=== PATIENT | female | born 1945 | race Caucasian/White ===

== ENCOUNTER → 2018-04-02 | Outpatient (CLI) | payer MEDICARE, OTHER ==
[~2018-04-02] MED LIST: ALAVERT; AVAPRO; CENTRUM; LORAZEPAM; PRILOSEC; SYNTHROID
--- NOTE | 2018-04-02 16:58 | Diagnostic Imaging Report ---
PROCEDURE: Frontal and lateral views of the chest. COMPARISON: Patients [facility], , CHEST 2 VIEWS, 06/13/2015, 11:46. INDICATIONS: COUGH FINDINGS: Lines/tubes: None. Lungs: The lungs are well inflated and grossly clear. There is no evidence of pneumonia or pulmonary edema. Pleura: There is no pleural effusion or pneumothorax. Heart and mediastinum: Cardiac silhouette is unremarkable. Pulmonary vasculature is normal. Mild tortuous aorta. Bones: No acute bony abnormality. IMPRESSION: 1. No acute cardiopulmonary abnormalities. Pepe Zheng M.D. Dictated by: Pepe Zheng M.D. on 04/02/2018 at 17:01 Electronically approved by: Pepe Zheng M.D. on 04/02/2018 at 17:01
== END ==
LOC: RAD 15:48
PROVIDERS: ATTEND Family Medicine
DX: R05 Cough (principal)
CPT/HCPCS: 71046

== ENCOUNTER 2018-05-23 04:22 | Emergency (ER) | payer MEDICARE, OTHER ==
[~2018-05-23] VITALS: Ht 162.6 cm; Wt 81.6 kg
[2018-05-23] MEDS ORDERED: METHYLPREDNISOLONE SOD SUCC 125 MG/2ML VIAL ONE (04:24)
[2018-05-23] MEDS ORDERED: DIPHENHYDRAMINE HCL INJ 50 MG/ML VIAL ONE (04:25)
[2018-05-23] MEDS ORDERED: FAMOTIDINE 20 MG/2 ML VIAL IV ONE (04:25)
[2018-05-23] MEDS ORDERED: DIPHENHYDRAMINE HCL INJ 50 MG/ML VIAL IV ONE ×2 (04:30→06:30)
[2018-05-23] MEDS ORDERED: METHYLPREDNISOLONE SOD SUCC 125 MG/2ML VIAL IV ONE (04:30)
[2018-05-23 04:34] LABS: BASOPHILS % 0.3 % (0.0-1.0); EOSINOPHILS # (AUTO) 0.6 (0.0-0.4); EOSINOPHILS % 5.5 % (0.0-6.0); HEMATOCRIT 37.9 % (34.2-44.1); HEMOGLOBIN 12.2 g/dL (12.0-16.0); LYMPHOCYTES % 25.6 % (18.0-39.1); MEAN CORPUSCULAR HEMOGLOBIN 27.5 pg (28-32); MEAN CORPUSCULAR HGB CONC 32.2 g/dL (31-35); MEAN CORPUSCULAR VOLUME 85.6 fL (81-99); MONOCYTES # (AUTO) 1.1 (0.2-0.8); MONOCYTES % 9.6 % (4.4-11.3); NEUTROPHILS # (AUTO) 6.7 (2.1-6.9); PLATELET COUNT 364 x10e3/uL (140-360); RED BLOOD COUNT 4.43 x10e6/uL (3.6-5.1); RED CELL DISTRIBUTION WIDTH 14.1 % (11.7-14.4)
[2018-05-23 04:42] LABS: INR 0.92; PROTHROMBIN TIME 11.6 seconds (11.9-14.5)
[2018-05-23 04:43] LABS: PARTIAL THROMBOPLASTIN TIME 25.7 seconds (23.8-35.5)
[2018-05-23 04:52] LABS: ALBUMIN 3.3 g/dL (3.5-5.0); ALBUMIN/GLOBULIN RATIO 1.1 (0.8-2.0); ANION GAP 14.1 mmol/L (8-16); CALCIUM 9.1 mg/dL (8.4-10.2); CREATININE, SERUM 0.93 mg/dL (0.57-1.11); POTASSIUM 4.1 mmol/L (3.5-5.1)
[2018-05-23] MEDS ORDERED: LORAZEPAM2 MG PO (05:10)
[2018-05-23] MEDS ORDERED: SYNTHROID125 MCG PO (05:10)
[2018-05-23] MEDS ORDERED: EXFORGE 10-3201 EACH PO (05:10)
[2018-05-23] MEDS ORDERED: SODIUM CHLORIDE 0.9% 250ML 250 ML ONE (05:56)
[2018-05-23] MEDS ORDERED: EPINEPHRINE 0.3 MG/0.3 ML PEN.INJCTR IM STA (07:38)
[2018-05-23] MEDS ORDERED: EPINEPHRINE HCL SYRINGE ONE (07:56)
[2018-05-23] MEDS ORDERED: FAMOTIDINE 20 MG/2 ML VIAL IV SCH (09:00)
== END 2018-05-23 11:46 | disposition home or self-care (01) ==
LOC: ER 04:22
DX: T78.3XXA Angioneurotic edema, initial encounter (principal); I10 Essential (primary) hypertension; E03.9 Hypothyroidism, unspecified; K21.9 Gastro-esophageal reflux disease without esophagitis; M79.7 Fibromyalgia
CPT/HCPCS: 36415; 80053; 85025; 85610; 85730; 86850; 86900; 96374; 96375; 99284; J0171; J1200; J2930; J7050; P9017; 36430

== ENCOUNTER 2018-06-26 10:42 | Emergency (ER) | payer MEDICARE, OTHER ==
[~2018-06-26] VITALS: Ht 162.6 cm; Wt 79.4 kg
[~2018-06-26 10:42] MED LIST changes: +EXFORGE 10-3201 EACH PO; +LORAZEPAM2 MG PO; +SYNTHROID125 MCG PO
[2018-06-26] MEDS ORDERED: SODIUM CHLORIDE 0.9% 1000ML 1,000 ML IV STA (11:13)
[2018-06-26 11:31] LABS: BASOPHILS # (AUTO) 0.1 (0.0-0.1); BASOPHILS % 1.3 % (0.0-1.0); EOSINOPHILS # (AUTO) 0.5 (0.0-0.4); HEMATOCRIT 41.2 % (34.2-44.1); HEMOGLOBIN 13.4 g/dL (12.0-16.0); LYMPHOCYTES # (AUTO) 1.6 (1.0-3.2); LYMPHOCYTES % 20.8 % (18.0-39.1); MEAN CORPUSCULAR HGB CONC 32.5 g/dL (31-35); MEAN CORPUSCULAR VOLUME 86.2 fL (81-99); MONOCYTES # (AUTO) 0.7 (0.2-0.8); MONOCYTES % 9.9 % (4.4-11.3); NEUTROPHILS # (AUTO) 4.6 (2.1-6.9); NEUTROPHILS % 61.6 % (38.7-80.0); PLATELET COUNT 366 x10e3/uL (140-360); RED BLOOD COUNT 4.78 x10e6/uL (3.6-5.1); RED CELL DISTRIBUTION WIDTH 13.4 % (11.7-14.4)
[2018-06-26 11:43] LABS: ALBUMIN/GLOBULIN RATIO 1.1 (0.8-2.0); ANION GAP 17.5 mmol/L (8-16); CALCIUM 10.3 mg/dL (8.4-10.2); CREATININE, SERUM 0.93 mg/dL (0.57-1.11); POTASSIUM 3.5 mmol/L (3.5-5.1)
[2018-06-26 11:55] LABS: CLARITY,URINE SL CLOUDY (CLEAR); COLOR,URINE YELLOW (YELLOW); LEUKOCYTE ESTERASE ,URINE 1+ (NEGATIVE); PROTEIN,URINE DIPSTICK TRACE (NEGATIVE)
[2018-06-26 11:56] LABS: BILIRUBIN,URINE NEGATIVE (NEGATIVE); KETONES,URINE NEGATIVE (NEGATIVE); NITRITE,URINE NEGATIVE (NEGATIVE); URINE UROBILINOGEN 0.2 mg/dL (0.2 - 1)
[2018-06-26 12:13] LABS: BACTERIA,URINE FEW /HPF; EPITHELIAL CELLS,URINE FEW /LPF; RBC,URINE 0-5 /HPF (0-5)
--- NOTE | 2018-06-26 13:16 | Diagnostic Imaging Report ---
EXAM: CT Abdomen and Pelvis WITH contrast INDICATION: \S\RIGHT AND LEFT LOWER QUADRANT PAIN \S\[id number] \S\1230 \S\Y COMPARISON: CT 09/08/2017 TECHNIQUE: Abdomen and pelvis were scanned utilizing a multidetector helical scanner from the lung base to the pubic symphysis after administration of IV contrast. Coronal and sagittal reformations were obtained. Routine protocol was performed. Scan was performed when during portal venous phase. IV CONTRAST: 100 mL of Isovue-370 ORAL CONTRAST: Water COMPLICATIONS: None RADIATION DOSE: Total DLP: 509.6 mGy*cm Estimated effective dose: (DLP x 0.015 x size factor) mSv CTDIvol has been reviewed. It is below the limits set by the Radiation Protocol Committee (RPC). FINDINGS: LINES and TUBES: None. LOWER THORAX: Unremarkable HEPATOBILIARY: Hepatic steatosis. No focal hepatic lesions. No biliary ductal dilation. GALLBLADDER: No radio-opaque stones or sludge. No wall thickening. SPLEEN: No splenomegaly. PANCREAS: No focal masses or ductal dilatation. ADRENALS: No adrenal nodules KIDNEYS/URETERS: Kidneys enhance symmetrically. No hydronephrosis. No cystic or solid mass lesions. No stones. GI TRACT: No abnormal distention, wall thickening, or evidence of bowel obstruction. There are diverticula within the colon without evidence of diverticulitis. Appendix is normal. PELVIC ORGANS/BLADDER: Hysterectomy. No focal bladder wall thickening. LYMPH NODES: No lymphadenopathy. VESSELS: There is mild atherosclerotic disease in the aorta and major arterial branches. PERITONEUM / RETROPERITONEUM: No free air or fluid. BONES: There are degenerative changes in the lumbar spine. Grade 1 anterolisthesis of L4 on L5 without spondylolysis. SOFT TISSUES: Unremarkable. IMPRESSION: 1. No acute abnormalities in the abdomen and pelvis. 2. Colonic diverticulosis. Signed by: DR. Shan Rowley MD on 06/26/2018 1:12 PM
[2018-06-26] MEDS ORDERED: SODIUM CHLORIDE 0.9% 50ML 50 ML ONE (14:55)
[2018-06-26] MEDS ORDERED: IOPAMIDOL 370 MG/ML 200 ML INFUS..BTL INJ ONE (14:55)
[2018-06-26 15:23] VITALS: BP 137/72
== END 2018-06-26 15:44 | disposition home or self-care (01) ==
LOC: ER 10:42
DX: R10.31 Right lower quadrant pain (principal); R10.32 Left lower quadrant pain; R11.0 Nausea; K57.32 Diverticulitis of large intestine without perforation or abscess without bleeding; I10 Essential (primary) hypertension; E03.9 Hypothyroidism, unspecified
CPT/HCPCS: 36415; 74177; 80053; 81001; 83605; 85025; 87086; 99283; J7030; Q9967

== ENCOUNTER 2018-07-13 19:50 | Emergency (ER) | payer MEDICARE, OTHER ==
[~2018-07-13] VITALS: Ht 162.6 cm; Wt 79.4 kg
[2018-07-13] MEDS ORDERED: EPINEPHRINE HCL INJ 1 MG/ML AMP IM ONE (20:15)
[2018-07-13] MEDS ORDERED: METHYLPREDNISOLONE SOD SUCC 125 MG/2ML VIAL IV ONE (20:15)
[2018-07-13] MEDS ORDERED: DIPHENHYDRAMINE HCL INJ 50 MG/ML VIAL IV ONE (20:15)
[2018-07-13] MEDS ORDERED: SODIUM CHLORIDE 0.9% 1000ML 1,000 ML ONE (20:15)
[2018-07-13] MEDS ORDERED: FAMOTIDINE 20 MG/2 ML VIAL IV ONE (20:15)
[2018-07-13] MEDS ORDERED: ONDANSETRON HCL 4 MG ORAL DISINTEGRATING TAB PO ONE (21:45)
== END 2018-07-13 22:12 | disposition home or self-care (01) ==
LOC: FSED 19:50
DX: T78.3XXA Angioneurotic edema, initial encounter (principal); I10 Essential (primary) hypertension
CPT/HCPCS: 99283; J0171; J1200; J2930; J7030

== ENCOUNTER 2018-07-18 13:55 | Emergency (ER) | payer MEDICARE, OTHER ==
[~2018-07-18] VITALS: Ht 162.6 cm; Wt 79.4 kg
[2018-07-18] MEDS ORDERED: DIPHENHYDRAMINE HCL 25 MG CAP PO ONE (14:15)
[2018-07-18] MEDS ORDERED: EPINEPHRINE HCL INJ 1 MG/ML AMP INJ ONE (14:15)
[2018-07-18] MEDS ORDERED: METHYLPREDNISOLONE SOD SUCC 125 MG/2ML VIAL IM ONE (14:15)
[2018-07-18] MEDS ORDERED: XYZAL5 MG PO (16:10)
[2018-07-18] MEDS ORDERED: NASONEX17 GM (16:10)
[2018-07-18] MEDS ORDERED: EPINEPHRINE 11 MG/ML IM (16:10)
[2018-07-18 16:30] VITALS: BP 142/79
== END 2018-07-18 16:55 | disposition home or self-care (01) ==
LOC: FSED 13:55
DX: T78.3XXA Angioneurotic edema, initial encounter (principal); I10 Essential (primary) hypertension
CPT/HCPCS: 99283; J0171; J2930

== ENCOUNTER 2018-07-25 12:44 | Emergency (ER) | payer MEDICARE, OTHER ==
[~2018-07-25] VITALS: Ht 162.6 cm; Wt 75.7 kg
[~2018-07-25 12:44] MED LIST changes: +EPINEPHRINE 11 MG/ML IM; +NASONEX17 GM; +XYZAL5 MG PO
[2018-07-25] MEDS ORDERED: AMLODIPINE BESY10 MG PO (13:18)
[2018-07-25 13:54] VITALS: BP 139/76
== END 2018-07-25 13:56 | disposition home or self-care (01) ==
LOC: FSED 12:44
DX: T78.3XXA Angioneurotic edema, initial encounter (principal); I10 Essential (primary) hypertension
CPT/HCPCS: 99282

== ENCOUNTER 2018-07-25 15:09 | Emergency (ER) | payer MEDICARE, OTHER ==
[~2018-07-25] VITALS: Ht 157.5 cm; Wt 74.8 kg
[~2018-07-25 15:09] MED LIST changes: +AMLODIPINE BESY10 MG PO
[2018-07-25] MEDS ORDERED: EPINEPHRINE 0.3 MG/0.3 ML PEN.INJCTR SC STA (15:26)
[2018-07-25] MEDS ORDERED: FAMOTIDINE 20 MG/2 ML VIAL IV STA (15:26)
[2018-07-25] MEDS ORDERED: DIPHENHYDRAMINE HCL INJ 50 MG/ML VIAL IV PRN (15:30)
[2018-07-25] MEDS ORDERED: DEXAMETHASONE 10MG/ML PF INJ IV ONE (15:30)
[2018-07-25 16:40] VITALS: BP 132/88
== END 2018-07-25 16:47 | disposition home or self-care (01) ==
LOC: FSED 15:09
DX: L50.0 Allergic urticaria (principal)
CPT/HCPCS: 96374; 96375; 96376; 99283

== ENCOUNTER 2018-10-29 07:39 | Emergency (ER) | payer MEDICARE, OTHER ==
[~2018-10-29] VITALS: Ht 162.6 cm; Wt 74.8 kg
[2018-10-29] MEDS ORDERED: EPINEPHRINE HCL INJ 1 MG/ML AMP INJ ONE (08:15)
[2018-10-29] MEDS ORDERED: SODIUM CHLORIDE FLUSH 10 ML SYR INJ PRN (08:15)
[2018-10-29] MEDS ORDERED: METHYLPREDNISOLONE SOD SUCC 125 MG/2ML VIAL IV ONE (08:15)
[2018-10-29] MEDS ORDERED: SODIUM CHLORIDE 0.9% 1000ML 1,000 ML IV ONE (08:15)
--- NOTE | 2018-10-29 09:22 | NUR ---
PT RESTING, VITAL SIGNS STABLE. PT STATED TONGUE STILL SWOLLEN BUT NOT MUCH IT WAS.
[2018-10-29 09:33] VITALS: BP 139/87
== END 2018-10-29 09:40 | disposition home or self-care (01) ==
LOC: FSED 07:39
DX: T78.3XXA Angioneurotic edema, initial encounter (principal); I10 Essential (primary) hypertension
CPT/HCPCS: 99283; J0171; J2930; J7030

== ENCOUNTER 2018-11-20 07:15 | Emergency (ER) | payer MEDICARE, OTHER ==
[~2018-11-20] VITALS: Ht 162.6 cm; Wt 74.8 kg
[2018-11-20] MEDS ORDERED: FAMOTIDINE 20 MG/2 ML VIAL IV STA (07:39)
[2018-11-20] MEDS ORDERED: DIPHENHYDRAMINE HCL INJ 50 MG/ML VIAL IV ONE (07:45)
[2018-11-20] MEDS ORDERED: METHYLPREDNISOLONE SOD SUCC 125 MG/2ML VIAL IV ONE (07:45)
[2018-11-20] MEDS ORDERED: SODIUM CHLORIDE 0.9% 500ML 500 ML IV ONE ×2 (07:45→08:45)
[2018-11-20] MEDS ORDERED: EPINEPHRINE HCL 1:1000 1ML 1 MG/ML AMP IM ONE (07:45)
--- NOTE | 2018-11-20 08:25 | NUR ---
CHECKED ON PT. LIGHT OFF FOR PT COMFORT. STATES HEADACHE, NOTIFIED.
--- NOTE | 2018-11-20 08:35 | NUR ---
PT YELLING AT STAFF, STATES SHE'S UPSET THIS KEEPS HAPPENING. PT STATES SHE RECEIVED NO MEDICINES. WITH MD,PT, RN AND IN ROOM RE-VERIFIED SHOT TO RT DELT AND IV BAG EMPTY WITH LABEL OF PT NAME, TIME AND MEDS. PT NOW STATES SHE REMEMBERS, BUT STATES SHE FEELS NO BETTER IS ANGRY SHE STILL FEELS BADLY. MD AT BEDSIDE WITH PT....
[2018-11-20] MEDS ORDERED: DEXAMETHASONE SOD PHOS 10 MG/1 ML VIAL IV ONE (08:45)
--- NOTE | 2018-11-20 10:00 | NUR ---
swelling significantly decreased to lips. swelling still present. able to speak more definely. pt states she has results from her dr she would like to discuss with dr aguayo. dr aguayo notified.
== END 2018-11-20 10:23 | disposition home or self-care (01) ==
LOC: FSED 07:15
DX: T78.3XXA Angioneurotic edema, initial encounter (principal); I10 Essential (primary) hypertension; E03.9 Hypothyroidism, unspecified; M79.7 Fibromyalgia; K21.9 Gastro-esophageal reflux disease without esophagitis
CPT/HCPCS: 99284; J0171; J1100; J1200; J2930; J7040

== ENCOUNTER 2018-12-03 07:01 | Emergency (ER) | payer MEDICARE, OTHER ==
[~2018-12-03] VITALS: Ht 162.6 cm; Wt 74.8 kg
[2018-12-03] MEDS ORDERED: CETIRIZINE HCL10 MG PO (07:19)
[2018-12-03] MEDS ORDERED: RANITIDINE HCL150 MG (07:19)
[2018-12-03] MEDS ORDERED: ALBUTEROL0.63 MG/3 NEB (07:19)
[2018-12-03] MEDS ORDERED: OMEPRAZOLE40 MG PO (07:19)
[2018-12-03] MEDS ORDERED: ALLEGRA-D 12 H1 EACH PO (07:19)
[2018-12-03] MEDS ORDERED: KETOTIFEN FUMARA (07:19)
[2018-12-03] MEDS ORDERED: BENADRYL25 M1 PO (07:19)
[2018-12-03] MEDS ORDERED: EPINEPHRINE 0.3 MG/0.3 ML PEN.INJCTR IM STA ×2 (07:26→08:24)
[2018-12-03] MEDS ORDERED: FAMOTIDINE 20 MG/2 ML VIAL IV STA (07:26)
[2018-12-03] MEDS ORDERED: DIPHENHYDRAMINE HCL INJ 50 MG/ML VIAL IV ONE (07:30)
[2018-12-03] MEDS ORDERED: SODIUM CHLORIDE FLUSH 10 ML SYR INJ PRN (07:30)
[2018-12-03] MEDS ORDERED: METHYLPREDNISOLONE SOD SUCC 125 MG/2ML VIAL IV ONE (07:30)
[2018-12-03 09:42] VITALS: BP 140/71
== END 2018-12-03 09:51 | disposition home or self-care (01) ==
LOC: FSED 07:01
DX: T78.3XXA Angioneurotic edema, initial encounter (principal)
CPT/HCPCS: 80053; 85025; 99284; J1200; J2930

== ENCOUNTER 2018-12-25 07:52 | Emergency (ER) | payer MEDICARE, OTHER ==
[~2018-12-25] VITALS: Ht 162.6 cm; Wt 74.8 kg
[~2018-12-25 07:52] MED LIST changes: +ALBUTEROL0.63 MG/3 NEB; +ALLEGRA-D 12 H1 EACH PO; +BENADRYL25 M1 PO; +CETIRIZINE HCL10 MG PO; +KETOTIFEN FUMARA; +OMEPRAZOLE40 MG PO; +RANITIDINE HCL150 MG
[2018-12-25] MEDS ORDERED: FAMOTIDINE 20 MG TAB PO ONE (08:15)
[2018-12-25] MEDS ORDERED: DEXAMETHASONE 10MG/ML PF INJ IV ONE (08:15)
[2018-12-25] MEDS ORDERED: EPINEPHRINE HCL 1:1000 1ML 1 MG/ML AMP INJ ONE (08:15)
[2018-12-25] MEDS ORDERED: DEXAMETHASONE 10MG/ML PF INJ INJ ONE (08:30)
== END 2018-12-25 08:55 | disposition home or self-care (01) ==
LOC: FSED 07:52
DX: T78.3XXA Angioneurotic edema, initial encounter (principal); I10 Essential (primary) hypertension
CPT/HCPCS: 99284; J0171

== ENCOUNTER 2019-02-01 11:12 | Emergency (ER) | payer MEDICARE, OTHER ==
[~2019-02-01] VITALS: Ht 162.6 cm; Wt 78.6 kg
[2019-02-01] MEDS ORDERED: SINGULAIR10 MG (11:46)
[2019-02-01] MEDS ORDERED: EPINEPHRINE HCL 1:1000 1ML 1 MG/ML AMP INJ ONE (12:00)
[2019-02-01] MEDS ORDERED: METHYLPREDNISOLONE SOD SUCC 125 MG/2ML VIAL IM ONE (12:00)
[2019-02-01 13:01] VITALS: BP 139/88
== END 2019-02-01 13:05 | disposition home or self-care (01) ==
LOC: FSED 11:12
DX: R21 Rash and other nonspecific skin eruption (principal); I10 Essential (primary) hypertension; K21.9 Gastro-esophageal reflux disease without esophagitis; F41.9 Anxiety disorder, unspecified
CPT/HCPCS: 99283; J0171; J2930

== ENCOUNTER 2019-06-22 09:16 | Emergency (ER) | payer MEDICARE, OTHER ==
[~2019-06-22] VITALS: Ht 162.6 cm; Wt 78.9 kg
[~2019-06-22 09:16] MED LIST changes: +SINGULAIR10 MG
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
--- OUTSIDE RECORDS SUMMARY | 2019-06-22 09:21 | XMS REPORT | Summary of Care ---
Author Author [facility] - Health Organization [facility] - Health Address Unknown Phone Unavailable Care Team Providers Care Coal Carrier Name Role Phone Brent Pierce PCP Reason for Visit * Reason Comments Refill Request Encounter Details Care Team Description Date Type Department Marylou Loyd MD [address] [place] [address] [address] [place], [place] [phone] Refill Request 06/22/2019 Refill [facility] Allergy & Immunology- [facility]ty Ctr [address] [place] [phone] Allergies Comments Active Allergy Reactions Severity Noted Date Ampicillin Diarrhea Medium 11/21/2015 Joint swelling Ciprofloxacin Hcl Swelling 04/01/2017 documented as of this encounter (statuses as of 06/22/2019) Medications End Date Status Medication Sig Dispensed [...] Take 20 mg by 0 mouth. Active predniSONE 20 mg Take 2 2 [...] then 250 mg days 2 to 5. Active RANITIDINE 150 mg tablet TAKE 1 TABLET 30 tablet 3 BY MOUTH 9 EVERYDAY AT BEDTIME 06/22/2019 Discontinued ranitidine (ZANTAC) 150 Take 1 tablet 60 tablet 3 mg tablet by mouth at 9 bedtime. 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 & B Present [id number] FRANCISCO SATSUMAJENNY [address] Medicare Supplement [place] [id number] 2019-Cam saleem documented as of this encounter
[2019-06-22] MEDS ORDERED: AMLODIPINE BESYL5 MG PO (09:57)
[2019-06-22] MEDS ORDERED: CETIRIZINE HCL5 MG (10:01)
[2019-06-22] MEDS ORDERED: ALLEGRA ALLERG180 MG (10:01)
[2019-06-22] MEDS ORDERED: VITAMIN C500 M2 (10:18)
[2019-06-22] MEDS ORDERED: ENSURE PLUS237 ML (10:18)
[2019-06-22] MEDS ORDERED: EPINEPHRINE 0.3 MG/0.3 ML PEN.INJCTR IM STA (10:18)
[2019-06-22] MEDS ORDERED: METHYLPREDNISOLO4 M1 (10:18)
[2019-06-22] MEDS ORDERED: PREDNISONE20 MG PO ×2 (10:18→12:27)
[2019-06-22] MEDS ORDERED: CENTRUM SILVER1 EAC3 (10:18)
[2019-06-22] MEDS ORDERED: METHYLPREDNISOLONE SOD SUCC 125 MG/2ML VIAL IV ONE (10:30)
[2019-06-22] MEDS ORDERED: DIPHENHYDRAMINE HCL INJ 50 MG/ML VIAL IV ONE (10:30)
[2019-06-22] MEDS ORDERED: EPINEPHRINE HCL 1:1000 1ML 1 MG/ML AMP ONE (10:31)
[2019-06-22] MEDS ORDERED: DIPHENHYDRAMINE HCL INJ 50 MG/ML VIAL ONE (10:31)
[2019-06-22] MEDS ORDERED: METHYLPREDNISOLONE SOD SUCC 125 MG/2ML VIAL ONE (10:31)
[2019-06-22] MEDS ORDERED: PEPCID20 MG PO (12:27)
[2019-06-22] MEDS ORDERED: CEFDINIR300 MG PO (12:27)
[2019-06-22 13:14] VITALS: BP 145/97
== END 2019-06-22 12:54 | disposition home or self-care (01) ==
LOC: FSED 09:16
DX: T78.3XXA Angioneurotic edema, initial encounter (principal); J01.00 Acute maxillary sinusitis, unspecified
CPT/HCPCS: 96372; 96374; 96375; 99284; J0171; J1200; J2930

== ENCOUNTER 2019-06-29 20:34 | Emergency (ER) | payer MEDICARE, OTHER ==
[~2019-06-29] VITALS: Ht 162.6 cm; Wt 78.9 kg
[~2019-06-29 20:34] MED LIST changes: +ALLEGRA ALLERG180 MG; +AMLODIPINE BESYL5 MG PO; +CEFDINIR300 MG PO; +CENTRUM SILVER1 EAC3; +CETIRIZINE HCL5 MG; +ENSURE PLUS237 ML; +METHYLPREDNISOLO4 M1; +PEPCID20 MG PO; +PREDNISONE20 MG PO; +VITAMIN C500 M2
--- OUTSIDE RECORDS SUMMARY | 2019-06-29 20:37 | XMS REPORT | Summary of Care ---
Author Author [facility] - Health Organization [facility] - Health Address Unknown Phone Unavailable Care Team Providers Care Gauge And Weigh Machine Operator Name Role Phone Brent Pierce PCP Encounter Details Care Team Description Date Type Department Marylou Loyd MD [address] [place], [place] [address] 06/22/2019 Patient Secure [facility] Allergy & Msg Immunology-[facility] Mult[facility]ty Ctr [address] [place] [phone] Allergies Comments Active Allergy Reactions Severity Noted Date Ampicillin Diarrhea Medium 11/21/2015 Joint swelling Ciprofloxacin Hcl Swelling 04/01/2017 documented as of this encounter (statuses as of 06/23/2019) Medications End Date Status Medication Sig Dispensed [...] 3 BY MOUTH 9 EVERYDAY AT BEDTIME documented as of this encounter (statuses as of 06/23/2019) Active Problems Problem Noted Date Angioedema, subsequent [...] as of this encounter (statuses as of 06/23/2019) Social History Date Tobacco Use Types Packs/Day [...] Date Type Specialty Marylou Loyd MD [address] [place] [address] [phone] 08/11/2019 Office Visit Allergy & Immunology: Internal [...] Dates Group Medicare MEDICARE MEDICARE xxxxxxxxxxx 2010- [phone] [address] & B Present [id number] JENNY HINKLE [address] Medicare Supplement [place] [id number] 2019-Cam saleem documented as of this encounter
--- OUTSIDE RECORDS SUMMARY | 2019-06-29 20:38 | XMS REPORT | Summary of Care ---
Author Author [facility] - Health Organization [facility] - Health Address Unknown Phone Unavailable Care Team Providers Care Utility Teller Name Role Phone Brent Pierce PCP Encounter Details Care Team Description Date Type Department Marylou Loyd MD [address] [place], [place] [address] 06/22/2019 Patient Secure [facility] Allergy & Msg Immunology-[facility] [address] [place] [phone] Allergies Comments Active Allergy Reactions Severity Noted [...] Sicca 01/01/2016 Abnormal TSH 11/23/2015 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/21/2015 alf current use of systemic steroids 11/21/2015 Generalized [...] Date Type Specialty Marylou Loyd MD [address] [place] [address] [phone] 08/11/2019 Office Visit Allergy & Immunology: Internal [...] Dates Group Medicare MEDICARE MEDICARE xxxxxxxxxxx 2010- [phone] [address] & B Present [id number] JENNY HINKLE [id number] Medicare Supplement [place] [id number] 2019-Cam saleem documented as of this encounter
== END 2019-06-29 21:15 | disposition home or self-care (01) ==
LOC: FSED 20:34
DX: L50.0 Allergic urticaria (principal); T36.1X4A Poisoning by cephalosporins and other beta-lactam antibiotics, undetermined, initial encounter
CPT/HCPCS: 99282

== ENCOUNTER 2019-08-15 11:32 | Emergency (ER) | payer MEDICARE, OTHER ==
[~2019-08-15] VITALS: Ht 162.6 cm; Wt 78.9 kg
--- OUTSIDE RECORDS SUMMARY | 2019-08-15 11:35 | XMS REPORT | Summary of Care ---
Author Author [facility] - Health Organization [facility] - Health Address Unknown Phone Unavailable Care Team Providers Care Beam Press Operator Name Role Phone Brent Pierce PCP Reason for Visit * Reason Comments Assessment Allergic reaction Rash Encounter Details Care Team Description Date Type Department Marylou Loyd MD [address] [place] [address] [address] [place], [place] [phone] Assessment; Allergic reaction; Rash 06/30/2019 Telephone [facility] Allergy & Immunology- Multispecialty Ctr [address] [place] [phone] Allergies Comments Active Allergy Reactions Severity Noted Date Ampicillin Diarrhea Medium 11/21/2015 Joint swelling Ciprofloxacin Hcl Swelling 04/01/2017 documented as of this encounter (statuses as of 06/30/2019) Medications End Date Status Medication Sig Dispensed [...] as of this encounter (statuses as of 06/30/2019) Active Problems Problem Noted Date Angioedema, subsequent [...] Sicca 01/01/2016 Abnormal TSH 11/23/2015 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/21/2015 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 & B Present [id number] JENNY HINKLE [id number] Medicare Supplement [employer] [place] [id number] 2019-P YOLIS delatorreent documented as of this encounter
--- OUTSIDE RECORDS SUMMARY | 2019-08-15 11:35 | XMS REPORT | Summary of Care ---
Author Author [facility] - Health Organization [facility] - Health Address Unknown Phone Unavailable Care Team Providers Care Senior Vice President Name Role Phone Brent Pierce PCP Encounter Details Care Team Description Date Type Department Marylou Loyd MD [address] [place], [place] [address] 06/30/2019 Patient Secure [facility] Allergy & Msg Immunology-[facility] [address] [place] [phone] Allergies Comments Active Allergy Reactions Severity Noted [...] Sicca 01/01/2016 Abnormal TSH 11/23/2015 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/21/2015 [facility] current use of systemic steroids 11/21/2015 Generalized [...] Date Type Specialty Marylou Loyd MD [address] [place] [address] [phone] 08/11/2019 Office Visit Allergy & Immunology: Internal [...] Dates Group Medicare MEDICARE MEDICARE xxxxxxxxxxx 2010- [phone] [address] & B Present [id number] JENNY HINKLE [id number] Medicare Supplement [place] [id number] 2019-Cam saleem documented as of this encounter
--- OUTSIDE RECORDS SUMMARY | 2019-08-15 11:35 | XMS REPORT | Summary of Care ---
Author Author [facility] - Health Organization [facility] - Health Address Unknown Phone Unavailable Care Team Providers Care Saddle Lining Stitcher Name Role Phone Brent Pierce PCP Encounter Details Care Team Description Date Type Department Doctor Unassigned, [address] [place] [address] 07/01/2019 Orders Only [facility] [address] [place] [address] Allergies Comments Active Allergy Reactions Severity Noted Date Ampicillin Diarrhea Medium 11/21/2015 Joint swelling Ciprofloxacin Hcl Swelling 04/01/2017 documented as of this encounter (statuses as of 07/01/2019) Medications End Date Status Medication Sig Dispensed [...] Active diphenhydrAMINE Take 2 10 capsule 0 03/06/201 (BENADRYL) 25 mg capsules by 9 capsuleIndications: [...] as of this encounter (statuses as of 07/01/2019) Active Problems Problem Noted Date Angioedema, subsequent [...] Sicca 01/01/2016 Abnormal TSH 11/23/2015 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/21/2015 prison current use of systemic steroids 11/21/2015 Generalized OA 11/21/2015 Chronic fatigue 11/21/2015 documented as of this encounter (statuses as of 07/01/2019) Social History Date Tobacco Use Types Packs/Day [...] Loyd MD [address] [place] [address] [phone] 07/01/2019 Office Visit Allergy & Immunology: Internal Medicine Marylou Loyd MD [address] [place] [address] [phone] 08/11/2019 Office Visit Allergy & Immunology: Internal [...] Completed 11/21/2015 documented as of this encounter Procedures Comments Procedure Name Priority Date/Time Associated Diagnosis NO SHOW OR MISSED Routine 07/01/2019 APPOINTMENT POLICY 9:34 AM CDT ACKNOWLEDGEMENT documented in this encounter Results Not on filedocumented in this encounter Insurance Type Payer Benefit Subscriber ID Effective Phone Address Plan / Dates Group Medicare MEDICARE MEDICARE xxxxxxxxxxx 2010- [phone] [address] & B Present [id number] JENNY HINKLE [id number] Medicare Supplement [place] [id number] 2019-P YOLIS saleem documented as of this encounter
--- OUTSIDE RECORDS SUMMARY | 2019-08-15 11:35 | XMS REPORT | Summary of Care ---
Author Author [facility] - Health Organization [facility] - Health Address Unknown Phone Unavailable Care Team Providers Care Machinery Cleaner Name Role Phone Brent Pierce PCP Reason for Visit * Reason Comments Follow-up Rash Encounter Details Care Team Description Date Type Department Marylou Loyd MD [address] [place] [address] [address] [place], [place] [id number] Acute dermatitis (Primary Dx) 07/01/2019 Office Visit [facility] Allergy & Immunology- [facility]ty Ctr [address] [place] [phone] Allergies Comments Active Allergy Reactions Severity Noted Date Ampicillin Diarrhea Medium 11/21/2015 Joint swelling Ciprofloxacin Hcl Swelling 04/01/2017 documented as of this encounter (statuses as of 07/03/2019) Medications End Date Status Medication Sig Dispensed [...] mg by 0 mouth daily. Active fexofenadine (RIC Take 180 mg 0 ALLERGY) 180 mg [...] mouth 9 Angioedema, subsequent daily. encounter Active RANITIDINE 150 mg tablet TAKE 1 TABLET 30 tablet 3 BY MOUTH 9 EVERYDAY AT BEDTIME 07/03/2019 Discontinued azithromycin 250 mg Take 1 tablet 1 Package 0 tabletIndications: Acute by mouth 9 bacterial sinusitis daily. Take 500 mg day 1, then 250 mg days 2 to 5. 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 11/21/2015 Generalized OA 11/21/2015 Chronic fatigue 11/21/2015 documented as of this encounter (statuses as of 07/03/2019) Social History Date Tobacco Use Types Packs/Day [...] Signs Reading Time Taken Comments Vital Sign 113/67 07/01/2019 9:46 AM CDT Blood Pressure 81 07/01/2019 9:41 AM CDT Pulse 36.7 C (98.1 F) 07/01/2019 9:41 AM CDT Temperature 22 07/01/2019 9:41 AM CDT Respiratory Rate 100% 07/01/2019 9:41 AM CDT Oxygen Saturation - - Inhaled Oxygen Concentration 81.8 kg (180 lb 6.4 oz) 07/01/2019 9:41 AM CDT Weight 162.6 cm (5' 4") 07/01/2019 9:41 AM CDT Height 30.97 07/01/2019 9:41 AM CDT Body Mass Index documented in this encounter Progress Notes * Noy Guerrero MBBS - 07/01/2019 10:00 AM CDT ALLERGY AND IMMUNOLOGY CLINIC NOTE CC: Chronic non allergic rhinitis, Idiopathic angioedema + Urticaria HPI: Kayla Degroot is a 73 year old female with PMH of HTN, HLD, Hypothyroidism, GE RD, chronic non allergic rhinitis, idiopathic urticaria/ angioedema is seen in t he clinic today for: She was seen in allergy clinic on 06/14/2019 and was prescribed Z- pack for bacte rial sinusitis which she took. She was supposed to see ENT doctor, but developed left (half) tongue swelling on 06/21/2019 - so went to the ER and was given epin ephrine injection, sent home on prednisone PO X 6 days and Cefdinir 300 mg BID X 7 days. On 06/28/2019 after she took her last (14 th dose) Cefdinir tablet- a few hours later- she broke out into hives on her right arm/ arm pit that resolved a fter an hour, continuing to have outbreaks of hives on her arms/ upper body and lower extremitis since then. The rash on her lower extremities - is different fr om her hives- not as itchy, not resolving, initially is raised (papular)- but th en becomes macular erythematous circular lesions measuring 3-4 cm in diameter, s ome lesions have central clearing, new lesions are appearing. Endorsed generalized fatigue, tremors and weight gain- which she attributes to t he steroids. Denied any fever, chills, joint pain, SOB, chest pain, abdominal pa in. Of note, the last time she had angioedema/ urticaria was in 01/2019. Her sinusiti s/ rhinitis symptoms are controlled, but occasionally has some pain/ popping sen sation in her right ear/ tympanic membrane. Medications: Current Outpatient Medications Medication Sig Dispense Refill RANITIDINE 150 mg tablet TAKE 1 TABLET BY MOUTH EVERYDAY AT BEDTIME 30 table t 3 azithromycin 250 mg tablet Take 1 tablet by mouth daily. Take 500 mg day 1, then 250 mg days 2 to 5. 1 Package 0 montelukast (SINGULAIR) 10 mg tablet Take 1 tablet by mouth daily. 60 tablet 2 methylPREDNISolone (MEDROL, HOSSEIN,) 4 mg tablets Take by mouth SEE-INSTRUCTIO NS. follow package directions 21 Each 1 diphenhydrAMINE (BENADRYL) 25 mg capsule Take 2 capsules by mouth as needed for Allergies. Take 2 capsules at the first signs of tongue, lip, or eye swellin g 10 capsule 0 predniSONE 20 mg tablet Take 2 tablets by mouth as needed (swelling). 2 tabl et 3 amLODIPine 10 mg tablet Take 5 mg by mouth daily. Cetirizine 10 mg capsule Take 20 mg by mouth. fexofenadine (RIC ALLERGY) 180 mg tablet Take 180 mg [...] capsule Take 20 mg by mouth daily. No current facility-administered medications for this visit. 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 HIV, Quantiferon TB also negative. cam zamudio reports intermittant swelling but no obvious swelling on exam so far (2016). cam zamudio tried Plaquenil for a few months, but stopped as she felt is caused GI upset a nd dryness of mouth. Family History Problem Relation Age of Onset Cancer Sister breast cancer Cancer Sister breast cancer Cancer Brother lung cancer s/p smoking Cancer Father prostate cancer Social History Socioeconomic History Marital status: Spouse name: Not on file Number of children: Not on file Years of education: Not on file Highest education level: Not on file Occupational History Not on file Social Needs Financial resource strain: Not on file Food insecurity: Worry: Not on file Inability: Not on file Transportation needs: Medical: Not on file Non-medical: Not on file Tobacco Use Smoking status: Former Smoker Packs/day: 1.00 Years: 40.00 Pack years: 40.00 Types: Cigarettes Last attempt to quit: 11/21/1989 Years since quittin.6 Smokeless tobacco: Never Used Substance and Sexual Activity Alcohol use: No Alcohol/week: 0.0 oz Drug use: No Sexual activity: Not on file Lifestyle Physical activity: Days per week: Not on file Minutes per session: Not on file Stress: Not on file Relationships Social connections: Talks on phone: Not on file Gets together: Not on file Attends lutheran service: Not on file Active member of club or organization: Not on file Attends meetings of clubs or organizations: Not on file Relationship status: Not on file Intimate partner violence: Fear of current or ex partner: Not on file Emotionally abused: Not on file Physically abused: Not on file Forced sexual activity: Not on file Other Topics Concern Not on file Social History Narrative Not on file REVIEW OF SYSTEMS Constitutional: good general health, well developed, well nourished Eyes: + itching, - redness, - swelling, - discharge and - change in vision Ears: - ear pain, - discharge, - infection, - ringing and - hearing loss Nose: - clear rhinorrhea, - congestion, - epistaxis, - headaches, - itching, - p ost nasal drip, - purulent rhinorrhea and - sneezing Mouth/Throat: - hoarseness, - throat itching, - throat soreness, - throat swelli ng and - tongue swelling Cardiovascular: - chest pain, - palpitations and - difficulty lying flat Respiratory: - cough, - sputum, - blood, - wheezing, - short of breath, - chest tightness and - chest pain Gastrointestinal: - change in appetite, - nausea, - vomiting, - indigestion, - d iarrhea and - constipation Skin: + hives, + itching and + rash Hem/Lymph: -bruising, -chills, -fever Neuro: -ataxia, -dizziness and -fainting Psych: -behavior changes, -behavior problems, -confusion and -delusions PHYSICAL EXAM Temp: [36.7 C (98.1 F)] Pulse: [81] Resp: [22] BP: (113-132)/(67-73) General: alert, oriented, no apparent distress, appearing age appropriate. Head: normocephalic, without obvious abnormality Eyes: anicteric sclera, pupils are equally round and reactive to light, extraocu lar movements are intact. Ears: external ears normal, Right ear canal: tympanic membrane normal Nose: nares normal, septum midline, mucosa normal Oropharynx: normal, clear without erythema or exudate. Neck: Supple, no lymphadenopathy Cardiovascular: regular rate and rhythm, no murmur, peripheral pulses palpable a nd normal. Lungs lungs clear to auscultation bilaterally with good air movement, no wheezes or crackles. Abdomen: abdomen soft, non-tender, nondistended Lymphatic: non-palpable nodes in neck, clavicular regions Extremities: no cyanosis, no edema, warm and well perfused Skin: skin color, texture, and turgor are normal, non blanching erythematous mac ules on the bilateral lower extremities, some of the lesions have central cleari ng. Neurologic: normal gait and station Psychiatric: alert, oriented, with appropriate affect ASSESSMENT/PLAN # B/L LE rash- likely drug (Cefdinir) related, pending skin biopsy results # Chronic Idiopathic Urticaria + Angioedema # Chronic non allergic rhinosinusitis Previous episode of idiopathic urticaria + angioedema was in 01/2019. She was giv en a course of Z pack on 06/14/2019 for bacterial sinusitis, then had an episode of left tongue swelling (angioedema) on 06/21/2019. She was given epinephrine inj ection, prednisone, and Cefdinir (for non resolving bacterial sinusitis). A few hours after she finished her last does (14th dose) of Cefdinir with a rash on he r bilateral extremities - which is very different from her typical hives rash. - Punch biopsy of lower extremity rash - Advised to see ENT (for continued right ear pain/ popping) - c/w montelukast 10 mg daily - c/w ranitidine 150 mg QHS - c/w cetrizine 10 mg QPM and ric 180 mg Q AM - c/w flonase 2 SEN daily, patient reported that the vaseline QHS did not help w ith the epistaxis so uses flonase for 6-7 days and then gives a break for 2-3 da ys. FOR SWELLING ATTACKS: ? Take Prednisone 40mg and Benadryl 50mg all at once at first sign of swelling w ith no further doses If swelling does not improve, go to ER RTC in 2 weeks Noy Guerrero Internal Medicine PGY-3 [place] Team Pager # [phone] * Lashon Aceves MA - 07/01/2019 10:00 AM CDT Kayla Degroot is a 73 year old female Chief Complaint Patient presents with Follow-up Rash documented in this encounter Plan of Treatment Care Team Description Date Type Specialty Marylou Loyd MD [address] [facility] [address] [place] [id number] 07/14/2019 Office Visit Allergy & Immunology: Internal Medicine Marylou Loyd MD [address] [facility] [address] [place] [address] [phone] 08/11/2019 Office Visit Allergy & Immunology: Internal Medicine Date/Time Name Type Priority Associated Diagnoses 07/01/2019 2:17 PM CDT SURGICAL PATHOLOGY EXAM LAB Routine Acute dermatitis Health Maintenance Due Date Last Done Comments [...] in this encounter Visit Diagnoses Diagnosis Acute dermatitis - Primary Contact dermatitis and other eczema, due to unspecified cause documented in this encounter Insurance Type Payer Benefit Subscriber ID Effective Phone Address Plan / Dates Group Medicare MEDICARE MEDICARE xxxxxxxxxxx 2010- [phone] Present [id number] [place] [id number] Medicare Supplement [employer] [place] [id number] 2019-Cam saleem documented as of this encounter
--- OUTSIDE RECORDS SUMMARY | 2019-08-15 11:36 | XMS REPORT | Summary of Care ---
Author Author [facility] - Health Organization [facility] - Health Address Unknown Phone Unavailable Care Team Providers Care Electronic Page Makeup System Operator Name Role Phone Brent Pierce PCP Reason for Visit * Reason Comments Results Encounter Details Care Team Description Date Type Department Marylou Loyd MD [address] [place], [place] [address] Results 07/09/2019 Telephone [facility] Allergy & Immunology- Multispecialty Ctr [address] [place] [address] Allergies Comments Active Allergy Reactions Severity Noted Date Ampicillin Diarrhea Medium 11/21/2015 Leukocytoclastic vasculitis Cefdinir Rash 07/06/2019 Joint swelling Ciprofloxacin Hcl Swelling 04/01/2017 documented as of this encounter (statuses as of 07/13/2019) Medications End Date Status Medication Sig Dispensed [...] as of this encounter (statuses as of 07/13/2019) Active Problems Problem Noted Date Angioedema, subsequent [...] as of this encounter (statuses as of 07/13/2019) Social History Date Tobacco Use Types Packs/Day [...] filedocumented in this encounter Plan of Treatment Health Maintenance Due Date Last Done Comments [...] Dates Group Medicare MEDICARE MEDICARE xxxxxxxxxxx 2010- [phone] [address] Present [id number] [place] [id number] Medicare Supplement [place] [id number] 2019-Cam saleem documented as of this encounter
--- OUTSIDE RECORDS SUMMARY | 2019-08-15 11:36 | XMS REPORT | Summary of Care ---
Author Author [facility] - Health Organization [facility] - Health Address Unknown Phone Unavailable Care Team Providers Care Technical Intern Name Role Phone Brent Pierce PCP Reason for Visit * Reason Comments Follow-up Rash Encounter Details Care Team Description Date Type Department Marylou Loyd MD [address] [place] [address] [address] [place], [place] [address] Acute dermatitis (Primary Dx) 07/01/2019 Office Visit [facility] Allergy & Immunology- Multispecialty Ctr [address] [place] [phone] Allergies Comments Active Allergy Reactions Severity Noted [...] Sicca 01/01/2016 Abnormal TSH 11/23/2015 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/21/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/21/2015 Generalized [...] file Gets together: Not on file Attends adventism service: Not on file Active member of [...] 2 weeks Noy Guerrero Internal Medicine PGY-3 [place] Team Pager # [phone] * Lashon Aceves MA - 07/01/2019 10:00 AM CDT Kayla Degroot is a 73 year old female Chief Complaint Patient presents with Follow-up Rash documented in this encounter Plan of Treatment Care Team Description Date Type Specialty [facility]lou Loyd MD [address] [facility] [address] [place] [id number] 07/14/2019 Office Visit Allergy & Immunology: Internal Medicine Marylou Loyd MD [address] [facility] [address] [address] [place] [address] [phone] 08/11/2019 Office Visit Allergy & Immunology: Internal [...] Dates Group Medicare MEDICARE MEDICARE xxxxxxxxxxx 2010- [phone] [address] Present [id number] [place] [id number] Medicare Supplement [employer] [place] [id number] 2019-Cam saleem documented as of this encounter
--- OUTSIDE RECORDS SUMMARY | 2019-08-15 11:36 | XMS REPORT | Summary of Care ---
Author Author [facility] - Health Organization [facility] - Health Address Unknown Phone Unavailable Care Team Providers Care Signs Cleaner Name Role Phone Brent Pierce PCP Reason for Visit * Reason Comments Follow-up Rash Encounter Details Care Team Description Date Type Department Marylou Loyd MD [address] [place] [address] [phone] Acute dermatitis (Primary Dx); Adverse reaction to drug, initial encounter 07/01/2019 Office Visit [facility] Allergy & Immunology- Multispecialty Ctr [address] [place] [address] Allergies Comments Active Allergy Reactions Severity Noted Date Ampicillin Diarrhea Medium 11/21/2015 Leukocytoclastic vasculitis Cefdinir Rash 07/06/2019 Joint swelling Ciprofloxacin Hcl Swelling 04/01/2017 documented as of this encounter (statuses as of 07/09/2019) Medications End Date Status Medication Sig Dispensed [...] as of this encounter (statuses as of 07/09/2019) Active Problems Problem Noted Date Angioedema, subsequent [...] Sicca 01/01/2016 Abnormal TSH 11/23/2015 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/21/2015 half-way current use of systemic steroids 11/21/2015 Generalized OA 11/21/2015 Chronic fatigue 11/21/2015 documented as of this encounter (statuses as of 07/09/2019) Social History Date Tobacco Use Types Packs/Day [...] Progress Notes * Marylou Loyd MD - 07/01/2019 10:00 AM CDT I have seen, examined and discussed this patient with Dr. Talbot. The manag ement plan was discussed and I agree with Dr. Talbot's note with the followi ng additions and exceptions. Her rash appears vasculitic and unlike previous episodes of hives and swelling. Concern for possible UV versus drug eruption related to cefdinir. After informed written consent was obtained, using chlorhexadine for cleansing a nd 1% Lidocaine for anesthetic, with sterile technique 2 4 mm punch biopsies we re obtained from her L thigh of the lesions. Hemostasis was obtained by pressure and wound was sutured. Dressing is applied, and wound care instructions provide d. Be alert for any signs of cutaneous infection. The specimens were labeled and sent to pathology for evaluation. The procedure was well tolerated without comp lications. She did feel slightly lightheaded after the first punch, but resolved after laying patient back and drinking some water. ICD-10-CM ICD-9-CM 1. Acute dermatitis L30.9 692.9 2. Adverse reaction to drug, initial encounter T50.905A E947.9 Marylou Loyd MD Allergy/Immunology 07/09/2019 * Noy Guerrero MBBS - 07/01/2019 10:00 AM CDT ALLERGY AND IMMUNOLOGY CLINIC NOTE CC: Chronic non allergic rhinitis, Idiopathic angioedema + Urticaria HPI: Kayla Degroot is a 73 year old female with PMH of HTN, HLD, Hypothyroidism, GE RD, chronic non allergic rhinitis, idiopathic urticaria/ angioedema is seen in t clinic today for: She was seen in [...] and weight gain- which she attributes to [facility] steroids. Denied any fever, chills, joint pain, [...] obvious swelling on exam so far (2016). norma zamudio tried Plaquenil for a few [...] file Gets together: Not on file Attends advent service: Not on file Active member of [...] 2 weeks Noy Guerrero Internal Medicine PGY-3 [place] Team Pager # [phone] * Lashon Aceves MA - 07/01/2019 10:00 AM CDT Kayla Degroot is a 73 year old female Chief Complaint Patient presents with Follow-up Rash documented in this encounter Plan of Treatment Health [...] Comments Procedure Name Priority Date/Time Associated Diagnosis SURGICAL PATHOLOGY EXAM Routine 07/01/2019 Acute dermatitis 2:17 PM CDT DERMATOPATHOLOGY TISSUE Routine 07/01/2019 EXAM documented in this encounter Results * SURGICAL PATHOLOGY EXAM (07/01/2019 2:17 PM CDT) Case Report Surgical [facility] Pathology SERVICES Case: [id number] Authorizing Provider:Marylou Loyd MD Collected: 07/01/2019 1417 Ordering Location: [facility] Allergy &Received: 07/01/2019 1418 [facility] Pathologist: Meng Zamora MD Specimen:THIGH, 4 mm punch bx Final Diagnosis A. SKIN, LOWER EXTREMITY, [facility] Electronically PUNCH BIOPSY: SERVICES signed by Sera, - DERMAL EDEMA AND RARE Meng Arana MD on INTERSTITIAL NEUTROPHILS 07/06/2019 at 10:56 - DEEPER LEVELS EXAMINED AM - NO FUNGAL ORGANISMS IDENTIFIED BY PAS STAIN - SEE COMMENT I have personally reviewed all specimens/slides and agree with all statements made by residents, fellows or pathologist assistants whose name(s) may appear on this report. Final Diagnosis The differential diagnosis [facility] Comment includes urticaria or SERVICES drug-induced. No leukocytoclastic vasculitis identified. All controls show appropriate reactivity. This case has been reviewed by Dr. Lachelle Haley, who concurs with the diagnosis Clinical 73 year old with h/o [facility] Information idiopathic angioderma with 4 SERVICES day history of pruritic annular patches with raised borders and some with central clearing 6 days into cefdinir course. Concern for possible vasculitis Gross Specimen A is received in [facility] Description formalin labelled with the SERVICES patient s name, number 5 tissue, 4 mm punch biopsy and consists of a single real light brown skin punch (0.4 x 0.3 x 0.2 cm). The margin is inked blue and the skin punch is submitted on edge in toto in a biopsy tissue bag in A1. JENNY Pruitt (ASCP)cm Embedded Images [facility] SERVICES Specimen Tissue - THIGH Performing Organization Address City/State/Zipcode Phone Number [facility] CLIA: [id number], [address] [place] [address] [facility] documented in this encounter Visit Diagnoses Diagnosis Acute dermatitis - Primary Contact dermatitis and other eczema, due to unspecified cause Adverse reaction to drug, initial encounter documented in this encounter Insurance Type Payer Benefit Subscriber ID Effective Phone Address Plan / Dates Group Medicare MEDICARE MEDICARE xxxxxxxxxxx 2010- [phone] [address] B Present [id number] [place] [id number] Medicare Supplement [employer] [place] [id number] 2019-P YOLIS saleem documented as of this encounter
[2019-08-15] MEDS ORDERED: FAMOTIDINE 20 MG TAB ONE (11:42)
[2019-08-15] MEDS ORDERED: EPINEPHRINE HCL 1:1000 1ML 1 MG/ML AMP ONE ×2 (11:42→12:21)
[2019-08-15] MEDS ORDERED: EPINEPHRINE HCL 1:1000 1ML 1 MG/ML AMP INJ ONE ×2 (11:45→12:30)
[2019-08-15] MEDS ORDERED: FAMOTIDINE 20 MG TAB PO ONE (11:45)
[2019-08-15] MEDS ORDERED: PREDNISONE 20 MG TAB PO ONE (11:45)
[2019-08-15] MEDS ORDERED: PREDNISONE 20 MG TAB ONE (11:54)
[2019-08-15] MEDS ORDERED: DIPHENHYDRAMINE HCL 25 MG CAP PO ONE (12:15)
[2019-08-15 14:20] VITALS: BP 142/79
== END 2019-08-15 14:25 | disposition home or self-care (01) ==
LOC: FSED 11:32
DX: L50.9 Urticaria, unspecified (principal)
CPT/HCPCS: 99283; J0171; J7512

== ENCOUNTER → 2019-09-16 | Outpatient (CLI) | payer MEDICARE, OTHER ==
--- NOTE | 2019-09-16 12:24 | Diagnostic Imaging Report ---
EXAMINATION: CHEST 2 VIEWS INDICATION: Cough COMPARISON: None FINDINGS: LINES/TUBES:None LUNGS:The lungs are well-inflated. No focal consolidation or pulmonary edema. PLEURA:No pleural effusion or pneumothorax. MEDIASTINUM:The cardiomediastinal silhouette appears normal in size and shape. BONES/SOFT TISSUES:No acute osseous injury. ABDOMEN:No free air under the diaphragm. IMPRESSION: No focal pneumonia or pulmonary edema. Signed by: Kady Michelle MD on 09/16/2019 12:20 PM
== END ==
LOC: RAD 11:14
DX: R05 Cough (principal)
CPT/HCPCS: 71046

== ENCOUNTER 2019-12-21 10:46 | Emergency (ER) | payer MEDICARE, OTHER ==
[~2019-12-21] VITALS: Ht 167.6 cm; Wt 81.4 kg
--- OUTSIDE RECORDS SUMMARY | 2019-12-21 10:49 | XMS REPORT | Summary of Care ---
Author Author [facility] - Health Organization [facility] - Health Address Unknown Phone Unavailable Care Team Providers Care Counting Machine Operator Name Role Phone Brent Pierce PCP Encounter Details Care Team Description Date Type Department Doctor Unassigned, [place] [address] [place] [address] 11/17/2019 Orders Only [facility] [address] [place] [address] Allergies Comments Active Allergy Reactions Severity Noted Date Ampicillin Diarrhea Medium 11/21/2015 Leukocytoclastic vasculitis Cefdinir Rash 07/06/2019 Joint swelling Ciprofloxacin Hcl Swelling 04/01/2017 documented as of this encounter (statuses as of 11/17/2019) Medications End Date Status Medication Sig Dispensed [...] Take 20 mg by 0 mouth. Active RANITIDINE 150 mg tablet TAKE 1 TABLET 30 tablet 3 BY MOUTH 9 EVERYDAY AT BEDTIME Active predniSONE 20 mg Take 2 2 tablet 3 tabletIndications: tablets by 9 Angioedema, subsequent mouth as encounter needed (swelling). Active diphenhydrAMINE Take 2 10 capsule 1 (BENADRYL) 25 mg capsules by 9 capsuleIndications: mouth as Angioedema, subsequent needed for encounter Allergies. Take 2 capsules at the first signs of tongue, lip, or eye swelling Active famotidine 20 mg Take 1 tablet 30 tablet 6 tabletIndications: by mouth 2 9 Angioedema, subsequent (two) times encounter, Urticaria daily. Active methylPREDNISolone Take by 21 Each 1 (MEDROL, HOSSEIN,) 4 mg mouth 9 tablets SEE-INSTRUCTI ONS. follow package directions Active montelukast (SINGULAIR) Take 1 tablet 60 tablet 2 10 mg tabletIndications: by mouth 9 Angioedema, subsequent daily. 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 11/21/2015 Generalized OA 11/21/2015 Chronic fatigue 11/21/2015 documented as of this encounter (statuses as of 11/17/2019) Social History Date Tobacco Use Types Packs/Day [...] Date Last Done Comments DTaP,Tdap,and Td Vaccines 1956 (1 - Tdap) Breast Cancer Screening 1985 (MAMMOGRAM) COLONOSCOPY 1995 Zoster Recombinant 1995 Vaccine (SHINGRIX) (1 of 2) Medicare Wellness Visit 2010 Osteoporosis Screening 2010 PNEUMOCOCCAL VACCINES 65+ 2010 (1 of 2 - PCV13) INFLUENZA VACCINE (#1) 2019 08/27/2015 HEPATITIS C (HCV) SCREEN Completed 11/21/2015 documented as of this encounter Procedures Comments Procedure Name Priority Date/Time Associated Diagnosis ASSIGNMENT OF BENEFITS Routine 11/17/2019 11:10 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 Present [id number] [place] [id number] Medicare Supplement [employer] [place] [id number] 2019-P YOLIS saleem documented as of this encounter
[2019-12-21] MEDS ORDERED: DEXAMETHASONE SOD PHOS 10 MG/1 ML VIAL IM ONE (11:15)
[2019-12-21] MEDS ORDERED: PREDNISONE20 MG PO (11:34)
[2019-12-21 11:45] VITALS: BP 151/83
== END 2019-12-21 11:44 | disposition home or self-care (01) ==
LOC: FSED 10:46
DX: L23.9 Allergic contact dermatitis, unspecified cause (principal); I10 Essential (primary) hypertension; M79.7 Fibromyalgia
CPT/HCPCS: 96372; 99282; J1100

== ENCOUNTER → 2020-03-17 | Outpatient (CLI) | payer MEDICARE, OTHER ==
[~2020-03-17] MED LIST changes: +IOPAMIDOL 370 MG/ML 200 ML INFUS..BTL INJ ONE; +PRILOSEC OTC20 MG PO; +SODIUM CHLORIDE 0.9% 50ML 50 ML ONE
[2020-03-17 12:28] LABS: BLOOD UREA NITROGEN 6 mg/dL (7-26); BUN/CREATININE RATIO 8 (6-25); EST GLOMERULAR FILTRATION RATE > 60 ML/MIN (60-)
--- NOTE | 2020-03-17 13:50 | Diagnostic Imaging Report ---
Exam: CT abdomen and pelvis Clinical history: Right-sided abdominal pain Comparison: CT abdomen and pelvis, June 26, 2018 Technique: Helical images of the abdomen and pelvis were obtained after IV contrast administration DOSE REDUCTION: The exams was performed according to the departmental dose-optimization program which includes automated exposure control, adjustment of the mA and/or kV according to patient size and/or use of iterative reconstruction technique. Findings: The lung bases are clear. There is no evidence of pleural effusion. The cardiac size is within normal limits. The liver, spleen, pancreas, gallbladder, adrenal glands, and kidneys are unremarkable. The small and large bowels are normal in caliber without evidence of obstruction. Appendix is visualized and within normal limits in caliber. Sigmoid diverticulosis is noted without CT evidence of acute diverticulitis. The bladder is unremarkable. The uterus and ovaries are not visualized. There is no evidence of lymphadenopathy or free fluid. The aorta and IVC are normal in caliber. Atherosclerotic calcifications at the origins of the great vessels are noted. Impression: 1. Sigmoid diverticulosis without CT evidence of acute diverticulitis. 2. Status post hysterectomy. 3. Degenerative disc disease of the lower lumbar spine with loss in disc height at L4-L5 and L5-S1 levels. In addition, mild anterolisthesis of L4 on L5 is also noted. Signed by: Dr. Manolo Musa MD on 03/17/2020 1:47 PM
== END ==
LOC: CT 11:36
PROVIDERS: ATTEND Internal Medicine Gastroenterology
DX: R10.9 Unspecified abdominal pain (principal)
CPT/HCPCS: 36415; 74177; 82565; 84520; Q9967

== ENCOUNTER → 2020-03-23 | Day surgery (SDC) | payer MEDICARE, OTHER ==
[2020-03-18 14:09] LABS: BASOPHILS # (AUTO) 0.1 (0.0-0.1); BASOPHILS % 0.9 % (0.0-1.0); EOSINOPHILS # (AUTO) 0.4 (0.0-0.4); EOSINOPHILS % 4.4 % (0.0-6.0); HEMATOCRIT 36.6 % (34.2-44.1); HEMOGLOBIN 11.1 g/dL (12.0-16.0); LYMPHOCYTES # (AUTO) 1.3 (1.0-3.2); LYMPHOCYTES % 16.1 % (18.0-39.1); MEAN CORPUSCULAR HEMOGLOBIN 26.4 pg (28-32); MEAN CORPUSCULAR HGB CONC 30.3 g/dL (31-35); MEAN CORPUSCULAR VOLUME 86.9 fL (81-99); MONOCYTES # (AUTO) 0.8 (0.2-0.8); MONOCYTES % 9.5 % (4.4-11.3); NEUTROPHILS # (AUTO) 5.4 (2.1-6.9); NEUTROPHILS % 68.3 % (38.7-80.0); PLATELET COUNT 400 x10e3/uL (140-360); RED BLOOD COUNT 4.21 x10e6/uL (3.6-5.1); RED CELL DISTRIBUTION WIDTH 15.9 % (11.7-14.4)
[~2020-03-23] MED LIST changes: +BIOTIN1 MG PO; +HYOSCYAMINE 0.125 MG TAB ONE; -IOPAMIDOL 370 MG/ML 200 ML INFUS..BTL INJ ONE; +PROBIOTIC & AC1 EACH PO; +PROPOFOL IV EMULSION 10 MG/ML 20 ML VIAL ONE; -SODIUM CHLORIDE 0.9% 50ML 50 ML ONE
[2020-03-23 15:35] VITALS: BP 109/77
[2020-03-23 16:27] LABS: WBC,FECAL (FECAL LACTOFERRIN) POSITIVE (NEGATIVE)
--- NOTE | 2020-03-23 20:31 | Operative Report ---
DATE OF PROCEDURE: 03/23/2020 SURGEON: Pato Juarez MD PROCEDURE: Colonoscopy with polypectomy and biopsies. INDICATIONS FOR COLONOSCOPY: Colorectal cancer screening, diarrhea. MEDICATIONS: The patient was done under MAC, please see anesthesiologist's note. PROCEDURE IN DETAIL: With the patient in the left lateral decubitus position, a flexible fiberoptic Olympus colonoscope was inserted into the rectum with ease and advanced all the way to the cecum. Three minute polyps were removed per cold biopsy forceps from the cecum. The ileocecal valve was intubated and the scope was advanced into the terminal ileum. Biopsies were obtained. The scope was then withdrawn back into the colon. It was then withdrawn slowly, one minute polyp was removed per the cold biopsy forceps from the ascending colon. One polyp was hot biopsied and one polyp was hot snared from the transverse colon. Mild patchy inflammatory changes were noted in the left colon and random biopsies were obtained. Diverticular disease was noted to involve the distal descending and the sigmoid colon. The scope was then retroflexed into the distal rectum and small internal hemorrhoids were noted, none of which was actively bleeding. The scope was then straightened out, it was subsequently withdrawn, and the patient tolerated the procedure well. An adequate stool specimen was obtained and sent to the appropriate studies. IMPRESSION: 1. Cecal polyps x2, removed per cold biopsy forceps. 2. Ascending colon polyp, removed per cold biopsy forceps. 3. Transverse colon polyps x2, one hot snared and one hot biopsied. 4. Mild patchy left-sided colitis. 5. Diverticulosis. 6. Internal hemorrhoids, none actively bleeding. PLAN: Follow up histology. Follow up stool studies. Initiate Bentyl 20 mg one p.o. t.i.d. The patient might benefit from a followup colonoscopy in 3 years. Pato Juarez MD [facility] [place]/[facility] /[id number] cc: Eligio Juarez MD
[2020-03-24 15:19] LABS: C DIFFICILE TOXIN A&B AMP PROB NEGATIVE (NEGATIVE)
== END | disposition home or self-care (01) ==
LOC: OR 10:15
PROVIDERS: ATTEND Internal Medicine Gastroenterology
DX: K51.50 Left sided colitis without complications (principal); D12.0 Benign neoplasm of cecum; D12.2 Benign neoplasm of ascending colon; K57.30 Diverticulosis of large intestine without perforation or abscess without bleeding; K64.8 Other hemorrhoids; I10 Essential (primary) hypertension; E03.9 Hypothyroidism, unspecified; Z88.1 Allergy status to other antibiotic agents; Z88.0 Allergy status to penicillin; Z01.810 Encounter for preprocedural cardiovascular examination; Z01.812 Encounter for preprocedural laboratory examination; Z11.59 Encounter for screening for other viral diseases
CPT/HCPCS: 36415; 45380; 45384; 45385; 83630; 83993; 85025; 87045; 87177; 87328; 87493; 87635; 88305; 93005; J2704

== ENCOUNTER 2020-04-23 10:03 | Emergency (ER) | payer MEDICARE, OTHER ==
[~2020-04-23] VITALS: Ht 162.6 cm; Wt 79.4 kg
[~2020-04-23 10:03] MED LIST changes: -HYOSCYAMINE 0.125 MG TAB ONE; -PROPOFOL IV EMULSION 10 MG/ML 20 ML VIAL ONE
[2020-04-23] MEDS ORDERED: FAMOTIDINE 20 MG/2 ML VIAL IV ONE ×2 (10:24→11:34)
[2020-04-23] MEDS ORDERED: EPINEPHRINE 0.3 MG/0.3 ML PEN.INJCTR SC STA (10:24)
[2020-04-23] MEDS ORDERED: DEXAMETHASONE SOD PHOS 10 MG/1 ML VIAL IV ONE (10:30)
[2020-04-23] MEDS ORDERED: DIPHENHYDRAMINE HCL INJ 50 MG/ML VIAL IV ONE (10:30)
[2020-04-23] MEDS ORDERED: EPINEPHRINE HCL 1:1000 1ML 1 MG/ML AMP ONE (11:34)
[2020-04-23] MEDS ORDERED: DIPHENHYDRAMINE HCL INJ 50 MG/ML VIAL ONE (11:34)
[2020-04-23] MEDS ORDERED: DEXAMETHASONE SOD PHOS 10 MG/1 ML VIAL ONE (11:34)
[2020-04-23 12:56] VITALS: BP 162/72
--- NOTE | 2020-04-23 13:10 | Emergency Department Note ---
History of Present Illnes History of Present Illness Chief Complaint: Skin Rash or Abscess History of Present Illness This is a 74 year old female Chief Complaint Comment Reports that her rash started Friday after her medrol dose pack finished and it started on her lower legs and yesterday it increased to her upper legs and now it is all over her body. . Arrival Mode: Car Onset (how long ago): day(s) (2) Location: generalized Quality: itching Onset quality: gradual Duration (how long): day(s) (2) Timing of current episode: constant Progression: worsening Chronicity: new Context: Denies recent illness, Denies recent surgery, Denies recent immobilization, Denies recent travel, Denies trauma/injury, Denies new medicat ions, Denies hx of DVT/PE, Denies non-compliance w/ medications, Denies other Relieving factors: none Exacerbating factors: none Associated symptoms: Reports denies other symptoms Treatments prior to arrival: none Past Medical/Family History Physician Review I have reviewed the patient's past medical and family history. Any updates have been documented here. Past Medical History Recent Fever: No Clinical Suspicion of Infectio: No New/Unexplained Change in Ment: No Past Medical History: Hypertension, Hypothyroidism, GERD Other Medical History: Fibromyalgia Allergies Past Surgical History: Hysterectomy, Lumpectomy, Cataract Removal Other Surgery: Lt BREAST LUMPECTOMY HEART CATH cataracts Social History Smoking Cessation: Never Smoker Counseling Performed: No Alcohol Use: None Any Illegal Drug Use: No TB Exposure/Symptoms: No Physically hurt or threatened: No Family History Family history of heart diseas: Yes Other Last Tetanus: UTD Any Pre-Existing Lines (PICC,: No Is patient up to date on immun: Yes Last Flu: UTD Last Pneumovax: UTD Review of Systems Review of Systems Constitutional: Reports as per HPI, Reports other (generalized rash) EENTM: Reports no symptoms Cardiovascular: Reports no symptoms Respiratory: Reports no symptoms Gastrointestinal: Reports no symptoms Genitourinary: Reports no symptoms Musculoskeletal: Reports no symptoms Integumentary: Reports as per HPI, Reports rash Neurological: Reports no symptoms Psychological: Reports no symptoms Endocrine: Reports no symptoms Hematological/Lymphatic: Reports no symptoms Physical Exam Related Data Allergies: Coded Allergies: ciprofloxacin (Verified Allergy, Severe, 07/25/18) epinephrine (Verified Allergy, Unknown, HIVES WITH EPI PEN, 04/23/20) ampicillin (Verified Adverse Reaction, Mild, DIARRHEA, 07/25/18) Uncoded Allergies: EPI PEN (Allergy, Unknown, HIVES, 06/22/19) only allergic to the epi pen but can have regular epi Triage Vital Signs Vital Signs Date Time Temp Pulse Resp B/P (MAP) Pulse Ox O2 Delivery O2 Flow Rate FiO2 04/23/20 10:10 98.6 100 18 157/83 100 Vital signs reviewed: Yes Physical Exam CONSTITUTIONAL Constitutional: Present well-developed, Present well-nourished HENT HENT: Present normocephalic, Present atraumatic, Present oropharynx clear/moist, Present nose normal HENT L/R: Present left ext ear normal, Present right ext ear normal EYES Eyes: Reports PERRL, Reports conjunctivae normal NECK Neck: Present ROM normal PULMONARY Pulmonary: Present effort normal, Present breath sounds normal CARDIOVASCULAR Cardiovascular: Present regular rhythm, Present heart sounds normal, Present capillary refill normal, Present normal rate GASTROINTESTINAL Abdominal: Present soft, Present nontender, Present bowel sounds normal GENITOURINARY Genitourinary: Present exam deferred SKIN Skin: Present warm, Present dry, Present rash (generalized) MUSCULOSKELETAL Musculoskeletal: Present ROM normal NEUROLOGICAL Neurological: Present alert, Present oriented x 3, Present no gross motor or sensory deficits PSYCHOLOGICAL Psychological: Present mood/affect normal, Present judgement normal Assessment & Plan Medical Decision Making MDM dermatitis urticaria Reassessment Reassessment time: 13:07 Reassessment better Assessment & Plan Final Impression: (1) Acute allergic reaction (2) Urticaria Depart Disposition: HOME, SELF-CARE Last Vital Signs Date Time Temp Pulse Resp B/P (MAP) Pulse Ox O2 Delivery O2 Flow Rate FiO2 04/23/20 10:10 98.6 100 18 157/83 100 Home Meds Active Scripts Mometasone Furoate (NASONEX) 17 [address] [place], 2 SPRAYS NA DAILY, #1 BOTTLE 1 Refill Prov:PATTI TREVINO MD 07/18/18 Reported Medications Lactobac Cmb #3/Fos/Pantethine (PROBIOTIC & ACIDOPHILUS CAP) 1 Each Capsule, 1 TAB PO DAILY 03/23/20 Biotin (BIOTIN) 1 Mg Tablet, 1 TAB PO DAILY 03/23/20 Omeprazole Magnesium (PRILOSEC OTC) 20 Mg Tablet.dr, 20 MG PO DAILY 03/15/20 Ascorbic Acid (VITAMIN C) 500 Mg Tab.chew, DAILY 06/22/19 Methylprednisolone (METHYLPREDNISOLONE) 4 Mg Tab.ds.pk, PRN 06/22/19 Lactose-Free Food (ENSURE PLUS) 237 Ml Liquid, BID 06/22/19 Fexofenadine Hcl (TIFFANY ALLERGY) 180 Mg Tablet, DAILY 06/22/19 Cetirizine Hcl (CETIRIZINE HCL) 5 Mg Tablet, 20 DAILY 06/22/19 Amlodipine Besylate (AMLODIPINE BESYLATE) 5 Mg Tablet, 5 MG PO DAILY, #30 TAB 06/22/19 Montelukast Sodium (SINGULAIR) 10 Mg Tablet, DAILY 02/01/19 Diphenhydramine Hcl (BENADRYL) 25 Mg Capsule, 25 MG PO PRN 12/03/18 Levothyroxine Sodium (SYNTHROID) 125 Mcg Tab, 125 MCG PO DAILY, #90 05/23/18 Lorazepam (LORAZEPAM) 2 Mg Tablet, 2 MG PO TID PRN for ANXIETY, #210 05/23/18 Medications in the ED Epinephrine 0.3 mg NOW STAT SC Last administered on 04/23/20at 11:35; Admin Dose 0.3 MG; Start 04/23/20 at 10:24; Stop 04/23/20 at 10:26; Status DC Dexamethasone Sodium Phosphate 10 mg ONCE ONCE IV Last administered on 04/23/20at 11:35; Admin Dose 10 MG; Start 04/23/20 at 10:30; Stop 04/23/20 at 10:44; Status DC Famotidine 20 mg NOW ONCE IV Last administered on 04/23/20at 11:35; Admin Dose 20 MG; Start 04/23/20 at 10:24; Stop 04/23/20 at 10:44; Status DC Diphenhydramine HCl 25 mg NOW ONCE IV Last administered on 04/23/20at 11:35; Admin Dose 25 MG; Start 04/23/20 at 10:30; Stop 04/23/20 at 10:44; Status DC Epinephrine HCl 1 mg STK-MED ONCE .ROUTE ; Start 04/23/20 at 11:34; Stop 04/23/20 at 11:31; Status DC Dexamethasone Sodium Phosphate 10 mg STK-MED ONCE .ROUTE ; Start 04/23/20 at 11:34; Stop 04/23/20 at 11:31; Status DC Diphenhydramine HCl 50 mg STK-MED ONCE .ROUTE ; Start 04/23/20 at 11:34; Stop 04/23/20 at 11:31; Status DC Famotidine 20 mg STK-MED ONCE IV ; Start 04/23/20 at 11:34; Stop 04/23/20 at 11:31; Status DC IGOR FUNEZ MD Apr 23, 2020 13:10
== END 2020-04-23 13:05 | disposition home or self-care (01) ==
LOC: FSED 10:03
DX: L50.9 Urticaria, unspecified (principal); T78.40XA Allergy, unspecified, initial encounter
CPT/HCPCS: 96372; 96374; 96375; 99283; J0171; J1100; J1200

== ENCOUNTER 2020-06-04 09:39 | Emergency (ER) | payer MEDICARE, OTHER ==
[~2020-06-04] VITALS: Ht 162.6 cm; Wt 80.0 kg
[2020-06-04] MEDS ORDERED: SODIUM CHLORIDE 0.9% 1000ML 1,000 ML IV STA (09:47)
[2020-06-04] MEDS ORDERED: FAMOTIDINE20 MG PO (09:58)
[2020-06-04] MEDS ORDERED: DEXAMETHASONE6 MG PO (09:58)
--- NOTE | 2020-06-04 09:59 | Emergency Department Note ---
History of Present Illnes History of Present Illness History of Present Illness This is a 74 year old female c/o bad urticarial rash all over her body, getting worse for 2-3 days. She was taking medrol-dose pack for edema, then the rash developed later. There are flocks of birds in her neighborhood and she thinks they may cause the allergy reactions. Past Medical History Hypertension, Hypothyroidism, GERD Other Medical History Fibromyalgia Allergies Past Surgical History: Hysterectomy, Lumpectomy, Cataract Removal Other Surgery Lt BREAST LUMPECTOMY HEART CATH cataracts . 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 Any updates have been documented here. Past Medical History Past Medical History: Hypertension, Hypothyroidism, GERD Other Medical History: Fibromyalgia Allergies Past Surgical History: Hysterectomy, Lumpectomy, Cataract Removal Other Surgery: Lt BREAST LUMPECTOMY HEART CATH cataracts Social History Smoking Cessation: Never Smoker Counseling Performed: No Alcohol Use: Social Any Illegal Drug Use: No TB Exposure/Symptoms: No Physically hurt or threatened: No Family History Family history of heart diseas: No Other Last Tetanus: UTD Any Pre-Existing Lines (PICC,: No Is patient up to date on immun: No Review of Systems Review of Systems Constitutional: Reports no symptoms EENTM: Reports no symptoms Cardiovascular: Reports no symptoms Respiratory: Reports no symptoms Gastrointestinal: Reports no symptoms Genitourinary: Reports no symptoms Musculoskeletal: Reports no symptoms Integumentary: Reports as per HPI Neurological: Reports no symptoms Psychological: Reports no symptoms Endocrine: Reports no symptoms Hematological/Lymphatic: Reports no symptoms Physical Exam Related Data Allergies: Coded Allergies: ciprofloxacin (Verified Allergy, Severe, 07/25/18) epinephrine (Verified Allergy, Unknown, HIVES WITH EPI PEN, 04/23/20) ampicillin (Verified Adverse Reaction, Mild, DIARRHEA, 07/25/18) Uncoded Allergies: EPI PEN (Allergy, Unknown, HIVES, 06/22/19) only allergic to the epi pen but can have regular epi Vital signs reviewed: Yes Physical Exam CONSTITUTIONAL Constitutional: Present well-developed, Present well-nourished HENT HENT: Present normocephalic, Present atraumatic, Present oropharynx clear/moist, Present nose normal HENT L/R: Present left ext ear normal, Present right ext ear normal EYES Eyes: Reports PERRL, Reports conjunctivae normal NECK Neck: Present ROM normal PULMONARY Pulmonary: Present effort normal, Present breath sounds normal CARDIOVASCULAR Cardiovascular: Present regular rhythm, Present heart sounds normal, Present capillary refill normal, Present normal rate GASTROINTESTINAL Abdominal: Present soft, Present nontender, Present bowel sounds normal GENITOURINARY Genitourinary: Present exam deferred SKIN Skin: Present erythema, Present rash, Present other (diffuse urticarial rash all over the body, became thick and confluent on he thighs.) MUSCULOSKELETAL Musculoskeletal: Present ROM normal NEUROLOGICAL Neurological: Present alert, Present oriented x 3, Present no gross motor or sensory deficits PSYCHOLOGICAL Psychological: Present mood/affect normal, Present judgement normal Assessment & Plan Medical Decision Making MDM acute allergy reactions. Reassessment Reassessment time: 10:12 Reassessment doing much better Assessment & Plan Final Impression: (1) Urticaria (2) Acute allergic reaction Depart Disposition: HOME, SELF-skilled nursing Meds Active Scripts Famotidine (FAMOTIDINE) 20 Mg Tab, 20 MG PO BID, #30 TAB Prov:ROBERT DENIS MD 06/04/20 Dexamethasone (DEXAMETHASONE) 6 Mg Tablet, 1 TAB PO DAILY, #7 Prov:ROBERT DENIS MD 06/04/20 Mometasone Furoate (NASONEX) [address] [place], 2 SPRAYS NA DAILY, #1 BOTTLE 1 Refill Prov:PATTI TREVINO MD 07/18/18 Reported Medications Lactobac Cmb #3/Fos/Pantethine (PROBIOTIC & ACIDOPHILUS CAP) 1 Each Capsule, 1 TAB PO DAILY 03/23/20 Biotin (BIOTIN) 1 Mg Tablet, 1 TAB PO DAILY 03/23/20 Omeprazole Magnesium (PRILOSEC OTC) 20 Mg Tablet.dr, 20 MG PO DAILY 03/15/20 Ascorbic Acid (VITAMIN C) 500 Mg Tab.chew, DAILY 06/22/19 Methylprednisolone (METHYLPREDNISOLONE) 4 Mg Tab.ds.pk, PRN 06/22/19 Lactose-Free Food (ENSURE PLUS) 237 Ml Liquid, BID 06/22/19 Fexofenadine Hcl (TIFFANY ALLERGY) 180 Mg Tablet, DAILY 06/22/19 Cetirizine Hcl (CETIRIZINE HCL) 5 Mg Tablet, 20 DAILY 06/22/19 Amlodipine Besylate (AMLODIPINE BESYLATE) 5 Mg Tablet, 5 MG PO DAILY, #30 TAB 06/22/19 Montelukast Sodium (SINGULAIR) 10 Mg Tablet, DAILY 02/01/19 Diphenhydramine Hcl (BENADRYL) 25 Mg Capsule, 25 MG PO PRN 12/03/18 Levothyroxine Sodium (SYNTHROID) 125 Mcg Tab, 125 MCG PO DAILY, #90 05/23/18 Lorazepam (LORAZEPAM) 2 Mg Tablet, 2 MG PO TID PRN for ANXIETY, #210 05/23/18 Medications in the ED IV dexamethsone, IV benadryl, IV fluid, IV Pepcid ROBERT DENIS MD Jun 04, 2020 09:58
[2020-06-04] MEDS ORDERED: SODIUM CHLORIDE 0.9% 1000ML 1,000 ML ONE (10:00)
[2020-06-04] MEDS ORDERED: ONDANSETRON HCL INJ 2MG/ML 2ML 2 MG/ML VIAL IV PRN (10:00)
[2020-06-04] MEDS ORDERED: DEXAMETHASONE SOD PHOS 10 MG/1 ML VIAL IV ONE (10:00)
[2020-06-04] MEDS ORDERED: FAMOTIDINE 20 MG/2 ML VIAL IV ONE (10:00)
[2020-06-04] MEDS ORDERED: DIPHENHYDRAMINE HCL INJ 50 MG/ML VIAL IV ONE (10:00)
--- OUTSIDE RECORDS SUMMARY | 2020-06-04 10:14 | XMS REPORT | Summary of Care ---
Author Author [facility] - Health Organization [facility] - Health Address Unknown Phone Unavailable Care Team Providers Care Mall Manager Name Role Phone Brent Pierce PCP Reason for Visit * Reason Comments Refill Request Encounter Details Care Team Description Date Type Department Marylou Loyd MD [address] [place] [address] [address] [place], [place] [id number] Refill Request 12/21/2019 Refill [facility] [address] [place] [id number] Allergies Comments Active Allergy Reactions Severity Noted Date Ampicillin Diarrhea Medium 11/21/2015 Leukocytoclastic vasculitis Cefdinir Rash 07/06/2019 Joint swelling Ciprofloxacin Hcl Swelling 04/01/2017 documented as of this encounter (statuses as of 12/21/2019) Medications End Date Status Medication Sig Dispensed [...] BY MOUTH 9 EVERYDAY AT BEDTIME Active diphenhydrAMINE Take 2 10 capsule 1 (BENADRYL) 25 mg capsules by 9 capsuleIndications: mouth as Angioedema, subsequent needed for encounter Allergies. Take 2 capsules at the first signs of tongue, lip, or eye swelling Active famotidine 20 mg Take 1 tablet 30 tablet 6 01 tabletIndications: by mouth 2 9 Angioedema, subsequent (two) times encounter, Urticaria daily. Active montelukast (SINGULAIR) Take 1 tablet 60 tablet 2 10 mg tabletIndications: by mouth 9 Angioedema, subsequent daily. encounter Active methylPREDNISolone Take by 21 Each 1 02 (MEDROL, HOSSEIN,) 4 mg mouth 0 tablets SEE-INSTRUCTI ONS. follow package directions Active predniSONE 20 mg Take 2 2 tablet 0 tabletIndications: tablets by 0 Angioedema, subsequent mouth as encounter needed (swelling). 12/21/2019 Discontinued (Reorder) predniSONE 20 mg Take 2 2 tablet 3 tabletIndications: tablets by 9 Angioedema, subsequent mouth as encounter needed (swelling). documented as of this encounter (statuses as of 12/21/2019) Active Problems Problem Noted Date Angioedema, subsequent encounter 02/18/2019 Urticaria 02/18/2019 Pruritus 02/18/2019 Chronic nonallergic rhinitis 02/18/2019 Swelling of eyelid, unspecified laterality 8 Tongue swelling 08/04/2018 Swelling of upper lip 08/04/2018 Encounter for new medication prescription 10/07/2017 Arthralgia of right temporomandibular joint 04/01/20 17 Acquired hypothyroidism 04/01/2017 Positive anti-CCP test 03/26/2016 Rheumatoid arthritis, seropositive 01/01/2016 Long-term use of Plaquenil 01/01/2016 Sicca 01/01/2016 Abnormal TSH 11/23/2015 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/21/2015 [facility] current use of systemic steroids 6 Generalized OA 11/21/2015 Chronic fatigue 11/21/2015 documented as of this encounter (statuses as of 12/21/2019) Social History Date Tobacco Use Types Packs/Day [...] Date Type Specialty Marylou Loyd MD [address] [place] [address] [phone] 12/30/2019 Office Visit Allergy & Immunolog y: Internal Medicine Gladis Garcia MD [address] [address] [phone] 01/11/2020 Office Visit Rheumatology Health Maintenance Due Date Last Done Comments [...] Dates Group Medicare MEDICARE MEDICARE xxxxxxxxxxx 2010- [phone] [address] PART A & B Present [id number] [place] [id number] Medicare Supplement [employer] [place] [place] [id number] 2019-P YOLIS saleem documented as of this encounter
--- OUTSIDE RECORDS SUMMARY | 2020-06-04 10:15 | XMS REPORT | Summary of Care ---
Author Author [facility] - Health Organization [facility] - Health Address Unknown Phone Unavailable Care Team Providers Care Decaler Name Role Phone Brent Pierce PCP Reason for Visit * Reason Comments Follow-up Encounter Details Care Team Description Date Type Department Marylou Loyd MD [address] [place], [place] [id number] Chronic idiopathic urticaria (Primary Dx ); Angioedema, subsequent encounter 03/29/2020 Office Visit [facility] Allergy & Immunology- Multispecialty Ctr [address] [facility], [place] [phone] Allergies Comments Active Allergy Reactions Severity Noted Date Ampicillin Diarrhea Medium 11/21/2015 Leukocytoclastic vasculitis Cefdinir Rash 07/06/2019 Joint swelling Ciprofloxacin Hcl Swelling 04/01/2017 Epinephrine Hives High 03/29/2020 documented as of this encounter (statuses as of 03/30/2020) Medications End Date Status Medication Sig Dispensed [...] BY MOUTH 9 EVERYDAY AT BEDTIME Active famotidine 20 mg Take 1 tablet 30 tablet 6 tabletIndications: by mouth 2 9 Angioedema, subsequent (two) times encounter, Urticaria daily. Active methylPREDNISolone Take by 21 Each 1 02 (MEDROL, HOSSEIN,) 4 mg mouth 0 tablets SEE-INSTRUCTI ONS. follow package directions Active predniSONE 20 mg Take 2 10 tablet 0 tabletIndications: tablets by 0 Angioedema, subsequent mouth as encounter needed (swelling). Active diphenhydrAMINE Take 2 30 capsule 2 (BENADRYL) 25 mg capsules by 0 capsuleIndications: mouth as Angioedema, subsequent needed encounter (swelling, rash). Take 2 capsules at the first signs of tongue, lip, or eye swelling Active MONTELUKAST 10 mg TAKE 1 TABLET 90 tablet 1 tabletIndications: BY MOUTH 0 Angioedema, subsequent EVERY DAY encounter documented as of this encounter (statuses as of 03/30/2020) Active Problems Problem Noted Date Angioedema, subsequent [...] senior living current use of systemic steroids 6 Generalized OA 11/21/2015 Chronic fatigue 11/21/2015 documented as of this encounter (statuses as of 03/30/2020) Social History Date Tobacco Use Types Packs/Day [...] Travel Start No recent travel history available. Date Recorded COVID-19 Exposure Response 03/29/2020 10:37 AM CDT In the last month, have you been in contact with No / Unsure someone who was confirmed or suspected to have Coronavirus / COVID-19? documented as of this encounter Last Filed Vital Signs Reading Time Taken Comments Vital Sign 120/82 03/29/2020 10:43 AM CDT Blood Pressure 107 03/29/2020 10:43 AM CDT Pulse 36.7 C (98 F) 03/29/2020 10:43 AM CDT Temperature 18 03/29/2020 10:43 AM CDT Respiratory Rate 95% 03/29/2020 10:43 AM CDT Oxygen Saturation - - Inhaled Oxygen Concentration 81.1 kg (178 lb 14.4 oz) 03/29/2020 10:43 AM CDT Weight - - Height 32.72 01/11/2020 10:57 AM CDT Body Mass Index documented in this encounter Patient Instructions * Patient Instructions* Jay Harding MD - 03/29/2020 11:00 AM CDT Plan: Tiffany 180mg in the morning. Zyrtec 10 mg in the evening. Singulair 10 mg daily. documented in this encounter Progress Notes * Jay Harding MD - 03/29/2020 11:00 AM CDT CC: Patient here for follow up of chronic non allergic rhinitis, chronic idiopat hic Urticaria with angioedema. HPI: Ms. Degroot is a 74 year old female with medical history of HTN, HLD, Hypothyroi dism, GERD, crystal arthropathy, chronic non allergic rhinitis here for follow up of idiopathic urticaria/ angioedema. The patient reports that she has done well over the last several months. She is taking the montelukast, Tiffany 180mg 1 tab QAM, cetirizine 10mg QPM. Not curr ently taking pepcid due to bowel problems. She is off of the steroids currently (at least 6 weeks since last dose). Benadryl prn, but has not had to take this. New - fecal urgency. Liquid stools early in the morning. Resolves by afternoon . No flushing, cramping, rashes, other symptoms. Followed by GI outside of [facility]. They have done CT and colonoscopy Xolair has been offered but patient is reluctant to add injection to her medical regimen. Denies fever, chills, rhinoconjunctivitis symptoms, N/v. She has restarted use of Flonase. Not taking ACEi now or in the past. Previous testing: Skin biopsy from a previous visit with findings of edema, but rare interstitial neutrophils. No leukocytoclastic vasculitis. Medications: Current Outpatient Medications Medication Sig Dispense Refill MONTELUKAST 10 mg tablet TAKE 1 TABLET BY MOUTH EVERY DAY 90 tablet 1 diphenhydrAMINE (BENADRYL) 25 mg capsule Take 2 capsules by mouth as needed (swelling, rash). Take 2 capsules at the first signs of tongue, lip, or eye swel ling 30 capsule 2 predniSONE 20 mg tablet Take 2 tablets by mouth as needed (swelling). 10 tab let 0 methylPREDNISolone (MEDROL, HOSSEIN,) 4 mg tablets Take by mouth SEE-INSTRUCTIO NS. follow package directions 21 Each 1 famotidine 20 mg tablet Take 1 tablet by mouth 2 (two) times daily. 30 table t 6 RANITIDINE 150 mg tablet TAKE 1 TABLET BY MOUTH EVERYDAY AT BEDTIME 30 table t 3 amLODIPine 10 mg tablet Take 5 mg by mouth daily. Cetirizine 10 mg capsule Take 20 mg by mouth. fexofenadine (TIFFANY ALLERGY) 180 mg tablet Take 180 mg [...] for this visit. 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 HIV, Quantiferon TB also negative. cma zamudio reports intermittant swelling but no obvious swelling on exam so far (2015). p lizz tried Plaquenil for a few months, but [...] Last attempt to quit: 11/21/1989 Years since quittin.3 Smokeless tobacco: Never Used Substance and Sexual Activity Alcohol use: No Alcohol/week: 0.0 standard drinks Drug use: No Sexual activity: Not on file Lifestyle Physical activity: Days per week: Not on file Minutes per session: Not on file Stress: Not on file Relationships Social connections: Talks on phone: Not on file Gets together: Not on file Attends jainism service: Not on file Active member of [...] general health, well developed, well nourished Eyes: - itching, - redness, - swelling, - discharge [...] appetite, - nausea, - vomiting, - indigestion, + d iarrhea and - constipation Skin: - hives, - itching and - rash Hem/Lymph: -bruising, -chills, -fever Neuro: -ataxia, -dizziness and -fainting Psych: -behavior changes, -behavior problems, -confusion and -delusions MSK: + joint pain on wrist PHYSICAL EXAM Vitals: 03/29/20 1043 BP: 120/82 Pulse: 107 Resp: 18 Temp: 36.7 C (98 F) SpO2: 95% Weight: 178 lb 14.4 oz (81.1 kg) General: alert, oriented, no apparent distress, appearing age appropriate. Head: normocephalic, without obvious abnormality Eyes: anicteric sclera, pupils are equally round and reactive to light, extraocu lar movements are intact. ENT: Exam deferred at this time due to mask covering mouth and nose. Neck: Supple, no lymphadenopathy Cardiovascular: regular rate and rhythm, no murmur Lungs lungs clear to auscultation bilaterally with good air movement, no wheezes or crackles. Abdomen: abdomen soft, non-tender, nondistended Lymphatic: non-palpable nodes in neck, clavicular regions Extremities: no cyanosis, no edema, warm and well perfused Skin: normal skin Neurologic: normal gait and station Psychiatric: alert, oriented, with appropriate affect ASSESSMENT/PLAN ICD-10-CM ICD-9-CM 1. Chronic idiopathic urticaria L50.1 708.1 2. 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 She is cu rrently in a period of improved symptom control on 2x daily AH and daily LTRA. She has been evaluated previously for AAE, HAE, mast cell disorder which have be en felt to be less likely at this time. Her CIU/angioedema historically has been responsive to oral antihistamines. We have considered Xolair in the past in pe riods of refractory disease, but escalation is unnecessary at this time. Her ne w diarrhea is not associated with flushing, hives, angioedema, and is considered less likely to be related to her CIU history. We will let her GI doctor contin ue to manage diarrhea. Plan. Tiffany 180mg in the morning. Zyrtec 10 mg in the evening. Continue taking Singulair 10 mg daily. Patient seen and examined with Dr. Loyd. Return in 4 months. Jay Harding MD Allergy and Immunology Fellow, PGY-4 * Evie Flores LVN - 03/29/2020 11:00 AM CDT Kayla Degroot is a 74 year old female here today for routine f/u, allergies re viewed. documented in this encounter Plan of Treatment Care Team Description Date Type Specialty Marylou Loyd MD [address] [place] [address] [phone] 08/02/2020 Office Visit Allergy & Immunolog y: Internal Medicine Gladis Garcia MD [address] [address] [phone] 01/09/2021 Office Visit Rheumatology Health Maintenance Due Date Last Done Comments DTaP,Tdap,and Td Vaccines 1956 (1 - Tdap) Breast Cancer Screening 1985 (MAMMOGRAM) COLONOSCOPY 1995 Zoster Recombinant 1995 Vaccine (SHINGRIX) (1 of 2) Medicare Wellness Visit 2010 Osteoporosis Screening 2010 PNEUMOCOCCAL VACCINES 65+ 2010 (1 of 2 - PCV13) INFLUENZA VACCINE (Season 06/27/2020 08/27/2015 Ended) Depression Screening 01/10/2021 01/11/2020 HEPATITIS C (HCV) SCREEN Completed 11/21/2015 documented as of this encounter Results Not on filedocumented in this encounter Visit Diagnoses Diagnosis Chronic idiopathic urticaria - Primary Idiopathic urticaria Angioedema, subsequent encounter documented in this encounter Insurance Type Payer Benefit Subscriber ID Effective Phone Address Plan / Dates Group Medicare MEDICARE MEDICARE xxxxxxxxxxx 2010- [phone] [address] PART A & B Present [id number] [place] [id number] Medicare Supplement [employer] [place] [id number] 2019-Cam saleem documented as of this encounter
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
--- OUTSIDE RECORDS SUMMARY | 2020-06-04 10:15 | XMS REPORT | Summary of Care ---
Author Author [facility] - Health Organization [facility] - Health Address Unknown Phone Unavailable Care Team Providers Care Automat Car Attendant Name Role Phone Brent Pierce PCP Encounter Details Care Team Description Date Type Department Marylou Loyd MD [address] [place], [place] [address] 12/31/[address] [facility] Allergy & Msg [facility] [address] [place] [phone] Allergies Comments Active Allergy Reactions Severity Noted Date Ampicillin Diarrhea Medium 11/21/2015 Leukocytoclastic vasculitis Cefdinir Rash 07/06/2019 Joint swelling Ciprofloxacin Hcl Swelling 04/01/2017 documented as of this encounter (statuses as of 12/31/2019) Medications End Date Status Medication Sig Dispensed [...] as of this encounter (statuses as of 12/31/2019) Active Problems Problem Noted Date Angioedema, subsequent [...] Sicca 01/01/2016 Abnormal TSH 11/23/2015 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/21/2015 detention current use of systemic steroids 6 Generalized OA 11/21/2015 Chronic fatigue 11/21/2015 documented as of this encounter (statuses as of 12/31/2019) Social History Date Tobacco Use Types Packs/Day [...] Treatment Care Team Description Date Type Specialty Gladis Garcia MD [address] [facility] [address] [place] [address] [phone] 01/11/2020 Office Visit Rheumatology Marylou Loyd MD [address] [place] [address] [phone] 03/29/2020 Office Visit Allergy & Immunolog y: Internal Medicine Health Maintenance Due Date Last [...] Dates Group Medicare MEDICARE MEDICARE xxxxxxxxxxx 2010- [phone] P. O. B PART A & B Present [id number] [place] [id number] Medicare Supplement [employer] [place] [id number] 2019-P YOLIS saleem documented as of this encounter
--- OUTSIDE RECORDS SUMMARY | 2020-06-04 10:15 | XMS REPORT | Summary of Care ---
Author Author [facility] - Health Organization [facility] - Health Address Unknown Phone Unavailable Care Team Providers Care Radiologist Chief Of Breast Imaging Name Role Phone Brent Pierce PCP Reason for Visit * Reason Comments Follow-up Hives/rash Encounter Details Care Team Description Date Type Department Marylou Loyd MD [address] [place] [address] [phone] Angioedema, subsequent encounter (Primar y Dx); Chronic idiopathic urticaria 12/29/2019 Office Visit [facility] Allergy & Immunology- Multispecialty Ctr [address] [place] [phone] Allergies Comments Active Allergy Reactions Severity Noted Date Ampicillin Diarrhea Medium 11/21/2015 Leukocytoclastic vasculitis Cefdinir Rash 07/06/2019 Joint swelling Ciprofloxacin Hcl Swelling 04/01/2017 documented as of this encounter (statuses as of 12/29/2019) Medications End Date Status Medication Sig Dispensed [...] as of this encounter (statuses as of 12/29/2019) Active Problems Problem Noted Date Angioedema, subsequent [...] Sicca 01/01/2016 Abnormal TSH 11/23/2015 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/21/2015 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 6 Generalized OA 11/21/2015 Chronic fatigue 11/21/2015 documented as of this encounter (statuses as of 12/29/2019) Social History Date Tobacco Use Types Packs/Day [...] Signs Reading Time Taken Comments Vital Sign 131/85 12/29/2019 11:14 AM [facility] Blood Pressure 102 12/29/2019 11:09 AM [facility] Pulse 36.5 C (97.7 F) 12/29/2019 11:09 AM [facility] Temperature - - Respiratory Rate 97% 12/29/2019 11:09 AM [facility] Oxygen Saturation - - Inhaled Oxygen Concentration 81.4 kg (179 lb 6.4 oz) 12/29/2019 11:09 AM [facility] Weight 157.5 cm (5' 2") 12/29/2019 11:09 AM [facility] Height 32.81 12/29/2019 11:09 AM [facility] Body Mass Index documented in this encounter Patient Instructions * Patient Instructions* Evelina Clark MD - 12/29/2019 11:00 AM [facility] [facility] Increase Tiffany 360 mg in the morning. Increase Zyrtec 20 mg in the evening. Continue taking Singulair 10 mg daily. Recommend seeing PCP for ED follow-up of diverticulosis. Stop benadryl. [facility] documented in this encounter Progress Notes * Evelina Clark MD - 12/29/2019 11:00 AM [facility] CC: Patient here for follow up of chronic non allergic rhinitis, chronic idiopat hic Urticaria with angioedema. HPI: Ms. Degroot is a 74 year old female with medical history of HTN, HLD, Hypothyroi dism, GERD, crystal arthropathy, chronic non allergic rhinitis here for follow up of idiopathic urticaria/ angioedema. Since last visit, patient has continued to have episodes of swelling of the face , lip and tongue. She was seen in the ED one week ago for breakout of urticaria of the feet, hands, UEs, ears, head, abdomen and back with swelling of hands as well. She had one injection of dexamethasone in the ED and took prednisone 60mg/ day x 5 days. While on steroids, her symptoms resolved but the day she finished the medications, her hives returned. She has continued to take Singulair 10mg, A llegra 180mg qam, cetirizine 10mg qhs. She has also started to use diphenhydrami ne during this acute episode q 6 hours. She has 20mg prednisone to use when her tongue starts to swell followed by ED visit. Last time she had an episode requir ing this regimen was one month ago and prior to that episode was about 4 months before. No difficulty breathing or swallowing but some difficulty speaking. Xolair has been offered but patient is reluctant to add injection to her medical regimen. Denies fever, chills, rhinoconjunctivitis symptoms, N/v. She has restarted use of Flonase. Not taking ACEi now or in the past. Previous testing: Skin biopsy from previous visit with findings of edema, but ra re interstitial neutrophils. No leukocytoclastic vasculitis. Medications: Current [...] visit. Allergies: Allergies Allergen Reactions Ampicillin Diarrhea Cefdinir Rash Leukocytoclastic vasculitis Ciprofloxacin Hcl Swelling Joint swelling Past Medical History: Diagnosis Date Bronchitis Diverticulitis admitted to ED Fibromyalgia GERD (gastroesophageal reflux disease) Hyperlipidemia Hypertension Hypothyroid Positive anti-CCP test high titer Anti CCP at 121.4, RF negative. HIV, Quantiferon TB also negative. cam zamudio reports intermittant swelling but no obvious swelling on exam so far (2015). cam zamudio tried Plaquenil for a few [...] to quit: 11/21/1989 Years since quittin.1 Smokeless tobacco: Never Used Substance and Sexual Activity Alcohol use: No Alcohol/week: 0.0 standard drinks Drug use: No Sexual activity: Not on file Lifestyle Physical activity: Days per week: Not on file Minutes per session: Not on file Stress: Not on file Relationships Social connections: Talks on phone: Not on file Gets together: Not on file Attends orthodox service: Not on file Active member of [...] joint pain on wrist PHYSICAL EXAM Vitals: 12/29/19 1109 12/29/19 1114 BP: 133/84 131/85 Pulse: 102 Temp: 36.5 C (97.7 F) TempSrc: Oral SpO2: 97% Weight: 179 lb 6.4 oz (81.4 kg) Height: 5' 2" (1.575 m) General: alert, oriented, no apparent distress, appearing age appropriate. Head: normocephalic, without obvious abnormality Eyes: anicteric sclera, pupils are equally round and reactive to light, extraocu lar movements are intact. Ears: external ears normal, TMs normal. Nose: nares normal, septum midline, mucosa normal [...] no edema, warm and well perfused Skin: Diffuse erythematous patches to UEs and hands Neurologic: normal gait and station Psychiatric: alert, oriented, with appropriate affect ASSESSMENT/PLAN ICD-10-CM ICD-9-CM 1. Angioedema, subsequent encounter T78.3XXD V58.89 995.1 2. Chronic idiopathic urticaria L50.1 708.1 Mrs Degroot is a 73 years old female with CIU, Idiopathic angioedema. Her sympto ms have become more frequent since her last visit, including two episodes of ton chuy swelling and diffuse urticaria requiring ED visits (one dose of epinephrine) . She has a hx of good control with antihistamines although is currently on low doses of antihistamines due to frequent side effects with use of higher doses an d she is hesitant to increase current dose (Tiffany 180mg qam and cetirizine 10m g qhs). AAE, HAE, mast cell disorder has been excluded so likely her symptoms ar e due to CIU/angioedema responsive to oral antihistamines. She may benefit from increasing Tiffany 360 mg AM, Zyrtec 20 mg PM, continue Singulair 10 mg daily. S he is a good candidate for Xolair Injection but she would not like to add this to her regimen. Recent ED visit for abdominal pain with diagnosis of diverticulo sis and we recommend PCP follow-up. Plan. Increase Tiffany 360 mg in the morning. Increase Zyrtec 20 mg in the evening. Continue taking Singulair 10 mg daily. Recommend seeing PCP for ED follow-up of diverticulosis. Patient seen and examined with Dr. Loyd. Return in 3 months. Evelina Clark, PGY5 Allergy and Immunology Fellow [facility] * Daksha Gee LVN - 12/29/2019 11:00 AM [facility]GRAM[facility] Kayla Degroot is a 74 year old female Chief Complaint Patient presents with Follow-up Hives/rash [facility] documented in this encounter Plan of Treatment Care Team Description Date Type Specialty Gladis Garcia MD [address] [address] [phone] 01/11/2020 Office Visit Rheumatology Health Maintenance Due [...] encounter Visit Diagnoses Diagnosis Angioedema, subsequent encounter - Prim eusebio Chronic idiopathic urticaria Idiopathic urticaria documented in this encounter Insurance Type Payer Benefit Subscriber ID Effective Phone Address Plan / Dates Group Medicare MEDICARE MEDICARE xxxxxxxxxxx 2010- [phone] P. [address]. B OX PART A & B Present [id number] [place] [id number] Medicare Supplement [employer] [place] [id number] 2019-Cam saleem documented as of this encounter
--- OUTSIDE RECORDS SUMMARY | 2020-06-04 10:15 | XMS REPORT | Summary of Care ---
Author Author [facility] - Health Organization [facility] - Health Address Unknown Phone Unavailable Care Team Providers Care Communication Arts Lecturer Name Role Phone Brent Pierce PCP Encounter Details Care Team Description Date Type Department Marylou Loyd MD [address] [place], [place] [address] 05/15/2020 Patient Secure [facility] Allergy & Msg [facility] [address] [facility], [place] [address] Allergies Comments Active Allergy Reactions Severity Noted Date Ampicillin Diarrhea Medium 11/21/2015 Leukocytoclastic vasculitis Cefdinir Rash 07/06/2019 Joint swelling Ciprofloxacin Hcl Swelling 04/01/2017 Epinephrine Hives High 03/29/2020 documented as of this encounter (statuses as of 05/16/2020) Medications End Date Status Medication Sig Dispensed [...] as of this encounter (statuses as of 05/16/2020) Active Problems Problem Noted Date Angioedema, subsequent [...] Sicca 01/01/2016 Abnormal TSH 11/23/2015 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/21/2015 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 6 Generalized OA 11/21/2015 Chronic fatigue 11/21/2015 documented as of this encounter (statuses as of 05/16/2020) Social History Date Tobacco Use Types Packs/Day [...] Date Type Specialty Marylou Loyd MD [address] [place] [address] [phone] 08/02/2020 Office Visit Allergy & Immunolog y: Internal Medicine Gladis Garcia MD [address] [address] [phone] 01/09/2021 Office Visit Rheumatology Health Maintenance Due Date Last Done Comments DTaP,Tdap,and Td Vaccines 1956 (1 - Tdap) Breast Cancer Screening 1985 (MAMMOGRAM) COLONOSCOPY 1995 Zoster Recombinant 1995 Vaccine (SHINGRIX) (1 of 2) Medicare Wellness Visit 2010 Osteoporosis Screening 2010 PNEUMOCOCCAL VACCINES 65+ 2010 (1 of 2 - PCV13) INFLUENZA VACCINE (#1) 2020 08/27/2015 Depression Screening 01/10/2021 01/11/2020 HEPATITIS C (HCV) SCREEN Completed 11/21/2015 documented as of this encounter Results Not on filedocumented in this encounter Insurance Type Payer Benefit Subscriber ID Effective Phone Address Plan / Dates Group Medicare MEDICARE MEDICARE xxxxxxxxxxx 2010- [phone] P. O. B OX PART A & B Present [id number] [place] [id number] Medicare Supplement [employer] [place] [id number] 2019-P YOLIS saleem documented as of this encounter
--- OUTSIDE RECORDS SUMMARY | 2020-06-04 10:15 | XMS REPORT | Summary of Care ---
Author Author [facility] - Health Organization [facility] - Health Address Unknown Phone Unavailable Care Team Providers Care Artist Mannequin Coloring Name Role Phone Brent Pierce PCP Reason for Visit * Reason Comments Follow-up Hives/rash Encounter Details Care Team Description Date Type Department Marylou Loyd MD [address] [place] [address] [phone] Angioedema, subsequent encounter (Primar y Dx); Chronic idiopathic urticaria 12/29/2019 Office Visit [facility] Allergy & Immunology- [facility]ialty Ctr [address] [place] [address] Allergies Comments Active Allergy Reactions Severity Noted [...] Sicca 01/01/2016 Abnormal TSH 11/23/2015 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/21/2015 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 steroids 6 Generalized [...] Comments Vital Sign 131/85 12/29/2019 11:14 AM MANAGER TRACK Blood Pressure 102 12/29/2019 11:09 AM MANAGER TRACK Pulse 36.5 C (97.7 F) 12/29/2019 11:09 AM MANAGER TRACK Temperature - - Respiratory Rate 97% 12/29/2019 11:09 AM MANAGER TRACK Oxygen Saturation - - Inhaled Oxygen Concentration 81.4 kg (179 lb 6.4 oz) 12/29/2019 11:09 AM MANAGER TRACK Weight 157.5 cm (5' 2") 12/29/2019 11:09 AM MANAGER TRACK Height 32.81 12/29/2019 11:09 AM MANAGER TRACK Body Mass Index documented in this encounter Patient Instructions * Patient Instructions* Evelina Clark MD - 12/29/2019 11:00 AM MANAGER TRACK Increase Tiffany 360 mg in the morning. Increase Zyrtec 20 mg in the evening. Continue taking Singulair 10 mg daily. Recommend seeing PCP for ED follow-up of diverticulosis. Stop benadryl. GER TRACK documented in this encounter Progress Notes * Marylou Loyd MD - 12/29/2019 11:00 AM MANAGER TRACK I have seen, examined and discussed this patient with Dr. Clark. The man agement plan was discussed and I agree with Dr. Clark's note with the fol lowing additions and exceptions. Marylou Loyd MD Allergy/Immunology 12/29/2019 GER TRACK * Evelina Clark MD - 12/29/2019 11:00 AM MANAGER TRACK CC: Patient here for follow up of [...] file Gets together: Not on file Attends hoahaoism service: Not on file Active member of [...] Evelina Clark, PGY5 Allergy and Immunology Fellow GER TRACK * Daksha Gee LVN - 12/29/2019 11:00 AM MANAGER TRACK Kayla Degroot is a 74 year old female Chief Complaint Patient presents with Follow-up Hives/rash GER TRACK documented in this encounter Plan of Treatment Care Team Description Date Type Specialty Galdis Garcia MD [address] [facility] [address] [place] [address] [phone] 01/11/2020 Office Visit Rheumatology Marylou Loyd MD [address] [place], [place] [address] 03/29/2020 Office Visit Allergy & Immunolog y: [...] Dates Group Medicare MEDICARE MEDICARE xxxxxxxxxxx 2010- [phone] P. O. B OX PART A & B Present [id number] [place] [id number] Medicare Supplement [employer] [place] [id number] 2019-P YOLIS saleem documented as of this encounter
--- OUTSIDE RECORDS SUMMARY | 2020-06-04 10:15 | XMS REPORT | Summary of Care ---
Author Author [facility] - Health Organization [facility] - Health Address Unknown Phone Unavailable Care Team Providers Care Shoe Planner Name Role Phone Brent Pierce PCP Encounter Details Care Team Description Date Type Department Marylou Loyd MD [address] [place], [place] [address] Angioedema, subsequent encounter 12/21/2019 Patient Secure [facility] Allergy & Msg [facility] [address] [place] [phone] Allergies Comments Active Allergy Reactions Severity Noted Date Ampicillin Diarrhea Medium 11/21/2015 Leukocytoclastic vasculitis Cefdinir Rash 07/06/2019 Joint swelling Ciprofloxacin Hcl Swelling 04/01/2017 documented as of this encounter (statuses as of 12/22/2019) Medications End Date Status Medication Sig Dispensed [...] signs of tongue, lip, or eye swelling 12/22/2019 Discontinued (Reorder) diphenhydrAMINE Take 2 10 capsule 1 (BENADRYL) 25 mg capsules by 9 capsuleIndications: mouth as Angioedema, subsequent needed for encounter Allergies. 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 O. B PART A & B Present [id number] [place] [id number] Medicare Supplement [employer] [place] [id number] 2019-P YOLIS saleem documented as of this encounter
--- OUTSIDE RECORDS SUMMARY | 2020-06-04 10:15 | XMS REPORT | Summary of Care ---
Author Author [facility] - Health Organization [facility] - Health Address Unknown Phone Unavailable Care Team Providers Care Scientific Publications Editor Name Role Phone Brent Pierce PCP Reason for Visit * Reason Comments Refill Request Encounter Details Care Team Description Date Type Department Marylou Loyd MD [address] [place] [address] [address] [place], [place] [address] Refill Request 02/17/2020 Refill [facility] Allergy & Immunology- Multispecialty Ctr [address] [place] [phone] Allergies Comments Active Allergy Reactions Severity Noted Date Ampicillin Diarrhea Medium 11/21/2015 Leukocytoclastic vasculitis Cefdinir Rash 07/06/2019 Joint swelling Ciprofloxacin Hcl Swelling 04/01/2017 documented as of this encounter (statuses as of 02/17/2020) Medications End Date Status Medication Sig Dispensed [...] MOUTH 0 Angioedema, subsequent EVERY DAY encounter 02/17/2020 Discontinued montelukast (SINGULAIR) Take 1 tablet 60 tablet 2 10 mg tabletIndications: by mouth 9 Angioedema, subsequent daily. encounter documented as of this encounter (statuses as of 02/17/2020) Active Problems Problem Noted Date Angioedema, subsequent [...] 11/21/2015 longterm current use of systemic steroids 6 Generalized OA 11/21/2015 Chronic fatigue 11/21/2015 documented as of this encounter (statuses as of 02/17/2020) Social History Date Tobacco Use Types Packs/Day [...] Date Type Specialty Marylou Loyd MD [address] [place] [address] [phone] 03/29/2020 Office Visit Allergy & Immunolog y: Internal Medicine Gladis Garcia MD [address] [address] [phone] 01/09/2021 Office Visit Rheumatology Health Maintenance Due [...] Dates Group Medicare MEDICARE MEDICARE xxxxxxxxxxx 2010- [phone] P. O. B PART A & B Present [id number] [place] [id number] Medicare Supplement [place] [id number] 2019-P YOLIS saleem documented as of this encounter
--- OUTSIDE RECORDS SUMMARY | 2020-06-04 10:15 | XMS REPORT | Summary of Care ---
Author Author [facility] - Health Organization [facility] - Health Address Unknown Phone Unavailable Care Team Providers Care Before And After School Daycare Worker Name Role Phone Brent Pierce PCP Reason for Visit * Reason Comments Notification electronic records received Encounter Details Care Team Description Date Type Department Gladis Garcia MD [address] [address] [phone] Notification (electronic records receive d) 05/12/2020 Telephone [facility] [address] [facility], [place] [phone] Allergies Comments Active Allergy Reactions Severity Noted Date Ampicillin Diarrhea Medium 11/21/2015 Leukocytoclastic vasculitis Cefdinir Rash 07/06/2019 Joint swelling Ciprofloxacin Hcl Swelling 04/01/2017 Epinephrine Hives High 03/29/2020 documented as of this encounter (statuses as of 05/19/2020) Medications End Date Status Medication Sig Dispensed [...] as of this encounter (statuses as of 05/19/2020) Active Problems Problem Noted Date Angioedema, subsequent [...] Sicca 01/01/2016 Abnormal TSH 11/23/2015 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/21/2015 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 O. B OX PART A & B Present [id number] J[place] [id number] Medicare Supplement [employer] [place] [id number] 2019-P YOLIS saleem documented as of this encounter
--- OUTSIDE RECORDS SUMMARY | 2020-06-04 10:15 | XMS REPORT | Summary of Care ---
Author Author [facility] - Health Organization [facility] - Health Address Unknown Phone Unavailable Care Team Providers Care Machine Shop Specialist Name Role Phone Brent Pierce PCP Reason for Visit * Reason Comments Follow-up Encounter Details Care Team Description Date Type Department Marylou Loyd MD [address] [place], [place] [address] Chronic idiopathic urticaria (Primary Dx ); Angioedema, subsequent encounter 03/29/2020 Office Visit [facility] Allergy & Immunology- Multispecialty Ctr [address] [facility], [place] [phone] Allergies Comments Active Allergy Reactions Severity Noted [...] Sicca 01/01/2016 Abnormal TSH 11/23/2015 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/21/2015 retirement current use of systemic steroids 6 Generalized [...] other symptoms. Followed by GI outside of [facility]. They have done CT and [...] file Gets together: Not on file Attends yazdanism service: Not on file Active member of [...] Date Type Specialty Marylou Loyd MD [address] [place] [address] [phone] 08/02/2020 Office Visit Allergy & Immunolog y: Internal Medicine Gladis Garcia MD [address] [address] [phone] 01/09/2021 Office Visit Rheumatology Health Maintenance Due [...] Dates Group Medicare MEDICARE MEDICARE xxxxxxxxxxx 2010- [phone] P. O. B PART A & B Present [id number] J[place] [id number] Medicare Supplement [employer] [place] [id number] 2019-Cam saleem documented as of this encounter
--- OUTSIDE RECORDS SUMMARY | 2020-06-04 10:15 | XMS REPORT | Summary of Care ---
Author Author [facility] - Health Organization [facility] - Health Address Unknown Phone Unavailable Care Team Providers Care Acid Correction Hand Name Role Phone Brent Pierce PCP Reason for Visit * Reason Comments Assessment Rash Encounter Details Care Team Description Date Type Department Marylou Loyd MD [address] [place], [place] [address] Assessment; Rash 12/28/2019 Telephone [facility] Allergy & Immunology- Multispecialty Ctr [address] [place] [phone] Allergies Comments Active Allergy Reactions Severity Noted Date Ampicillin Diarrhea Medium 11/21/2015 Leukocytoclastic vasculitis Cefdinir Rash 07/06/2019 Joint swelling Ciprofloxacin Hcl Swelling 04/01/2017 documented as of this encounter (statuses as of 12/28/2019) Medications End Date Status Medication Sig Dispensed [...] as of this encounter (statuses as of 12/28/2019) Active Problems Problem Noted Date Angioedema, subsequent [...] as of this encounter (statuses as of 12/28/2019) Social History Date Tobacco Use Types Packs/Day [...] Date Type Specialty Marylou Loyd MD [address] [place] [address] [phone] 12/29/2019 Office Visit Allergy & Immunolog y: Internal Medicine Gladis Garcia MD [address] [address] 01/11/2020 Office Visit Rheumatology Health Maintenance Due [...] Dates Group Medicare MEDICARE MEDICARE xxxxxxxxxxx 2010- [phone] P. O. B PART A & B Present [id number] J[place] [id number] Medicare Supplement [employer] [place] [id number] 2019-P YOLIS delatorreent documented as of this encounter
--- OUTSIDE RECORDS SUMMARY | 2020-06-04 10:15 | XMS REPORT | Summary of Care ---
Author Author [facility] - Health Organization [facility] - Health Address Unknown Phone Unavailable Care Team Providers Care Interrelated Special Education Teacher Name Role Phone Brent Pierce PCP Encounter Details Care Team Description Date Type Department Doctor Unassigned, [address] [place] [address] 01/11/2020 Orders Only [facility] [address] [place] [address] Allergies Comments Active Allergy Reactions Severity Noted Date Ampicillin Diarrhea Medium 11/21/2015 Leukocytoclastic vasculitis Cefdinir Rash 07/06/2019 Joint swelling Ciprofloxacin Hcl Swelling 04/01/2017 documented as of this encounter (statuses as of 01/13/2020) Medications End Date Status Medication Sig Dispensed [...] as of this encounter (statuses as of 01/13/2020) Active Problems Problem Noted Date Angioedema, subsequent [...] 01/01/2016 Abnormal TSH 11/23/2015 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/21/2015 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 steroids 6 Generalized OA 11/21/2015 Chronic fatigue 11/21/2015 documented as of this encounter (statuses as of 01/13/2020) Social History Date Tobacco Use Types Packs/Day [...] Loyd MD [address] [place], [place] [address] 03/29/2020 Office Visit Allergy & Immunolog y: Internal Medicine Gladis Garcia MD [address] [facility] [address] [place] [address] [phone] 01/09/2021 Office Visit Rheumatology Health Maintenance Due [...] Procedures Comments Procedure Name Priority Date/Time Associated Diag nosis AUTHORIZATION TO RELEASE Routine 01/11/2020 PHI TO [facility] 12:01 AM CDT documented in this encounter Results Not on filedocumented in this encounter Insurance Type Payer Benefit Subscriber ID Effective Phone Address Plan / Dates Group Medicare MEDICARE MEDICARE xxxxxxxxxxx 2010- [phone] P. O. B PART A & B Present [id number] [place] H[place] [id number] Medicare Supplement [employer] [place] [id number] 2019-P YOLIS saleem documented as of this encounter
--- OUTSIDE RECORDS SUMMARY | 2020-06-04 10:15 | XMS REPORT | Summary of Care ---
Author Author [facility] - Health Organization [facility] - Health Address Unknown Phone Unavailable Care Team Providers Care Change Management Name Role Phone Brent Pierce PCP Reason for Visit * Reason Comments Follow-up Encounter Details Care Team Description Date Type Department Marylou Loyd MD [address] [place], [place] [address] Chronic idiopathic urticaria (Primary Dx ); Angioedema, subsequent encounter 03/29/2020 Office Visit [facility] Allergy & Immunology- Multispecialty Ctr [address] [facility], [place] [phone] Allergies Comments Active Allergy Reactions Severity Noted Date Ampicillin Diarrhea Medium 11/21/2015 Leukocytoclastic vasculitis Cefdinir Rash 07/06/2019 Joint swelling Ciprofloxacin Hcl Swelling 04/01/2017 Epinephrine Hives High 03/29/2020 documented as of this encounter (statuses as of 04/10/2020) Medications End Date Status Medication Sig Dispensed [...] as of this encounter (statuses as of 04/10/2020) Active Problems Problem Noted Date Angioedema, subsequent [...] Sicca 01/01/2016 Abnormal TSH 11/23/2015 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/21/2015 [facility] current use of systemic steroids 6 Generalized OA 11/21/2015 Chronic fatigue 11/21/2015 documented as of this encounter (statuses as of 04/10/2020) Social History Date Tobacco Use Types Packs/Day [...] Progress Notes * Marylou Loyd MD - 03/29/2020 11:00 AM CDT I have seen, examined and discussed this patient with Dr. Harding. The managemen t plan was discussed and I agree with Dr. Harding's note with the following dawood tions and exceptions. Marylou Loyd MD Allergy/Immunology 04/10/2020 * Jay Harding MD - 03/29/2020 11:00 [...] other symptoms. Followed by GI outside of [facility]. They have done CT and colonoscopy Xolair [...] file Gets together: Not on file Attends caodaism service: Not on file Active member of [...] history. We will let her GI doctor fany ue to manage diarrhea. Plan. Tiffany 180mg [...] Date Type Specialty Marylou Loyd MD [address] [place], [place] [address] 08/02/2020 Office Visit Allergy & Immunolog y: Internal Medicine Gladis Garcia MD [address] [address] [phone] 01/09/2021 Office Visit Rheumatology Health Maintenance Due [...] Dates Group Medicare MEDICARE MEDICARE xxxxxxxxxxx 2010- [phone] P. O. B PART A & B Present [id number] [place] [id number] Medicare Supplement [employer] [place] [id number] 2019-P YOLIS saleem documented as of this encounter
--- OUTSIDE RECORDS SUMMARY | 2020-06-04 10:15 | XMS REPORT | Summary of Care ---
Author Author [facility] - Health Organization [facility] - Health Address Unknown Phone Unavailable Care Team Providers Care Cement Mason Helper Name Role Phone Brent Pierce PCP Encounter Details Care Team Description Date Type Department Marylou Loyd MD [address] [place], [place] [address] 01/03/2020 Patient Secure [facility] Allergy & Msg [facility] [address] [place] [phone] Allergies Comments Active Allergy Reactions Severity Noted Date Ampicillin Diarrhea Medium 11/21/2015 Leukocytoclastic vasculitis Cefdinir Rash 07/06/2019 Joint swelling Ciprofloxacin Hcl Swelling 04/01/2017 documented as of this encounter (statuses as of 01/04/2020) Medications End Date Status Medication Sig Dispensed [...] as of this encounter (statuses as of 01/04/2020) Active Problems Problem Noted Date Angioedema, subsequent [...] nursing home current use of systemic steroids 6 Generalized OA 11/21/2015 Chronic fatigue 11/21/2015 documented as of this encounter (statuses as of 01/04/2020) Social History Date Tobacco Use Types Packs/Day [...] Description Date Type Specialty Gladis Garcia MD [address] [facility] [address] [place] [address] [phone] 01/11/2020 Office Visit Rheumatology Marylou Loyd MD [address] [place] [address] [phone] 03/29/2020 Office Visit Allergy & Immunolog y: [...] Dates Group Medicare MEDICARE MEDICARE xxxxxxxxxxx 2010- [phone] P. O. B PART A & B Present [id number] JENNY HINKLE [id number] Medicare Supplement [employer] [place] [id number] 2019-P YOLIS saleem documented as of this encounter
--- OUTSIDE RECORDS SUMMARY | 2020-06-04 10:15 | XMS REPORT | Summary of Care ---
Author Author [facility] - Health Organization [facility] - Health Address Unknown Phone Unavailable Care Team Providers Care Space Technologist Name Role Phone Brent Pierce PCP Reason for Visit * Reason Comments Notification electronic records received Encounter Details Care Team Description Date Type Department Gladis Garcia MD [address] [address] [phone] Notification (electronic records receive d) 05/12/2020 Telephone [facility] [address] [facility], [place] [phone] Allergies Comments Active Allergy Reactions Severity Noted Date Ampicillin Diarrhea Medium 11/21/2015 Leukocytoclastic vasculitis Cefdinir Rash 07/06/2019 Joint swelling Ciprofloxacin Hcl Swelling 04/01/2017 Epinephrine Hives High 03/29/2020 documented as of this encounter (statuses as of 05/12/2020) Medications End Date Status Medication Sig Dispensed [...] as of this encounter (statuses as of 05/12/2020) Active Problems Problem Noted Date Angioedema, subsequent [...] Sicca 01/01/2016 Abnormal TSH 11/23/2015 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/21/2015 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 O. B OX PART A & B Present [id number] JEN[place] HINK[place] [id number] Medicare Supplement [employer] [place] [place] [id number] 2019-P YOLIS saleem documented as of this encounter
--- OUTSIDE RECORDS SUMMARY | 2020-06-04 10:15 | XMS REPORT | Summary of Care ---
Author Author [facility] - Health Organization [facility] - Health Address Unknown Phone Unavailable Care Team Providers Care Senior Mechanical Estimator Name Role Phone Brent Pierce PCP Encounter Details Care Team Description Date Type Department Marylou Loyd MD [address] [place], [place] [address] Angioedema, subsequent encounter 01/21/2020 Patient Secure [facility] Allergy & Msg [facility] [address] [place] [phone] Allergies Comments Active Allergy Reactions Severity Noted Date Ampicillin Diarrhea Medium 11/21/2015 Leukocytoclastic vasculitis Cefdinir Rash 07/06/2019 Joint swelling Ciprofloxacin Hcl Swelling 04/01/2017 documented as of this encounter (statuses as of 01/24/2020) Medications End Date Status Medication Sig Dispensed [...] signs of tongue, lip, or eye swelling 01/21/2020 Discontinued (Reorder) diphenhydrAMINE Take 2 10 capsule 1 (BENADRYL) 25 mg capsules by 0 capsuleIndications: mouth as Angioedema, subsequent needed for encounter Allergies. 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 O. B OX PART A & B Present [id number] J[place] HINK[place] [id number] Medicare Supplement [employer] [place] [place] [id number] 2019-P YOLIS saleem documented as of this encounter
--- OUTSIDE RECORDS SUMMARY | 2020-06-04 10:15 | XMS REPORT | Summary of Care ---
Author Author [facility] - Health Organization [facility] - Health Address Unknown Phone Unavailable Care Team Providers Care Topographical Field Assistant Name Role Phone Brent Pierce PCP Reason for Visit * Reason Comments Follow-up Hives/rash Encounter Details Care Team Description Date Type Department Marylou Loyd MD [address] [place] [address] [phone] Angioedema, subsequent encounter (Primar y Dx); Chronic idiopathic urticaria 12/29/2019 Office Visit [facility] Allergy & Immunology- Multispecialty Ctr [address] [place] [phone] Allergies Comments Active Allergy Reactions Severity Noted [...] 01/01/2016 Abnormal TSH 11/23/2015 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 6 [...] Comments Vital Sign 131/85 12/29/2019 11:14 AM CERTIFIED NURSING ASSISTANT INSTRUCTOR Blood Pressure 102 12/29/2019 11:09 AM CERTIFIED NURSING ASSISTANT INSTRUCTOR Pulse 36.5 C (97.7 F) 12/29/2019 11:09 AM CERTIFIED NURSING ASSISTANT INSTRUCTOR Temperature - - Respiratory Rate 97% 12/29/2019 11:09 AM CERTIFIED NURSING ASSISTANT INSTRUCTOR Oxygen Saturation - - Inhaled Oxygen Concentration 81.4 kg (179 lb 6.4 oz) 12/29/2019 11:09 AM CERTIFIED NURSING ASSISTANT INSTRUCTOR Weight 157.5 cm (5' 2") 12/29/2019 11:09 AM CERTIFIED NURSING ASSISTANT INSTRUCTOR Height 32.81 12/29/2019 11:09 AM CERTIFIED NURSING ASSISTANT INSTRUCTOR Body Mass Index documented in this encounter Patient Instructions * Patient Instructions* Evelina Clark MD - 12/29/2019 11:00 AM CERTIFIED NURSING ASSISTANT INSTRUCTOR Increase Tiffany 360 mg in the morning. Increase Zyrtec 20 mg in the evening. Continue taking Singulair 10 mg daily. Recommend seeing PCP for ED follow-up of diverticulosis. Stop benadryl. IFIED NURSING ASSISTANT INSTRUCTOR documented in this encounter Progress Notes * Evelina Clark MD - 12/29/2019 11:00 AM CERTIFIED NURSING ASSISTANT INSTRUCTOR CC: Patient here for follow up of [...] file Gets together: Not on file Attends methodist service: Not on file Active member of [...] Evelina Clark, PGY5 Allergy and Immunology Fellow IFIED NURSING ASSISTANT INSTRUCTOR * Daksha Gee LVN - 12/29/2019 11:00 AM CERTIFIED NURSING ASSISTANT INSTRUCTOR Kayla Degroot is a 74 year old female Chief Complaint Patient presents with Follow-up Hives/rash IFIED NURSING ASSISTANT INSTRUCTOR documented in this encounter Plan of Treatment Care Team Description Date Type Specialty Gladis Garcia MD [address] [address] [phone] 01/11/2020 Office Visit Rheumatology Health Maintenance Due [...] Dates Group Medicare MEDICARE MEDICARE xxxxxxxxxxx 2010- [phone] P. O. B OX PART A & B Present [id number] [place] [id number] Medicare Supplement [employer] [place] [id number] 2019-Cam saleem documented as of this encounter
--- OUTSIDE RECORDS SUMMARY | 2020-06-04 10:16 | XMS REPORT | Summary of Care ---
Author Author [facility] - Health Organization [facility] - Health Address Unknown Phone Unavailable Care Team Providers Care Sports Administrator Name Role Phone Brent Pierce PCP Reason for Visit * Reason Onset Date Comments Hives 06/02/2020 with taking steriod s Encounter Details Care Team Description Date Type Department Maryana Edwards RN [address] [place] [address] Hives (with taking steriods) 06/02/2020 Nurse Triage [facility] [address] [place] [address] [phone] Allergies Comments Active Allergy Reactions Severity Noted Date Ampicillin Diarrhea Medium 11/21/2015 Leukocytoclastic vasculitis Cefdinir Rash 07/06/2019 Joint swelling Ciprofloxacin Hcl Swelling 04/01/2017 Epinephrine Hives High 03/29/2020 documented as of this encounter (statuses as of 06/02/2020) Medications End Date Status Medication Sig Dispensed [...] as of this encounter (statuses as of 06/02/2020) Active Problems Problem Noted Date Angioedema, subsequent [...] Sicca 01/01/2016 Abnormal TSH 11/23/2015 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/21/2015 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 6 Generalized OA 11/21/2015 Chronic fatigue 11/21/2015 documented as of this encounter (statuses as of 06/02/2020) Social History Date Tobacco Use Types Packs/Day Years Used Quit: 11/21/1989 Former Smoker Cigarettes 1 40 Smokeless Tobacco: Never Used Drinks/Week oz/Week Comments Alcohol Use 0 Standard drinks or equivalent 0.0 No Sex Assigned at Date Recorded Not on file documented as of this encounter Last Filed Vital Signs Not on filedocumented in this encounter Miscellaneous Notes * Telephone Encounter - Maryana Edwards RN - 06/02/2020 7:25 PM CDT Reason for Disposition Hives or itching Protocols used: RASH - WIDESPREAD ON [id number] Patient calls stating that she is breaking out in hives after taking a medrol do se hossein for swelling of her feet. RN reviews Rash - Widespread On Drugs-Adult Pr otocol and advises patient to follow up with a provider in the next 24 hrs. Prema rivera states that she is not going to go to the ER she would just like this to be forwarded to Dr. Loyd. RN gives strong 911/ER warnings and patient verbaliz es understanding. Patient states she will not be taking anymore of the medrol d ose hossein and would like Dr. Loyd to follow up with her on Friday. RN states s he will route this call to Dr. Loyd but again gives strong 911 warnings. Prmea rivera is grateful and will wait to her from Dr. Loyd on Friday. * Telephone Encounter - Maryana Edwards RN - 06/02/2020 7:25 PM CDT Adult Triage Assessment Last Clinic Visit: 03/29/2020 - Allergy appointment for urticaria. Primary Symptom: Taking Medrol dose paks for angioedema and having hives. Onset / Duration: Began on Friday with swelling of feet so patient started a Med rol dose hossein as instructed and today began having hives. Location / Description: Hives are from ankles to the knees and patient is afraid to continue to take the medrol dose hossein. Pain / Severity: 0/10 Associated Symptoms: itching with the hives. Fever / Method: Denies Hydration: 5-6 bottles of water, urinating normally. Treatment so far: only the steroids and patient is suspecting they have cause th e hives. Effect on ADL's: some LMP: n/a Pre-existing condition / Immunocompromised: Allergies to medications, Angioedema * Telephone Encounter - Maryana Edwards RN - 06/02/2020 7:25 PM CDT Regarding: reaction to steroid pack, broke out in hives below knees x 2 hours, w ants to speak with nurse ----- Message from Lashon Strong sent at 06/02/2020 6:29 PM CDT ----- Kayla Degroot is a 74 year old female documented in this encounter Plan of Treatment Care Team Description Date Type Specialty Marylou Loyd MD [address] [place] [address] 08/02/2020 Office Visit Allergy & Immunolog y: Internal Medicine Gladis Garcia MD [address] [address] 01/09/2021 Office Visit Rheumatology Health Maintenance Due Date Last Done Comments DTaP,Tdap,and Td Vaccines 1964 (1 - Tdap) Breast Cancer Screening 1985 (MAMMOGRAM) COLON CANCER SCREENING 1995 ANNUAL FIT/FOBT COLON CANCER SCREENING 1995 FIT DNA EVERY 3 YEARS COLON CANCER SCREENING 1995 SIGMOIDOSCOPY EVERY 5 YEARS COLONOSCOPY 1995 Colorectal Cancer 1995 Screening Zoster Recombinant 1995 Vaccine (SHINGRIX) (1 of 2) Medicare Wellness Visit 2010 Osteoporosis Screening 2010 PNEUMOCOCCAL VACCINES 65+ 2010 (1 of 1 - PPSV23) INFLUENZA VACCINE (#1) 2020 08/27/2015 Depression Screening 01/10/2021 01/11/2020 HEPATITIS C (HCV) SCREEN Completed 11/21/2015 documented as of this encounter Results Not on filedocumented in this encounter Insurance Type Payer Benefit Subscriber ID Effective Phone Address Plan / Dates Group Medicare MEDICARE MEDICARE [id number] 2010- [phone] [place] PART A & B Present [id number] [place] [id number] Medicare Supplement [employer] [place] [id number] 2019-P [place] delatorreent documented as of this encounter
--- OUTSIDE RECORDS SUMMARY | 2020-06-04 10:16 | XMS REPORT | Summary of Care ---
Author Author [facility] - Health Organization [facility] - Health Address Unknown Phone Unavailable Care Team Providers Care Balloon Artist Name Role Phone Brent Pierce PCP Encounter Details Care Team Description Date Type Department Doctor Unassigned, [place] [address] [place] [address] 05/19/[address] 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 6 Generalized [...] Date Type Specialty Marylou Loyd MD [address] [place] [address] [phone] 08/02/2020 Office Visit Allergy & Immunolog y: Internal Medicine Gladis Garcia MD [address] [address] [phone] 01/09/2021 Office Visit Rheumatology Health Maintenance Due [...] Procedure Name Priority Date/Time Associated Diag nosis EXTERNAL PROVIDER RECORDS Routine 05/19/2020 12:01 AM CDT documented in this encounter Results Not on filedocumented in this encounter Insurance Type Payer Benefit Subscriber ID Effective Phone Address Plan / Dates Group Medicare MEDICARE MEDICARE xxxxxxxxxxx 2010- [phone] [place] [address] PART A & B Present [id number] [place] [id number] Medicare Supplement [employer] [place] [place] [id number] 2019-P [place] saleem documented as of this encounter
--- OUTSIDE RECORDS SUMMARY | 2020-06-04 10:16 | XMS REPORT | Summary of Care ---
Author Author [facility] - Health Organization [facility] - Health Address Unknown Phone Unavailable Care Team Providers Care Dairy Equipment Specialist Name Role Phone Brent Pierce PCP Reason for Visit * Reason Comments Notification electronic records received Encounter Details Care Team Description Date Type Department Gladis Garcia MD [address] [address] [phone] Notification (electronic records receive d) 05/12/2020 [facility] [address] [facility], [place] [phone] Allergies Comments Active Allergy Reactions Severity Noted [...] Date Type Specialty Marylou Loyd MD [address] [place] [address] [phone] 08/02/2020 Office Visit Allergy & Immunolog y: Internal Medicine Gladis Garcia MD [address] [address] [phone] 01/09/2021 Office Visit Rheumatology Health Maintenance Due [...] Dates Group Medicare MEDICARE MEDICARE xxxxxxxxxxx 2010- [phone] [place] [address] [place] PART A & B Present [id number] [place] [id number] Medicare Supplement [place] [place] [employer] [place] [id number] 2019-P [place] saleem documented as of this encounter
--- OUTSIDE RECORDS SUMMARY | 2020-06-04 10:17 | XMS REPORT | Continuity of Care Document ---
Author Author [facility] t Organization [facility] Address [address] [place] [address] [place] [address] Phone Unavailable Care Team Providers Care [employer] Libr[employer] Name Role Phone NEO CARRIZALES, MD BLANCHARD PCP Grace SCHERER, Juan Mijares Attphys Unavailable Jose CARRIZALES, Dina Griffith Attphys OPAL LARSON Attphys Unavailable SANTO LARSON Attphys Unavailable Soo POLK Attphys Unavailable TAN FULTON Attphys Unavailable HAMPEL, FAUSTINO Attphys Unavailable Payers Payer Name Policy Type Policy Number Effective Date Expiration Date S josé luis Miscellaneous Indemnity [id number] 2019 00:00:00 [facility] Medicare A & B [id number] 2010 00:00:00 [facility] Cdc Review [id number] [facility] Miscellaneous Ppo [id number] 2010 00:00:00 [facility] Problems Condition Name Condition Details Condition Category Status Onset Date Resolution Date Last Treatment Date Treating Clinician Comments Source Acute allergic reaction Problem Active [facility] Urticaria Problem Active [facility] Allergies, Adverse Reactions, Alerts Allergy Name Allergy Type Status Severity Reaction(s) Onset Date Inacti ve Date Treating Clinician Comments Source Epinephrine Allergy to substance Active HIVES WITH EPI PEN 2020-04-23 00:00:00 [facility] EPI PEN Allergy to substance Active HIVES 2019-06-22 00:00:00 [facility] Ampicillin Propensity to adverse reactions Active Mild DIAR MAYITO 2018-07-25 00:00:00 [facility] Ciprofloxacin Allergy to substance Active Severe 2018-07-25 00:00: 00 [facility] Social History Social Habit Start Date Stop Date Quantity Comments Source Sex Ass[birth year] At 1945 00:00:00 1945 00:00:00 Female [facility] Medications Ordered Medication Name Filled Medication Name Start Date Stop Da te Current Medication? Ordering Clinician Indication Dosage Frequency Signature (SIG) Comments Components Source Prednisone Prednisone 2019-12-21 10:34:00 2020-03-15 00:00:00 No 60 Daily for Allergic Response [facility] Cefdinir (Omnicef) 300 Mg CAPSULE Cefdinir (Omnicef) 300 Mg CAPSULE 2019-06-22 12:27:00 2020-03-15 00:00:00 No 1 Twice A Day [facility] Prednisone Prednisone 2019-06-22 12:27:00 2020-03-15 00:00:00 No 20 Three Times A Day [facility] Mometasone Furoate (Nasonex) 17 Gm SPRAY Mometasone Fu roate (Nasonex) 17 Gm SPRAY 2018-07-18 16:10:00 Yes 2 Daily [facility] Levocetirizine Dihydrochloride (Xyzal) 5 Mg TABLET Lev ocetirizine Dihydrochloride (Xyzal) 5 Mg TABLET 2018-07-18 16:10:00 2020-03-15 00:00:00 No 5 Twice A Day [facility] Epinephrine Hcl (Epinephrine 1 Mg/Ml Ampul) 1 Mg/Ml IN J Epinephrine Hcl (Epinephrine 1 Mg/Ml Ampul) 1 Mg/Ml INJ 2018-07-18 16:10:00 2018-12-03 00:00:00 No .3 As Needed as needed for Allergy [facility] Amlodipine Besylate Amlodipine Besylate Yes 5 Daily [facility] Ascorbic Acid (Vitamin C) 500 Mg TAB.CHEW Ascorbic Aci d (Vitamin C) 500 Mg TAB.CHEW Yes Daily [facility] Biotin Biotin Yes 1 Daily [facility] Cetirizine Hcl Cetirizine Hcl Yes 20 Daily [facility] Diphenhydramine Hcl (Benadryl) 25 Mg CAPSULE Diphenhyd ramine Hcl (Benadryl) 25 Mg CAPSULE Yes 25 As Needed [facility] Fexofenadine Hcl (Nunu Allergy) 180 Mg TABLET Fexof enadine Hcl (Nunu Allergy) 180 Mg TABLET Yes Daily [facility] Lactobac Cmb #3/Fos/Pantethine (Probiotic & Acidophilu s Cap) 1 Each CAPSULE Lactobac Cmb #3/Fos/Pantethine (Probiotic & Acidophilus Cap) 1 Each CAPSULE Yes 1 Daily [facility] Lactose-Free Food (Ensure Plus) 237 Ml LIQUID Lactose- Free Food (Ensure Plus) 237 Ml LIQUID Yes Twice A Day [facility] Levothyroxine Sodium (Synthroid) 125 Mcg TAB Levothyro xine Sodium (Synthroid) 125 Mcg TAB Yes 125 Daily [facility] Lorazepam Lorazepam Yes 2 Three Times A Day as needed for Anxiety [facility] Methylprednisolone Methylprednisolone Yes As Needed [facility] Montelukast Sodium (Singulair) 10 Mg TABLET Montelukas t Sodium (Singulair) 10 Mg TABLET Yes Daily [facility] Omeprazole Magnesium (Prilosec Ot) 20 Mg TABLET.DR Vivas eprazole Magnesium (Prilosec Ot) 20 Mg TABLET. Yes 20 Daily [facility] Albuterol Sulfate Albuterol Sulfate 2020-03-15 00:00:00 No 1 As Needed [facility] Mu-Vits-Min Th/Lycopene/Lutein (Centrum Silver Tablet) 1 Each TABLET Mu-Vits-Min Th/Lycopene/Lutein (Centrum Silver Tablet) 1 Each TABLET 202 00:00:00 No Daily [facility] Omeprazole Omeprazole 2020-03-15 00:00:00 No 20 Concha ly [facility] Prednisone Prednisone 2020-03-15 00:00:00 No 20 [facility] Ranitidine Hcl Ranitidine Hcl 2020-03-15 00:00:00 No [facility] Amlodipine Besylate Amlodipine Besylate 2019-06-22 00:00:00 No 10 Daily [facility] Cetirizine Hcl Cetirizine Hcl 2019-06-22 00:00:00 No 10 Daily [facility] Fexofenadine/Pseudoephedrine (Nunu-D 12 Hour Tablet ) 1 Each TAB.ER.12H Fexofenadine/Pseudoephedrine (Nunu-D 12 Hour Tablet) 1 Each TAB.ER.12H 2019-06-22 00:00:00 No 180 Daily [facility] Ketotifen Fumarate Ketotifen Fumarate 2019-06-22 00:00:00 [facility] Amlodipine/Valsartan (Exforge 10-320 Mg Tablet) 1 Each TABLET Amlodipine/Valsartan (Exforge 10-320 Mg Tablet) 1 Each TABLET 2018-07-25 00:00:00 No 1 Daily [facility] Vital Signs Vital Name Observation Time Observation Value Comments Source Body Temperature 2020-04-23 12:56:00 98.3 [degF] [facility] Weight 2020-04-23 10:10:00 175.13 [lb_av] [facility] BMI (Body Mass Index) 2020-04-23 10:10:00 30.1 kg/m2 [facility] Procedures Procedure Date / Time Performed Performing Clinician [facility] e COLONOSCOPY AND BIOPSY 2020-03-23 00:00:00 [facility] [place] [facility] COLONOSCOPY W/LESION REMOVAL 2020-03-23 00:00:00 [facility] COLONOSCOPY W/LESION REMOVAL 2020-03-23 00:00:00 [facility] Computed tomography of abdomen and pelvis with contrast 00:00:00 [facility] X-ray of chest, two views 2019-09-16 00:00:00 SANTO LARSON [facility] Plan of Care Planned Activity Planned Date Details Comments Source Instructions Rash - Nonspecific [facility] Encounters Start Date/Time End Date/Time Encounter Type Admission Type Attendi [facility] Care Department Encounter ID Source 2020-06-02 00:00:00 2020-06-02 00:00:00 Nurse Triage Maryana Edwards [facility] [id number] 2020-05-12 00:00:00 2020-05-12 00:00:00 Telephone Gladis Garcia [facility] [id number] 2020-04-23 10:03:00 2020-04-23 13:05:00 Departed Emergency Room [facility] [id number] [facility] 2020-03-23 10:15:00 2020-03-23 10:15:00 Registered Surgical Day Care [facility] [id number] [facility] 2020-03-17 11:36:00 2020-03-17 11:36:00 Registered Clinic 3 OPAL LARSON [facility] [id number] [facility] 2019-12-21 09:46:00 2019-12-21 10:44:00 Departed Emergency Room [facility] [id number] [facility] 2019-09-16 10:14:00 2019-09-16 10:14:00 Registered Clinic 3 SANTO LARSON [facility] [id number] [facility] 2019-08-15 11:32:00 2019-08-15 14:25:00 Departed Emergency Room [facility] [id number] [facility] 2019-06-29 20:34:00 2019-06-29 21:15:00 Departed Emergency Room [facility] [id number] [facility] 2019-06-22 09:16:00 2019-06-22 12:54:00 Departed Emergency Room [facility] [id number] [facility] 2019-02-01 11:12:00 2019-02-01 13:05:00 Departed Emergency Room [facility] [id number] [facility] 2018-12-25 07:52:00 2018-12-25 08:55:00 Departed Emergency Room [facility] [id number] [facility] 2018-12-03 07:01:00 2018-12-03 09:51:00 Departed Emergency Room [facility] [id number] [facility] 2018-11-20 07:15:00 2018-11-20 10:23:00 Departed Emergency Room [facility] [id number] [facility] 2018-10-29 07:39:00 2018-10-29 09:40:00 Departed Emergency Room [facility] [id number] [facility] 2018-07-25 15:09:00 2018-07-25 16:47:00 Departed Emergency Room [facility] [id number] [facility] 2018-07-25 12:44:00 2018-07-25 13:56:00 Departed Emergency Room [facility] [id number] [facility] 2018-07-18 13:55:00 2018-07-18 16:55:00 Departed Emergency Room [facility] [id number] [facility] 2018-07-13 19:50:00 2018-07-13 22:12:00 Departed Emergency Room [facility] [id number] [facility] 2018-06-26 10:42:00 2018-06-26 15:44:00 Departed Emergency Room 1 MALGORZATA POLK [facility] [id number] [facility] 2018-05-23 04:22:00 2018-05-23 11:46:00 Departed Emergency Room [facility] [id number] [facility] 2018-04-02 15:48:00 2018-04-02 15:48:00 Registered Clinic 3 TAN MILLAN [facility] [id number] [facility] 2017-09-08 13:41:00 2017-09-08 13:41:00 Registered Clinic [facility] [id number] [facility] 2017-08-26 13:53:00 2017-08-26 13:53:00 Registered Clinic [facility] [id number] [facility] Results Test Description Test Time Test Comments Results Result Comments Source Stool lactoferrin detection 2020-03-23 14:40:00 Test Item Stool Lactoferrin (LAB) (test code = 60244-0) POSITIVE NEGATIVE Testing on stool aspirate specimens is outside baseball glove shaper claims since specime n type not validated on this assay.[facility] (mass/mass)2020-03-23 14:40:00* Test Item Value Reference Range Interpretation Comments Stool Calprotectin (test code = 49858-2) 29 0-120 Concentration Interpretation Follow-Up<16 - 50 ug/g Normal None>50 -120 ug/g Borderline Re-evaluate in 4-6 weeks >120 ug/g Abnormal Repeat as clinically indicatedPerformed at: - [facility] [address] [id number] Director: Jaycee Pitts MD, Phone: [phone] Health [facility]byterian Hospital PlanoClostridium difficile A and B toxin [id number] 14:40:00* Test Item Value Reference Range Interpretation Comments Clostridium Difficile Toxin A & B (test code = 559322995) NEGATIVE NEGATIVE Testing on stool aspirate specimens is outside baseball glove shaper claims since specime n type not validated on this assay.[facility] Fluoroscopic procedure less than one hour [id number] 12:00:00* Test Item Value Reference Range Interpretation Comments Coronavirus (PCR) (test code = Coronavirus (PCR)) NOT DETECTED NOTD ETECTED SARS-COV-2 (COVID19), HIGHRISK, RT-PCRNegative results do not preclude SARS-CoV- 2 infection and should not be used as the sole basis for patient management deci sions. Negative results must be combined with clinical observations, patient his tory, and epidemiological information. Optimum specimen types and timing for pea k viral levels during infections caused by SARS-CoV-2 have not been determined. Collection of multiple specimens ot types of specimens may be necessary to detec t virus. Improper specimen collection and handling, sequence variability under p rimers/probes, or organism present below the limit of detection may lead to fals e negative results. Positive and negative predictive values of testing are highl y dependent on prevalance. False negative test results are more likely when prev alence is high.The expected result is negative (not detected).The SARS-CoV-2 krishna t is intended for the qualitative detection of nucleic acid from SARS-CoV-2 in n asopharyngeal and oropharyngeal swab samples from patients who meet COVID-19 cli nical and or epidemiological criteria. For lower respiratory tract specimens, th e assay is submitted for authoriztion by FDA under an Emergency Use Authorizatio n (EUA). Testing methodology is real time RT-PCR. If received as separate collec tion devices, nasopharygeal and oropharyngeal specimens are combined for analysi s. Additional specimens may be split to a separate accession for analysi and rep orting as this test includes a single unit of service.Test results must be corre lated with clinical presentation and evaluated in the context of other laborator y and epidemiologic data. Test performance can be affected because the epidemiol ogy and clinical spectrum of infection caused by SARS-CoV-2 is not fully known. For example, the optimum types of specimens to collect and when during the cours e of infection these specimens are most likely to contain detectable viral RNA m ay not be known.This test has not been Food and Drug Administration (FDA) cleare d or approved and has been authorized by FDA under an Emergency Use Authorizatio n (EUA). The test is only authorized for the duration of the declaration that ci rcumstances exist justifying the authorization of emergency use of in vitro diag nostic tests for detection and/or diagnosis of SARS-CoV-2 under section 564(b) o f the Act, 21 U.S.C. section 360bbb-3(b)(1), unless the authorization is termina chelo or revoked sooner. [facility] are certified under the C linical Laboratory Improvement Amendments of 1988 (CLIA), 42 U.S.C. section 263a , to perform high complexity tests.Testing performed by [facility] [address] [phone] Director: Jay Montoya M.D.CLIA # [id number] Health Pres[facility]anoBlcanby [facility] center leukocytes automated count (number/volume)2020-03-18 11:40:00* Test Item Value Reference Range Interpretation Comments White Blood Count (test code = 6690-2) 7.88 4.8-10.8 [facility] erythrocytes automated count (number/volume)2020-03-18 11:40:00* Test Item Value Reference Range Interpretation Comments Red Blood Count (test code = 789-8) 4.21 3.6-5.1 [facility] hemoglobin measurement (moles/volume)2020-03-18 11:40:00* Test Item Value Reference Range Interpretation Comments Hemoglobin (test code = 72849-6) 11.1 12.0-16.0 [facility] blood hematocrit (volume fraction)2020-03-18 11:40:00* Test Item Value Reference Range Interpretation Comments Hematocrit (test code = 4544-3) 36.6 34.2-44.1 [facility]ano[facility] erythrocyte mean corpuscular twommq8173-62-61 11:40:00* Test Item Value Reference Range Interpretation Comments Mean Corpuscular Volume (test code = 787-2) 86.9 81-99 [facility] erythrocyte mean corpuscular hemoglobin (mass per erythrocyte)2020-03-18 11:40:00* Test Item Value Reference Range Interpretation Comments Mean Corpuscular Hemoglobin (test code = 785-6) 26.4 28-32 [facility]ano[facility] erythrocyte mean corpuscular hemoglobin concentration measurement (mass/volume)2020-03-18 11:40:00* Test Item Value Reference Range Interpretation Comments Mean Corpuscular Hemoglobin Concent (test code = 786-4) 30.3 31-35 [facility] PlanoRDW YlwKp-Yyb7455-20-23 11:40:00* Test Item Value Reference Range Interpretation Comments Red Cell Distribution Width (test code = 78234-3) 15.9 11.7 -14.4 [facility]ano[facility] blood platelet count (count/volume)2020-03-18 11:40:00* Test Item Value Reference Range Interpretation Comments Platelet Count (test code = 777-3) 400 140-360 [facility]ano[facility] blood segmented neutrophil count as percentage of total knhyacmmqf8396-72-52 11:40:00* Test Item Value Reference Range Interpretation Comments Neutrophils (%) (Auto) (test code = 86284-9) 68.3 38.7-80.0 [facility] blood lymphocyte count as percentage ot total ybhxyyloco3382-10-27 11:40:00* Test Item Value Reference Range Interpretation Comments Lymphocytes (%) (Auto) (test code = 736-9) 16.1 18.0-39.1 [facility] blood monocyte count as percentage of total bedchpccfl8371-12-41 11:40:00* Test Item Value Reference Range Interpretation Comments Monocytes (%) (Auto) (test code = 5905-5) 9.5 4.4-11.3 [facility] blood eosinophil count as percentage of total qikadulfee2972-97-58 11:40:00* Test Item Value Reference Range Interpretation Comments Eosinophils (%) (Auto) (test code = 713-8) 4.4 0.0-6.0 [facility] blood basophil count as percentage of total limehqlkqg7135-70-40 11:40:00* Test Item Value Reference Range Interpretation Comments Basophils (%) (Auto) (test code = 706-2) 0.9 0.0-1.0 [facility]anoFluoroscopic procedure less than one hour orrizqrw5468-16-53 11:40:00* Test Item Value Reference Range Interpretation Comments IM GRANULOCYTES % (test code = IM GRANULOCYTES %) 0.8 0.0- 1.0 [facility] blood neutrophil count 2020-03-18 11:40:00* Test Item Value Reference Range Interpretation Comments Neutrophils # (Auto) (test code = 751-8) 5.4 2.1-6.9 [facility] lymphocytes count (number/volume) 2020-03-18 11:40:00* Test Item Value Reference Range Interpretation Comments Lymphocytes # (Auto) (test code = 55072-8) 1.3 1.0-3.2 [facility] monocytes automated count (number/volume)2020-03-18 11:40:00* Test Item Value Reference Range Interpretation Comments Monocytes # (Auto) (test code = 742-7) 0.8 0.2-0.8 [facility] eosinophil count 2020-03-18 11:40:00* Test Item Value Reference Range Interpretation Comments Eosinophils # (Auto) (test code = 711-2) 0.4 0.0-0.4 [facility] blood basophil count (count/volume)2020-03-18 11:40:00* Test Item Value Reference Range Interpretation Comments Basophils # (Auto) (test code = 704-7) 0.1 0.0-0.1 [facility]anoFluoroscopic procedure less than one hour xqsvirny9117-47-75 11:40:00* Test Item Value Reference Range Interpretation Comments Absolute Immature Granulocyte (auto (krishna t code = Absolute Immature Granulocyte (auto) 0.06 0-0.1 [facility] [id number] 13:44:00 [facility] [address] [address] Patient Name: ELFEGO DEGROOT MR #: [id number] : 1945 Age/Sex: 74/F Req #: [id number] Adm Physician: Ordered by: OPAL LARSON MD Report #: [id number] Location: CT [facility] m/Bed: Procedure: [id number] CT/CT ABDOM EN/PELVIS W Exam Date: 03/17/20 Exam Time: 1250 REPORT STATUS: Signed Exam: CT abdom en and pelvis Clinical history: Right-sided abdominal pain Comparison: CT abdomen and pelvis, June 26, 2018 Technique: Helical images of the ab domen and pelvis were obtained after IV contrast administration DOSE REDU CTION: The exams was performed according to the departmental dose-optimizatio n program which includes automated exposure control, adjustment of the mA and/ or kV according to patient size and/or use of iterative reconstruction techniq ue. Findings: The lung bases are clear. There is no evidence of pleural eff usion. The cardiac size is within normal limits. The liver, spleen, pancr eas, gallbladder, adrenal glands, and kidneys are unremarkable. The small and large bowels are normal in caliber without evidence of obstruction. Appen tyler is visualized and within normal limits in caliber. Sigmoid diverticulosis is noted without CT evidence of acute diverticulitis. The bladder is unrema rkable. The uterus and ovaries are not visualized. There is no evidence of lymphadenopathy or free fluid. The aorta and IVC are normal in caliber. Athero sclerotic calcifications at the origins of the great vessels are noted. I mpression: 1. Sigmoid diverticulosis without CT evidence of acute diverticulit is. 2. Status post hysterectomy. 3. Degenerative disc disease of the lower l umbar spine with loss in disc height at L4-L5 and L5-S1 levels. In addition, m ild anterolisthesis of L4 on L5 is also noted. Signed by: Dr. Manolo Musa MD on 03/17/2020 1:47 PM Dictated By: HUONG MUSA MD 46 Transcribed By: ALISON on 1346 COPY TO: OPAL LARSON MD Serum or plasma urea nitrogen measurement (mass/volume)2020-03-17 11:50:00* Test Item Value Reference Range Interpretation Comments Blood Urea Nitrogen (test code = 3094-0) 6 05-21 [facility] or plasma creatinine measurement (mass/volume)2020-03-17 11:50:00* Test Item Value Reference Range Interpretation Comments Creatinine (test code = 2160-0) 0.80 0.57-1.11 [facility] Dallaserum or plasma urea nitrogen/creatinine mass sxiwu7547-33-35 11:50:00* Test Item Value Reference Range Interpretation Comments BUN/Creatinine Ratio (test code = 3097-3) 8 04-20 [facility]anoEstimated glomerular filtration rate (GFR) blufjxnzzfhbc2872-89-28 11:50:00* Test Item Value Reference Range Interpretation Comments Estimat Glomerular Filtration Rate (test code = 869170822) > 60 >60 Ranges were taken from the National Kidney Disease Education Program and the [facility] literature.Reference ranges:60 or greater: Vxcdur14-40 ( for 3 consecutive months): Chronic kidney disease 15 or less: Kidney failureCHI [facility] Medical CenterCHEST 2 [id number] 12:19:00 [facility] [address] [place] [address] Patient Name: ELFEGO DEGROOT MR #: [id number] : 1945 Age/Sex: 73/F Req #: [id number] Adm Physician: Ordered by: SANTO LARSON MD Report #: [id number] Location: RAD Room/Bed: Procedure: [id number] DX/CHEST 2 VIEWS Exam Date: 09/16/19 Exam Time: 1145 REPORT STATUS: Signed EXAMINATI ON: CHEST 2 VIEWS INDICATION: Cough COMPARISON: None FI NDINGS: LINES/TUBES:None LUNGS:The lungs are well-inflated. No focal c onsolidation or pulmonary edema. PLEURA:No pleural effusion or pneumothorax . MEDIASTINUM:The cardiomediastinal silhouette appears normal in size and s hape. BONES/SOFT TISSUES:No acute osseous injury. ABDOMEN:No free air under the diaphragm. IMPRESSION: No focal pneumonia or pulmonary cheryl a. Signed by: Luly Dhaliwal MD on 09/16/2019 12:20 PM Dictated By: YONIS DHALIWAL MD 1220 Transcribe d By: ALISON on 09/16/19 1220 COPY TO: SANTO LARSON MD CT ABDOMEN/PELVIS [id number] 13:05:00 [place] [address] Patient Name: ELFEGO DEGROOT MR #: [id number] : 1945 Age/Sex: 72/F Req #: [id number] Adm Physician: Ordered by: MALGORZATA POLK MD Report #: [id number] Location: ER Room/Bed: Procedure: [id number] CT/CT ABDOMEN/PELVIS W Ex am Date: 06/26/18 Exam Time: 1230 REPORT STATUS : Signed EXAM: CT Abdomen and Pelvis WITH contrast INDICATION: COMPARISON: CT 09/08/2017 TECHNIQUE: Abdomen and pelvis were scanned utilizing a multidetector helical scanner from the lung base to the pubic sym physis after administration of IV contrast. Coronal and sagittal reformations were obtained. Routine protocol was performed. Scan was performed when during portal venous phase. IV CONTRAST: 100 mL of Isovue-370 ORAL CO NTRAST: Water COMPLICATIONS: None RADIATION DOSE: T otal DLP: 509.6 mGy*cm Estimated effective dose: (DLP x 0.015 x size fact or) mSv CTDIvol has been reviewed. It is below the limits set by the [facility] Protocol Committee (RPC). FINDINGS: LINES and TUBES: None. LOWER THORAX: Unremarkable HEPATOBILIARY: Hepatic steatosis. No focal h epatic lesions. No biliary ductal dilation. GALLBLADDER: No radio-opaque stones or sludge. No wall thickening. SPLEEN: No splenomegaly. PANC REAS: No focal masses or ductal dilatation. ADRENALS: No adrenal nodules KIDNEYS/URETERS: Kidneys enhance symmetrically. No hydronephrosis. No cystic or solid mass lesions. No stones. GI TRACT: No abnormal distentio n, wall thickening, or evidence of bowel obstruction. There are diverticula w ithin the colon without evidence of diverticulitis. Appendix is normal. PELVIC ORGANS/BLADDER: Hysterectomy. No focal bladder wall thickening. LYMP H NODES: No lymphadenopathy. VESSELS: There is mild atherosclerotic disease in the aorta and major arterial branches. PERITONEUM / RETROPERITONEUM: No free air or fluid. BONES: There are degenerative changes in the lumbar s pine. Grade 1 anterolisthesis of L4 on L5 without spondylolysis. SOFT TIS SUES: Unremarkable. IMPRESSION: 1. No acute abnormalities i n the abdomen and pelvis. 2. Colonic diverticulosis. Signed by: DR. Sanjuana Spring MD on 06/26/2018 1:12 PM Dictated By: MANDA SPRING MD Electro nically Signed By: MANDA SPRING MD on 06/26/18 1312 Transcribed By: ALISON on 06/26/18 1312 COPY TO: MALGORZATA POLK MD Urine [id number] 12:13:00* Test Item Value Reference Range Interpretation Comments Urine WBC (test code = 5821-4) 6-10 0-5 [facility] [id number] 12:13:00* Test Item Value Reference Range Interpretation Comments Urine RBC (test code = 16041-4) 0-5 0-5 [facility] Rekxknlv7477-86-32 12:13:00* Test Item Value Reference Range Interpretation Comments Urine Bacteria (test code = 68096-7) FEW NONE [facility] Ep[facility]helial Pjnxq7231-37-31 12:13:00 * Test Item Value Reference Range Interpretation Comments Urine Epithelial Cells (test code = 14629-2) FEW NONE [facility] [id number] 12:13:00* Test Item Value Reference Range Interpretation Comments Urine WBC (test code = 5821-4) 6-10 0-5 [facility] [id number] 12:13:00* Test Item Value Reference Range Interpretation Comments Urine RBC (test code = 94964-4) 0-5 0-5 [facility] Ejarqith7838-34-36 12:13:00* Test Item Value Reference Range Interpretation Comments Urine Bacteria (test code = 94179-1) FEW NONE [facility] Ep[facility]helial Oslhl9310-64-09 12:13:00 * Test Item Value Reference Range Interpretation Comments Urine Epithelial Cells (test code = 19117-9) FEW NONE [facility] [id number] 12:13:00* Test Item Value Reference Range Interpretation Comments Urine WBC (test code = 5821-4) 6-10 0-5 [facility] [id number] 12:13:00* Test Item Value Reference Range Interpretation Comments Urine RBC (test code = 87879-8) 0-5 0-5 [facility] Upvsjenq2247-90-54 12:13:00* Test Item Value Reference Range Interpretation Comments Urine Bacteria (test code = 17823-6) FEW NONE [facility]helial Twwwv3226-30-75 12:13:00 * Test Item Value Reference Range Interpretation Comments Urine Epithelial Cells (test code = 89585-3) FEW NONE [facility] [id number] 12:13:00* Test Item Value Reference Range Interpretation Comments Urine WBC (test code = 5821-4) 6-10 0-5 [facility] [id number] 12:13:00* Test Item Value Reference Range Interpretation Comments Urine RBC (test code = 13202-9) 0-5 0-5 [facility] Lbfafznt9082-14-39 12:13:00* Test Item Value Reference Range Interpretation Comments Urine Bacteria (test code = 72964-3) FEW NONE [facility] Ep[facility]helial Fqqzi9813-13-74 12:13:00 * Test Item Value Reference Range Interpretation Comments Urine Epithelial Cells (test code = 28863-9) FEW NONE [facility] [id number] 12:13:00* Test Item Value Reference Range Interpretation Comments Urine WBC (test code = 5821-4) 6-10 0-5 [facility] [id number] 12:13:00* Test Item Value Reference Range Interpretation Comments Urine RBC (test code = 35117-3) 0-5 0-5 [facility] Eutdjfaj2258-42-96 12:13:00* Test Item Value Reference Range Interpretation Comments Urine Bacteria (test code = 22035-1) FEW NONE [facility] Ep[facility]helial Eyuuk8782-17-52 12:13:00 * Test Item Value Reference Range Interpretation Comments Urine Epithelial Cells (test code = 94203-6) FEW NONE [facility] [id number] 12:13:00* Test Item Value Reference Range Interpretation Comments Urine WBC (test code = 5821-4) 6-10 0-5 [facility] [id number] 12:13:00* Test Item Value Reference Range Interpretation Comments Urine RBC (test code = 45722-0) 0-5 0-5 [facility] Ysteoogq9315-36-09 12:13:00* Test Item Value Reference Range Interpretation Comments Urine Bacteria (test code = 27024-2) FEW NONE [facility]helial Gbjtu1327-39-99 12:13:00 * Test Item Value Reference Range Interpretation Comments Urine Epithelial Cells (test code = 16243-6) FEW NONE [facility] [id number] 12:13:00* Test Item Value Reference Range Interpretation Comments Urine WBC (test code = 5821-4) 6-10 0-5 [facility] [id number] 12:13:00* Test Item Value Reference Range Interpretation Comments Urine RBC (test code = 21226-2) 0-5 0-5 [facility] Wotthlhf5687-30-96 12:13:00* Test Item Value Reference Range Interpretation Comments Urine Bacteria (test code = 87131-7) FEW NONE [facility]helial Jnnao0394-84-01 12:13:00 * Test Item Value Reference Range Interpretation Comments Urine Epithelial Cells (test code = 94098-5) FEW NONE [facility] [id number] 12:13:00* Test Item Value Reference Range Interpretation Comments Urine WBC (test code = 5821-4) 6-10 0-5 [facility] [id number] 12:13:00* Test Item Value Reference Range Interpretation Comments Urine RBC (test code = 07789-7) 0-5 0-5 [facility] Dwovfltx6260-51-04 12:13:00* Test Item Value Reference Range Interpretation Comments Urine Bacteria (test code = 75941-4) FEW NONE [facility] Ep[facility]helial Lcrfk3823-51-42 12:13:00 * Test Item Value Reference Range Interpretation Comments Urine Epithelial Cells (test code = 57361-8) FEW NONE [facility] [id number] 12:13:00* Test Item Value Reference Range Interpretation Comments Urine WBC (test code = 5821-4) 6-10 0-5 [facility] [id number] 12:13:00* Test Item Value Reference Range Interpretation Comments Urine RBC (test code = 21235-5) 0-5 0-5 [facility] Rxrfwliy7224-40-62 12:13:00* Test Item Value Reference Range Interpretation Comments Urine Bacteria (test code = 02991-5) FEW NONE [facility] Ep[facility]helial Mdpgb7048-80-17 12:13:00 * Test Item Value Reference Range Interpretation Comments Urine Epithelial Cells (test code = 84777-6) FEW NONE [facility] [id number] 12:13:00* Test Item Value Reference Range Interpretation Comments Urine WBC (test code = 5821-4) 6-10 0-5 [facility] [id number] 12:13:00* Test Item Value Reference Range Interpretation Comments Urine RBC (test code = 00259-2) 0-5 0-5 [facility] Mnvbhgmv7077-57-20 12:13:00* Test Item Value Reference Range Interpretation Comments Urine Bacteria (test code = 76398-5) FEW NONE [facility] Ep[facility]helial Rpjck2019-92-86 12:13:00 * Test Item Value Reference Range Interpretation Comments Urine Epithelial Cells (test code = 90028-7) FEW NONE [facility] Javfc0000-93-43 12:05:00* Test Item Value Reference Range Interpretation Comments Lactic Acid Level (test code = Lactic Acid Level) 13.5 4.5- 19.8 [facility] Jemkr2072-00-08 12:05:00* Test Item Value Reference Range Interpretation Comments Lactic Acid Level (test code = Lactic Acid Level) 13.5 4.5- 19.8 [facility] Hvzna4872-35-96 12:05:00* Test Item Value Reference Range Interpretation Comments Lactic Acid Level (test code = Lactic Acid Level) 13.5 4.5- 19.8 [facility] Ofyyh3367-70-72 12:05:00* Test Item Value Reference Range Interpretation Comments Lactic Acid Level (test code = Lactic Acid Level) 13.5 4.5- 19.8 [facility] Fazfn0206-83-40 12:05:00* Test Item Value Reference Range Interpretation Comments Lactic Acid Level (test code = Lactic Acid Level) 13.5 4.5- 19.8 [facility] Rywdx7752-18-92 12:05:00* Test Item Value Reference Range Interpretation Comments Lactic Acid Level (test code = Lactic Acid Level) 13.5 4.5- 19.8 [facility] Tmdpa4376-88-45 12:05:00* Test Item Value Reference Range Interpretation Comments Lactic Acid Level (test code = Lactic Acid Level) 13.5 4.5- 19.8 [facility] Fwqzg1880-54-79 12:05:00* Test Item Value Reference Range Interpretation Comments Lactic Acid Level (test code = Lactic Acid Level) 13.5 4.5- 19.8 [facility] Cavvx0622-11-54 12:05:00* Test Item Value Reference Range Interpretation Comments Lactic Acid Level (test code = Lactic Acid Level) 13.5 4.5- 19.8 [facility] Rystr6883-27-43 12:05:00* Test Item Value Reference Range Interpretation Comments Lactic Acid Level (test code = Lactic Acid Level) 13.5 4.5- 19.8 [facility] Xogph6254-37-33 11:56:00* Test Item Value Reference Range Interpretation Comments Urine Color (test code = 5778-6) YELLOW YELLOW [facility] Vxbyonf1795-53-53 11:56:00* Test Item Value Reference Range Interpretation Comments Urine Clarity (test code = 27116-3) SL CLOUDY CLEAR [facility] Specific Mftaklp6979-69-63 11:56:00 * Test Item Value Reference Range Interpretation Comments Urine Specific [place] (test code = 5811-5) 1.010 1.010-1.02 5 [facility] [id number] 11:56:00* Test Item Value Reference Range Interpretation Comments Urine pH (test code = 80435-5) 7 5-7 [facility] Leukocyte Xgvufckj6419-19-17 11:56:00* Test Item Value Reference Range Interpretation Comments Urine Leukocyte Esterase (test code = 5799-2) 1+ NEGATIVE H [facility] Eytasgt6753-74-07 11:56:00* Test Item Value Reference Range Interpretation Comments Urine Nitrite (test code = 56846-8) NEGATIVE NEGATIVE [facility] Uwjdjar5947-00-37 11:56:00* Test Item Value Reference Range Interpretation Comments Urine Protein (test code = 5804-0) TRACE NEGATIVE H [facility] Glucose (UA)2018-06-26 11:56:00* Test Item Value Reference Range Interpretation Comments Urine Glucose (UA) (test code = 2349-9) NEGATIVE NEGATIVE [facility] Ohtjysp5175-59-42 11:56:00* Test Item Value Reference Range Interpretation Comments Urine Ketones (test code = 71904-0) NEGATIVE NEGATIVE [facility] Alwefwdpciho5662-50-36 11:56:00* Test Item Value Reference Range Interpretation Comments Urine Urobilinogen (test code = 65538-0) 0.2 0.2-1 [facility] Tsvjwoibj7071-42-10 11:56:00* Test Item Value Reference Range Interpretation Comments Urine Bilirubin (test code = 1978-6) NEGATIVE NEGATIVE [facility] Sfxpo3671-83-16 11:56:00* Test Item Value Reference Range Interpretation Comments Urine Blood (test code = 91148-8) NEGATIVE NEGATIVE [facility] Jzrzw4022-93-21 11:56:00* Test Item Value Reference Range Interpretation Comments Urine Color (test code = 5778-6) YELLOW YELLOW [facility] Ffwchji8066-18-23 11:56:00* Test Item Value Reference Range Interpretation Comments Urine Clarity (test code = 60806-1) SL CLOUDY CLEAR [facility] Specific Giixipf1093-83-51 11:56:00 * Test Item Value Reference Range Interpretation Comments Urine Specific [place] (test code = 5811-5) 1.010 1.010-1.02 5 [facility] [id number] 11:56:00* Test Item Value Reference Range Interpretation Comments Urine pH (test code = 12777-7) 7 5-7 [facility] Leukocyte Liqlxvid8118-77-76 11:56:00* Test Item Value Reference Range Interpretation Comments Urine Leukocyte Esterase (test code = 5799-2) 1+ NEGATIVE H [facility] Nlledwh1859-64-62 11:56:00* Test Item Value Reference Range Interpretation Comments Urine Nitrite (test code = 47842-2) NEGATIVE NEGATIVE [facility] Ivqqidz7749-00-13 11:56:00* Test Item Value Reference Range Interpretation Comments Urine Protein (test code = 5804-0) TRACE NEGATIVE H [facility] Glucose (UA)2018-06-26 11:56:00* Test Item Value Reference Range Interpretation Comments Urine Glucose (UA) (test code = 2349-9) NEGATIVE NEGATIVE [facility] Uisnvhh7876-48-47 11:56:00* Test Item Value Reference Range Interpretation Comments Urine Ketones (test code = 22261-5) NEGATIVE NEGATIVE [facility] Rbgikavfoeuf2836-93-83 11:56:00* Test Item Value Reference Range Interpretation Comments Urine Urobilinogen (test code = 11450-7) 0.2 0.2-1 [facility] Pwjizsvsz5247-55-81 11:56:00* Test Item Value Reference Range Interpretation Comments Urine Bilirubin (test code = 1978-6) NEGATIVE NEGATIVE [facility] Esuze7835-39-36 11:56:00* Test Item Value Reference Range Interpretation Comments Urine Blood (test code = 87174-2) NEGATIVE NEGATIVE [facility] Mlffd0409-12-01 11:56:00* Test Item Value Reference Range Interpretation Comments Urine Color (test code = 5778-6) YELLOW YELLOW [facility] Topcezs7415-73-38 11:56:00* Test Item Value Reference Range Interpretation Comments Urine Clarity (test code = 69512-4) SL CLOUDY CLEAR [facility] Specific Kgknrsk8762-07-84 11:56:00 * Test Item Value Reference Range Interpretation Comments Urine Specific [place] (test code = 5811-5) 1.010 1.010-1.02 5 [facility] qB9241-00-37 11:56:00* Test Item Value Reference Range Interpretation Comments Urine pH (test code = 79515-0) 7 5-7 [facility] Leukocyte Tivcisvq9550-42-47 11:56:00* Test Item Value Reference Range Interpretation Comments Urine Leukocyte Esterase (test code = 5799-2) 1+ NEGATIVE H [facility] Kutzauj2467-99-94 11:56:00* Test Item Value Reference Range Interpretation Comments Urine Nitrite (test code = 60666-0) NEGATIVE NEGATIVE [facility] Dljrkuw1691-72-20 11:56:00* Test Item Value Reference Range Interpretation Comments Urine Protein (test code = 5804-0) TRACE NEGATIVE H [facility] Glucose (UA)2018-06-26 11:56:00* Test Item Value Reference Range Interpretation Comments Urine Glucose (UA) (test code = 2349-9) NEGATIVE NEGATIVE [facility] Kosjuud9169-36-23 11:56:00* Test Item Value Reference Range Interpretation Comments Urine Ketones (test code = 04110-6) NEGATIVE NEGATIVE [facility] Fegmeoqcymyu2054-15-07 11:56:00* Test Item Value Reference Range Interpretation Comments Urine Urobilinogen (test code = 77125-0) 0.2 0.2-1 [facility] Egjhsktmq9584-04-03 11:56:00* Test Item Value Reference Range Interpretation Comments Urine Bilirubin (test code = 1978-6) NEGATIVE NEGATIVE [facility] Lvnkn1885-98-30 11:56:00* Test Item Value Reference Range Interpretation Comments Urine Blood (test code = 42615-4) NEGATIVE NEGATIVE [facility] Mknsx5363-34-47 11:56:00* Test Item Value Reference Range Interpretation Comments Urine Color (test code = 5778-6) YELLOW YELLOW [facility] Mbaiunp9069-21-86 11:56:00* Test Item Value Reference Range Interpretation Comments Urine Clarity (test code = 11943-8) SL CLOUDY CLEAR [facility] Specific Irndbbh8881-38-05 11:56:00 * Test Item Value Reference Range Interpretation Comments Urine Specific [place] (test code = 5811-5) 1.010 1.010-1.02 5 [facility] kI3584-11-87 11:56:00* Test Item Value Reference Range Interpretation Comments Urine pH (test code = 74142-8) 7 5-7 [facility] Leukocyte Zwhglnlt2866-87-98 11:56:00* Test Item Value Reference Range Interpretation Comments Urine Leukocyte Esterase (test code = 5799-2) 1+ NEGATIVE H [facility] Lxoqtnx4586-97-86 11:56:00* Test Item Value Reference Range Interpretation Comments Urine Nitrite (test code = 55932-0) NEGATIVE NEGATIVE [facility] Qouyacl4684-97-00 11:56:00* Test Item Value Reference Range Interpretation Comments Urine Protein (test code = 5804-0) TRACE NEGATIVE H [facility] Glucose (UA)2018-06-26 11:56:00* Test Item Value Reference Range Interpretation Comments Urine Glucose (UA) (test code = 2349-9) NEGATIVE NEGATIVE [facility] Feqctcl3065-89-49 11:56:00* Test Item Value Reference Range Interpretation Comments Urine Ketones (test code = 83358-9) NEGATIVE NEGATIVE [facility] Vjyfkjpnbdbn1533-96-45 11:56:00* Test Item Value Reference Range Interpretation Comments Urine Urobilinogen (test code = 04134-8) 0.2 0.2-1 [facility] Pznryjcaq0931-53-08 11:56:00* Test Item Value Reference Range Interpretation Comments Urine Bilirubin (test code = 1978-6) NEGATIVE NEGATIVE [facility] Qdphs9057-86-25 11:56:00* Test Item Value Reference Range Interpretation Comments Urine Blood (test code = 13258-5) NEGATIVE NEGATIVE [facility] Omwqw3561-84-57 11:56:00* Test Item Value Reference Range Interpretation Comments Urine Color (test code = 5778-6) YELLOW YELLOW [facility] Sxikzuh7887-21-35 11:56:00* Test Item Value Reference Range Interpretation Comments Urine Clarity (test code = 51717-1) SL CLOUDY CLEAR [facility] Specific Zcmhqja0492-74-85 11:56:00 * Test Item Value Reference Range Interpretation Comments Urine Specific [place] (test code = 5811-5) 1.010 1.010-1.02 5 [facility] oB9255-87-69 11:56:00* Test Item Value Reference Range Interpretation Comments Urine pH (test code = 40652-1) 7 5-7 [facility] Leukocyte Czqcmyhi3606-54-05 11:56:00* Test Item Value Reference Range Interpretation Comments Urine Leukocyte Esterase (test code = 5799-2) 1+ NEGATIVE H [facility] Ylinmos9015-67-78 11:56:00* Test Item Value Reference Range Interpretation Comments Urine Nitrite (test code = 08756-7) NEGATIVE NEGATIVE [facility] Kqhefrf2054-11-39 11:56:00* Test Item Value Reference Range Interpretation Comments Urine Protein (test code = 5804-0) TRACE NEGATIVE H [facility] Glucose (UA)2018-06-26 11:56:00* Test Item Value Reference Range Interpretation Comments Urine Glucose (UA) (test code = 2349-9) NEGATIVE NEGATIVE [facility] Jmemlof6397-22-02 11:56:00* Test Item Value Reference Range Interpretation Comments Urine Ketones (test code = 93570-3) NEGATIVE NEGATIVE [facility] Djrymffnpfcp3284-36-92 11:56:00* Test Item Value Reference Range Interpretation Comments Urine Urobilinogen (test code = 34156-9) 0.2 0.2-1 [facility] Hbpccnyoi6761-28-95 11:56:00* Test Item Value Reference Range Interpretation Comments Urine Bilirubin (test code = 1978-6) NEGATIVE NEGATIVE [facility] Zsmks4693-95-56 11:56:00* Test Item Value Reference Range Interpretation Comments Urine Blood (test code = 74424-6) NEGATIVE NEGATIVE [facility] Trbxk3626-83-30 11:56:00* Test Item Value Reference Range Interpretation Comments Urine Color (test code = 5778-6) YELLOW YELLOW [facility] Vfaghqs8991-09-80 11:56:00* Test Item Value Reference Range Interpretation Comments Urine Clarity (test code = 00190-6) SL CLOUDY CLEAR [facility] Specific Hggwlfw4465-91-99 11:56:00 * Test Item Value Reference Range Interpretation Comments Urine Specific [place] (test code = 5811-5) 1.010 1.010-1.02 5 [facility] kV0265-20-58 11:56:00* Test Item Value Reference Range Interpretation Comments Urine pH (test code = 14666-0) 7 5-7 [facility] Leukocyte Ircdmecb2768-96-24 11:56:00* Test Item Value Reference Range Interpretation Comments Urine Leukocyte Esterase (test code = 5799-2) 1+ [facility] Wzgkkzt4045-07-32 11:56:00* Test Item Value Reference Range Interpretation Comments Urine Nitrite (test code = 67389-3) NEGATIVE NEGATIVE [facility] Itamvox8069-62-85 11:56:00* Test Item Value Reference Range Interpretation Comments Urine Protein (test code = 5804-0) TRACE NEGATIVE H [facility] Glucose (UA)2018-06-26 11:56:00* Test Item Value Reference Range Interpretation Comments Urine Glucose (UA) (test code = 2349-9) NEGATIVE NEGATIVE [facility] Qyesary8316-69-10 11:56:00* Test Item Value Reference Range Interpretation Comments Urine Ketones (test code = 29868-6) NEGATIVE NEGATIVE [facility] Mkzsotctfrqj8832-85-27 11:56:00* Test Item Value Reference Range Interpretation Comments Urine Urobilinogen (test code = 04072-1) 0.2 0.2-1 [facility] Rjmvosxyw3079-25-68 11:56:00* Test Item Value Reference Range Interpretation Comments Urine Bilirubin (test code = 1978-6) NEGATIVE NEGATIVE [facility] Wjizf7767-61-94 11:56:00* Test Item Value Reference Range Interpretation Comments Urine Blood (test code = 30336-6) NEGATIVE NEGATIVE [facility] Ybnfi1275-38-86 11:56:00* Test Item Value Reference Range Interpretation Comments Urine Color (test code = 5778-6) YELLOW YELLOW [facility] Phjndtk1459-57-45 11:56:00* Test Item Value Reference Range Interpretation Comments Urine Clarity (test code = 02962-1) SL CLOUDY CLEAR [facility] Specific Foibnaa8467-86-60 11:56:00 * Test Item Value Reference Range Interpretation Comments Urine Specific [place] (test code = 5811-5) 1.010 1.010-1.02 5 [facility] fF6318-23-64 11:56:00* Test Item Value Reference Range Interpretation Comments Urine pH (test code = 30077-8) 7 5-7 [facility] Leukocyte Vgdyawmw5240-78-92 11:56:00* Test Item Value Reference Range Interpretation Comments Urine Leukocyte Esterase (test code = 5799-2) 1+ NEGATIVE H [facility] Tjmpdcm2834-59-02 11:56:00* Test Item Value Reference Range Interpretation Comments Urine Nitrite (test code = 55572-8) NEGATIVE NEGATIVE [facility] Msqhhaw2973-44-05 11:56:00* Test Item Value Reference Range Interpretation Comments Urine Protein (test code = 5804-0) TRACE NEGATIVE H [facility] Glucose (UA)2018-06-26 11:56:00* Test Item Value Reference Range Interpretation Comments Urine Glucose (UA) (test code = 2349-9) NEGATIVE NEGATIVE [facility] Qmvsrin3307-39-89 11:56:00* Test Item Value Reference Range Interpretation Comments Urine Ketones (test code = 72436-9) NEGATIVE NEGATIVE [facility] Tucfgwjuspfo7944-95-26 11:56:00* Test Item Value Reference Range Interpretation Comments Urine Urobilinogen (test code = 58577-3) 0.2 0.2-1 [facility] Vgxcrmslb4650-68-68 11:56:00* Test Item Value Reference Range Interpretation Comments Urine Bilirubin (test code = 1978-6) NEGATIVE NEGATIVE [facility] Gkqil7140-93-15 11:56:00* Test Item Value Reference Range Interpretation Comments Urine Blood (test code = 23433-6) NEGATIVE NEGATIVE [facility] Ingxm6350-95-20 11:56:00* Test Item Value Reference Range Interpretation Comments Urine Color (test code = 5778-6) YELLOW YELLOW [facility] Hbarrri9013-62-81 11:56:00* Test Item Value Reference Range Interpretation Comments Urine Clarity (test code = 72813-6) SL CLOUDY CLEAR [facility] Specific Dtqzcqe8138-75-99 11:56:00 * Test Item Value Reference Range Interpretation Comments Urine Specific [place] (test code = 5811-5) 1.010 1.010-1.02 5 [facility] sO0692-21-38 11:56:00* Test Item Value Reference Range Interpretation Comments Urine pH (test code = 66899-4) 7 5-7 [facility] Leukocyte Lkkzgbab9942-48-08 11:56:00* Test Item Value Reference Range Interpretation Comments Urine Leukocyte Esterase (test code = 5799-2) 1+ NEGATIVE H [facility] Rdxxerq8649-16-35 11:56:00* Test Item Value Reference Range Interpretation Comments Urine Nitrite (test code = 16978-4) NEGATIVE NEGATIVE [facility] Umydpil9462-03-76 11:56:00* Test Item Value Reference Range Interpretation Comments Urine Protein (test code = 5804-0) TRACE NEGATIVE H [facility] Glucose (UA)2018-06-26 11:56:00* Test Item Value Reference Range Interpretation Comments Urine Glucose (UA) (test code = 2349-9) NEGATIVE NEGATIVE [facility] Cxxdnds9024-21-92 11:56:00* Test Item Value Reference Range Interpretation Comments Urine Ketones (test code = 80267-0) NEGATIVE NEGATIVE [facility] Nmunbyoocnei3346-86-81 11:56:00* Test Item Value Reference Range Interpretation Comments Urine Urobilinogen (test code = 90552-9) 0.2 0.2-1 [facility] Mpkcvdksn0027-81-38 11:56:00* Test Item Value Reference Range Interpretation Comments Urine Bilirubin (test code = 1978-6) NEGATIVE NEGATIVE [facility] Fqxiw9227-07-89 11:56:00* Test Item Value Reference Range Interpretation Comments Urine Blood (test code = 79615-4) NEGATIVE NEGATIVE [facility] Kvwcg5053-06-60 11:56:00* Test Item Value Reference Range Interpretation Comments Urine Color (test code = 5778-6) YELLOW YELLOW [facility] Hesbknx5558-21-61 11:56:00* Test Item Value Reference Range Interpretation Comments Urine Clarity (test code = 75858-5) SL CLOUDY CLEAR [facility] Specific Fueynls3369-17-61 11:56:00 * Test Item Value Reference Range Interpretation Comments Urine Specific [place] (test code = 5811-5) 1.010 1.010-1.02 5 [facility] qD0240-65-85 11:56:00* Test Item Value Reference Range Interpretation Comments Urine pH (test code = 00608-3) 7 5-7 [facility] Leukocyte Vfpmjqoi6002-49-39 11:56:00* Test Item Value Reference Range Interpretation Comments Urine Leukocyte Esterase (test code = 5799-2) 1+ NEGATIVE H [facility] Jmqrxos8557-23-79 11:56:00* Test Item Value Reference Range Interpretation Comments Urine Nitrite (test code = 57616-5) NEGATIVE NEGATIVE [facility] Vpunzqd0747-20-45 11:56:00* Test Item Value Reference Range Interpretation Comments Urine Protein (test code = 5804-0) TRACE NEGATIVE H [facility] Glucose (UA)2018-06-26 11:56:00* Test Item Value Reference Range Interpretation Comments Urine Glucose (UA) (test code = 2349-9) NEGATIVE NEGATIVE [facility] Carrhcn6590-08-60 11:56:00* Test Item Value Reference Range Interpretation Comments Urine Ketones (test code = 39314-3) NEGATIVE NEGATIVE [facility] Xgszsfzekasp7640-43-85 11:56:00* Test Item Value Reference Range Interpretation Comments Urine Urobilinogen (test code = 68521-7) 0.2 0.2-1 [facility] Yepwkyrae8452-84-66 11:56:00* Test Item Value Reference Range Interpretation Comments Urine Bilirubin (test code = 1978-6) NEGATIVE NEGATIVE [facility] Kpqmk5265-56-62 11:56:00* Test Item Value Reference Range Interpretation Comments Urine Blood (test code = 00185-8) NEGATIVE NEGATIVE [facility] Oiuwc1856-99-04 11:56:00* Test Item Value Reference Range Interpretation Comments Urine Color (test code = 5778-6) YELLOW YELLOW [facility] Cfrtibu4444-12-84 11:56:00* Test Item Value Reference Range Interpretation Comments Urine Clarity (test code = 85394-3) SL CLOUDY CLEAR [facility] Specific Pxcxdza7335-26-09 11:56:00 * Test Item Value Reference Range Interpretation Comments Urine Specific [place] (test code = 5811-5) 1.010 1.010-1.02 5 [facility] uO4249-74-12 11:56:00* Test Item Value Reference Range Interpretation Comments Urine pH (test code = 66259-3) 7 5-7 [facility] Leukocyte Xfnrfvap0657-98-29 11:56:00* Test Item Value Reference Range Interpretation Comments Urine Leukocyte Esterase (test code = 5799-2) 1+ NEGATIVE H [facility] Ulksqwr5381-92-53 11:56:00* Test Item Value Reference Range Interpretation Comments Urine Nitrite (test code = 94571-0) NEGATIVE NEGATIVE [facility] Tkrcbqf5473-16-77 11:56:00* Test Item Value Reference Range Interpretation Comments Urine Protein (test code = 5804-0) TRACE NEGATIVE H [facility] Glucose (UA)2018-06-26 11:56:00* Test Item Value Reference Range Interpretation Comments Urine Glucose (UA) (test code = 2349-9) NEGATIVE NEGATIVE [facility] Lkkdwvu2704-48-89 11:56:00* Test Item Value Reference Range Interpretation Comments Urine Ketones (test code = 63858-9) NEGATIVE NEGATIVE [facility] Tnepshiwzenx3844-54-61 11:56:00* Test Item Value Reference Range Interpretation Comments Urine Urobilinogen (test code = 86772-3) 0.2 0.2-1 [facility] Gagvottoi9315-60-54 11:56:00* Test Item Value Reference Range Interpretation Comments Urine Bilirubin (test code = 1978-6) NEGATIVE NEGATIVE [facility] Njnly6921-14-74 11:56:00* Test Item Value Reference Range Interpretation Comments Urine Blood (test code = 79949-0) NEGATIVE NEGATIVE [facility] Wyxmb2233-48-56 11:47:00* Test Item Value Reference Range Interpretation Comments Sodium Level (test code = 2951-2) 139 136-145 [facility] Nctrj8578-15-83 11:47:00* Test Item Value Reference Range Interpretation Comments Potassium Level (test code = 2823-3) 3.5 3.5-5.1 [facility]loride Kiiuf6830-51-83 11:47:00* Test Item Value Reference Range Interpretation Comments Chloride Level (test code = 2075-0) 101 98-107 [facility]anoCarbon Dioxide Xsvem6980-50-86 11:47:00* Test Item Value Reference Range Interpretation Comments Carbon Dioxide Level (test code = 2028-9) 24 22-29 [facility]anoAnion Miu7371-74-94 11:47:00* Test Item Value Reference Range Interpretation Comments Anion Gap (test code = 20387-5) 17.5 8-16 H [facility] Urea Aalealuf4944-12-59 11:47:00* Test Item Value Reference Range Interpretation Comments Blood Urea Nitrogen (test code = 3094-0) 7 7-26 [facility]anoCreatinine2018-08-31 11:47:00* Test Item Value Reference Range Interpretation Comments Creatinine (test code = 2160-0) 0.93 0.57-1.11 [facility]Creatinine Ufswr0746-91-64 11:47:00* Test Item Value Reference Range Interpretation Comments BUN/Creatinine Ratio (test code = 3097-3) 8 6-25 [facility]Estimat Glomerular Filtration Rate 2018-06-26 11:47:00* Test Item Value Reference Range Interpretation Comments Estimat Glomerular Filtration Rate (test code = 58131-9) 59 >60 L Ranges were taken from the National Kidney Disease Education Program and the [facility] literature.Reference ranges:60 or greater: Mphayz19-11 ( for 3 consecutive months): Chronic kidney disease 15 or less: Kidney failureTexas [facility] PlanoGlucose Kencj2093-35-68 11:47:00* Test Item Value Reference Range Interpretation Comments Glucose Level (test code = ZAB1895) 139 74-118 H [facility]anoCalcium Lyhts7618-53-52 11:47:00* Test Item Value Reference Range Interpretation Comments Calcium Level (test code = 23040-6) 10.3 8.4-10.2 H [facility]anoTotal Guotdyjmo8206-72-17 11:47:00* Test Item Value Reference Range Interpretation Comments Total Bilirubin (test code = 1975-2) 0.5 0.2-1.2 [facility]anoAspartate Amino Transf (AST/SGOT) 2018-06-26 11:47:00* Test Item Value Reference Range Interpretation Comments Aspartate Amino Transf (AST/SGOT) (test code = Aspartate Amino Transf (AST/SGOT)) 37 5-34 H [facility]anoAlanine Aminotransferase (ALT/SGPT) 2018-06-26 11:47:00* Test Item Value Reference Range Interpretation Comments Alanine Aminotransferase (ALT/SGPT) (test code = 1742-6) 38 0-55 [facility]anoTotal Ixwyegh3337-31-66 11:47:00* Test Item Value Reference Range Interpretation Comments Total Protein (test code = 2885-2) 7.5 6.5-8.1 [facility]anoAlbumin2018-08-31 11:47:00* Test Item Value Reference Range Interpretation Comments Albumin (test code = 1751-7) 4.0 3.5-5.0 [facility]anoGlobulin2018-08-31 11:47:00* Test Item Value Reference Range Interpretation Comments Globulin (test code = 03995-8) 3.5 2.3-3.5 [facility]anoAlbumin/Globulin Oewfg1938-45-30 11:47:00 * Test Item Value Reference Range Interpretation Comments Albumin/Globulin Ratio (test code = 1759-0) 1.1 0.8-2.0 [facility]anoAlkaline Wizhvspezdy4814-49-91 11:47:00* Test Item Value Reference Range Interpretation Comments Alkaline Phosphatase (test code = 6768-6) 124 40-150 [facility]odium Ftxzy6542-79-10 11:47:00* Test Item Value Reference Range Interpretation Comments Sodium Level (test code = 2951-2) 139 136-145 [facility]Potassium Ienqn8450-21-23 11:47:00* Test Item Value Reference Range Interpretation Comments Potassium Level (test code = 2823-3) 3.5 3.5-5.1 [facility]anoChloride Dyjyz2363-92-74 11:47:00* Test Item Value Reference Range Interpretation Comments Chloride Level (test code = 2075-0) 101 98-107 [facility]anoCarbon Dioxide Orrdu8149-69-20 11:47:00* Test Item Value Reference Range Interpretation Comments Carbon Dioxide Level (test code = 2028-9) 24 22-29 [facility]anoAnion Wio4538-92-25 11:47:00* Test Item Value Reference Range Interpretation Comments Anion Gap (test code = 52481-3) 17.5 8-16 H [facility]anoBlood Urea Nrengnpm9896-06-69 11:47:00* Test Item Value Reference Range Interpretation Comments Blood Urea Nitrogen (test code = 3094-0) 7 7-26 [facility]anoCreatinine2018-08-31 11:47:00* Test Item Value Reference Range Interpretation Comments Creatinine (test code = 2160-0) 0.93 0.57-1.11 [facility]anoBUN/Creatinine Ccdzi0101-35-65 11:47:00* Test Item Value Reference Range Interpretation Comments BUN/Creatinine Ratio (test code = 3097-3) 8 6-25 [facility]anoEstimat Glomerular Filtration Rate 2018-06-26 11:47:00* Test Item Value Reference Range Interpretation Comments Estimat Glomerular Filtration Rate (test code = 765351775) 59 >60 L Ranges were taken from the National Kidney Disease Education Program and the [facility] Foundation literature.Reference ranges:60 or greater: Qpwufl52-08 ( for 3 consecutive months): Chronic kidney disease 15 or less: Kidney failureTexas [facility] PlanoGlucose Qwlxe2117-88-67 11:47:00* Test Item Value Reference Range Interpretation Comments Glucose Level (test code = PCP2904) 139 74-118 H [facility]anoCalcium Uiyvg0490-23-68 11:47:00* Test Item Value Reference Range Interpretation Comments Calcium Level (test code = 80041-3) 10.3 8.4-10.2 H [facility]anoTotal Ncouujznn9298-88-93 11:47:00* Test Item Value Reference Range Interpretation Comments Total Bilirubin (test code = 1975-2) 0.5 0.2-1.2 [facility]anoAspartate Amino Transf (AST/SGOT) 2018-06-26 11:47:00* Test Item Value Reference Range Interpretation Comments Aspartate Amino Transf (AST/SGOT) (test code = Aspartate Amino Transf (AST/SGOT)) 37 5-34 H [facility]anoAlanine Aminotransferase (ALT/SGPT) 2018-06-26 11:47:00* Test Item Value Reference Range Interpretation Comments Alanine Aminotransferase (ALT/SGPT) (test code = 1742-6) 38 0-55 [facility]anoTotal Almbeuy8488-61-39 11:47:00* Test Item Value Reference Range Interpretation Comments Total Protein (test code = 2885-2) 7.5 6.5-8.1 [facility]anoAlbumin2018-08-31 11:47:00* Test Item Value Reference Range Interpretation Comments Albumin (test code = 1751-7) 4.0 3.5-5.0 [facility]anoGlobulin2018-08-31 11:47:00* Test Item Value Reference Range Interpretation Comments Globulin (test code = 33073-4) 3.5 2.3-3.5 [facility]anoAlbumin/Globulin Ytdgt2678-40-12 11:47:00 * Test Item Value Reference Range Interpretation Comments Albumin/Globulin Ratio (test code = 1759-0) 1.1 0.8-2.0 [facility]anoAlkaline Tupszhutzds8815-44-38 11:47:00* Test Item Value Reference Range Interpretation Comments Alkaline Phosphatase (test code = 6768-6) 124 40-150 [facility]odium Pcbjv2922-36-25 11:47:00* Test Item Value Reference Range Interpretation Comments Sodium Level (test code = 2951-2) 139 136-145 [facility]anoPotassium Qlobl1502-24-91 11:47:00* Test Item Value Reference Range Interpretation Comments Potassium Level (test code = 2823-3) 3.5 3.5-5.1 [facility]anoChloride Dpdgj6883-77-57 11:47:00* Test Item Value Reference Range Interpretation Comments Chloride Level (test code = 2075-0) 101 98-107 [facility]anoCarbon Dioxide Jpgqr3739-28-02 11:47:00* Test Item Value Reference Range Interpretation Comments Carbon Dioxide Level (test code = 2028-9) 24 22-29 [facility]anoAnion Pfk1547-66-89 11:47:00* Test Item Value Reference Range Interpretation Comments Anion Gap (test code = 05586-1) 17.5 8-16 H [facility]anoBlood Urea Moaoscja3395-79-26 11:47:00* Test Item Value Reference Range Interpretation Comments Blood Urea Nitrogen (test code = 3094-0) 7 7-26 [facility]anoCreatinine2018-08-31 11:47:00* Test Item Value Reference Range Interpretation Comments Creatinine (test code = 2160-0) 0.93 0.57-1.11 [facility]/Creatinine Zzpaq6202-65-60 11:47:00* Test Item Value Reference Range Interpretation Comments BUN/Creatinine Ratio (test code = 3097-3) 8 6-25 [facility]anoEstimat Glomerular Filtration Rate 2018-06-26 11:47:00* Test Item Value Reference Range Interpretation Comments Estimat Glomerular Filtration Rate (test code = 961221856) 59 >60 L Ranges were taken from the National Kidney Disease Education Program and the [facility] Foundation literature.Reference ranges:60 or greater: Bxfjty26-66 ( for 3 consecutive months): Chronic kidney disease 15 or less: Kidney failureTexas [facility] PlanoGlucose Pwwjo0612-57-25 11:47:00* Test Item Value Reference Range Interpretation Comments Glucose Level (test code = HDZ1335) 139 74-118 H [facility]anoCalcium Lzfot7157-22-12 11:47:00* Test Item Value Reference Range Interpretation Comments Calcium Level (test code = 95755-1) 10.3 8.4-10.2 H [facility]anoTotal Fiwecpkul9566-86-12 11:47:00* Test Item Value Reference Range Interpretation Comments Total Bilirubin (test code = 1975-2) 0.5 0.2-1.2 [facility]anoAspartate Amino Transf (AST/SGOT) 2018-06-26 11:47:00* Test Item Value Reference Range Interpretation Comments Aspartate Amino Transf (AST/SGOT) (test code = Aspartate Amino Transf (AST/SGOT)) 37 5-34 H [facility]anoAlanine Aminotransferase (ALT/SGPT) 2018-06-26 11:47:00* Test Item Value Reference Range Interpretation Comments Alanine Aminotransferase (ALT/SGPT) (test code = 1742-6) 38 0-55 [facility]anoTotal Jayzgia7100-91-00 11:47:00* Test Item Value Reference Range Interpretation Comments Total Protein (test code = 2885-2) 7.5 6.5-8.1 [facility]anoAlbumin2018-08-31 11:47:00* Test Item Value Reference Range Interpretation Comments Albumin (test code = 1751-7) 4.0 3.5-5.0 [facility]anoGlobulin2018-08-31 11:47:00* Test Item Value Reference Range Interpretation Comments Globulin (test code = 02935-0) 3.5 2.3-3.5 [facility]anoAlbum[facility]/Globulin Ffhsn9362-83-72 11:47:00 * Test Item Value Reference Range Interpretation Comments Albumin/Globulin Ratio (test code = 1759-0) 1.1 0.8-2.0 [facility]anoAlkaline Jsrnytxwfcs8400-35-77 11:47:00* Test Item Value Reference Range Interpretation Comments Alkaline Phosphatase (test code = 6768-6) 124 40-150 [facility] Dallasodium Ellgu4608-82-17 11:47:00* Test Item Value Reference Range Interpretation Comments Sodium Level (test code = 2951-2) 139 136-145 [facility]anoPotassium Usbze9258-30-77 11:47:00* Test Item Value Reference Range Interpretation Comments Potassium Level (test code = 2823-3) 3.5 3.5-5.1 [facility]anoChloride Mlzkh9390-18-37 11:47:00* Test Item Value Reference Range Interpretation Comments Chloride Level (test code = 2075-0) 101 98-107 [facility]anoCarbon Dioxide Bvkrn7611-96-27 11:47:00* Test Item Value Reference Range Interpretation Comments Carbon Dioxide Level (test code = 2028-9) 24 22-29 [facility]anoAnion Wpj5910-22-93 11:47:00* Test Item Value Reference Range Interpretation Comments Anion Gap (test code = 87994-3) 17.5 8-16 H [facility]anoBlood Urea Cbnpwkcn4457-09-51 11:47:00* Test Item Value Reference Range Interpretation Comments Blood Urea Nitrogen (test code = 3094-0) 7 7-26 [facility]anoCreatinine2018-08-31 11:47:00* Test Item Value Reference Range Interpretation Comments Creatinine (test code = 2160-0) 0.93 0.57-1.11 [facility]anoBUN/Creatinine Ovfmo6303-58-64 11:47:00* Test Item Value Reference Range Interpretation Comments BUN/Creatinine Ratio (test code = 3097-3) 8 6-25 [facility]anoEstimat Glomerular Filtration Rate 2018-06-26 11:47:00* Test Item Value Reference Range Interpretation Comments Estimat Glomerular Filtration Rate (test code = 542686419) 59 >60 L Ranges were taken from the National Kidney Disease Education Program and the [facility] Foundation literature.Reference ranges:60 or greater: Pksizl75-13 ( for 3 consecutive months): Chronic kidney disease 15 or less: Kidney failureTexas [facility] PlanoGlucose Gkuzc9470-41-15 11:47:00* Test Item Value Reference Range Interpretation Comments Glucose Level (test code = NSG9929) 139 74-118 H [facility]anoCalcium Nkfdi3729-80-86 11:47:00* Test Item Value Reference Range Interpretation Comments Calcium Level (test code = 74512-7) 10.3 8.4-10.2 H [facility]anoTotal Vdkqcxmyf2849-72-35 11:47:00* Test Item Value Reference Range Interpretation Comments Total Bilirubin (test code = 1975-2) 0.5 0.2-1.2 [facility]f [facility]AST/SGOT) 2018-06-26 11:47:00* Test Item Value Reference Range Interpretation Comments Aspartate Amino Transf (AST/SGOT) (test code = Aspartate Amino Transf (AST/SGOT)) 37 5-34 [facility] Amin[facility] (ALT/SGPT) 2018-06-26 11:47:00* Test Item Value Reference Range Interpretation Comments Alanine Aminotransferase (ALT/SGPT) (test code = 1742-6) 38 0-55 [facility] Trusovc1465-91-20 11:47:00* Test Item Value Reference Range Interpretation Comments Total Protein (test code = 2885-2) 7.5 6.5-8.1 [facility]Albumin2018-[facility] 11:47:00* Test Item Value Reference Range Interpretation Comments Albumin (test code = 1751-7) 4.0 3.5-5.0 [facility]ulin2018-[facility]-31 11:47:00* Test Item Value Reference Range Interpretation Comments Globulin (test code = 06821-4) 3.5 2.3-3.5 [facility]Album[facility]/Globulin Wzkxk6634-96-86 11:47:00 * Test Item Value Reference Range Interpretation Comments Albumin/Globulin Ratio (test code = 1759-0) 1.1 0.8-2.0 [facility]anoAlkaline Krcktelqwhh3510-21-82 11:47:00* Test Item Value Reference Range Interpretation Comments Alkaline Phosphatase (test code = 6768-6) 124 40-150 [facility] Gxdri2356-25-77 11:47:00* Test Item Value Reference Range Interpretation Comments Sodium Level (test code = 2951-2) 139 136-145 [facility] Vjkdt7956-54-34 11:47:00* Test Item Value Reference Range Interpretation Comments Potassium Level (test code = 2823-3) 3.5 3.5-5.1 [facility]Chloride Liymt4557-05-67 11:47:00* Test Item Value Reference Range Interpretation Comments Chloride Level (test code = 2075-0) 101 98-107 [facility]anoCarbon Dioxide Vvgpk3544-78-94 11:47:00* Test Item Value Reference Range Interpretation Comments Carbon Dioxide Level (test code = 2028-9) 24 22-29 [facility]anoAnion Tuq3788-59-59 11:47:00* Test Item Value Reference Range Interpretation Comments Anion Gap (test code = 12659-4) 17.5 8-16 [facility]Blood Urea Qzydxlky9027-82-39 11:47:00* Test Item Value Reference Range Interpretation Comments Blood Urea Nitrogen (test code = 3094-0) 7 7-26 [facility]Creatinine2018-08-31 11:47:00* Test Item Value Reference Range Interpretation Comments Creatinine (test code = 2160-0) 0.93 0.57-1.11 [facility]/Creatinine Opfwv9321-87-62 11:47:00* Test Item Value Reference Range Interpretation Comments BUN/Creatinine Ratio (test code = 3097-3) 8 6-25 [facility]Estimat Glomerular Filtration Rate 2018-06-26 11:47:00* Test Item Value Reference Range Interpretation Comments Estimat Glomerular Filtration Rate (test code = 237291171) 59 >60 L Ranges were taken from the National Kidney Disease Education Program and the [facility] literature.Reference ranges:60 or greater: Yqzjzi39-23 ( for 3 consecutive months): Chronic kidney disease 15 or less: Kidney failureTexas [facility]anoGlucose Nriki8558-47-39 11:47:00* Test Item Value Reference Range Interpretation Comments Glucose Level (test code = ZVC0675) 139 74-118 H [facility]anoCalcium Fszhi3417-55-43 11:47:00* Test Item Value Reference Range Interpretation Comments Calcium Level (test code = 76136-8) 10.3 8.4-10.2 [facility]anoTotal Rfkogpeld4210-69-00 11:47:00* Test Item Value Reference Range Interpretation Comments Total Bilirubin (test code = 1975-2) 0.5 0.2-1.2 [facility]Asp[facility]ate Amino Transf (AST/SGOT) 2018-06-26 11:47:00* Test Item Value Reference Range Interpretation Comments Aspartate Amino Transf (AST/SGOT) (test code = Aspartate Amino Transf (AST/SGOT)) 37 5-34 [facility]Alanine Aminotransferase (ALT/SGPT) 2018-06-26 11:47:00* Test Item Value Reference Range Interpretation Comments Alanine Aminotransferase (ALT/SGPT) (test code = 1742-6) 38 0-55 [facility]Total Qdqiobu7705-40-68 11:47:00* Test Item Value Reference Range Interpretation Comments Total Protein (test code = 2885-2) 7.5 6.5-8.1 [facility]anoAlbumin2018-08-31 11:47:00* Test Item Value Reference Range Interpretation Comments Albumin (test code = 1751-7) 4.0 3.5-5.0 [facility]anoGlobulin2018-08-31 11:47:00* Test Item Value Reference Range Interpretation Comments Globulin (test code = 13349-2) 3.5 2.3-3.5 [facility]anoAlbumin/Globulin Kyurg1747-48-04 11:47:00 * Test Item Value Reference Range Interpretation Comments Albumin/Globulin Ratio (test code = 1759-0) 1.1 0.8-2.0 [facility]anoAlkaline Gemwkrbtfwk4688-71-95 11:47:00* Test Item Value Reference Range Interpretation Comments Alkaline Phosphatase (test code = 6768-6) 124 40-150 [facility]odium Nqcwf1050-22-21 11:47:00* Test Item Value Reference Range Interpretation Comments Sodium Level (test code = 2951-2) 139 136-145 [facility]Potassium Xbhrt9967-80-47 11:47:00* Test Item Value Reference Range Interpretation Comments Potassium Level (test code = 2823-3) 3.5 3.5-5.1 [facility]anoChloride Otxlk7283-84-37 11:47:00* Test Item Value Reference Range Interpretation Comments Chloride Level (test code = 2075-0) 101 98-107 [facility]anoCarbon Dioxide Shpbp8168-40-65 11:47:00* Test Item Value Reference Range Interpretation Comments Carbon Dioxide Level (test code = 2028-9) 24 22-29 [facility]anoAnion Cuo0126-87-53 11:47:00* Test Item Value Reference Range Interpretation Comments Anion Gap (test code = 94309-7) 17.5 8-16 H [facility]anoBlood Urea Htoufgab2319-01-99 11:47:00* Test Item Value Reference Range Interpretation Comments Blood Urea Nitrogen (test code = 3094-0) 7 7-26 [facility]anoCreatinine2018-08-31 11:47:00* Test Item Value Reference Range Interpretation Comments Creatinine (test code = 2160-0) 0.93 0.57-1.11 [facility]anoBUN/Creatinine Tkegl5649-87-63 11:47:00* Test Item Value Reference Range Interpretation Comments BUN/Creatinine Ratio (test code = 3097-3) 8 6-25 [facility]anoEstimat Glomerular Filtration Rate 2018-06-26 11:47:00* Test Item Value Reference Range Interpretation Comments Estimat Glomerular Filtration Rate (test code = 602968950) 59 >60 L Ranges were taken from the National Kidney Disease Education Program and the [facility] literature.Reference ranges:60 or greater: Hctype15-68 ( for 3 consecutive months): Chronic kidney disease 15 or less: Kidney failureTexas [facility] PlanoGlucose Fpfdr6804-46-42 11:47:00* Test Item Value Reference Range Interpretation Comments Glucose Level (test code = GAO6793) 139 74-118 H [facility]anoCalcium Cganx8189-42-80 11:47:00* Test Item Value Reference Range Interpretation Comments Calcium Level (test code = 23589-6) 10.3 8.4-10.2 H [facility]anoTotal Zjubowdvv9148-74-76 11:47:00* Test Item Value Reference Range Interpretation Comments Total Bilirubin (test code = 1975-2) 0.5 0.2-1.2 [facility]anoAspartate Amino Transf (AST/SGOT) 2018-06-26 11:47:00* Test Item Value Reference Range Interpretation Comments Aspartate Amino Transf (AST/SGOT) (test code = Aspartate Amino Transf (AST/SGOT)) 37 5-34 H [facility]anoAlanine Aminotransferase (ALT/SGPT) 2018-06-26 11:47:00* Test Item Value Reference Range Interpretation Comments Alanine Aminotransferase (ALT/SGPT) (test code = 1742-6) 38 0-55 [facility]anoTotal Dqynzby9803-84-48 11:47:00* Test Item Value Reference Range Interpretation Comments Total Protein (test code = 2885-2) 7.5 6.5-8.1 [facility]Albumin2018-08-31 11:47:00* Test Item Value Reference Range Interpretation Comments Albumin (test code = 1751-7) 4.0 3.5-5.0 [facility]anoGlobulin2018-08-31 11:47:00* Test Item Value Reference Range Interpretation Comments Globulin (test code = 66606-0) 3.5 2.3-3.5 [facility]anoAlbumin/Globulin Mfrul5536-70-03 11:47:00 * Test Item Value Reference Range Interpretation Comments Albumin/Globulin Ratio (test code = 1759-0) 1.1 0.8-2.0 [facility]anoAlkaline Jfawtxlqsus1788-64-29 11:47:00* Test Item Value Reference Range Interpretation Comments Alkaline Phosphatase (test code = 6768-6) 124 40-150 [facility]odium Yvqck6340-59-66 11:47:00* Test Item Value Reference Range Interpretation Comments Sodium Level (test code = 2951-2) 139 136-145 [facility]anoPotassium Lkrdu1267-67-62 11:47:00* Test Item Value Reference Range Interpretation Comments Potassium Level (test code = 2823-3) 3.5 3.5-5.1 [facility]Chloride Pnuug9960-19-34 11:47:00* Test Item Value Reference Range Interpretation Comments Chloride Level (test code = 2075-0) 101 98-107 [facility]anoCarbon Dioxide Dhgos2672-70-82 11:47:00* Test Item Value Reference Range Interpretation Comments Carbon Dioxide Level (test code = 2028-9) 24 22-29 [facility]anoAnion Kfb6592-71-87 11:47:00* Test Item Value Reference Range Interpretation Comments Anion Gap (test code = 81913-3) 17.5 8-16 H [facility]anoBlood Urea Gcfwjryu1851-73-79 11:47:00* Test Item Value Reference Range Interpretation Comments Blood Urea Nitrogen (test code = 3094-0) 7 7-26 [facility]anoCreatinine2018-08-31 11:47:00* Test Item Value Reference Range Interpretation Comments Creatinine (test code = 2160-0) 0.93 0.57-1.11 [facility]anoBUN/Creatinine Kpczm4394-63-97 11:47:00* Test Item Value Reference Range Interpretation Comments BUN/Creatinine Ratio (test code = 3097-3) 8 6-25 [facility]anoEstimat Glomerular Filtration Rate 2018-06-26 11:47:00* Test Item Value Reference Range Interpretation Comments Estimat Glomerular Filtration Rate (test code = 307946299) 59 >60 L Ranges were taken from the National Kidney Disease Education Program and the [facility] literature.Reference ranges:60 or greater: Xahcvg91-65 ( for 3 consecutive months): Chronic kidney disease 15 or less: Kidney failureTexas [facility] Hospital PlanoGlucose Nnael4594-86-37 11:47:00* Test Item Value Reference Range Interpretation Comments Glucose Level (test code = HZM7174) 139 74-118 H [facility]anoCalcium Ulcae8339-64-94 11:47:00* Test Item Value Reference Range Interpretation Comments Calcium Level (test code = 65492-4) 10.3 8.4-10.2 H [facility]anoTotal Zyvgmzrcu9614-61-99 11:47:00* Test Item Value Reference Range Interpretation Comments Total Bilirubin (test code = 1975-2) 0.5 0.2-1.2 [facility]anoAspartate Amino Transf (AST/SGOT) 2018-06-26 11:47:00* Test Item Value Reference Range Interpretation Comments Aspartate Amino Transf (AST/SGOT) (test code = Aspartate Amino Transf (AST/SGOT)) 37 5-34 [facility]anoAlanine Aminotransferase (ALT/SGPT) 2018-06-26 11:47:00* Test Item Value Reference Range Interpretation Comments Alanine Aminotransferase (ALT/SGPT) (test code = 1742-6) 38 0-55 [facility]anoTotal Njoaplw9450-20-61 11:47:00* Test Item Value Reference Range Interpretation Comments Total Protein (test code = 2885-2) 7.5 6.5-8.1 [facility]Albumin2018-08-31 11:47:00* Test Item Value Reference Range Interpretation Comments Albumin (test code = 1751-7) 4.0 3.5-5.0 [facility]anoGlobulin2018-08-31 11:47:00* Test Item Value Reference Range Interpretation Comments Globulin (test code = 32096-4) 3.5 2.3-3.5 [facility]anoAlbumin/Globulin Hpjsi9200-37-42 11:47:00 * Test Item Value Reference Range Interpretation Comments Albumin/Globulin Ratio (test code = 1759-0) 1.1 0.8-2.0 [facility]anoAlkaline Qsbgdhncrjg7817-07-63 11:47:00* Test Item Value Reference Range Interpretation Comments Alkaline Phosphatase (test code = 6768-6) 124 40-150 [facility] Dallasodium Rxbpr6445-19-16 11:47:00* Test Item Value Reference Range Interpretation Comments Sodium Level (test code = 2951-2) 139 136-145 [facility]anoPotassium Zhazi4494-71-28 11:47:00* Test Item Value Reference Range Interpretation Comments Potassium Level (test code = 2823-3) 3.5 3.5-5.1 [facility]Chloride Rzixv7351-05-01 11:47:00* Test Item Value Reference Range Interpretation Comments Chloride Level (test code = 2075-0) 101 98-107 [facility]anoCarbon Dioxide Wwpel0281-79-08 11:47:00* Test Item Value Reference Range Interpretation Comments Carbon Dioxide Level (test code = 2028-9) 24 22-29 [facility]anoAnion Hvj5648-97-60 11:47:00* Test Item Value Reference Range Interpretation Comments Anion Gap (test code = 15176-0) 17.5 8-16 H [facility]anoBlood Urea Dfdtvxij0932-12-49 11:47:00* Test Item Value Reference Range Interpretation Comments Blood Urea Nitrogen (test code = 3094-0) 7 7-26 [facility]anoCreatinine2018-08-31 11:47:00* Test Item Value Reference Range Interpretation Comments Creatinine (test code = 2160-0) 0.93 0.57-1.11 [facility]anoBUN/Creatinine Rfxnw5873-56-78 11:47:00* Test Item Value Reference Range Interpretation Comments BUN/Creatinine Ratio (test code = 3097-3) 8 6-25 [facility]anoEstimat Glomerular Filtration Rate 2018-06-26 11:47:00* Test Item Value Reference Range Interpretation Comments Estimat Glomerular Filtration Rate (test code = 805564556) 59 >60 L Ranges were taken from the National Kidney Disease Education Program and the [facility] literature.Reference ranges:60 or greater: Psiyqp20-43 ( for 3 consecutive months): Chronic kidney disease 15 or less: Kidney failureTexas [facility] Hospital PlanoGlucose Rohoe4797-33-51 11:47:00* Test Item Value Reference Range Interpretation Comments Glucose Level (test code = KLE6566) 139 74-118 H [facility]anoCalcium Cowag4255-81-64 11:47:00* Test Item Value Reference Range Interpretation Comments Calcium Level (test code = 88850-1) 10.3 8.4-10.2 H [facility]anoTotal Lvzdocmsv5802-31-13 11:47:00* Test Item Value Reference Range Interpretation Comments Total Bilirubin (test code = 1975-2) 0.5 0.2-1.2 [facility]anoAspartate Amino Transf (AST/SGOT) 2018-06-26 11:47:00* Test Item Value Reference Range Interpretation Comments Aspartate Amino Transf (AST/SGOT) (test code = Aspartate Amino Transf (AST/SGOT)) 37 5-34 [facility]anoAlanine Aminotransferase (ALT/SGPT) 2018-06-26 11:47:00* Test Item Value Reference Range Interpretation Comments Alanine Aminotransferase (ALT/SGPT) (test code = 1742-6) 38 0-55 [facility]anoTotal Ceuhhfj9366-23-00 11:47:00* Test Item Value Reference Range Interpretation Comments Total Protein (test code = 2885-2) 7.5 6.5-8.1 [facility]anoAlbumin2018-08-31 11:47:00* Test Item Value Reference Range Interpretation Comments Albumin (test code = 1751-7) 4.0 3.5-5.0 [facility]anoGlobulin2018-08-31 11:47:00* Test Item Value Reference Range Interpretation Comments Globulin (test code = 96353-7) 3.5 2.3-3.5 [facility]anoAlbumin/Globulin Mbrjq3628-97-59 11:47:00 * Test Item Value Reference Range Interpretation Comments Albumin/Globulin Ratio (test code = 1759-0) 1.1 0.8-2.0 [facility]anoAlkaline Aybmrqrwpss0448-58-47 11:47:00* Test Item Value Reference Range Interpretation Comments Alkaline Phosphatase (test code = 6768-6) 124 40-150 [facility]odium Vbggi9021-56-31 11:47:00* Test Item Value Reference Range Interpretation Comments Sodium Level (test code = 2951-2) 139 136-145 [facility]anoPotassium Njjbs7711-02-24 11:47:00* Test Item Value Reference Range Interpretation Comments Potassium Level (test code = 2823-3) 3.5 3.5-5.1 [facility]anoChloride Jjdap3917-15-55 11:47:00* Test Item Value Reference Range Interpretation Comments Chloride Level (test code = 2075-0) 101 98-107 [facility]anoCarbon Dioxide Vjhux2498-20-95 11:47:00* Test Item Value Reference Range Interpretation Comments Carbon Dioxide Level (test code = 2028-9) 24 22-29 [facility]anoAnion Qmy1426-69-20 11:47:00* Test Item Value Reference Range Interpretation Comments Anion Gap (test code = 67516-9) 17.5 8-16 [facility]Blood Urea Hrcyappe7910-56-50 11:47:00* Test Item Value Reference Range Interpretation Comments Blood Urea Nitrogen (test code = 3094-0) 7 7-26 [facility]anoCreatinine2018-08-31 11:47:00* Test Item Value Reference Range Interpretation Comments Creatinine (test code = 2160-0) 0.93 0.57-1.11 [facility]anoBUN/Creatinine Isbya2018-13-89 11:47:00* Test Item Value Reference Range Interpretation Comments BUN/Creatinine Ratio (test code = 3097-3) 8 6-25 [facility]anoEstimat Glomerular Filtration Rate 2018-06-26 11:47:00* Test Item Value Reference Range Interpretation Comments Estimat Glomerular Filtration Rate (test code = 514903690) 59 >60 L Ranges were taken from the National Kidney Disease Education Program and the [facility] literature.Reference ranges:60 or greater: Lhsieg21-58 ( for 3 consecutive months): Chronic kidney disease 15 or less: Kidney failureTexas [facility] PlanoGlucose Apuen1904-25-80 11:47:00* Test Item Value Reference Range Interpretation Comments Glucose Level (test code = MSE7628) 139 74-118 H [facility]anoCalcium Jzwbf3047-79-71 11:47:00* Test Item Value Reference Range Interpretation Comments Calcium Level (test code = 27015-7) 10.3 8.4-10.2 H [facility]anoTotal Lqzdigzfj9914-18-96 11:47:00* Test Item Value Reference Range Interpretation Comments Total Bilirubin (test code = 1975-2) 0.5 0.2-1.2 [facility]anoAspartate Amino Transf (AST/SGOT) 2018-06-26 11:47:00* Test Item Value Reference Range Interpretation Comments Aspartate Amino Transf (AST/SGOT) (test code = Aspartate Amino Transf (AST/SGOT)) 37 5-34 [facility]anoAlanine Aminotransferase (ALT/SGPT) 2018-06-26 11:47:00* Test Item Value Reference Range Interpretation Comments Alanine Aminotransferase (ALT/SGPT) (test code = 1742-6) 38 0-55 [facility] Qikjkze6932-63-79 11:47:00* Test Item Value Reference Range Interpretation Comments Total Protein (test code = 2885-2) 7.5 6.5-8.1 [facility]anoAlbumin2018-08-31 11:47:00* Test Item Value Reference Range Interpretation Comments Albumin (test code = 1751-7) 4.0 3.5-5.0 [facility]anoGlobulin2018-08-31 11:47:00* Test Item Value Reference Range Interpretation Comments Globulin (test code = 81753-6) 3.5 2.3-3.5 [facility]anoAlbumin/Globulin Bydjy9307-77-37 11:47:00 * Test Item Value Reference Range Interpretation Comments Albumin/Globulin Ratio (test code = 1759-0) 1.1 0.8-2.0 [facility]anoAlkaline Zypbyzmvpuj2563-75-29 11:47:00* Test Item Value Reference Range Interpretation Comments Alkaline Phosphatase (test code = 6768-6) 124 40-150 [facility]odium Xdghc8991-74-23 11:47:00* Test Item Value Reference Range Interpretation Comments Sodium Level (test code = 2951-2) 139 136-145 [facility]anoPotassium Vzefp0831-84-85 11:47:00* Test Item Value Reference Range Interpretation Comments Potassium Level (test code = 2823-3) 3.5 3.5-5.1 [facility]anoChloride Raxkg2582-27-09 11:47:00* Test Item Value Reference Range Interpretation Comments Chloride Level (test code = 2075-0) 101 98-107 [facility]anoCarbon Dioxide Eggmr3396-16-77 11:47:00* Test Item Value Reference Range Interpretation Comments Carbon Dioxide Level (test code = 2028-9) 24 22-29 [facility]anoAnion Nhs5192-62-84 11:47:00* Test Item Value Reference Range Interpretation Comments Anion Gap (test code = 69294-2) 17.5 8-16 [facility]anoBlood Urea Bmluwhrp5935-90-26 11:47:00* Test Item Value Reference Range Interpretation Comments Blood Urea Nitrogen (test code = 3094-0) 7 7-26 [facility]anoCreatinine2018-08-31 11:47:00* Test Item Value Reference Range Interpretation Comments Creatinine (test code = 2160-0) 0.93 0.57-1.11 [facility]anoBUN/Creatinine Lqaoe5341-32-89 11:47:00* Test Item Value Reference Range Interpretation Comments BUN/Creatinine Ratio (test code = 3097-3) 8 6-25 [facility]anoEstimat Glomerular Filtration Rate 2018-06-26 11:47:00* Test Item Value Reference Range Interpretation Comments Estimat Glomerular Filtration Rate (test code = 734094478) 59 >60 L Ranges were taken from the National Kidney Disease Education Program and the [facility] literature.Reference ranges:60 or greater: Pkbxpu13-90 ( for 3 consecutive months): Chronic kidney disease 15 or less: Kidney failureTexas [facility] PlanoGlucose Rdvjq8975-95-25 11:47:00* Test Item Value Reference Range Interpretation Comments Glucose Level (test code = SRI6998) 139 74-118 H [facility]anoCalcium Ohrku3811-57-61 11:47:00* Test Item Value Reference Range Interpretation Comments Calcium Level (test code = 43511-4) 10.3 8.4-10.2 H [facility]anoTotal Crwcfatvs3592-30-30 11:47:00* Test Item Value Reference Range Interpretation Comments Total Bilirubin (test code = 1975-2) 0.5 0.2-1.2 [facility]anoAspartate Amino Transf (AST/SGOT) 2018-06-26 11:47:00* Test Item Value Reference Range Interpretation Comments Aspartate Amino Transf (AST/SGOT) (test code = Aspartate Amino Transf (AST/SGOT)) 37 5-34 [facility]anoAlanine Aminotransferase (ALT/SGPT) 2018-06-26 11:47:00* Test Item Value Reference Range Interpretation Comments Alanine Aminotransferase (ALT/SGPT) (test code = 1742-6) 38 0-55 [facility]anoTotal Tzdolpc9252-75-56 11:47:00* Test Item Value Reference Range Interpretation Comments Total Protein (test code = 2885-2) 7.5 6.5-8.1 [facility]anoAlbumin2018-08-31 11:47:00* Test Item Value Reference Range Interpretation Comments Albumin (test code = 1751-7) 4.0 3.5-5.0 [facility]anoGlobulin2018-08-31 11:47:00* Test Item Value Reference Range Interpretation Comments Globulin (test code = 38046-7) 3.5 2.3-3.5 [facility]Album[facility]/Globulin Ehzgc9870-31-97 11:47:00 * Test Item Value Reference Range Interpretation Comments Albumin/Globulin Ratio (test code = 1759-0) 1.1 0.8-2.0 [facility]Alk[facility] Nuitawjiijs8753-59-73 11:47:00* Test Item Value Reference Range Interpretation Comments Alkaline Phosphatase (test code = 6768-6) 124 40-150 [facility]White Blood Shpea6775-91-91 11:31:00* Test Item Value Reference Range Interpretation Comments White Blood Count (test code = 6690-2) 7.50 4.8-10.8 [facility]Red Blood Yucje3373-34-93 11:31:00* Test Item Value Reference Range Interpretation Comments Red Blood Count (test code = 789-8) 4.78 3.6-5.1 [facility]Hemoglobin2018-08[facility]31 11:31:00* Test Item Value Reference Range Interpretation Comments Hemoglobin (test code = 80527-5) 13.4 12.0-16.0 [facility]Hematocrit2018-08-31 11:31:00* Test Item Value Reference Range Interpretation Comments Hematocrit (test code = 4544-3) 41.2 34.2-44.1 [facility]Mean Corpuscular Zwxfnl2322-09-89 11:31:00* Test Item Value Reference Range Interpretation Comments Mean Corpuscular Volume (test code = 787-2) 86.2 81-99 [facility]Mean Corpuscular Siqjorkmrr7654-18-09 11:31:00* Test Item Value Reference Range Interpretation Comments Mean Corpuscular Hemoglobin (test code = 785-6) 28.0 28-32 [facility] Corpuscular Hemoglobin Concent 2018-06-26 11:31:00* Test Item Value Reference Range Interpretation Comments Mean Corpuscular Hemoglobin Concent (test code = 786-4) 32.5 31-35 [facility]anoRed Cell Distribution Pgxkn5114-33-63 11:31:00* Test Item Value Reference Range Interpretation Comments Red Cell Distribution Width (test code = 58242-8) 13.4 11.7 -14.4 [facility]anoPlatelet Zyyqw4105-73-28 11:31:00* Test Item Value Reference Range Interpretation Comments Platelet Count (test code = 777-3) 366 140-360 H [facility]anoNeutrophils (%) (Auto)2018-06-26 11:31:00 * Test Item Value Reference Range Interpretation Comments Neutrophils (%) (Auto) (test code = 76598-7) 61.6 38.7-80.0 [facility]anoLymphocytes (%) (Auto)2018-06-26 11:31:00 * Test Item Value Reference Range Interpretation Comments Lymphocytes (%) (Auto) (test code = 736-9) 20.8 18.0-39.1 [facility]Monocytes (%) (Auto)2018-06-26 11:31:00* Test Item Value Reference Range Interpretation Comments Monocytes (%) (Auto) (test code = 5905-5) 9.9 4.4-11.3 [facility]Eosinophils (%) (Auto)2018-06-26 11:31:00 * Test Item Value Reference Range Interpretation Comments Eosinophils (%) (Auto) (test code = 713-8) 6.0 0.0-6.0 [facility]Bas[facility] (%) (Auto)2018-06-26 11:31:00* Test Item Value Reference Range Interpretation Comments Basophils (%) (Auto) (test code = 706-2) 1.3 0.0-1.0 H [facility]anoIM GRANULOCYTES %2018-06-26 11:31:00* Test Item Value Reference Range Interpretation Comments IM GRANULOCYTES % (test code = IM GRANULOCYTES %) 0.4 0.0- 1.0 [facility]anoNeutrophils # (Auto)2018-06-26 11:31:00* Test Item Value Reference Range Interpretation Comments Neutrophils # (Auto) (test code = 751-8) 4.6 2.1-6.9 [facility]anoLymphocytes # (Auto)2018-06-26 11:31:00* Test Item Value Reference Range Interpretation Comments Lymphocytes # (Auto) (test code = 89001-6) 1.6 1.0-3.2 [facility]anoMonocytes # (Auto)2018-06-26 11:31:00* Test Item Value Reference Range Interpretation Comments Monocytes # (Auto) (test code = 742-7) 0.7 0.2-0.8 [facility]Eosinophils # (Auto)2018-06-26 11:31:00* Test Item Value Reference Range Interpretation Comments Eosinophils # (Auto) (test code = 711-2) 0.5 0.0-0.4 [facility]Basophils # (Auto)2018-06-26 11:31:00* Test Item Value Reference Range Interpretation Comments Basophils # (Auto) (test code = 704-7) 0.1 0.0-0.1 [facility]anoAbsolute Immature Granulocyte (auto 2018-06-26 11:31:00* Test Item Value Reference Range Interpretation Comments Absolute Immature Granulocyte (auto (krishna t code = Absolute Immature Granulocyte (auto) 0.03 0-0.1 [facility]anoWhite Blood Qopik8573-01-16 11:31:00* Test Item Value Reference Range Interpretation Comments White Blood Count (test code = 6690-2) 7.50 4.8-10.8 [facility]anoRed Blood Yucps1349-35-77 11:31:00* Test Item Value Reference Range Interpretation Comments Red Blood Count (test code = 789-8) 4.78 3.6-5.1 [facility]anoHemoglobin2018-08-31 11:31:00* Test Item Value Reference Range Interpretation Comments Hemoglobin (test code = 06062-6) 13.4 12.0-16.0 [facility]anoHematocrit2018-08-31 11:31:00* Test Item Value Reference Range Interpretation Comments Hematocrit (test code = 4544-3) 41.2 34.2-44.1 [facility]Mean Corpuscular Xfjhhq5958-49-99 11:31:00* Test Item Value Reference Range Interpretation Comments Mean Corpuscular Volume (test code = 787-2) 86.2 81-99 [facility]Mean Corpuscular Dhvsavfsft5758-28-34 11:31:00* Test Item Value Reference Range Interpretation Comments Mean Corpuscular Hemoglobin (test code = 785-6) 28.0 28-32 [facility]Mean Corpuscular Hemoglobin Concent 2018-06-26 11:31:00* Test Item Value Reference Range Interpretation Comments Mean Corpuscular Hemoglobin Concent (test code = 786-4) 32.5 31-35 [facility]anoRed Cell Distribution Apbur6990-80-88 11:31:00* Test Item Value Reference Range Interpretation Comments Red Cell Distribution Width (test code = 08361-8) 13.4 11.7 -14.4 [facility]anoPlatelet Vryje0666-48-41 11:31:00* Test Item Value Reference Range Interpretation Comments Platelet Count (test code = 777-3) 366 140-360 H [facility]anoNeutrophils (%) (Auto)2018-06-26 11:31:00 * Test Item Value Reference Range Interpretation Comments Neutrophils (%) (Auto) (test code = 49575-4) 61.6 38.7-80.0 [facility]anoLymphocytes (%) (Auto)2018-06-26 11:31:00 * Test Item Value Reference Range Interpretation Comments Lymphocytes (%) (Auto) (test code = 736-9) 20.8 18.0-39.1 [facility]anoMonocytes (%) (Auto)2018-06-26 11:31:00* Test Item Value Reference Range Interpretation Comments Monocytes (%) (Auto) (test code = 5905-5) 9.9 4.4-11.3 [facility]anoEosinophils (%) (Auto)2018-06-26 11:31:00 * Test Item Value Reference Range Interpretation Comments Eosinophils (%) (Auto) (test code = 713-8) 6.0 0.0-6.0 [facility]anoBasophils (%) (Auto)2018-06-26 11:31:00* Test Item Value Reference Range Interpretation Comments Basophils (%) (Auto) (test code = 706-2) 1.3 0.0-1.0 H [facility]anoIM GRANULOCYTES %2018-06-26 11:31:00* Test Item Value Reference Range Interpretation Comments IM GRANULOCYTES % (test code = IM GRANULOCYTES %) 0.4 0.0- 1.0 [facility]anoNeutrophils # (Auto)2018-06-26 11:31:00* Test Item Value Reference Range Interpretation Comments Neutrophils # (Auto) (test code = 751-8) 4.6 2.1-6.9 [facility]anoLymphocytes # (Auto)2018-06-26 11:31:00* Test Item Value Reference Range Interpretation Comments Lymphocytes # (Auto) (test code = 98279-2) 1.6 1.0-3.2 [facility]anoMonocytes # (Auto)2018-06-26 11:31:00* Test Item Value Reference Range Interpretation Comments Monocytes # (Auto) (test code = 742-7) 0.7 0.2-0.8 [facility]anoEosinophils # (Auto)2018-06-26 11:31:00* Test Item Value Reference Range Interpretation Comments Eosinophils # (Auto) (test code = 711-2) 0.5 0.0-0.4 H [facility]anoBasophils # (Auto)2018-06-26 11:31:00* Test Item Value Reference Range Interpretation Comments Basophils # (Auto) (test code = 704-7) 0.1 0.0-0.1 [facility]anoAbsolute Immature Granulocyte (auto 2018-06-26 11:31:00* Test Item Value Reference Range Interpretation Comments Absolute Immature Granulocyte (auto (krishna t code = Absolute Immature Granulocyte (auto) 0.03 0-0.1 [facility]anoWhite Blood Orpcn2385-07-96 11:31:00* Test Item Value Reference Range Interpretation Comments White Blood Count (test code = 6690-2) 7.50 4.8-10.8 [facility]anoRed Blood Zpqqm6119-57-39 11:31:00* Test Item Value Reference Range Interpretation Comments Red Blood Count (test code = 789-8) 4.78 3.6-5.1 [facility]anoHemoglobin2018-08-31 11:31:00* Test Item Value Reference Range Interpretation Comments Hemoglobin (test code = 24445-4) 13.4 12.0-16.0 [facility]anoHematocrit2018-08-31 11:31:00* Test Item Value Reference Range Interpretation Comments Hematocrit (test code = 4544-3) 41.2 34.2-44.1 [facility]Mean Corpuscular Ligqhq9586-31-78 11:31:00* Test Item Value Reference Range Interpretation Comments Mean Corpuscular Volume (test code = 787-2) 86.2 81-99 [facility]Mean Corpuscular Qfzcofzmng5022-95-97 11:31:00* Test Item Value Reference Range Interpretation Comments Mean Corpuscular Hemoglobin (test code = 785-6) 28.0 28-32 [facility]Mean Corpuscular Hemoglobin Concent 2018-06-26 11:31:00* Test Item Value Reference Range Interpretation Comments Mean Corpuscular Hemoglobin Concent (test code = 786-4) 32.5 31-35 [facility]anoRed Cell Distribution Kilpk8098-19-45 11:31:00* Test Item Value Reference Range Interpretation Comments Red Cell Distribution Width (test code = 66322-6) 13.4 11.7 -14.4 [facility]anoPlatelet Gpcff7782-32-82 11:31:00* Test Item Value Reference Range Interpretation Comments Platelet Count (test code = 777-3) 366 140-360 H [facility]anoNeutrophils (%) (Auto)2018-06-26 11:31:00 * Test Item Value Reference Range Interpretation Comments Neutrophils (%) (Auto) (test code = 06446-4) 61.6 38.7-80.0 [facility]anoLymphocytes (%) (Auto)2018-06-26 11:31:00 * Test Item Value Reference Range Interpretation Comments Lymphocytes (%) (Auto) (test code = 736-9) 20.8 18.0-39.1 [facility]anoMonocytes (%) (Auto)2018-06-26 11:31:00* Test Item Value Reference Range Interpretation Comments Monocytes (%) (Auto) (test code = 5905-5) 9.9 4.4-11.3 [facility]anoEosinophils (%) (Auto)2018-06-26 11:31:00 * Test Item Value Reference Range Interpretation Comments Eosinophils (%) (Auto) (test code = 713-8) 6.0 0.0-6.0 [facility]Basophils (%) (Auto)2018-06-26 11:31:00* Test Item Value Reference Range Interpretation Comments Basophils (%) (Auto) (test code = 706-2) 1.3 0.0-1.0 H [facility]anoIM GRANULOCYTES %2018-06-26 11:31:00* Test Item Value Reference Range Interpretation Comments IM GRANULOCYTES % (test code = IM GRANULOCYTES %) 0.4 0.0- 1.0 [facility]anoNeutrophils # (Auto)2018-06-26 11:31:00* Test Item Value Reference Range Interpretation Comments Neutrophils # (Auto) (test code = 751-8) 4.6 2.1-6.9 [facility]anoLymphocytes # (Auto)2018-06-26 11:31:00* Test Item Value Reference Range Interpretation Comments Lymphocytes # (Auto) (test code = 04024-3) 1.6 1.0-3.2 [facility]anoMonocytes # (Auto)2018-06-26 11:31:00* Test Item Value Reference Range Interpretation Comments Monocytes # (Auto) (test code = 742-7) 0.7 0.2-0.8 [facility]anoEosinophils # (Auto)2018-06-26 11:31:00* Test Item Value Reference Range Interpretation Comments Eosinophils # (Auto) (test code = 711-2) 0.5 0.0-0.4 H [facility]anoBasophils # (Auto)2018-06-26 11:31:00* Test Item Value Reference Range Interpretation Comments Basophils # (Auto) (test code = 704-7) 0.1 0.0-0.1 [facility]anoAbsolute Immature Granulocyte (auto 2018-06-26 11:31:00* Test Item Value Reference Range Interpretation Comments Absolute Immature Granulocyte (auto (krishna t code = Absolute Immature Granulocyte (auto) 0.03 0-0.1 [facility]anoWhite Blood Coxuc2298-99-60 11:31:00* Test Item Value Reference Range Interpretation Comments White Blood Count (test code = 6690-2) 7.50 4.8-10.8 [facility]anoRed Blood Vugoo2473-64-59 11:31:00* Test Item Value Reference Range Interpretation Comments Red Blood Count (test code = 789-8) 4.78 3.6-5.1 [facility]anoHemoglobin2018-08-31 11:31:00* Test Item Value Reference Range Interpretation Comments Hemoglobin (test code = 43952-4) 13.4 12.0-16.0 [facility]anoHematocrit2018-08-31 11:31:00* Test Item Value Reference Range Interpretation Comments Hematocrit (test code = 4544-3) 41.2 34.2-44.1 [facility]anoMean Corpuscular Wzikzy1902-61-37 11:31:00* Test Item Value Reference Range Interpretation Comments Mean Corpuscular Volume (test code = 787-2) 86.2 81-99 [facility]Mean Corpuscular Mlhjeiwdmv8122-24-58 11:31:00* Test Item Value Reference Range Interpretation Comments Mean Corpuscular Hemoglobin (test code = 785-6) 28.0 28-32 [facility]Mean Corpuscular Hemoglobin Concent 2018-06-26 11:31:00* Test Item Value Reference Range Interpretation Comments Mean Corpuscular Hemoglobin Concent (test code = 786-4) 32.5 31-35 [facility]anoRed Cell Distribution Asdqp1745-55-11 11:31:00* Test Item Value Reference Range Interpretation Comments Red Cell Distribution Width (test code = 89262-5) 13.4 11.7 -14.4 [facility]anoPlatelet Iioej9865-87-61 11:31:00* Test Item Value Reference Range Interpretation Comments Platelet Count (test code = 777-3) 366 140-360 H [facility]anoNeutrophils (%) (Auto)2018-06-26 11:31:00 * Test Item Value Reference Range Interpretation Comments Neutrophils (%) (Auto) (test code = 64915-0) 61.6 38.7-80.0 [facility]anoLymphocytes (%) (Auto)2018-06-26 11:31:00 * Test Item Value Reference Range Interpretation Comments Lymphocytes (%) (Auto) (test code = 736-9) 20.8 18.0-39.1 [facility]anoMonocytes (%) (Auto)2018-06-26 11:31:00* Test Item Value Reference Range Interpretation Comments Monocytes (%) (Auto) (test code = 5905-5) 9.9 4.4-11.3 [facility]anoEosinophils (%) (Auto)2018-06-26 11:31:00 * Test Item Value Reference Range Interpretation Comments Eosinophils (%) (Auto) (test code = 713-8) 6.0 0.0-6.0 [facility]Basophils (%) (Auto)2018-06-26 11:31:00* Test Item Value Reference Range Interpretation Comments Basophils (%) (Auto) (test code = 706-2) 1.3 0.0-1.0 H [facility]anoIM GRANULOCYTES %2018-06-26 11:31:00* Test Item Value Reference Range Interpretation Comments IM GRANULOCYTES % (test code = IM GRANULOCYTES %) 0.4 0.0- 1.0 [facility]anoNeutrophils # (Auto)2018-06-26 11:31:00* Test Item Value Reference Range Interpretation Comments Neutrophils # (Auto) (test code = 751-8) 4.6 2.1-6.9 [facility]anoLymphocytes # (Auto)2018-06-26 11:31:00* Test Item Value Reference Range Interpretation Comments Lymphocytes # (Auto) (test code = 46419-3) 1.6 1.0-3.2 [facility]anoMonocytes # (Auto)2018-06-26 11:31:00* Test Item Value Reference Range Interpretation Comments Monocytes # (Auto) (test code = 742-7) 0.7 0.2-0.8 [facility]Eosinophils # (Auto)2018-06-26 11:31:00* Test Item Value Reference Range Interpretation Comments Eosinophils # (Auto) (test code = 711-2) 0.5 0.0-0.4 H [facility]anoBasophils # (Auto)2018-06-26 11:31:00* Test Item Value Reference Range Interpretation Comments Basophils # (Auto) (test code = 704-7) 0.1 0.0-0.1 [facility]anoAbsolute Immature Granulocyte (auto 2018-06-26 11:31:00* Test Item Value Reference Range Interpretation Comments Absolute Immature Granulocyte (auto (krishna t code = Absolute Immature Granulocyte (auto) 0.03 0-0.1 [facility]anoWhite Blood Zezyg7380-87-99 11:31:00* Test Item Value Reference Range Interpretation Comments White Blood Count (test code = 6690-2) 7.50 4.8-10.8 [facility]anoRed Blood Yiupe8302-05-37 11:31:00* Test Item Value Reference Range Interpretation Comments Red Blood Count (test code = 789-8) 4.78 3.6-5.1 [facility]anoHemoglobin2018-08-31 11:31:00* Test Item Value Reference Range Interpretation Comments Hemoglobin (test code = 75511-8) 13.4 12.0-16.0 [facility]anoHematocrit2018-08-31 11:31:00* Test Item Value Reference Range Interpretation Comments Hematocrit (test code = 4544-3) 41.2 34.2-44.1 [facility]Mean Corpuscular Qrievb8743-83-22 11:31:00* Test Item Value Reference Range Interpretation Comments Mean Corpuscular Volume (test code = 787-2) 86.2 81-99 [facility]Mean Corpuscular Srotmkpohs0356-05-03 11:31:00* Test Item Value Reference Range Interpretation Comments Mean Corpuscular Hemoglobin (test code = 785-6) 28.0 28-32 [facility]Mean Corpuscular Hemoglobin Concent 2018-06-26 11:31:00* Test Item Value Reference Range Interpretation Comments Mean Corpuscular Hemoglobin Concent (test code = 786-4) 32.5 31-35 [facility]anoRed Cell Distribution Yonhl3913-57-08 11:31:00* Test Item Value Reference Range Interpretation Comments Red Cell Distribution Width (test code = 25403-8) 13.4 11.7 -14.4 [facility]anoPlatelet Sgmiu7353-39-71 11:31:00* Test Item Value Reference Range Interpretation Comments Platelet Count (test code = 777-3) 366 140-360 H [facility]anoNeutrophils (%) (Auto)2018-06-26 11:31:00 * Test Item Value Reference Range Interpretation Comments Neutrophils (%) (Auto) (test code = 24171-9) 61.6 38.7-80.0 [facility]anoLymphocytes (%) (Auto)2018-06-26 11:31:00 * Test Item Value Reference Range Interpretation Comments Lymphocytes (%) (Auto) (test code = 736-9) 20.8 18.0-39.1 [facility]anoMonocytes (%) (Auto)2018-06-26 11:31:00* Test Item Value Reference Range Interpretation Comments Monocytes (%) (Auto) (test code = 5905-5) 9.9 4.4-11.3 [facility]anoEosinophils (%) (Auto)2018-06-26 11:31:00 * Test Item Value Reference Range Interpretation Comments Eosinophils (%) (Auto) (test code = 713-8) 6.0 0.0-6.0 [facility]Basophils (%) (Auto)2018-06-26 11:31:00* Test Item Value Reference Range Interpretation Comments Basophils (%) (Auto) (test code = 706-2) 1.3 0.0-1.0 H [facility]anoIM GRANULOCYTES %2018-06-26 11:31:00* Test Item Value Reference Range Interpretation Comments IM GRANULOCYTES % (test code = IM GRANULOCYTES %) 0.4 0.0- 1.0 [facility]anoNeutrophils # (Auto)2018-06-26 11:31:00* Test Item Value Reference Range Interpretation Comments Neutrophils # (Auto) (test code = 751-8) 4.6 2.1-6.9 [facility]anoLymphocytes # (Auto)2018-06-26 11:31:00* Test Item Value Reference Range Interpretation Comments Lymphocytes # (Auto) (test code = 98564-0) 1.6 1.0-3.2 [facility]anoMonocytes # (Auto)2018-06-26 11:31:00* Test Item Value Reference Range Interpretation Comments Monocytes # (Auto) (test code = 742-7) 0.7 0.2-0.8 [facility]Eosinophils # (Auto)2018-06-26 11:31:00* Test Item Value Reference Range Interpretation Comments Eosinophils # (Auto) (test code = 711-2) 0.5 0.0-0.4 [facility]anoBasophils # (Auto)2018-06-26 11:31:00* Test Item Value Reference Range Interpretation Comments Basophils # (Auto) (test code = 704-7) 0.1 0.0-0.1 [facility]anoAbsolute Immature Granulocyte (auto 2018-06-26 11:31:00* Test Item Value Reference Range Interpretation Comments Absolute Immature Granulocyte (auto (krishna t code = Absolute Immature Granulocyte (auto) 0.03 0-0.1 [facility]anoWhite Blood Jtfbv7452-13-97 11:31:00* Test Item Value Reference Range Interpretation Comments White Blood Count (test code = 6690-2) 7.50 4.8-10.8 [facility]anoRed Blood Jtzfj4395-76-11 11:31:00* Test Item Value Reference Range Interpretation Comments Red Blood Count (test code = 789-8) 4.78 3.6-5.1 [facility]anoHemoglobin2018-08-31 11:31:00* Test Item Value Reference Range Interpretation Comments Hemoglobin (test code = 30074-6) 13.4 12.0-16.0 [facility]anoHematocrit2018-08-31 11:31:00* Test Item Value Reference Range Interpretation Comments Hematocrit (test code = 4544-3) 41.2 34.2-44.1 [facility]anoMean Corpuscular Zoiiwc1506-16-85 11:31:00* Test Item Value Reference Range Interpretation Comments Mean Corpuscular Volume (test code = 787-2) 86.2 81-99 [facility]Mean Corpuscular Ykfjtoicvs1053-79-89 11:31:00* Test Item Value Reference Range Interpretation Comments Mean Corpuscular Hemoglobin (test code = 785-6) 28.0 28-32 [facility]Mean Corpuscular Hemoglobin Concent 2018-06-26 11:31:00* Test Item Value Reference Range Interpretation Comments Mean Corpuscular Hemoglobin Concent (test code = 786-4) 32.5 31-35 [facility]anoRed Cell Distribution Zclux1468-07-81 11:31:00* Test Item Value Reference Range Interpretation Comments Red Cell Distribution Width (test code = 51948-2) 13.4 11.7 -14.4 [facility]anoPlatelet Qtigq3248-10-15 11:31:00* Test Item Value Reference Range Interpretation Comments Platelet Count (test code = 777-3) 366 140-360 H [facility]anoNeutrophils (%) (Auto)2018-06-26 11:31:00 * Test Item Value Reference Range Interpretation Comments Neutrophils (%) (Auto) (test code = 23781-0) 61.6 38.7-80.0 [facility]anoLymphocytes (%) (Auto)2018-06-26 11:31:00 * Test Item Value Reference Range Interpretation Comments Lymphocytes (%) (Auto) (test code = 736-9) 20.8 18.0-39.1 [facility]anoMonocytes (%) (Auto)2018-06-26 11:31:00* Test Item Value Reference Range Interpretation Comments Monocytes (%) (Auto) (test code = 5905-5) 9.9 4.4-11.3 [facility]Eosinophils (%) (Auto)2018-06-26 11:31:00 * Test Item Value Reference Range Interpretation Comments Eosinophils (%) (Auto) (test code = 713-8) 6.0 0.0-6.0 [facility]Bas[facility] (%) (Auto)2018-06-26 11:31:00* Test Item Value Reference Range Interpretation Comments Basophils (%) (Auto) (test code = 706-2) 1.3 0.0-1.0 [facility]anoIM GRANULOCYTES %2018-06-26 11:31:00* Test Item Value Reference Range Interpretation Comments IM GRANULOCYTES % (test code = IM GRANULOCYTES %) 0.4 0.0- 1.0 [facility]Neutrophils # (Auto)2018-06-26 11:31:00* Test Item Value Reference Range Interpretation Comments Neutrophils # (Auto) (test code = 751-8) 4.6 2.1-6.9 [facility]anoLymphocytes # (Auto)2018-06-26 11:31:00* Test Item Value Reference Range Interpretation Comments Lymphocytes # (Auto) (test code = 38049-0) 1.6 1.0-3.2 [facility]2018-[facility]-26 11:31:00* Test Item Value Reference Range Interpretation Comments Monocytes # (Auto) (test code = 742-7) 0.7 0.2-0.8 [facility] (Auto)2018-06-26 11:31:00* Test Item Value Reference Range Interpretation Comments Eosinophils # (Auto) (test code = 711-2) 0.5 0.0-0.4 H [facility]Basophils # (Auto)2018-06-26 11:31:00* Test Item Value Reference Range Interpretation Comments Basophils # (Auto) (test code = 704-7) 0.1 0.0-0.1 [facility]Absolute Immature Granulocyte (auto 2018-06-26 11:31:00* Test Item Value Reference Range Interpretation Comments Absolute Immature Granulocyte (auto (krishna t code = Absolute Immature Granulocyte (auto) 0.03 0-0.1 [facility]White Blood Bxmfx2716-12-02 11:31:00* Test Item Value Reference Range Interpretation Comments White Blood Count (test code = 6690-2) 7.50 4.8-10.8 [facility]anoRed Blood Hmfmr0420-56-06 11:31:00* Test Item Value Reference Range Interpretation Comments Red Blood Count (test code = 789-8) 4.78 3.6-5.1 [facility]Hemoglobin2018-08-31 11:31:00* Test Item Value Reference Range Interpretation Comments Hemoglobin (test code = 75522-4) 13.4 12.0-16.0 [facility]Hematocrit2018-08-31 11:31:00* Test Item Value Reference Range Interpretation Comments Hematocrit (test code = 4544-3) 41.2 34.2-44.1 [facility]Mean Corpuscular Xjnwtk5701-22-97 11:31:00* Test Item Value Reference Range Interpretation Comments Mean Corpuscular Volume (test code = 787-2) 86.2 81-99 [facility]Mean Corpuscular Fhrswthxkr7958-10-96 11:31:00* Test Item Value Reference Range Interpretation Comments Mean Corpuscular Hemoglobin (test code = 785-6) 28.0 28-32 [facility]Mean Corpuscular Hemoglobin Concent 2018-06-26 11:31:00* Test Item Value Reference Range Interpretation Comments Mean Corpuscular Hemoglobin Concent (test code = 786-4) 32.5 31-35 [facility]anoRed Cell Distribution Wmbcq7812-74-09 11:31:00* Test Item Value Reference Range Interpretation Comments Red Cell Distribution Width (test code = 66105-4) 13.4 11.7 -14.4 [facility]anoPlatelet Ouzdo8626-77-62 11:31:00* Test Item Value Reference Range Interpretation Comments Platelet Count (test code = 777-3) 366 140-360 H [facility]anoNeutrophils (%) (Auto)2018-06-26 11:31:00 * Test Item Value Reference Range Interpretation Comments Neutrophils (%) (Auto) (test code = 40097-2) 61.6 38.7-80.0 [facility]anoLymphocytes (%) (Auto)2018-06-26 11:31:00 * Test Item Value Reference Range Interpretation Comments Lymphocytes (%) (Auto) (test code = 736-9) 20.8 18.0-39.1 [facility]Monocytes (%) (Auto)2018-06-26 11:31:00* Test Item Value Reference Range Interpretation Comments Monocytes (%) (Auto) (test code = 5905-5) 9.9 4.4-11.3 [facility]Eosinophils (%) (Auto)2018-06-26 11:31:00 * Test Item Value Reference Range Interpretation Comments Eosinophils (%) (Auto) (test code = 713-8) 6.0 0.0-6.0 [facility]Basophils (%) (Auto)2018-06-26 11:31:00* Test Item Value Reference Range Interpretation Comments Basophils (%) (Auto) (test code = 706-2) 1.3 0.0-1.0 [facility]anoIM GRANULOCYTES %2018-06-26 11:31:00* Test Item Value Reference Range Interpretation Comments IM GRANULOCYTES % (test code = IM GRANULOCYTES %) 0.4 0.0- 1.0 [facility]anoNeutrophils # (Auto)2018-06-26 11:31:00* Test Item Value Reference Range Interpretation Comments Neutrophils # (Auto) (test code = 751-8) 4.6 2.1-6.9 [facility]anoLymphocytes # (Auto)2018-06-26 11:31:00* Test Item Value Reference Range Interpretation Comments Lymphocytes # (Auto) (test code = 22948-7) 1.6 1.0-3.2 [facility]Monocytes # (Auto)2018-06-26 11:31:00* Test Item Value Reference Range Interpretation Comments Monocytes # (Auto) (test code = 742-7) 0.7 0.2-0.8 [facility]Eosinophils # (Auto)2018-06-26 11:31:00* Test Item Value Reference Range Interpretation Comments Eosinophils # (Auto) (test code = 711-2) 0.5 0.0-0.4 H [facility]Basophils # (Auto)2018-06-26 11:31:00* Test Item Value Reference Range Interpretation Comments Basophils # (Auto) (test code = 704-7) 0.1 0.0-0.1 [facility]anoAbsolute Immature Granulocyte (auto 2018-06-26 11:31:00* Test Item Value Reference Range Interpretation Comments Absolute Immature Granulocyte (auto (krishna t code = Absolute Immature Granulocyte (auto) 0.03 0-0.1 [facility]White Blood Opdmr3686-64-49 11:31:00* Test Item Value Reference Range Interpretation Comments White Blood Count (test code = 6690-2) 7.50 4.8-10.8 [facility]anoRed Blood Vilwi3544-26-01 11:31:00* Test Item Value Reference Range Interpretation Comments Red Blood Count (test code = 789-8) 4.78 3.6-5.1 [facility]Hemoglobin2018-08-31 11:31:00* Test Item Value Reference Range Interpretation Comments Hemoglobin (test code = 39176-9) 13.4 12.0-16.0 [facility]Hematocrit2018-08-31 11:31:00* Test Item Value Reference Range Interpretation Comments Hematocrit (test code = 4544-3) 41.2 34.2-44.1 [facility]Mean Corpuscular Ihiyht7354-55-54 11:31:00* Test Item Value Reference Range Interpretation Comments Mean Corpuscular Volume (test code = 787-2) 86.2 81-99 [facility]Mean Corpuscular Isbjmxaztl4818-59-95 11:31:00* Test Item Value Reference Range Interpretation Comments Mean Corpuscular Hemoglobin (test code = 785-6) 28.0 28-32 [facility]Mean Corpuscular Hemoglobin Concent 2018-06-26 11:31:00* Test Item Value Reference Range Interpretation Comments Mean Corpuscular Hemoglobin Concent (test code = 786-4) 32.5 31-35 [facility]anoRed Cell Distribution Boyza4814-73-36 11:31:00* Test Item Value Reference Range Interpretation Comments Red Cell Distribution Width (test code = 42604-0) 13.4 11.7 -14.4 [facility]anoPlatelet Hqlup4430-24-46 11:31:00* Test Item Value Reference Range Interpretation Comments Platelet Count (test code = 777-3) 366 140-360 H [facility]anoNeutrophils (%) (Auto)2018-06-26 11:31:00 * Test Item Value Reference Range Interpretation Comments Neutrophils (%) (Auto) (test code = 13641-6) 61.6 38.7-80.0 [facility]anoLymphocytes (%) (Auto)2018-06-26 11:31:00 * Test Item Value Reference Range Interpretation Comments Lymphocytes (%) (Auto) (test code = 736-9) 20.8 18.0-39.1 [facility]Monocytes (%) (Auto)2018-06-26 11:31:00* Test Item Value Reference Range Interpretation Comments Monocytes (%) (Auto) (test code = 5905-5) 9.9 4.4-11.3 [facility]Eosinophils (%) (Auto)2018-06-26 11:31:00 * Test Item Value Reference Range Interpretation Comments Eosinophils (%) (Auto) (test code = 713-8) 6.0 0.0-6.0 [facility]Basophils (%) (Auto)2018-06-26 11:31:00* Test Item Value Reference Range Interpretation Comments Basophils (%) (Auto) (test code = 706-2) 1.3 0.0-1.0 H [facility]anoIM GRANULOCYTES %2018-06-26 11:31:00* Test Item Value Reference Range Interpretation Comments IM GRANULOCYTES % (test code = IM GRANULOCYTES %) 0.4 0.0- 1.0 [facility]anoNeutrophils # (Auto)2018-06-26 11:31:00* Test Item Value Reference Range Interpretation Comments Neutrophils # (Auto) (test code = 751-8) 4.6 2.1-6.9 [facility]anoLymphocytes # (Auto)2018-06-26 11:31:00* Test Item Value Reference Range Interpretation Comments Lymphocytes # (Auto) (test code = 60895-8) 1.6 1.0-3.2 [facility]Monocytes # (Auto)2018-06-26 11:31:00* Test Item Value Reference Range Interpretation Comments Monocytes # (Auto) (test code = 742-7) 0.7 0.2-0.8 [facility]Eosinophils # (Auto)2018-06-26 11:31:00* Test Item Value Reference Range Interpretation Comments Eosinophils # (Auto) (test code = 711-2) 0.5 0.0-0.4 H [facility]Basophils # (Auto)2018-06-26 11:31:00* Test Item Value Reference Range Interpretation Comments Basophils # (Auto) (test code = 704-7) 0.1 0.0-0.1 [facility]anoAbsolute Immature Granulocyte (auto 2018-06-26 11:31:00* Test Item Value Reference Range Interpretation Comments Absolute Immature Granulocyte (auto (krishna t code = Absolute Immature Granulocyte (auto) 0.03 0-0.1 [facility]anoWhite Blood Huaga0923-49-51 11:31:00* Test Item Value Reference Range Interpretation Comments White Blood Count (test code = 6690-2) 7.50 4.8-10.8 [facility]anoRed Blood Mjouy0629-77-91 11:31:00* Test Item Value Reference Range Interpretation Comments Red Blood Count (test code = 789-8) 4.78 3.6-5.1 [facility]Hemoglobin2018-08-31 11:31:00* Test Item Value Reference Range Interpretation Comments Hemoglobin (test code = 22364-4) 13.4 12.0-16.0 [facility]Hematocrit2018-08-31 11:31:00* Test Item Value Reference Range Interpretation Comments Hematocrit (test code = 4544-3) 41.2 34.2-44.1 [facility]Mean Corpuscular Esovvo0163-66-06 11:31:00* Test Item Value Reference Range Interpretation Comments Mean Corpuscular Volume (test code = 787-2) 86.2 81-99 [facility]Mean Corpuscular Uwmhjtmppj3380-84-50 11:31:00* Test Item Value Reference Range Interpretation Comments Mean Corpuscular Hemoglobin (test code = 785-6) 28.0 28-32 [facility]Mean Corpuscular Hemoglobin Concent 2018-06-26 11:31:00* Test Item Value Reference Range Interpretation Comments Mean Corpuscular Hemoglobin Concent (test code = 786-4) 32.5 31-35 [facility]anoRed Cell Distribution Tqovb5146-88-99 11:31:00* Test Item Value Reference Range Interpretation Comments Red Cell Distribution Width (test code = 53017-9) 13.4 11.7 -14.4 [facility]anoPlatelet Flfrp7492-76-52 11:31:00* Test Item Value Reference Range Interpretation Comments Platelet Count (test code = 777-3) 366 140-360 H [facility]anoNeutrophils (%) (Auto)2018-06-26 11:31:00 * Test Item Value Reference Range Interpretation Comments Neutrophils (%) (Auto) (test code = 21594-7) 61.6 38.7-80.0 [facility]anoLymphocytes (%) (Auto)2018-06-26 11:31:00 * Test Item Value Reference Range Interpretation Comments Lymphocytes (%) (Auto) (test code = 736-9) 20.8 18.0-39.1 [facility]Monocytes (%) (Auto)2018-06-26 11:31:00* Test Item Value Reference Range Interpretation Comments Monocytes (%) (Auto) (test code = 5905-5) 9.9 4.4-11.3 [facility]Eosinophils (%) (Auto)2018-06-26 11:31:00 * Test Item Value Reference Range Interpretation Comments Eosinophils (%) (Auto) (test code = 713-8) 6.0 0.0-6.0 [facility]Basophils (%) (Auto)2018-06-26 11:31:00* Test Item Value Reference Range Interpretation Comments Basophils (%) (Auto) (test code = 706-2) 1.3 0.0-1.0 H [facility]anoIM GRANULOCYTES %2018-06-26 11:31:00* Test Item Value Reference Range Interpretation Comments IM GRANULOCYTES % (test code = IM GRANULOCYTES %) 0.4 0.0- 1.0 [facility]Neutrophils # (Auto)2018-06-26 11:31:00* Test Item Value Reference Range Interpretation Comments Neutrophils # (Auto) (test code = 751-8) 4.6 2.1-6.9 [facility]anoLymphocytes # (Auto)2018-06-26 11:31:00* Test Item Value Reference Range Interpretation Comments Lymphocytes # (Auto) (test code = 96588-5) 1.6 1.0-3.2 [facility]Monocytes # (Auto)2018-06-26 11:31:00* Test Item Value Reference Range Interpretation Comments Monocytes # (Auto) (test code = 742-7) 0.7 0.2-0.8 [facility]Eosinophils # (Auto)2018-06-26 11:31:00* Test Item Value Reference Range Interpretation Comments Eosinophils # (Auto) (test code = 711-2) 0.5 0.0-0.4 H [facility]Basophils # (Auto)2018-06-26 11:31:00* Test Item Value Reference Range Interpretation Comments Basophils # (Auto) (test code = 704-7) 0.1 0.0-0.1 [facility]anoAbsolute Immature Granulocyte (auto 2018-06-26 11:31:00* Test Item Value Reference Range Interpretation Comments Absolute Immature Granulocyte (auto (krishna t code = Absolute Immature Granulocyte (auto) 0.03 0-0.1 [facility]anoWhite Blood Yriwl4866-51-45 11:31:00* Test Item Value Reference Range Interpretation Comments White Blood Count (test code = 6690-2) 7.50 4.8-10.8 [facility]anoRed Blood Pongy3362-51-25 11:31:00* Test Item Value Reference Range Interpretation Comments Red Blood Count (test code = 789-8) 4.78 3.6-5.1 [facility]anoHemoglobin2018-08-31 11:31:00* Test Item Value Reference Range Interpretation Comments Hemoglobin (test code = 62714-6) 13.4 12.0-16.0 [facility]anoHematocrit2018-08-31 11:31:00* Test Item Value Reference Range Interpretation Comments Hematocrit (test code = 4544-3) 41.2 34.2-44.1 [facility]anoMean Corpuscular Syizcx3880-84-69 11:31:00* Test Item Value Reference Range Interpretation Comments Mean Corpuscular Volume (test code = 787-2) 86.2 81-99 [facility]Mean Corpuscular Gxwrwfpoyq8853-43-72 11:31:00* Test Item Value Reference Range Interpretation Comments Mean Corpuscular Hemoglobin (test code = 785-6) 28.0 28-32 [facility]Mean Corpuscular Hemoglobin Concent 2018-06-26 11:31:00* Test Item Value Reference Range Interpretation Comments Mean Corpuscular Hemoglobin Concent (test code = 786-4) 32.5 31-35 [facility]anoRed Cell Distribution Fkudt5406-47-29 11:31:00* Test Item Value Reference Range Interpretation Comments Red Cell Distribution Width (test code = 20113-7) 13.4 11.7 -14.4 [facility]anoPlatelet Nlbad4253-46-82 11:31:00* Test Item Value Reference Range Interpretation Comments Platelet Count (test code = 777-3) 366 140-360 H [facility]anoNeutrophils (%) (Auto)2018-06-26 11:31:00 * Test Item Value Reference Range Interpretation Comments Neutrophils (%) (Auto) (test code = 59143-6) 61.6 38.7-80.0 [facility]anoLymphocytes (%) (Auto)2018-06-26 11:31:00 * Test Item Value Reference Range Interpretation Comments Lymphocytes (%) (Auto) (test code = 736-9) 20.8 18.0-39.1 [facility]Monocytes (%) (Auto)2018-06-26 11:31:00* Test Item Value Reference Range Interpretation Comments Monocytes (%) (Auto) (test code = 5905-5) 9.9 4.4-11.3 [facility]Eosinophils (%) (Auto)2018-06-26 11:31:00 * Test Item Value Reference Range Interpretation Comments Eosinophils (%) (Auto) (test code = 713-8) 6.0 0.0-6.0 [facility]Basophils (%) (Auto)2018-06-26 11:31:00* Test Item Value Reference Range Interpretation Comments Basophils (%) (Auto) (test code = 706-2) 1.3 0.0-1.0 H [facility]anoIM GRANULOCYTES %2018-06-26 11:31:00* Test Item Value Reference Range Interpretation Comments IM GRANULOCYTES % (test code = IM GRANULOCYTES %) 0.4 0.0- 1.0 [facility]anoNeutrophils # (Auto)2018-06-26 11:31:00* Test Item Value Reference Range Interpretation Comments Neutrophils # (Auto) (test code = 751-8) 4.6 2.1-6.9 [facility]anoLymphocytes # (Auto)2018-06-26 11:31:00* Test Item Value Reference Range Interpretation Comments Lymphocytes # (Auto) (test code = 38861-3) 1.6 1.0-3.2 [facility]Monocytes # (Auto)2018-06-26 11:31:00* Test Item Value Reference Range Interpretation Comments Monocytes # (Auto) (test code = 742-7) 0.7 0.2-0.8 [facility]Eosinophils # (Auto)2018-06-26 11:31:00* Test Item Value Reference Range Interpretation Comments Eosinophils # (Auto) (test code = 711-2) 0.5 0.0-0.4 H [facility]Basophils # (Auto)2018-06-26 11:31:00* Test Item Value Reference Range Interpretation Comments Basophils # (Auto) (test code = 704-7) 0.1 0.0-0.1 [facility]anoAbsolute Immature Granulocyte (auto 2018-06-26 11:31:00* Test Item Value Reference Range Interpretation Comments Absolute Immature Granulocyte (auto (krishna t code = Absolute Immature Granulocyte (auto) 0.03 0-0.1 [facility]odium Mhbwi2323-97-60 05:03:00* Test Item Value Reference Range Interpretation Comments Sodium Level (test code = 2951-2) 139 136-145 [facility]anoPotassium Drqev2003-60-95 05:03:00* Test Item Value Reference Range Interpretation Comments Potassium Level (test code = 2823-3) 4.1 3.5-5.1 [facility]anoChloride Psffw5102-27-41 05:03:00* Test Item Value Reference Range Interpretation Comments Chloride Level (test code = 2075-0) 105 98-107 [facility]anoCarbon Dioxide Vcymd3059-58-34 05:03:00* Test Item Value Reference Range Interpretation Comments Carbon Dioxide Level (test code = 2028-9) 24 22-29 [facility]anoAnion Whu7718-33-98 05:03:00* Test Item Value Reference Range Interpretation Comments Anion Gap (test code = 34486-5) 14.1 8-16 [facility]anoBlood Urea Euiersuq2558-43-77 05:03:00* Test Item Value Reference Range Interpretation Comments Blood Urea Nitrogen (test code = 3094-0) 10 7-26 [facility]anoCreatinine2018-07-28 05:03:00* Test Item Value Reference Range Interpretation Comments Creatinine (test code = 2160-0) 0.93 0.57-1.11 [facility]anoBUN/Creatinine Qytol7415-80-10 05:03:00* Test Item Value Reference Range Interpretation Comments BUN/Creatinine Ratio (test code = 3097-3) 11 6-25 [facility] PlanoEstimat Glomerular Filtration Rate 2018-05-23 05:03:00* Test Item Value Reference Range Interpretation Comments Estimat Glomerular Filtration Rate (test code = 74309-8) 59 >60 L Ranges were taken from the National Kidney Disease Education Program and the [employer] literature.Reference ranges:60 or greater: Ekfbfj40-76 ( for 3 consecutive months): Chronic kidney disease 15 or less: Kidney failureTexas [facility] Hospital PlanoGlucose Qmdjw5274-65-00 05:03:00* Test Item Value Reference Range Interpretation Comments Glucose Level (test code = QAH7797) 118 74-118 [facility]anoCalcium Axzvq7790-68-44 05:03:00* Test Item Value Reference Range Interpretation Comments Calcium Level (test code = 83143-6) 9.1 8.4-10.2 [facility]anoTotal Mscwvcpea4202-23-50 05:03:00* Test Item Value Reference Range Interpretation Comments Total Bilirubin (test code = 1975-2) 0.3 0.2-1.2 [facility] PlanoAspartate Amino Transf (AST/SGOT) 2018-05-23 05:03:00* Test Item Value Reference Range Interpretation Comments Aspartate Amino Transf (AST/SGOT) (test code = Aspartate Amino Transf (AST/SGOT)) 15 5-34 [facility]anoAlanine Aminotransferase (ALT/SGPT) 2018-05-23 05:03:00* Test Item Value Reference Range Interpretation Comments Alanine Aminotransferase (ALT/SGPT) (test code = 1742-6) 12 0-55 [facility] Zjthdgl8728-83-12 05:03:00* Test Item Value Reference Range Interpretation Comments Total Protein (test code = 2885-2) 6.2 6.5-8.1 L [facility]anoAlbumin2018-07-28 05:03:00* Test Item Value Reference Range Interpretation Comments Albumin (test code = 1751-7) 3.3 3.5-5.0 L [facility]anoGlobulin2018-07-28 05:03:00* Test Item Value Reference Range Interpretation Comments Globulin (test code = 11667-0) 2.9 2.3-3.5 [facility]anoAlbumin/Globulin Snkpw0588-50-85 05:03:00 * Test Item Value Reference Range Interpretation Comments Albumin/Globulin Ratio (test code = 1759-0) 1.1 0.8-2.0 [facility]anoAlkaline Vlnaqgjobpo6740-65-21 05:03:00* Test Item Value Reference Range Interpretation Comments Alkaline Phosphatase (test code = 6768-6) 99 40-150 [facility]anoProthrombin Lkmn9903-35-71 04:55:00* Test Item Value Reference Range Interpretation Comments Prothrombin Time (test code = 5902-2) 11.6 11.9-14.5 L [facility]anoProthromb Time International Ratio 2018-05-23 04:55:00* Test Item Value Reference Range Interpretation Comments Prothromb Time International Ratio (test code = 6301-6) 0.92 Oral Anticoagulant Therapy INR Values:1. Low Intensity Therapy 1.5 - 2.02 . Moderate Intensity Therapy 2.0 - 3.03. High Intensity Therapy(1) 2.5 - 3. 54. High Intensity Therapy(2) 3.0 - 4.05. Panic Value INR > 5.0 [facility] PlanoActivated Partial Thromboplast Time 2018-05-23 04:55:00* Test Item Value Reference Range Interpretation Comments Activated Partial Thromboplast Time (test code = 69397-3) 25.7 23.8-35.5 [facility]anoProthrombin Zmml5436-78-23 04:55:00* Test Item Value Reference Range Interpretation Comments Prothrombin Time (test code = 5902-2) 11.6 11.9-14.5 L [facility]anoProthromb Time International Ratio 2018-05-23 04:55:00* Test Item Value Reference Range Interpretation Comments Prothromb Time International Ratio (test code = 6301-6) 0.92 Oral Anticoagulant Therapy INR Values:1. Low Intensity Therapy 1.5 - 2.02 . Moderate Intensity Therapy 2.0 - 3.03. High Intensity Therapy(1) 2.5 - 3. 54. High Intensity Therapy(2) 3.0 - 4.05. Panic Value INR > 5.0 [facility]anoActivated Partial Thromboplast Time 2018-05-23 04:55:00* Test Item Value Reference Range Interpretation Comments Activated Partial Thromboplast Time (test code = 50289-4) 25.7 23.8-35.5 [facility]anoProthrombin Vnws9729-33-05 04:55:00* Test Item Value Reference Range Interpretation Comments Prothrombin Time (test code = 5902-2) 11.6 11.9-14.5 L [facility] PlanoProthromb Time International Ratio 2018-05-23 04:55:00* Test Item Value Reference Range Interpretation Comments Prothromb Time International Ratio (test code = 6301-6) 0.92 Oral Anticoagulant Therapy INR Values:1. Low Intensity Therapy 1.5 - 2.02 . Moderate Intensity Therapy 2.0 - 3.03. High Intensity Therapy(1) 2.5 - 3. 54. High Intensity Therapy(2) 3.0 - 4.05. Panic Value INR > 5.0 [facility]anoActivated Partial Thromboplast Time 2018-05-23 04:55:00* Test Item Value Reference Range Interpretation Comments Activated Partial Thromboplast Time (test code = 80006-4) 25.7 23.8-35.5 [facility]anoProthrombin Htrz9410-98-11 04:55:00* Test Item Value Reference Range Interpretation Comments Prothrombin Time (test code = 5902-2) 11.6 11.9-14.5 L [facility]anoProthromb Time International Ratio 2018-05-23 04:55:00* Test Item Value Reference Range Interpretation Comments Prothromb Time International Ratio (test code = 6301-6) 0.92 Oral Anticoagulant Therapy INR Values:1. Low Intensity Therapy 1.5 - 2.02 . Moderate Intensity Therapy 2.0 - 3.03. High Intensity Therapy(1) 2.5 - 3. 54. High Intensity Therapy(2) 3.0 - 4.05. Panic Value INR > 5.0 [facility] Thromboplast Time 2018-05-23 04:55:00* Test Item Value Reference Range Interpretation Comments Activated Partial Thromboplast Time (test code = 17641-8) 25.7 23.8-35.5 [facility]Proth[facility] [id number] 04:55:00* Test Item Value Reference Range Interpretation Comments Prothrombin Time (test code = 5902-2) 11.6 11.9-14.5 L [facility]anoProth[facility] International Ratio 2018-05-23 04:55:00* Test Item Value Reference Range Interpretation Comments Prothromb Time International Ratio (test code = 6301-6) 0.92 Oral Anticoagulant Therapy INR Values:1. Low Intensity Therapy 1.5 - 2.02 . Moderate Intensity Therapy 2.0 - 3.03. High Intensity Therapy(1) 2.5 - 3. 54. High Intensity Therapy(2) 3.0 - 4.05. Panic Value INR > 5.0 [facility] Partial Thromboplast Time 2018-05-23 04:55:00* Test Item Value Reference Range Interpretation Comments Activated Partial Thromboplast Time (test code = 21224-2) 25.7 23.8-35.5 [facility]anoProth[facility] [id number] 04:55:00* Test Item Value Reference Range Interpretation Comments Prothrombin Time (test code = 5902-2) 11.6 11.9-14.5 L [facility]Proth[facility] International Ratio 2018-05-23 04:55:00* Test Item Value Reference Range Interpretation Comments Prothromb Time International Ratio (test code = 6301-6) 0.92 Oral Anticoagulant Therapy INR Values:1. Low Intensity Therapy 1.5 - 2.02 . Moderate Intensity Therapy 2.0 - 3.03. High Intensity Therapy(1) 2.5 - 3. 54. High Intensity Therapy(2) 3.0 - 4.05. Panic Value INR > 5.0 [facility] Partial Thromboplast Time 2018-05-23 04:55:00* Test Item Value Reference Range Interpretation Comments Activated Partial Thromboplast Time (test code = 54266-2) 25.7 23.8-35.5 [facility]anoProth[facility] [id number] 04:55:00* Test Item Value Reference Range Interpretation Comments Prothrombin Time (test code = 5902-2) 11.6 11.9-14.5 L [facility]Proth[facility] International Ratio 2018-05-23 04:55:00* Test Item Value Reference Range Interpretation Comments Prothromb Time International Ratio (test code = 6301-6) 0.92 Oral Anticoagulant Therapy INR Values:1. Low Intensity Therapy 1.5 - 2.02 . Moderate Intensity Therapy 2.0 - 3.03. High Intensity Therapy(1) 2.5 - 3. 54. High Intensity Therapy(2) 3.0 - 4.05. Panic Value INR > 5.0 [facility] Partial Thromboplast Time 2018-05-23 04:55:00* Test Item Value Reference Range Interpretation Comments Activated Partial Thromboplast Time (test code = 02011-5) 25.7 23.8-35.5 [facility]anoProth[facility] [id number] 04:55:00* Test Item Value Reference Range Interpretation Comments Prothrombin Time (test code = 5902-2) 11.6 11.9-14.5 L [facility]anoProth[facility] Time International Ratio 2018-05-23 04:55:00* Test Item Value Reference Range Interpretation Comments Prothromb Time International Ratio (test code = 6301-6) 0.92 Oral Anticoagulant Therapy INR Values:1. Low Intensity Therapy 1.5 - 2.02 . Moderate Intensity Therapy 2.0 - 3.03. High Intensity Therapy(1) 2.5 - 3. 54. High Intensity Therapy(2) 3.0 - 4.05. Panic Value INR > 5.0 [facility] Partial Thromboplast Time 2018-05-23 04:55:00* Test Item Value Reference Range Interpretation Comments Activated Partial Thromboplast Time (test code = 10184-2) 25.7 23.8-35.5 [facility]anoProthrombin [id number] 04:55:00* Test Item Value Reference Range Interpretation Comments Prothrombin Time (test code = 5902-2) 11.6 11.9-14.5 L [facility]anoProthromb Time International Ratio 2018-05-23 04:55:00* Test Item Value Reference Range Interpretation Comments Prothromb Time International Ratio (test code = 6301-6) 0.92 Oral Anticoagulant Therapy INR Values:1. Low Intensity Therapy 1.5 - 2.02 . Moderate Intensity Therapy 2.0 - 3.03. High Intensity Therapy(1) 2.5 - 3. 54. High Intensity Therapy(2) 3.0 - 4.05. Panic Value INR > 5.0 [facility] Partial Thromboplast Time 2018-05-23 04:55:00* Test Item Value Reference Range Interpretation Comments Activated Partial Thromboplast Time (test code = 15380-4) 25.7 23.8-35.5 [facility]anoProth[facility]bin [id number] 04:55:00* Test Item Value Reference Range Interpretation Comments Prothrombin Time (test code = 5902-2) 11.6 11.9-14.5 L [facility]anoProthromb Time International Ratio 2018-05-23 04:55:00* Test Item Value Reference Range Interpretation Comments Prothromb Time International Ratio (test code = 6301-6) 0.92 Oral Anticoagulant Therapy INR Values:1. Low Intensity Therapy 1.5 - 2.02 . Moderate Intensity Therapy 2.0 - 3.03. High Intensity Therapy(1) 2.5 - 3. 54. High Intensity Therapy(2) 3.0 - 4.05. Panic Value INR > 5.0 [facility] Partial Thromboplast Time 2018-05-23 04:55:00* Test Item Value Reference Range Interpretation Comments Activated Partial Thromboplast Time (test code = 58109-0) 25.7 23.8-35.5 [facility]anoProthrombin [id number] 04:55:00* Test Item Value Reference Range Interpretation Comments Prothrombin Time (test code = 5902-2) 11.6 11.9-14.5 L [facility]anoProthromb Time International Ratio 2018-05-23 04:55:00* Test Item Value Reference Range Interpretation Comments Prothromb Time International Ratio (test code = 6301-6) 0.92 Oral Anticoagulant Therapy INR Values:1. Low Intensity Therapy 1.5 - 2.02 . Moderate Intensity Therapy 2.0 - 3.03. High Intensity Therapy(1) 2.5 - 3. 54. High Intensity Therapy(2) 3.0 - 4.05. Panic Value INR > 5.0 [facility]Act[facility] Partial Thromboplast Time 2018-05-23 04:55:00* Test Item Value Reference Range Interpretation Comments Activated Partial Thromboplast Time (test code = 98301-5) 25.7 23.8-35.5 [facility]anoWhite Blood [id number] 04:37:00* Test Item Value Reference Range Interpretation Comments White Blood Count (test code = 6690-2) 11.61 4.8-10.8 H [facility]anoRed Blood [id number] 04:37:00* Test Item Value Reference Range Interpretation Comments Red Blood Count (test code = 789-8) 4.43 3.6-5.1 [facility]anoHemoglobin2018-07-28 04:37:00* Test Item Value Reference Range Interpretation Comments Hemoglobin (test code = 94783-8) 12.2 12.0-16.0 [facility]anoHematocrit2018-07-28 04:37:00* Test Item Value Reference Range Interpretation Comments Hematocrit (test code = 4544-3) 37.9 34.2-44.1 [facility]anoMean Corpuscular [id number] 04:37:00* Test Item Value Reference Range Interpretation Comments Mean Corpuscular Volume (test code = 787-2) 85.6 81-99 [facility]anoMean Corpuscular [id number] 04:37:00* Test Item Value Reference Range Interpretation Comments Mean Corpuscular Hemoglobin (test code = 785-6) 27.5 28-32 L [facility]anoMean Corpuscular Hemoglobin Concent 2018-05-23 04:37:00* Test Item Value Reference Range Interpretation Comments Mean Corpuscular Hemoglobin Concent (test code = 786-4) 32.2 31-35 [facility]anoRed Cell Distribution [id number] 04:37:00* Test Item Value Reference Range Interpretation Comments Red Cell Distribution Width (test code = 14930-3) 14.1 11.7 -14.4 [facility]anoPlatelet [id number] 04:37:00* Test Item Value Reference Range Interpretation Comments Platelet Count (test code = 777-3) 364 140-360 H [facility]anoNeutrophils (%) (Auto)2018-05-23 04:37:00 * Test Item Value Reference Range Interpretation Comments Neutrophils (%) (Auto) (test code = 89444-4) 58.0 38.7-80.0 [facility]anoLymphocytes (%) (Auto)2018-05-23 04:37:00 * Test Item Value Reference Range Interpretation Comments Lymphocytes (%) (Auto) (test code = 736-9) 25.6 18.0-39.1 [facility]anoMonocytes (%) (Auto)2018-05-23 04:37:00* Test Item Value Reference Range Interpretation Comments Monocytes (%) (Auto) (test code = 5905-5) 9.6 4.4-11.3 [facility]anoEosinophils (%) (Auto)2018-05-23 04:37:00 * Test Item Value Reference Range Interpretation Comments Eosinophils (%) (Auto) (test code = 713-8) 5.5 0.0-6.0 [facility]anoBasophils (%) (Auto)2018-05-23 04:37:00* Test Item Value Reference Range Interpretation Comments Basophils (%) (Auto) (test code = 706-2) 0.3 0.0-1.0 [facility]anoIM GRANULOCYTES %2018-05-23 04:37:00* Test Item Value Reference Range Interpretation Comments IM GRANULOCYTES % (test code = IM GRANULOCYTES %) 1.0 0.0- 1.0 [facility]anoNeutrophils # (Auto)2018-05-23 04:37:00* Test Item Value Reference Range Interpretation Comments Neutrophils # (Auto) (test code = 751-8) 6.7 2.1-6.9 [facility]anoLymphocytes # (Auto)2018-05-23 04:37:00* Test Item Value Reference Range Interpretation Comments Lymphocytes # (Auto) (test code = 40692-1) 3.0 1.0-3.2 [facility]anoMonocytes # (Auto)2018-05-23 04:37:00* Test Item Value Reference Range Interpretation Comments Monocytes # (Auto) (test code = 742-7) 1.1 0.2-0.8 H [facility]anoEosinophils # (Auto)2018-05-23 04:37:00* Test Item Value Reference Range Interpretation Comments Eosinophils # (Auto) (test code = 711-2) 0.6 0.0-0.4 H [facility]anoBasophils # (Auto)2018-05-23 04:37:00* Test Item Value Reference Range Interpretation Comments Basophils # (Auto) (test code = 704-7) 0.0 0.0-0.1 [facility] PlanoAbsolute Immature Granulocyte (auto 2018-05-23 04:37:00* Test Item Value Reference Range Interpretation Comments Absolute Immature Granulocyte (auto (krishna t code = Absolute Immature Granulocyte (auto) 0.12 0-0.1 H [facility] PlanoCHES 2 [id number] 17:01:00 [facility] [address] [place] [address] Patient Name: ELFEGO DEGROOT MR #: [id number] : 1945 Age/Sex: 72/F Req #: [id number] Adm Physician: Ordered by: TAN FULTON MD Report #: [id number] Location: [facility] Room/Bed: Procedure: [id number] DX/CHEST 2 VIEWS Exam Date: 0 04/02/18 Exam Time: 1609 REPORT STATUS: Signed PROCEDURE: Frontal and lateral views of the chest. COMPARISON: Patient s [facility], DX, CHEST 2 VIEWS, 06/13/2015, 11:46. INDICATIONS: C OUGH FINDINGS: Lines/tubes: None. Lungs: The lungs are well inflated and grossly clear. There is no evidence of pneumonia or pulmonary ed leonel. Pleura: There is no pleural effusion or pneumothorax. Heart an d mediastinum: Cardiac silhouette is unremarkable. Pulmonary vasculature is n ormal. Mild tortuous aorta. Bones: No acute bony abnormality. IMPRE SSION: 1. No acute cardiopulmonary abnormalities. Pepe felder M.D. Dictated by: Pepe Troncoso M.D. on 04/02/2018 at 17:01 Electronically approved by: Pepe Troncoso M.D. on 04/02/2018 at 17:01 Dictated By: PEPE TRONCOSO MD 170 Transcribed By: DEAJ on 04/02/18 1701 COPY TO: TAN FULTON MD CT ABDOMEN/PELVIS WO [place] [address] Patient Name: ELFEGO DEGROOT MR #: [id number] : 1945 Age/Sex: 71/F Req #: [id number] Adm Physician: Ordered by: FAUSTINO WADE MD Report #: [id number] Location: CT Room/Bed: Procedure: [id number] CT/CT ABDOMEN/PELVIS WO Exam D ate: 09/08/17 Exam Time: 1400 REPORT STATUS: Si gned PROCEDURE: CT ABDOMEN AND PELVIS WITHOUT CONTRAST TECHNIQUE: Th e abdomen and pelvis were scanned utilizing a multidetector helical scanner f rom the diaphragm to the lesser trochanter after the oral administration of w ater. No IV contrast was administered per protocol. Coronal and sagittal mult iplanar reformations were obtained. COMPARISON: [facility], US, US RETROPERITONEAL ( KIDNEY )., 08/26/2017, 14:13. INDICATIONS: RENAL STONE FINDINGS: ABSENCE OF INTRAVENOUS CONTRAST DECREASES SENS ITIVITY FOR DETECTION OF FOCAL LESIONS AND VASCULAR PATHOLOGY. LOWER TH ORAX: 3 mm pulmonary nodule in the posterior right lower lobe (series 3, imag e 11). No other pulmonary nodules. Atherosclerotic calcification of the aortic valve and mitral annulus. HEPATOBILIARY: No focal hepatic lesions. No biliary ductal dilatation. Gallbladder is unremarkable. SPLEEN: No splenom egaly. PANCREAS: No focal masses or ductal dilatation. Fatty replacement. ADRENALS: No adrenal nodules. KIDNEYS/URETERS: No renal, or ureteral calculi . No hydronephrosis, hydroureter, or evidence of obstruction. No renal contou r abnormalities. PELVIC ORGANS/BLADDER: No focal lesions or bladder calculi . Multiple pelvic phleboliths. Uterus is absent. No adnexal masses. PER ITONEUM / RETROPERITONEUM: No free air or fluid. LYMPH NODES: No lymphadenopat hy. VESSELS: Atherosclerotic calcification of the abdominal aorta and iliac vessels. Moderate atherosclerotic plaque at the origin of bilateral renal ar teries (sagittal image 72 and 64). GI TRACT: The no bowel dilation or evid ence of obstruction. Distal descending and sigmoid diverticulosis, without d iverticulitis. BONES AND SOFT TISSUES: No acute bony abnormalities. Degenerati ve disc changes in the lower cervical spine, with grade 1 anterolisthesis of L4 on L5, and facet hypertrophy L4-L5, and L5-S1. Tiny fat containing umbi lical hernia. IMPRESSION: 1. no renal, ureteral, or bladder calculi. No hydronephrosis or evidence of obstruction. Pepe lake M.D. Dictated by: Pepe Troncoso M.D. on 09/08/2017 at 15:03 Electronically approved by: Pepe Troncoso M.D. on 09/08/2017 at 15:03 Dictated By: PEPE TRONCOSO MD 1503 Transcribed By: DEJA on 09/08/17 1505 COPY TO : FAUSTINO WADE MD US RENAL RETROPERITONEAL COMP [place] [address] Patient Name: ELFEGO DEGROOT MR #: [id number] : 1945 Age/Sex: 71/F Req #: [id number] Adm Physician: Ordered by: FAUSTINO WADE MD Report #: [id number] Location: US Room/Bed: Procedure: [id number] US/US RENAL RETROPERITONEAL COM P Exam Date: Exam Time: REPORT STATUS: Cris d EXAM: Renal Ultrasound INDICATION: COMPARISON: Abdominal ult rasound dated 07/23/2013 TECHNIQUE: Transverse and longitudinal images of the kidneys and bladder were obtained. FINDINGS: Right Kidney: Size: 11.6 cm Echogenicity: Normal Parenchymal thickness: Normal Collecting system: No hydronephrosis Stones: None Cyst/Mass: None Left Kidney: Size: 11 cm Echogenicity: Bettie l Parenchymal thickness: Normal Collecting system: No hydronep hrosis Stones: None Cyst/Mass: 1.2 x 1.6 x 2.2 cm midpole hypoecho ic lesion without internal flow on color Doppler. Bladder: Unremarkabl e. Bilateral ureteral jets detected. IMPRESSION: 2.2 cm left midpole hypo echoic lesion without internal flow on color Doppler, probably a complex cyst. If clinically indicated, renal mass protocol CT or MRI can be obtained for fu rther evaluation. Signed by: Dr. Darek Ramirez MD on 08/26/2017 3:03 PM Dictated By: DAREK RAMIREZ MD 02 COPY TO: FAUSTINO WEI MD ABDOMEN-1VIEW (KUB) [place] [address] Patient Name: ELFEGO DEGROOT MR #: [id number] : 1945 Age/Sex: 71/F Req #: [id number] Adm Physician: Ordered by: FAUSTINO WADE MD Report #: [id number] Location: US Room/Bed: Procedure: [id number] DX/ABDOMEN-1VIEW (KUB) Exam Da te: Exam Time: REPORT STATUS: Signed PROCE DURE: X-RAY ABDOMEN - KUB COMPARISON: None. INDICATIONS: UTI FINDINGS: There is a non-obstructed bowel-gas pattern. No evidence of pneumoperitoneum. Faint 5 mm density overlying right renal pelvis. There a re no acute osseous abnormalities. Pelvic phleboliths. The lung bases are anju ar. CONCLUSION: Questionable 5 mm calculus in right renal pelvis. Nonobstructive bowel gas pattern. Dictated by: Darek Ramirez M.D. on 08/26/2017 at 16:10 Electronically approved by: Darek Ramirez M.D. on 08/26/2017 at 16:10 Dictated By: DAREK RAMIREZ MD Electron ically Signed By: DAREK RAMIREZ MD on 08/26/171609 Transcribed By: DEJA on 1609 COPY TO: FAUSTINO WADE MD
== END 2020-06-04 11:09 | disposition home or self-care (01) ==
LOC: FSED 09:39
DX: L50.9 Urticaria, unspecified (principal); T78.40XA Allergy, unspecified, initial encounter; I10 Essential (primary) hypertension; E03.9 Hypothyroidism, unspecified; K21.9 Gastro-esophageal reflux disease without esophagitis; M79.7 Fibromyalgia
CPT/HCPCS: 96374; 96375; 99283; J1100; J1200; J2405; J7030

== ENCOUNTER 2020-07-11 14:55 | Emergency (ER) | payer MEDICARE, OTHER ==
[~2020-07-11] VITALS: Ht 162.6 cm; Wt 79.4 kg
[~2020-07-11 14:55] MED LIST changes: +DEXAMETHASONE6 MG PO; +FAMOTIDINE20 MG PO
--- OUTSIDE RECORDS SUMMARY | 2020-07-11 15:10 | XMS REPORT | Continuity of Care Document ---
Author Author [facility] t Organization [facility] Address [address] [place] [address] Phone Unavailable Care Team Providers Care Manufacturing Executive Name Role Phone NEO CARRIZALES, MD BLANCHARD PCP Titus Loyd MD Attphys OPAL LARSON Attphys Unavailable LARSONSANTO Corona Attphys Unavailable Soo POLK Attphys Unavailable TAN FULTON Attphys Unavailable HAMPEL, FAUSTINO Attphys Unavailable Payers Payer Name Policy Type Policy Number Effective Date Expiration Date Camden ordonez Miscellaneous Indemnity [id number] 2019 00:00:00 [facility] Medicare A & B [id number] 2010 00:00:00 [facility] Cdc Review [id number] [facility] Miscellaneous Ppo [id number] 2010 00:00:00 [facility] Problems Condition Name Condition Details Condition Category Status Onset Date Resolution Date Last Treatment Date Treating Clinician Comments Source Acute allergic reaction Problem Active [facility] Urticaria Problem Active [facility] Allergies, Adverse Reactions, Alerts Allergy Name Allergy Type Status Severity Reaction(s) Onset Date Inacti ve Date Treating Clinician Comments Source Epinephrine Allergy to substance Active HIVES WITH EPI PEN 2020-04-23 00:00:00 [facility] EPI PEN Allergy to substance Active HIVES 2019-06-22 00:00:00 [facility] Ampicillin Propensity to adverse reactions Active Mild DIAR MAYITO 2018-07-25 00:00:00 [facility] Ciprofloxacin Allergy to substance Active Severe 2018-07-25 00:00: 00 [facility] Social History Social Habit Start Date Stop Date Quantity Comments Source Sex Assigned At 1945 00:00:00 1945 00:00:00 Female [facility] Medications Ordered Medication Name Filled Medication Name Start Date Stop Da te Current Medication? Ordering Clinician Indication Dosage Frequency Signature (SIG) Comments Components Source Dexamethasone Dexamethasone 2020-06-04 09:58:00 Yes 1 Daily [facility] Famotidine Famotidine 2020-06-04 09:58:00 Yes 20 Twi ce A Day [facility] Prednisone Prednisone 2019-12-21 10:34:00 2020-03-15 00:00:00 No 60 Daily for Allergic Response [facility] Cefdinir (Omnicef) 300 Mg CAPSULE Cefdinir (Omnicef) 300 Mg CAPSULE 2019-06-22 12:27:00 2020-03-15 00:00:00 No 1 Twice A Day [facility] Prednisone Prednisone 2019-06-22 12:27:00 2020-03-15 00:00:00 No 20 Three Times A Day [facility] Mometasone Furoate (Nasonex) 17 Gm SPRAY Mometasone Fu roate (Nasonex) 17 Gm SPRAY 2018-07-18 16:10:00 Yes 2 Daily [facility] Levocetirizine Dihydrochloride (Xyzal) 5 Mg TABLET Lev ocetirizine Dihydrochloride (Xyzal) 5 Mg TABLET 2018-07-18 16:10:00 2020-03-15 00:00:00 No 5 Twice A Day [facility] Epinephrine Hcl (Epinephrine 1 Mg/Ml Ampul) 1 Mg/Ml IN J Epinephrine Hcl (Epinephrine 1 Mg/Ml Ampul) 1 Mg/Ml INJ 2018-07-18 16:10:00 2018-12-03 00:00:00 No .3 As Needed as needed for Allergy [facility] Amlodipine Besylate Amlodipine Besylate Yes 5 Daily [facility] Ascorbic Acid (Vitamin C) 500 Mg TAB.CHEW Ascorbic Aci d (Vitamin C) 500 Mg TAB.CHEW Yes Daily [facility] Biotin Biotin Yes 1 Daily [facility] Cetirizine Hcl Cetirizine Hcl Yes 20 Daily [facility] Diphenhydramine Hcl (Benadryl) 25 Mg CAPSULE Diphenhyd ramine Hcl (Benadryl) 25 Mg CAPSULE Yes [address] [facility] Fexofenadine Hcl (Nunu Allergy) 180 Mg TABLET Fexof enadine Hcl (Nunu Allergy) 180 Mg TABLET Yes Daily [facility] Lactobac Cmb #3/Fos/Pantethine (Probiotic & Acidophilu s Cap) 1 Each CAPSULE Lactobac Cmb #3/Fos/Pantethine (Probiotic & Acidophilus Cap) 1 Each CAPSULE Yes 1 Daily [facility] Lactose-Free Food (Ensure Plus) 237 Ml LIQUID Lactose- Free Food (Ensure Plus) 237 Ml LIQUID Yes Twice A Day [facility] Levothyroxine Sodium (Synthroid) 125 Mcg TAB Levothyro xine Sodium (Synthroid) 125 Mcg TAB Yes 125 Daily [facility] Lorazepam Lorazepam Yes 2 Three Times A Day as needed for Anxiety [facility] Methylprednisolone Methylprednisolone Yes As Needed [facility] Montelukast Sodium (Singulair) 10 Mg TABLET Montelukas t Sodium (Singulair) 10 Mg TABLET Yes Daily [facility] Omeprazole Magnesium (Prilosec Otc) 20 Mg TABLET.DR Vivas eprazole Magnesium (Prilosec Otc) 20 Mg TABLET. Yes 20 Daily [facility] Albuterol Sulfate Albuterol Sulfate 2020-03-15 00:00:00 No 1 As Needed [facility] Mu-Vits-Min Th/Lycopene/Lutein (Centrum Silver Tablet) 1 Each TABLET Mu-Vits-Min Th/Lycopene/Lutein (Centrum Silver Tablet) 1 Each TABLET 202 0-05-20 00:00:00 No Daily [facility] Omeprazole Omeprazole 2020-03-15 00:00:00 No 20 Concha ly [facility] Prednisone Prednisone 2020-03-15 00:00:00 No 20 [facility] Ranitidine Hcl Ranitidine Hcl 2020-03-15 00:00:00 No [facility] Amlodipine Besylate Amlodipine Besylate 2019-06-22 00:00:00 No 10 Daily [facility] Cetirizine Hcl Cetirizine Hcl 2019-06-22 00:00:00 No 10 Daily [facility] Fexofenadine/Pseudoephedrine (Nunu-D 12 Hour Tablet ) 1 Each TAB.ER.12H Fexofenadine/Pseudoephedrine (Nunu-D 12 Hour Tablet) 1 Each TAB.ER.12H 2019-06-22 00:00:00 No 180 Daily [facility] Ketotifen Fumarate Ketotifen Fumarate 2019-06-22 00:00:00 No [facility] Amlodipine/Valsartan (Exforge 10-320 Mg Tablet) 1 Each TABLET Amlodipine/Valsartan (Exforge 10-320 Mg Tablet) 1 Each TABLET 2018-07-25 00:00:00 No 1 Daily [facility] Vital Signs Vital Name Observation Time Observation Value Comments Source Weight 2020-06-04 09:43:00 176.44 [lb_av] [facility] BMI (Body Mass Index) 2020-06-04 09:43:00 30.3 kg/m2 [facility] Body Temperature 2020-04-23 12:56:00 98.3 [degF] [facility] Weight 2020-04-23 10:10:00 175.13 [lb_av] [facility] BMI (Body Mass Index) 2020-04-23 10:10:00 30.1 kg/m2 [facility] Procedures Procedure Date / Time Performed Performing Clinician [facility] e COLONOSCOPY AND BIOPSY 2020-03-23 00:00:00 [facility] [place] [facility] COLONOSCOPY W/LESION REMOVAL 2020-03-23 00:00:00 [facility] COLONOSCOPY W/LESION REMOVAL 2020-03-23 00:00:00 [facility] Computed tomography of abdomen and pelvis with contrast 00:00:00 [facility] X-ray of chest, two views 2019-09-16 00:00:00 SANTO LARSON [facility], I [facility] Plan of Care Planned Activity Planned Date Details Comments Source Instructions Allergic Reaction [facility] Encounters Start Date/Time End Date/Time Encounter Type Admission Type Attendi [facility] Care Department Encounter ID Source 2020-06-05 14:07:07 2020-06-08 11:20:56 Office Visit Marylou aCrrillo [facility] [id number] 2020-06-04 09:39:00 2020-06-04 11:09:00 Departed Emergency Room [facility] [id number] [facility] 2020-04-23 10:03:00 2020-04-23 13:05:00 Departed Emergency Room [facility] [id number] [facility] 2020-03-23 10:15:00 2020-03-23 10:15:00 Registered Surgical Day Care [facility] [id number] [facility] 2020-03-17 11:36:00 2020-03-17 11:36:00 Registered Clinic 3 OPAL LARSON [facility] [id number] [facility] 2019-12-21 09:46:00 2019-12-21 10:44:00 Departed Emergency Room [facility] [id number] [facility] 2019-09-16 10:14:00 2019-09-16 10:14:00 Registered Clinic 3 SANTO LARSON [facility] [id number] [facility] 2019-08-15 11:32:00 2019-08-15 14:25:00 Departed Emergency [facility] [id number] [facility] 2019-06-29 20:34:00 2019-06-29 21:15:00 Departed Emergency [facility] [id number] [facility] 2019-06-22 09:16:00 2019-06-22 12:54:00 Departed Emergency Room [facility] [id number] [facility] 2019-02-01 11:12:00 2019-02-01 13:05:00 Departed Emergency Room [facility] [id number] [facility] 2018-12-25 07:52:00 2018-12-25 08:55:00 Departed Emergency Room [facility] [id number] [facility] 2018-12-03 07:01:00 2018-12-03 09:51:00 Departed Emergency Room [facility] [id number] [facility] 2018-11-20 07:15:00 2018-11-20 10:23:00 Departed Emergency Room [facility] [id number] [facility] 2018-10-29 07:39:00 2018-10-29 09:40:00 Departed Emergency Room [facility] [id number] [facility] 2018-07-25 15:09:00 2018-07-25 16:47:00 Departed Emergency Room [facility] [id number] [facility] 2018-07-25 12:44:00 2018-07-25 13:56:00 Departed Emergency Room [facility] [id number] [facility] 2018-07-18 13:55:00 2018-07-18 16:55:00 Departed Emergency Room [facility] [id number] [facility] 2018-07-13 19:50:00 2018-07-13 22:12:00 Departed Emergency Room [facility] [id number] [facility] 2018-06-26 10:42:00 2018-06-26 15:44:00 Departed Emergency Room 1 MALGORZATA POLK [facility] [id number] [facility] 2018-05-23 04:22:00 2018-05-23 11:46:00 Departed Emergency Room [facility] [id number] [facility] 2018-04-02 15:48:00 2018-04-02 15:48:00 Registered Clinic 3 TAN MILLAN [facility] [id number] [facility] 2017-09-08 13:41:00 2017-09-08 13:41:00 [id number] 2017-08-26 13:53:00 2017-08-26 13:53:00 [facility] [id number] [facility] Results Test Description Test Time Test Comments Results Result Comments Source Stool lactoferrin detection 2020-03-23 14:40:00 Test Item Stool Lactoferrin (LAB) (test code = 14318-0) POSITIVE NEGATIVE Testing on stool aspirate specimens is outside chronic condition nurse claims since specime n type not validated on this assay[facility] (mass/mass)2020-03-23 14:40:00* Test Item Value Reference Range Interpretation Comments Stool Calprotectin (test code = 33230-4) 29 0-120 Concentration Interpretation Follow-Up<16 - 50 ug/g Normal None>50 -120 ug/g Borderline Re-evaluate in 4-6 weeks >120 ug/g Abnormal Repeat as clinically indicatedPerformed at: - [facility] [id number] Director: Jaycee Pitts MD, Phone: [phone] [facility] Hospital and ClinicsClostridium difficile A and B toxin [id number] 14:40:00* Test Item Value Reference Range Interpretation Comments Clostridium Difficile Toxin A & B (test code = 693420620) NEGATIVE NEGATIVE Testing on stool aspirate specimens is outside chronic condition nurse claims since specime n type not validated on this assay[facility] lactoferrin [id number] 14:40:00* Test Item Value Reference Range Interpretation Comments Stool Lactoferrin (LAB) (test code = 28400-2) POSITIVE NEGATIVE Testing on stool aspirate specimens is outside chronic condition nurse claims since specime n type not validated on this assay[facility] (mass/mass)2020-03-23 14:40:00* Test Item Value Reference Range Interpretation Comments Stool Calprotectin (test code = 91415-1) 29 0-120 Concentration Interpretation Follow-Up<16 - 50 ug/g Normal None>50 -120 ug/g Borderline Re-evaluate in 4-6 weeks >120 ug/g Abnormal Repeat as clinically indicatedPerformed at: - [facility] [address] [id number] Director: Jaycee Pitts MD, Phone: [phone] [facility] Hospital and ClinicsClostridium difficile A and B toxin [id number] 14:40:00* Test Item Value Reference Range Interpretation Comments Clostridium Difficile Toxin A & B (test code = 847085835) NEGATIVE NEGATIVE Testing on stool aspirate specimens is outside chronic condition nurse claims since specime n type not validated on this assay.[facility] Fluoroscopic procedure less than one hour bsdvxtha5642-07-41 12:00:00* Test Item Value Reference Range Interpretation [...] complexity tests.Testing performed by [facility] [id number] [place] [address] [phone] Director: Jay Montoya M.D.CLIA # [id number] [facility] Fluoroscopic procedure less than one hour [id number] 12:00:00* Test Item Value Reference Range Interpretation [...] complexity tests.Testing performed by [facility] [id number] [place] [address] [phone] Director: Jay Montoya M.D.CLIA # [id number] [facility] Hospital and ClinicsBlood leukocytes automated count (number/volume)2020-03-18 11:40:00* Test Item Value Reference Range Interpretation Comments White Blood Count (test code = 6690-2) 7.88 4.8-10.8 [facility] erythrocytes automated count (number/volume)2020-03-18 11:40:00* Test Item Value Reference Range Interpretation Comments Red Blood Count (test code = 789-8) 4.21 3.6-5.1 [facility]icsBlood hemoglobin measurement (moles/volume)2020-03-18 11:40:00* Test Item Value Reference Range Interpretation Comments Hemoglobin (test code = 59215-2) 11.1 12.0-16.0 [facility] ClinicsAutomated blood hematocrit (volume fraction)2020-03-18 11:40:00* Test Item Value Reference Range Interpretation Comments Hematocrit (test code = 4544-3) 36.6 34.2-44.1 [facility] ClinicsAutomated erythrocyte mean corpuscular pkcqlr4943-17-73 11:40:00* Test Item Value Reference Range Interpretation Comments Mean Corpuscular Volume (test code = 787-2) 86.9 81-99 [facility] ClinicsAutomated erythrocyte mean corpuscular hemoglobin (mass per erythrocyte)2020-03-18 11:40:00* Test Item Value Reference Range Interpretation Comments Mean Corpuscular Hemoglobin (test code = 785-6) 26.4 28-32 [facility] ClinicsAutomated erythrocyte mean corpuscular hemoglobin concentration measurement (mass/volume)2020-03-18 11:40:00* Test Item Value Reference Range Interpretation Comments Mean Corpuscular Hemoglobin Concent (test code = 786-4) 30.3 31-35 [facility] ClinicsRDW [id number]-Ckh1060-83-23 11:40:00* Test Item Value Reference Range Interpretation Comments Red Cell Distribution Width (test code = 55559-7) 15.9 11.7 -14.4 [facility] ClinicsAutomated blood platelet count (count/volume)2020-03-18 11:40:00* Test Item Value Reference Range Interpretation Comments Platelet Count (test code = 777-3) 400 140-360 [facility] ClinicsAutashe memorial hospitaled blood segmented neutrophil count as percentage of total coewlrwiwh5703-05-07 11:40:00* Test Item Value Reference Range Interpretation Comments Neutrophils (%) (Auto) (test code = 67812-2) 68.3 38.7-80.0 [facility] ClinicsAutomated blood lymphocyte count as percentage ot total ynxalowafc1135-14-46 11:40:00* Test Item Value Reference Range Interpretation Comments Lymphocytes (%) (Auto) (test code = 736-9) 16.1 18.0-39.1 [facility] ClinicsAutomated blood monocyte count as percentage of total usngpohzuk5270-63-81 11:40:00* Test Item Value Reference Range Interpretation Comments Monocytes (%) (Auto) (test code = 5905-5) 9.5 4.4-11.3 [facility] ClinicsAutomated blood eosinophil count as percentage of total mdjyyjciun5125-39-07 11:40:00* Test Item Value Reference Range Interpretation Comments Eosinophils (%) (Auto) (test code = 713-8) 4.4 0.0-6.0 [facility] ClinicsAutomated blood basophil count as percentage of total vzogwvqzqm0669-81-77 11:40:00* Test Item Value Reference Range Interpretation Comments Basophils (%) (Auto) (test code = 706-2) 0.9 0.0-1.0 [facility] ClinicsFluoroscopic procedure less than one hour trgsloxi1753-33-51 11:40:00* Test Item Value Reference Range Interpretation Comments IM GRANULOCYTES % (test code = IM GRANULOCYTES %) 0.8 0.0- 1.0 [facility] ClinicsAutomated blood neutrophil count 2020-03-18 11:40:00* Test Item Value Reference Range Interpretation Comments Neutrophils # (Auto) (test code = 751-8) 5.4 2.1-6.9 [facility]icsBlood lymphocytes count (number/volume) 2020-03-18 11:40:00* Test Item Value Reference Range Interpretation Comments Lymphocytes # (Auto) (test code = 23254-1) 1.3 1.0-3.2 [facility] ClinicsBlood monocytes automated count (number/volume)2020-03-18 11:40:00* Test Item Value Reference Range Interpretation Comments Monocytes # (Auto) (test code = 742-7) 0.8 0.2-0.8 [facility] ClinicsAutomated blood eosinophil count 2020-03-18 11:40:00* Test Item Value Reference Range Interpretation Comments Eosinophils # (Auto) (test code = 711-2) 0.4 0.0-0.4 [facility] ClinicsAutomated blood basophil count (count/volume)2020-03-18 11:40:00* Test Item Value Reference Range Interpretation Comments Basophils # (Auto) (test code = 704-7) 0.1 0.0-0.1 [facility] ClinicsFluoroscopic procedure less than one hour sskwtijx2681-43-50 11:40:00* Test Item Value Reference Range Interpretation Comments Absolute Immature Granulocyte (auto (krishna t code = Absolute Immature Granulocyte (auto) 0.06 0-0.1 [facility]icsBl[facility] leukocytes automated count (number/volume)2020-03-18 11:40:00* Test Item Value Reference Range Interpretation Comments White Blood Count (test code = 6690-2) 7.88 4.8-10.8 [facility]icsBl[facility] erythrocytes automated count (number/volume)2020-03-18 11:40:00* Test Item Value Reference Range Interpretation Comments Red Blood Count (test code = 789-8) 4.21 3.6-5.1 [facility] (moles/volume)2020-03-18 11:40:00* Test Item Value Reference Range Interpretation Comments Hemoglobin (test code = 66687-2) 11.1 12.0-16.0 [facility] ClinicsAutomated blood hematocrit (volume fraction)2020-03-18 11:40:00* Test Item Value Reference Range Interpretation Comments Hematocrit (test code = 4544-3) 36.6 34.2-44.1 [facility] ClinicsAutomated erythrocyte mean corpuscular epvwzg9280-16-64 11:40:00* Test Item Value Reference Range Interpretation Comments Mean Corpuscular Volume (test code = 787-2) 86.9 81-99 [facility] ClinicsAutomated erythrocyte mean corpuscular hemoglobin (mass per erythrocyte)2020-03-18 11:40:00* Test Item Value Reference Range Interpretation Comments Mean Corpuscular Hemoglobin (test code = 785-6) 26.4 28-32 [facility] ClinicsAutomated erythrocyte mean corpuscular hemoglobin concentration measurement (mass/volume)2020-03-18 11:40:00* Test Item Value Reference Range Interpretation Comments Mean Corpuscular Hemoglobin Concent (test code = 786-4) 30.3 31-35 [facility] ClinicsRDW RikWk-Cvm8215-40-23 11:40:00* Test Item Value Reference Range Interpretation Comments Red Cell Distribution Width (test code = 92684-7) 15.9 11.7 -14.4 [facility] ClinicsAutomated blood platelet count (count/volume)2020-03-18 11:40:00* Test Item Value Reference Range Interpretation Comments Platelet Count (test code = 777-3) 400 140-360 [facility] ClinicsAutomated blood segmented neutrophil count as percentage of total mgnlaogbla8349-95-46 11:40:00* Test Item Value Reference Range Interpretation Comments Neutrophils (%) (Auto) (test code = 77781-6) 68.3 38.7-80.0 [facility] ClinicsAutashe memorial hospitaled blood lymphocyte count as percentage ot total hsrbqpepep2949-61-96 11:40:00* Test Item Value Reference Range Interpretation Comments Lymphocytes (%) (Auto) (test code = 736-9) 16.1 18.0-39.1 [facility] ClinicsAutomated blood monocyte count as percentage of total wijdkcsoij6649-78-09 11:40:00* Test Item Value Reference Range Interpretation Comments Monocytes (%) (Auto) (test code = 5905-5) 9.5 4.4-11.3 [facility] ClinicsAutomated blood eosinophil count as percentage of total avnrcvipnl9726-50-37 11:40:00* Test Item Value Reference Range Interpretation Comments Eosinophils (%) (Auto) (test code = 713-8) 4.4 0.0-6.0 [facility] ClinicsAutomated blood basophil count as percentage of total revtozvrbt4473-83-84 11:40:00* Test Item Value Reference Range Interpretation Comments Basophils (%) (Auto) (test code = 706-2) 0.9 0.0-1.0 [facility] ClinicsFluoroscopic procedure less than one hour gpktqsqd5333-10-79 11:40:00* Test Item Value Reference Range Interpretation Comments IM GRANULOCYTES % (test code = IM GRANULOCYTES %) 0.8 0.0- 1.0 [facility] ClinicsAutomated blood neutrophil count 2020-03-18 11:40:00* Test Item Value Reference Range Interpretation Comments Neutrophils # (Auto) (test code = 751-8) 5.4 2.1-6.9 [facility] ClinicsBlood lymphocytes count (number/volume) 2020-03-18 11:40:00* Test Item Value Reference Range Interpretation Comments Lymphocytes # (Auto) (test code = 18561-5) 1.3 1.0-3.2 [facility] ClinicsBlood monocytes automated count (number/volume)2020-03-18 11:40:00* Test Item Value Reference Range Interpretation Comments Monocytes # (Auto) (test code = 742-7) 0.8 0.2-0.8 [facility] ClinicsAutomated blood eosinophil count 2020-03-18 11:40:00* Test Item Value Reference Range Interpretation Comments Eosinophils # (Auto) (test code = 711-2) 0.4 0.0-0.4 [facility] ClinicsAutomated blood basophil count (count/volume)2020-03-18 11:40:00* Test Item Value Reference Range Interpretation Comments Basophils # (Auto) (test code = 704-7) 0.1 0.0-0.1 [facility] ClinicsFluoroscopic procedure less than one hour [id number] 11:40:00* Test Item Value Reference Range Interpretation Comments Absolute Immature Granulocyte (auto (krishna t code = Absolute Immature Granulocyte (auto) 0.06 0-0.1 [facility] [facility]LVIS [id number] 13:44:00 [place] [address] Patient Name: ELFEGO DEGROOT MR #: [id number] : 1945 Age/Sex: 74/F Req #: [id number] Adm Physician: Ordered by: OPAL LARSON MD Report #: [id number] Location: [facility]/Bed: Procedure: [id number] CT/CT ABDOM EN/PELVIS W Exam Date: 03/17/20 [...] 1:47 PM Dictated By: HUONG MUSA MD 1820 Transcribed By: ALISON on 1342 COPY TO: OPAL LARSON MD Serum or plasma urea nitrogen measurement (mass/volume)2020-03-17 11:50:00* Test Item Value Reference Range Interpretation Comments Blood Urea Nitrogen (test code = 3094-0) 6 05-21 [facility] (mass/volume)2020-03-17 11:50:00* Test Item Value Reference Range Interpretation Comments Creatinine (test code = 2160-0) 0.80 0.57-1.11 [facility] nitrogen/creatinine mass ubgqy3865-48-99 11:50:00* Test Item Value Reference Range Interpretation Comments BUN/Creatinine Ratio (test code = 3097-3) 8 04-20 [facility]ics[facility] glomerular filtration rate (GFR) jxwzugnslyrpk0403-77-18 11:50:00* Test Item Value Reference Range Interpretation Comments Estimat Glomerular Filtration Rate (test code = 726246609) > 60 >60 Ranges were taken from the National Kidney Disease Education Program and the [employer]vet[employer] literature.Reference ranges:60 or greater: Hmtgng72-64 ( for 3 consecutive months): Chronic kidney disease 15 or less: Kidney failureMethodist Hospitalerum or plasma urea nitrogen measurement (mass/volume)2020-03-17 11:50:00* Test Item Value Reference Range Interpretation Comments Blood Urea Nitrogen (test code = 3094-0) 05-21 [facility] creatinine measurement (mass/volume)2020-03-17 11:50:00* Test Item Value Reference Range Interpretation Comments Creatinine (test code = 2160-0) 0.80 0.57-1.11 [facility] urea nitrogen/creatinine mass mgudc8984-74-97 11:50:00* Test Item Value Reference Range Interpretation Comments BUN/Creatinine Ratio (test code = 3097-3) 8 04-20 [facility]icsEstimated glomerular filtration rate (GFR) hbkfwecjefith7046-10-70 11:50:00* Test Item Value Reference Range Interpretation Comments Estimat Glomerular Filtration Rate (test code = 579815748) > 60 >60 Ranges were taken from the National Kidney Disease Education Program and the [employer]vet[employer] ional [employer] literature.Reference ranges:60 or greater: Ftggzs64-01 ( for 3 consecutive months): Chronic kidney disease 15 or less: Kidney failureCH[facility] CenterCH[facility] 2 LAJNA8712-26-51 12:19:00 [place] [address] Patient Name: ELFEGO DEGROOT MR #: [id number] : 1945 Age/Sex: 73/F Req #: [id number] Adm Physician: Ordered by: SANTO LARSON MD Report #: [id number] Location: [facility] Room/Bed: Procedure: [id number] DX/CHEST 2 VIEWS Exam Date: 09/16/19 Exam [...] 12:20 PM Dictated By: YONIS DHALIWAL MD 1227 Transcribe d By: ALISON on 09/16/19 7022 COPY TO: SANTO LARSON MD CT ABDOMEN/PELVIS [id number] 13:05:00 [place] [address] Patient Name: ELFEGO DEGROOT MR #: [id number] : 1945 Age/Sex: 72/F Req #: [id number] Adm Physician: Ordered by: MALGORZATA POLK MD Report #: [id number] Location: Room/Bed: Procedure: [id number] CT/CT ABDOMEN/PELVIS W Ex am Date: 06/26/18 [...] below the limits set by the [facility] Protocol Committee (RPC). FINDINGS: LINES and [...] 1312 COPY TO: MALGORZATA POLK MD Urine [id number] 12:13:00* Test Item Value Reference Range Interpretation Comments Urine WBC (test code = 5821-4) 6-10 0-5 [facility]icsU[facility] [id number] 12:13:00* Test Item Value Reference Range Interpretation Comments Urine RBC (test code = 93092-0) 0-5 0-5 [facility]icsU[facility] Fwjmkjib0389-24-27 12:13:00* Test Item Value Reference Range Interpretation Comments Urine Bacteria (test code = 53667-3) FEW NONE [facility]icsU[facility] Epithelial Rriso5999-78-16 12:13:00 * Test Item Value Reference Range Interpretation Comments Urine Epithelial Cells (test code = 83671-8) FEW NONE [facility]icsU[facility] ENU0856-25-26 12:13:00* Test Item Value Reference Range Interpretation Comments Urine WBC (test code = 5821-4) 6-10 0-5 [facility]icsU[facility] BTE6021-04-73 12:13:00* Test Item Value Reference Range Interpretation Comments Urine RBC (test code = 74824-5) 0-5 0-5 [facility]icsU[facility] Oslwluaq9812-33-42 12:13:00* Test Item Value Reference Range Interpretation Comments Urine Bacteria (test code = 93926-0) FEW NONE [facility]icsU[facility] Epithelial Jklbk9861-87-72 12:13:00 * Test Item Value Reference Range Interpretation Comments Urine Epithelial Cells (test code = 54232-7) FEW NONE [facility] DSF9171-59-66 12:13:00* Test Item Value Reference Range Interpretation Comments Urine WBC (test code = 5821-4) 6-10 0-5 [facility]icsU[facility] [id number] 12:13:00* Test Item Value Reference Range Interpretation Comments Urine RBC (test code = 72745-6) 0-5 0-5 [facility]icsU[facility] Fhoudqix0494-30-15 12:13:00* Test Item Value Reference Range Interpretation Comments Urine Bacteria (test code = 14623-5) FEW NONE [facility]icsU[facility] Epithelial Uygjb3919-70-29 12:13:00 * Test Item Value Reference Range Interpretation Comments Urine Epithelial Cells (test code = 56459-7) FEW NONE [facility]icsU[facility] PWQ3773-04-03 12:13:00* Test Item Value Reference Range Interpretation Comments Urine WBC (test code = 5821-4) 6-10 0-5 [facility]icsU[facility] [id number] 12:13:00* Test Item Value Reference Range Interpretation Comments Urine RBC (test code = 25070-2) 0-5 0-5 [facility]icsU[facility] Voycblkz5757-53-30 12:13:00* Test Item Value Reference Range Interpretation Comments Urine Bacteria (test code = 73027-1) FEW NONE [facility]icsU[facility] Epithelial Qyxgh3556-43-95 12:13:00 * Test Item Value Reference Range Interpretation Comments Urine Epithelial Cells (test code = 55321-5) FEW NONE [facility]icsU[facility] ILW1980-03-18 12:13:00* Test Item Value Reference Range Interpretation Comments Urine WBC (test code = 5821-4) 6-10 0-5 [facility]icsU[facility] [id number] 12:13:00* Test Item Value Reference Range Interpretation Comments Urine RBC (test code = 74410-9) 0-5 0-5 [facility] Nrqzdspy8482-00-08 12:13:00* Test Item Value Reference Range Interpretation Comments Urine Bacteria (test code = 24101-6) FEW NONE [facility]icsU[facility] Epithelial Kahzr5432-01-49 12:13:00 * Test Item Value Reference Range Interpretation Comments Urine Epithelial Cells (test code = 49866-6) FEW NONE [facility]icsU[facility] UFO0414-42-96 12:13:00* Test Item Value Reference Range Interpretation Comments Urine WBC (test code = 5821-4) 6-10 0-5 [facility]icsU[facility] [id number] 12:13:00* Test Item Value Reference Range Interpretation Comments Urine RBC (test code = 78436-2) 0-5 0-5 [facility]icsU[facility] Rovztmsu9245-90-75 12:13:00* Test Item Value Reference Range Interpretation Comments Urine Bacteria (test code = 02457-3) FEW NONE [facility]icsUrine Epithelial Qejeg8858-08-68 12:13:00 * Test Item Value Reference Range Interpretation Comments Urine Epithelial Cells (test code = 54518-1) FEW NONE [facility]icsU[facility] [id number] 12:13:00* Test Item Value Reference Range Interpretation Comments Urine WBC (test code = 5821-4) 6-10 0-5 [facility]icsU[facility] NDW7004-09-64 12:13:00* Test Item Value Reference Range Interpretation Comments Urine RBC (test code = 78328-1) 0-5 0-5 [facility]icsU[facility] Qoelqoxe6475-31-13 12:13:00* Test Item Value Reference Range Interpretation Comments Urine Bacteria (test code = 59621-1) FEW NONE [facility]icsU[facility] Epithelial Dsqqg3620-88-09 12:13:00 * Test Item Value Reference Range Interpretation Comments Urine Epithelial Cells (test code = 64947-2) FEW NONE [facility]icsU[facility] [id number] 12:13:00* Test Item Value Reference Range Interpretation Comments Urine WBC (test code = 5821-4) 6-10 0-5 [facility]icsU[facility] [id number] 12:13:00* Test Item Value Reference Range Interpretation Comments Urine RBC (test code = 60868-1) 0-5 0-5 [facility]icsU[facility] Vflwpvbn9431-91-37 12:13:00* Test Item Value Reference Range Interpretation Comments Urine Bacteria (test code = 48200-2) FEW NONE [facility]icsU[facility] Epithelial Hurnq5187-00-82 12:13:00 * Test Item Value Reference Range Interpretation Comments Urine Epithelial Cells (test code = 85560-2) FEW NONE [facility]icsU[facility] [id number] 12:13:00* Test Item Value Reference Range Interpretation Comments Urine WBC (test code = 5821-4) 6-10 0-5 [facility]icsU[facility] [id number] 12:13:00* Test Item Value Reference Range Interpretation Comments Urine RBC (test code = 10722-0) 0-5 0-5 [facility]icsU[facility] Ixkmtpgb1504-27-77 12:13:00* Test Item Value Reference Range Interpretation Comments Urine Bacteria (test code = 35602-0) FEW NONE [facility]icsUrine Epithelial Ncsrr6717-42-88 12:13:00 * Test Item Value Reference Range Interpretation Comments Urine Epithelial Cells (test code = 71371-8) FEW NONE [facility]icsU[facility] [id number] 12:13:00* Test Item Value Reference Range Interpretation Comments Urine WBC (test code = 5821-4) 6-10 0-5 [facility]icsUrine [id number] 12:13:00* Test Item Value Reference Range Interpretation Comments Urine RBC (test code = 39693-8) 0-5 0-5 [facility]icsUrine Wdtokkuo1152-05-29 12:13:00* Test Item Value Reference Range Interpretation Comments Urine Bacteria (test code = 57293-5) FEW NONE [facility]icsU[facility] Epithelial Hdxcs0811-37-53 12:13:00 * Test Item Value Reference Range Interpretation Comments Urine Epithelial Cells (test code = 92828-8) FEW NONE [facility] ClinicsLactic Acid Iyvdv7318-60-23 12:05:00* Test Item Value Reference Range Interpretation Comments Lactic Acid Level (test code = Lactic Acid Level) 13.5 4.5- 19.8 [facility] ClinicsL[facility] Acid Tdvxi3068-84-68 12:05:00* Test Item Value Reference Range Interpretation Comments Lactic Acid Level (test code = Lactic Acid Level) 13.5 4.5- 19.8 [facility] Hjooh7623-06-09 12:05:00* Test Item Value Reference Range Interpretation Comments Lactic Acid Level (test code = Lactic Acid Level) 13.5 4.5- 19.8 [facility] Bykqf7975-34-72 12:05:00* Test Item Value Reference Range Interpretation Comments Lactic Acid Level (test code = Lactic Acid Level) 13.5 4.5- 19.8 [facility] Acid Dztcd6176-51-68 12:05:00* Test Item Value Reference Range Interpretation Comments Lactic Acid Level (test code = Lactic Acid Level) 13.5 4.5- 19.8 [facility] Acid Rdpvg5019-19-67 12:05:00* Test Item Value Reference Range Interpretation Comments Lactic Acid Level (test code = Lactic Acid Level) 13.5 4.5- 19.8 [facility] Vwmon5133-92-54 12:05:00* Test Item Value Reference Range Interpretation Comments Lactic Acid Level (test code = Lactic Acid Level) 13.5 4.5- 19.8 [facility] Lrxrq7367-94-52 12:05:00* Test Item Value Reference Range Interpretation Comments Lactic Acid Level (test code = Lactic Acid Level) 13.5 4.5- 19.8 [facility] Qtjap9808-00-59 12:05:00* Test Item Value Reference Range Interpretation Comments Lactic Acid Level (test code = Lactic Acid Level) 13.5 4.5- 19.8 [facility] Acid Lcpij9244-76-77 12:05:00* Test Item Value Reference Range Interpretation Comments Lactic Acid Level (test code = Lactic Acid Level) 13.5 4.5- 19.8 [facility]icsU[facility] Uhskt4317-68-47 11:56:00* Test Item Value Reference Range Interpretation Comments Urine Color (test code = 5778-6) YELLOW YELLOW [facility]icsU[facility] Abedith0142-33-42 11:56:00* Test Item Value Reference Range Interpretation Comments Urine Clarity (test code = 21254-1) SL CLOUDY CLEAR [facility]icsU[facility] Specific Ftvnszc2311-94-96 11:56:00 * Test Item Value Reference Range Interpretation Comments Urine Specific [place] (test code = 5811-5) 1.010 1.010-1.02 5 [facility]icsU[facility] [id number] 11:56:00* Test Item Value Reference Range Interpretation Comments Urine pH (test code = 58302-8) 7 5-7 [facility]icsU[facility] Leukocyte Htqnosdy2596-95-34 11:56:00* Test Item Value Reference Range Interpretation Comments Urine Leukocyte Esterase (test code = 5799-2) 1+ NEGATIVE H [facility]icsUrine Wusuhbh8693-78-92 11:56:00* Test Item Value Reference Range Interpretation Comments Urine Nitrite (test code = 76866-6) NEGATIVE NEGATIVE [facility]icsU[facility] Ugjybmp7941-50-46 11:56:00* Test Item Value Reference Range Interpretation Comments Urine Protein (test code = 5804-0) TRACE NEGATIVE [facility]icsUrine Glucose (UA)2018-06-26 11:56:00* Test Item Value Reference Range Interpretation Comments Urine Glucose (UA) (test code = 2349-9) NEGATIVE NEGATIVE [facility]icsUrine Jkifxzt6191-87-36 11:56:00* Test Item Value Reference Range Interpretation Comments Urine Ketones (test code = 66653-2) NEGATIVE NEGATIVE [facility]icsU[facility] Yzbteogqxgbr8459-43-80 11:56:00* Test Item Value Reference Range Interpretation Comments Urine Urobilinogen (test code = 35785-9) 0.2 0.2-1 [facility]icsU[facility] Qjidzidcr7326-66-66 11:56:00* Test Item Value Reference Range Interpretation Comments Urine Bilirubin (test code = 1978-6) NEGATIVE NEGATIVE [facility]icsU[facility] Ysapv1045-59-41 11:56:00* Test Item Value Reference Range Interpretation Comments Urine Blood (test code = 93088-8) NEGATIVE NEGATIVE [facility]icsU[facility] Rtckv8550-30-90 11:56:00* Test Item Value Reference Range Interpretation Comments Urine Color (test code = 5778-6) YELLOW YELLOW [facility]icsU[facility] Nfqvmtq9790-43-71 11:56:00* Test Item Value Reference Range Interpretation Comments Urine Clarity (test code = 75783-2) SL CLOUDY CLEAR [facility]icsU[facility] Specific Rttvalu9331-69-98 11:56:00 * Test Item Value Reference Range Interpretation Comments Urine Specific [place] (test code = 5811-5) 1.010 1.010-1.02 5 [facility]icsU[facility] [id number] 11:56:00* Test Item Value Reference Range Interpretation Comments Urine pH (test code = 40860-2) 7 5-7 [facility]ics[facility] Leukocyte Abvkcijc6749-49-32 11:56:00* Test Item Value Reference Range Interpretation Comments Urine Leukocyte Esterase (test code = 5799-2) 1+ NEGATIVE H [facility]icsU[facility] Aqkhagf8712-42-68 11:56:00* Test Item Value Reference Range Interpretation Comments Urine Nitrite (test code = 47463-4) NEGATIVE NEGATIVE [facility]icsU[facility] Qtapdcw1259-78-15 11:56:00* Test Item Value Reference Range Interpretation Comments Urine Protein (test code = 5804-0) TRACE NEGATIVE [facility]icsU[facility] Glucose (UA)2018-06-26 11:56:00* Test Item Value Reference Range Interpretation Comments Urine Glucose (UA) (test code = 2349-9) NEGATIVE NEGATIVE [facility]icsU[facility] Fygtqjk6106-70-35 11:56:00* Test Item Value Reference Range Interpretation Comments Urine Ketones (test code = 47853-6) NEGATIVE NEGATIVE [facility] Aiebxzfrjpvd6836-60-93 11:56:00* Test Item Value Reference Range Interpretation Comments Urine Urobilinogen (test code = 60322-2) 0.2 0.2-1 [facility]ics[facility] Ivkntizbn3419-37-81 11:56:00* Test Item Value Reference Range Interpretation Comments Urine Bilirubin (test code = 1978-6) NEGATIVE NEGATIVE [facility] Unccb1566-83-79 11:56:00* Test Item Value Reference Range Interpretation Comments Urine Blood (test code = 38449-6) NEGATIVE NEGATIVE [facility] Nqzrq7593-24-62 11:56:00* Test Item Value Reference Range Interpretation Comments Urine Color (test code = 5778-6) YELLOW YELLOW [facility]icsU[facility] Vathurg8826-55-51 11:56:00* Test Item Value Reference Range Interpretation Comments Urine Clarity (test code = 29791-1) SL CLOUDY CLEAR [facility] Specific Alfyopy2689-24-08 11:56:00 * Test Item Value Reference Range Interpretation Comments Urine Specific [place] (test code = 5811-5) 1.010 1.010-1.02 5 [facility]icsU[facility] nY0916-42-06 11:56:00* Test Item Value Reference Range Interpretation Comments Urine pH (test code = 43240-3) 7 5-7 [facility]ics[facility] Leukocyte Miqesbqz4672-52-26 11:56:00* Test Item Value Reference Range Interpretation Comments Urine Leukocyte Esterase (test code = 5799-2) 1+ NEGATIVE H [facility]icsU[facility] Ahkbfpi4394-02-05 11:56:00* Test Item Value Reference Range Interpretation Comments Urine Nitrite (test code = 03769-3) NEGATIVE NEGATIVE [facility] Qpfzeuy0195-41-75 11:56:00* Test Item Value Reference Range Interpretation Comments Urine Protein (test code = 5804-0) TRACE NEGATIVE [facility]icsU[facility] Glucose (UA)2018-06-26 11:56:00* Test Item Value Reference Range Interpretation Comments Urine Glucose (UA) (test code = 2349-9) NEGATIVE NEGATIVE [facility] Wcvqlit3497-50-73 11:56:00* Test Item Value Reference Range Interpretation Comments Urine Ketones (test code = 06199-9) NEGATIVE NEGATIVE [facility] Zsxonsxoodnh4013-97-28 11:56:00* Test Item Value Reference Range Interpretation Comments Urine Urobilinogen (test code = 39150-6) 0.2 0.2-1 [facility] Qpzfwxxpc0208-63-01 11:56:00* Test Item Value Reference Range Interpretation Comments Urine Bilirubin (test code = 1978-6) NEGATIVE NEGATIVE [facility] Pmhnw1595-56-66 11:56:00* Test Item Value Reference Range Interpretation Comments Urine Blood (test code = 18361-5) NEGATIVE NEGATIVE [facility] Wchct3194-51-70 11:56:00* Test Item Value Reference Range Interpretation Comments Urine Color (test code = 5778-6) YELLOW YELLOW [facility]icsU[facility] Rhpurgg7235-36-98 11:56:00* Test Item Value Reference Range Interpretation Comments Urine Clarity (test code = 05965-2) SL CLOUDY CLEAR [facility]ics[facility] Specific Vjozjma5750-76-80 11:56:00 * Test Item Value Reference Range Interpretation Comments Urine Specific [place] (test code = 5811-5) 1.010 1.010-1.02 5 [facility]ics[facility] mK1202-29-11 11:56:00* Test Item Value Reference Range Interpretation Comments Urine pH (test code = 82063-2) 7 5-7 [facility]ics[facility] Leukocyte Hlkqdjsl0621-89-67 11:56:00* Test Item Value Reference Range Interpretation Comments Urine Leukocyte Esterase (test code = 5799-2) 1+ NEGATIVE H [facility]icsU[facility] Mezbdjk2416-19-36 11:56:00* Test Item Value Reference Range Interpretation Comments Urine Nitrite (test code = 82139-4) NEGATIVE NEGATIVE [facility] Lsowpwi5697-20-17 11:56:00* Test Item Value Reference Range Interpretation Comments Urine Protein (test code = 5804-0) TRACE NEGATIVE H [facility]ics[facility] Glucose (UA)2018-06-26 11:56:00* Test Item Value Reference Range Interpretation Comments Urine Glucose (UA) (test code = 2349-9) NEGATIVE NEGATIVE [facility] Fvrgdlk6751-69-76 11:56:00* Test Item Value Reference Range Interpretation Comments Urine Ketones (test code = 97816-5) NEGATIVE NEGATIVE [facility] Tptaizhwafdd4715-41-74 11:56:00* Test Item Value Reference Range Interpretation Comments Urine Urobilinogen (test code = 12140-8) 0.2 0.2-1 [facility] Kjyiblptu7591-87-41 11:56:00* Test Item Value Reference Range Interpretation Comments Urine Bilirubin (test code = 1978-6) NEGATIVE NEGATIVE [facility] Mrojz7907-48-73 11:56:00* Test Item Value Reference Range Interpretation Comments Urine Blood (test code = 22793-9) NEGATIVE NEGATIVE [facility] Cdfug3579-27-45 11:56:00* Test Item Value Reference Range Interpretation Comments Urine Color (test code = 5778-6) YELLOW YELLOW [facility] Riunxfu3545-08-91 11:56:00* Test Item Value Reference Range Interpretation Comments Urine Clarity (test code = 87357-4) SL CLOUDY CLEAR [facility]ics[facility] Specific Zwiaszv4923-89-48 11:56:00 * Test Item Value Reference Range Interpretation Comments Urine Specific [place] (test code = 5811-5) 1.010 1.010-1.02 5 [facility]ics[facility] lA8098-44-01 11:56:00* Test Item Value Reference Range Interpretation Comments Urine pH (test code = 56785-9) 7 5-7 [facility] Leukocyte Xdkvipvh1539-78-84 11:56:00* Test Item Value Reference Range Interpretation Comments Urine Leukocyte Esterase (test code = 5799-2) 1+ NEGATIVE H [facility] Hibncfp3176-84-47 11:56:00* Test Item Value Reference Range Interpretation Comments Urine Nitrite (test code = 77159-8) NEGATIVE NEGATIVE [facility] Myozjvd4703-02-16 11:56:00* Test Item Value Reference Range Interpretation Comments Urine Protein (test code = 5804-0) TRACE NEGATIVE H [facility] Glucose (UA)2018-06-26 11:56:00* Test Item Value Reference Range Interpretation Comments Urine Glucose (UA) (test code = 2349-9) NEGATIVE NEGATIVE [facility] Pkwbyat6617-30-28 11:56:00* Test Item Value Reference Range Interpretation Comments Urine Ketones (test code = 69705-8) NEGATIVE NEGATIVE [facility] Kkttalfyevfl3187-79-03 11:56:00* Test Item Value Reference Range Interpretation Comments Urine Urobilinogen (test code = 90175-0) 0.2 0.2-1 [facility] Sszbmsxlr2020-56-82 11:56:00* Test Item Value Reference Range Interpretation Comments Urine Bilirubin (test code = 1978-6) NEGATIVE NEGATIVE [facility] Bkbxq4632-54-33 11:56:00* Test Item Value Reference Range Interpretation Comments Urine Blood (test code = 60052-2) NEGATIVE NEGATIVE [facility] Ynaqs2048-61-37 11:56:00* Test Item Value Reference Range Interpretation Comments Urine Color (test code = 5778-6) YELLOW YELLOW [facility] Bzrnnxz7172-42-12 11:56:00* Test Item Value Reference Range Interpretation Comments Urine Clarity (test code = 78542-5) SL CLOUDY CLEAR [facility] Specific Ytvyirh6620-74-83 11:56:00 * Test Item Value Reference Range Interpretation Comments Urine Specific [place] (test code = 5811-5) 1.010 1.010-1.02 5 [facility] lY2537-62-84 11:56:00* Test Item Value Reference Range Interpretation Comments Urine pH (test code = 40744-5) 7 5-7 [facility] Leukocyte Sfakowrl4316-37-18 11:56:00* Test Item Value Reference Range Interpretation Comments Urine Leukocyte Esterase (test code = 5799-2) 1+ NEGATIVE H [facility] Phedlfg7157-33-95 11:56:00* Test Item Value Reference Range Interpretation Comments Urine Nitrite (test code = 08816-7) NEGATIVE NEGATIVE [facility] Ptzzmyj0819-05-99 11:56:00* Test Item Value Reference Range Interpretation Comments Urine Protein (test code = 5804-0) TRACE NEGATIVE H [facility] Glucose (UA)2018-06-26 11:56:00* Test Item Value Reference Range Interpretation Comments Urine Glucose (UA) (test code = 2349-9) NEGATIVE NEGATIVE [facility] Mkvvyik7871-55-75 11:56:00* Test Item Value Reference Range Interpretation Comments Urine Ketones (test code = 27624-8) NEGATIVE NEGATIVE [facility] Xpormdjnoiaf6144-93-52 11:56:00* Test Item Value Reference Range Interpretation Comments Urine Urobilinogen (test code = 85853-2) 0.2 0.2-1 [facility] Zaoxnisyp4462-92-81 11:56:00* Test Item Value Reference Range Interpretation Comments Urine Bilirubin (test code = 1978-6) NEGATIVE NEGATIVE [facility] Fpjpg9820-76-78 11:56:00* Test Item Value Reference Range Interpretation Comments Urine Blood (test code = 36200-0) NEGATIVE NEGATIVE [facility] Pfhvh2455-12-83 11:56:00* Test Item Value Reference Range Interpretation Comments Urine Color (test code = 5778-6) YELLOW YELLOW [facility] Oqlphyh6660-12-45 11:56:00* Test Item Value Reference Range Interpretation Comments Urine Clarity (test code = 77606-1) SL CLOUDY CLEAR [facility]ics[facility] Specific Vobefbb5744-89-88 11:56:00 * Test Item Value Reference Range Interpretation Comments Urine Specific [place] (test code = 5811-5) 1.010 1.010-1.02 5 [facility]icsU[facility] tZ6768-79-66 11:56:00* Test Item Value Reference Range Interpretation Comments Urine pH (test code = 73552-3) 7 5-7 [facility]icsU[facility] Leukocyte Vrewjymv6542-71-13 11:56:00* Test Item Value Reference Range Interpretation Comments Urine Leukocyte Esterase (test code = 5799-2) 1+ NEGATIVE H [facility]icsU[facility] Vybdjpo7075-84-53 11:56:00* Test Item Value Reference Range Interpretation Comments Urine Nitrite (test code = 80662-0) NEGATIVE NEGATIVE [facility] Bhnfyjm4274-25-27 11:56:00* Test Item Value Reference Range Interpretation Comments Urine Protein (test code = 5804-0) TRACE NEGATIVE H [facility]icsU[facility] Glucose (UA)2018-06-26 11:56:00* Test Item Value Reference Range Interpretation Comments Urine Glucose (UA) (test code = 2349-9) NEGATIVE NEGATIVE [facility]icsU[facility] Dgizvhc0418-31-56 11:56:00* Test Item Value Reference Range Interpretation Comments Urine Ketones (test code = 28867-4) NEGATIVE NEGATIVE [facility] Bfenogcjjoxr1336-83-52 11:56:00* Test Item Value Reference Range Interpretation Comments Urine Urobilinogen (test code = 10952-5) 0.2 0.2-1 [facility]ics[facility] Lrrcimona2469-64-05 11:56:00* Test Item Value Reference Range Interpretation Comments Urine Bilirubin (test code = 1978-6) NEGATIVE NEGATIVE [facility]ics[facility] Pfthz3483-94-73 11:56:00* Test Item Value Reference Range Interpretation Comments Urine Blood (test code = 39499-9) NEGATIVE NEGATIVE [facility]icsU[facility] Tfdhy3541-38-59 11:56:00* Test Item Value Reference Range Interpretation Comments Urine Color (test code = 5778-6) YELLOW YELLOW [facility]icsU[facility] Sjbtjgv3285-28-84 11:56:00* Test Item Value Reference Range Interpretation Comments Urine Clarity (test code = 47368-7) SL CLOUDY CLEAR [facility]icsU[facility] Specific Zkpnutu4309-70-31 11:56:00 * Test Item Value Reference Range Interpretation Comments Urine Specific [place] (test code = 5811-5) 1.010 1.010-1.02 5 [facility]icsU[facility] hP9148-91-88 11:56:00* Test Item Value Reference Range Interpretation Comments Urine pH (test code = 79207-7) 7 5-7 [facility] Leukocyte Xbbbqgyg6972-52-54 11:56:00* Test Item Value Reference Range Interpretation Comments Urine Leukocyte Esterase (test code = 5799-2) 1+ NEGATIVE H [facility] Vktyxzv9768-47-06 11:56:00* Test Item Value Reference Range Interpretation Comments Urine Nitrite (test code = 00731-0) NEGATIVE NEGATIVE [facility] Ssuphty5769-64-03 11:56:00* Test Item Value Reference Range Interpretation Comments Urine Protein (test code = 5804-0) TRACE NEGATIVE H [facility] Glucose (UA)2018-06-26 11:56:00* Test Item Value Reference Range Interpretation Comments Urine Glucose (UA) (test code = 2349-9) NEGATIVE NEGATIVE [facility] Djwxwrb1976-65-11 11:56:00* Test Item Value Reference Range Interpretation Comments Urine Ketones (test code = 08463-5) NEGATIVE NEGATIVE [facility] Iegosrnnznmc4325-48-86 11:56:00* Test Item Value Reference Range Interpretation Comments Urine Urobilinogen (test code = 98899-6) 0.2 0.2-1 [facility] Rcwodzmgy4518-49-96 11:56:00* Test Item Value Reference Range Interpretation Comments Urine Bilirubin (test code = 1978-6) NEGATIVE NEGATIVE [facility] Cdjmv0952-09-60 11:56:00* Test Item Value Reference Range Interpretation Comments Urine Blood (test code = 50018-6) NEGATIVE NEGATIVE [facility] Kqezz7347-26-47 11:56:00* Test Item Value Reference Range Interpretation Comments Urine Color (test code = 5778-6) YELLOW YELLOW [facility]icsU[facility] Zfrvopm3929-28-49 11:56:00* Test Item Value Reference Range Interpretation Comments Urine Clarity (test code = 91295-8) SL CLOUDY CLEAR [facility]icsU[facility] Specific Eaxgtwf3648-40-80 11:56:00 * Test Item Value Reference Range Interpretation Comments Urine Specific [place] (test code = 5811-5) 1.010 1.010-1.02 5 [facility]icsU[facility] nF6786-98-35 11:56:00* Test Item Value Reference Range Interpretation Comments Urine pH (test code = 63081-5) 7 5-7 [facility]icsU[facility] Leukocyte Bpgeeqkl4277-73-22 11:56:00* Test Item Value Reference Range Interpretation Comments Urine Leukocyte Esterase (test code = 5799-2) 1+ NEGATIVE H [facility] Urlxgwi5374-25-06 11:56:00* Test Item Value Reference Range Interpretation Comments Urine Nitrite (test code = 04629-9) NEGATIVE NEGATIVE [facility] Psdnhwz0455-16-67 11:56:00* Test Item Value Reference Range Interpretation Comments Urine Protein (test code = 5804-0) TRACE NEGATIVE H [facility]icsU[facility] Glucose (UA)2018-06-26 11:56:00* Test Item Value Reference Range Interpretation Comments Urine Glucose (UA) (test code = 2349-9) NEGATIVE NEGATIVE [facility]icsU[facility] Ynsvfmf8746-25-06 11:56:00* Test Item Value Reference Range Interpretation Comments Urine Ketones (test code = 25749-8) NEGATIVE NEGATIVE [facility] Gpukbuvvvome4650-90-50 11:56:00* Test Item Value Reference Range Interpretation Comments Urine Urobilinogen (test code = 85824-7) 0.2 0.2-1 [facility]icsU[facility] Jfqhonesj5759-30-88 11:56:00* Test Item Value Reference Range Interpretation Comments Urine Bilirubin (test code = 1978-6) NEGATIVE NEGATIVE [facility]icsU[facility] Xvwje2790-34-00 11:56:00* Test Item Value Reference Range Interpretation Comments Urine Blood (test code = 53587-8) NEGATIVE NEGATIVE [facility]icsU[facility] Vdlxy6305-11-29 11:56:00* Test Item Value Reference Range Interpretation Comments Urine Color (test code = 5778-6) YELLOW YELLOW [facility]icsUrine Ftyeyoq5465-75-61 11:56:00* Test Item Value Reference Range Interpretation Comments Urine Clarity (test code = 70276-9) SL CLOUDY CLEAR [facility] Specific Bcxioku3424-64-14 11:56:00 * Test Item Value Reference Range Interpretation Comments Urine Specific [place] (test code = 5811-5) 1.010 1.010-1.02 5 [facility]icsU[facility] nZ0211-27-94 11:56:00* Test Item Value Reference Range Interpretation Comments Urine pH (test code = 70147-7) 7 5-7 [facility] Leukocyte Tygniilu0882-21-55 11:56:00* Test Item Value Reference Range Interpretation Comments Urine Leukocyte Esterase (test code = 5799-2) 1+ NEGATIVE H [facility] Vddehba9525-70-35 11:56:00* Test Item Value Reference Range Interpretation Comments Urine Nitrite (test code = 10721-0) NEGATIVE NEGATIVE [facility]icsU[facility] Usroulq2468-08-73 11:56:00* Test Item Value Reference Range Interpretation Comments Urine Protein (test code = 5804-0) TRACE NEGATIVE H [facility]icsUrine Glucose (UA)2018-06-26 11:56:00* Test Item Value Reference Range Interpretation Comments Urine Glucose (UA) (test code = 2349-9) NEGATIVE NEGATIVE [facility]icsU[facility] Thuefzr4488-70-67 11:56:00* Test Item Value Reference Range Interpretation Comments Urine Ketones (test code = 34860-6) NEGATIVE NEGATIVE [facility]icsUrine Wtwoazvrrhrr7961-01-31 11:56:00* Test Item Value Reference Range Interpretation Comments Urine Urobilinogen (test code = 84272-7) 0.2 0.2-1 [facility]icsUrine Gttqanmep6138-37-07 11:56:00* Test Item Value Reference Range Interpretation Comments Urine Bilirubin (test code = 1978-6) NEGATIVE NEGATIVE [facility]icsU[facility] Vxzpr6310-11-26 11:56:00* Test Item Value Reference Range Interpretation Comments Urine Blood (test code = 34929-6) [facility] Qvhzm8766-70-62 11:47:00* Test Item Value Reference Range Interpretation Comments Sodium Level (test code = 2951-2) 139 136-145 [facility]icsPotassium Lxrms5524-08-17 11:47:00* Test Item Value Reference Range Interpretation Comments Potassium Level (test code = 2823-3) 3.5 3.5-5.1 [facility] ClinicsChloride Wvtgo9954-70-85 11:47:00* Test Item Value Reference Range Interpretation Comments Chloride Level (test code = 2075-0) 101 98-107 [facility] ClinicsCarbon Dioxide Wxrqm5854-68-70 11:47:00* Test Item Value Reference Range Interpretation Comments Carbon Dioxide Level (test code = 2028-9) 24 22-29 [facility] ClinicsAnion Dsa2889-72-55 11:47:00* Test Item Value Reference Range Interpretation Comments Anion Gap (test code = 53472-1) 17.5 8-16 H [facility] ClinicsBlood Urea Nhehkhoy6695-77-87 11:47:00* Test Item Value Reference Range Interpretation Comments Blood Urea Nitrogen (test code = 3094-0) 7 7-26 [facility] ClinicsCreatinine2018-08-31 11:47:00* Test Item Value Reference Range Interpretation Comments Creatinine (test code = 2160-0) 0.93 0.57-1.11 [facility]icsBUN/Creatinine Gxrco0255-30-07 11:47:00* Test Item Value Reference Range Interpretation Comments BUN/Creatinine Ratio (test code = 3097-3) 8 6-25 [facility] ClinicsEstimat Glomerular Filtration Rate 2018-06-26 11:47:00* Test Item Value Reference Range Interpretation Comments Estimat Glomerular Filtration Rate (test code = 94049-4) 59 >60 L Ranges were taken from the National Kidney Disease Education Program and the [facility] literature.Reference ranges:60 or greater: Jdgiac43-44 ( for 3 consecutive months): Chronic kidney disease 15 or less: Kidney failureEast [facility] Hospital and ClinicsGlucose Pwjvb3399-22-28 11:47:00* Test Item Value Reference Range Interpretation Comments Glucose Level (test code = YUV7778) 139 74-118 H [facility] ClinicsCalcium Bbane6161-34-06 11:47:00* Test Item Value Reference Range Interpretation Comments Calcium Level (test code = 14726-8) 10.3 8.4-10.2 H [facility] ClinicsTotal Ublwyupgu3511-28-02 11:47:00* Test Item Value Reference Range Interpretation Comments Total Bilirubin (test code = 1975-2) 0.5 0.2-1.2 [facility] ClinicsAspartate Amino Transf (AST/SGOT) 2018-06-26 11:47:00* Test Item Value Reference Range Interpretation Comments Aspartate Amino Transf (AST/SGOT) (test code = Aspartate Amino Transf (AST/SGOT)) 37 5-34 H [facility] ClinicsAlanine Aminotransferase (ALT/SGPT) 2018-06-26 11:47:00* Test Item Value Reference Range Interpretation Comments Alanine Aminotransferase (ALT/SGPT) (test code = 1742-6) 38 0-55 [facility] ClinicsTotal Zhfsnsp1021-75-39 11:47:00* Test Item Value Reference Range Interpretation Comments Total Protein (test code = 2885-2) 7.5 6.5-8.1 [facility] ClinicsAlbumin2018-08-31 11:47:00* Test Item Value Reference Range Interpretation Comments Albumin (test code = 1751-7) 4.0 3.5-5.0 [facility] ClinicsGlobulin2018-08-31 11:47:00* Test Item Value Reference Range Interpretation Comments Globulin (test code = 82640-8) 3.5 2.3-3.5 [facility] ClinicsAlbumin/Globulin Geqml2863-43-89 11:47:00 * Test Item Value Reference Range Interpretation Comments Albumin/Globulin Ratio (test code = 1759-0) 1.1 0.8-2.0 [facility] ClinicsAlkaline Racnlxbzvum1763-33-62 11:47:00* Test Item Value Reference Range Interpretation Comments Alkaline Phosphatase (test code = 6768-6) 124 40-150 [facility] Egerm1623-90-49 11:47:00* Test Item Value Reference Range Interpretation Comments Sodium Level (test code = 2951-2) 139 136-145 [facility] ClinicsPotassium Hlffb5282-19-49 11:47:00* Test Item Value Reference Range Interpretation Comments Potassium Level (test code = 2823-3) 3.5 3.5-5.1 [facility] ClinicsChloride Mlepi2768-68-95 11:47:00* Test Item Value Reference Range Interpretation Comments Chloride Level (test code = 2075-0) 101 98-107 [facility] ClinicsCarbon Dioxide Xlplt3659-26-18 11:47:00* Test Item Value Reference Range Interpretation Comments Carbon Dioxide Level (test code = 2028-9) 24 22-29 [facility] ClinicsAnion Mth8302-38-47 11:47:00* Test Item Value Reference Range Interpretation Comments Anion Gap (test code = 14921-5) 17.5 8-16 H [facility] ClinicsBlood Urea Pbhojnmu6533-47-34 11:47:00* Test Item Value Reference Range Interpretation Comments Blood Urea Nitrogen (test code = 3094-0) 7 7-26 [facility] ClinicsCreatinine2018-08-31 11:47:00* Test Item Value Reference Range Interpretation Comments Creatinine (test code = 2160-0) 0.93 0.57-1.11 [facility] ClinicsBUN/Creatinine Paujk2675-48-20 11:47:00* Test Item Value Reference Range Interpretation Comments BUN/Creatinine Ratio (test code = 3097-3) 8 6-25 [facility] ClinicsEstimat Glomerular Filtration Rate 2018-06-26 11:47:00* Test Item Value Reference Range Interpretation Comments Estimat Glomerular Filtration Rate (test code = 352425152) 59 >60 L Ranges were taken from the National Kidney Disease Education Program and the [facility] Kidney Foundation literature.Reference ranges:60 or greater: Scmhbd68-09 ( for 3 consecutive months): Chronic kidney disease 15 or less: Kidney failureEast [facility] Hospital and ClinicsGlucose Mrefs9658-94-90 11:47:00* Test Item Value Reference Range Interpretation Comments Glucose Level (test code = LPN6807) 139 74-118 H [facility] ClinicsCalcium Hidyp3356-71-77 11:47:00* Test Item Value Reference Range Interpretation Comments Calcium Level (test code = 08313-4) 10.3 8.4-10.2 H [facility] ClinicsTotal Ybrauylgb7519-37-74 11:47:00* Test Item Value Reference Range Interpretation Comments Total Bilirubin (test code = 1975-2) 0.5 0.2-1.2 [facility] ClinicsAspartate Amino Transf (AST/SGOT) 2018-06-26 11:47:00* Test Item Value Reference Range Interpretation Comments Aspartate Amino Transf (AST/SGOT) (test code = Aspartate Amino Transf (AST/SGOT)) 37 5-34 H [facility] ClinicsAlanine Aminotransferase (ALT/SGPT) 2018-06-26 11:47:00* Test Item Value Reference Range Interpretation Comments Alanine Aminotransferase (ALT/SGPT) (test code = 1742-6) 38 0-55 [facility] ClinicsTotal Farieaz9897-53-07 11:47:00* Test Item Value Reference Range Interpretation Comments Total Protein (test code = 2885-2) 7.5 6.5-8.1 [facility] ClinicsAlbumin2018-08-31 11:47:00* Test Item Value Reference Range Interpretation Comments Albumin (test code = 1751-7) 4.0 3.5-5.0 [facility] ClinicsGlobulin2018-08-31 11:47:00* Test Item Value Reference Range Interpretation Comments Globulin (test code = 27425-4) 3.5 2.3-3.5 [facility] ClinicsAlbumin/Globulin Qzihq3108-30-15 11:47:00 * Test Item Value Reference Range Interpretation Comments Albumin/Globulin Ratio (test code = 1759-0) 1.1 0.8-2.0 [facility] ClinicsAlkaline Vaeoumghtcz3886-07-12 11:47:00* Test Item Value Reference Range Interpretation Comments Alkaline Phosphatase (test code = 6768-6) 124 40-150 [facility] Ksihi1066-28-51 11:47:00* Test Item Value Reference Range Interpretation Comments Sodium Level (test code = 2951-2) 139 136-145 [facility] ClinicsPotassium Mflrp4511-23-60 11:47:00* Test Item Value Reference Range Interpretation Comments Potassium Level (test code = 2823-3) 3.5 3.5-5.1 [facility] ClinicsChloride Xxasa8523-45-67 11:47:00* Test Item Value Reference Range Interpretation Comments Chloride Level (test code = 2075-0) 101 98-107 [facility] ClinicsCarbon Dioxide Pxlpf5691-41-82 11:47:00* Test Item Value Reference Range Interpretation Comments Carbon Dioxide Level (test code = 2028-9) 24 22-29 [facility] ClinicsAnion Xvv1306-22-71 11:47:00* Test Item Value Reference Range Interpretation Comments Anion Gap (test code = 06832-5) 17.5 8-16 H [facility] ClinicsBlood Urea Gpbqmvjg6272-72-60 11:47:00* Test Item Value Reference Range Interpretation Comments Blood Urea Nitrogen (test code = 3094-0) 7 7-26 [facility] ClinicsCreatinine2018-08-31 11:47:00* Test Item Value Reference Range Interpretation Comments Creatinine (test code = 2160-0) 0.93 0.57-1.11 [facility] ClinicsBUN/Creatinine Xyppc4561-16-82 11:47:00* Test Item Value Reference Range Interpretation Comments BUN/Creatinine Ratio (test code = 3097-3) 8 6-25 [facility] ClinicsEstimat Glomerular Filtration Rate 2018-06-26 11:47:00* Test Item Value Reference Range Interpretation Comments Estimat Glomerular Filtration Rate (test code = 249385510) 59 >60 L Ranges were taken from the National Kidney Disease Education Program and the [facility] Kidney Foundation literature.Reference ranges:60 or greater: Nlblzj25-73 ( for 3 consecutive months): Chronic kidney disease 15 or less: Kidney failureEast [facility] Hospital and ClinicsGlucose Eqnmu4124-85-97 11:47:00* Test Item Value Reference Range Interpretation Comments Glucose Level (test code = YVQ3547) 139 74-118 H [facility] ClinicsCalcium Volwx1203-24-35 11:47:00* Test Item Value Reference Range Interpretation Comments Calcium Level (test code = 79799-7) 10.3 8.4-10.2 H [facility] ClinicsTotal Ityuqppni1951-89-47 11:47:00* Test Item Value Reference Range Interpretation Comments Total Bilirubin (test code = 1975-2) 0.5 0.2-1.2 [facility] ClinicsAspartate Amino Transf (AST/SGOT) 2018-06-26 11:47:00* Test Item Value Reference Range Interpretation Comments Aspartate Amino Transf (AST/SGOT) (test code = Aspartate Amino Transf (AST/SGOT)) 37 5-34 H [facility] ClinicsAlanine Aminotransferase (ALT/SGPT) 2018-06-26 11:47:00* Test Item Value Reference Range Interpretation Comments Alanine Aminotransferase (ALT/SGPT) (test code = 1742-6) 38 0-55 [facility] ClinicsTotal Xtyxhqi8700-87-38 11:47:00* Test Item Value Reference Range Interpretation Comments Total Protein (test code = 2885-2) 7.5 6.5-8.1 [facility] ClinicsAlbumin2018-08-31 11:47:00* Test Item Value Reference Range Interpretation Comments Albumin (test code = 1751-7) 4.0 3.5-5.0 [facility] ClinicsGlobulin2018-08-31 11:47:00* Test Item Value Reference Range Interpretation Comments Globulin (test code = 57816-0) 3.5 2.3-3.5 [facility] ClinicsAlbumin/Globulin Qqqql0193-77-15 11:47:00 * Test Item Value Reference Range Interpretation Comments Albumin/Globulin Ratio (test code = 1759-0) 1.1 0.8-2.0 [facility] ClinicsAlkaline Wggipdazwmv3380-94-19 11:47:00* Test Item Value Reference Range Interpretation Comments Alkaline Phosphatase (test code = 6768-6) 124 40-150 [facility] Tybkp0883-45-33 11:47:00* Test Item Value Reference Range Interpretation Comments Sodium Level (test code = 2951-2) 139 136-145 [facility] ClinicsPotassium Nyhrr7212-06-47 11:47:00* Test Item Value Reference Range Interpretation Comments Potassium Level (test code = 2823-3) 3.5 3.5-5.1 [facility] ClinicsChloride Fhmqq6395-42-09 11:47:00* Test Item Value Reference Range Interpretation Comments Chloride Level (test code = 2075-0) 101 98-107 [facility] ClinicsCarbon Dioxide Fspnn1973-17-07 11:47:00* Test Item Value Reference Range Interpretation Comments Carbon Dioxide Level (test code = 2028-9) 24 22-29 [facility] ClinicsAnion Nqx1423-14-94 11:47:00* Test Item Value Reference Range Interpretation Comments Anion Gap (test code = 02692-4) 17.5 8-16 H [facility] ClinicsBlood Urea Gskfxeci2337-11-49 11:47:00* Test Item Value Reference Range Interpretation Comments Blood Urea Nitrogen (test code = 3094-0) 7 7-26 [facility] ClinicsCreatinine2018-08-31 11:47:00* Test Item Value Reference Range Interpretation Comments Creatinine (test code = 2160-0) 0.93 0.57-1.11 [facility] ClinicsBUN/Creatinine Zzigz8181-69-80 11:47:00* Test Item Value Reference Range Interpretation Comments BUN/Creatinine Ratio (test code = 3097-3) 8 6-25 [facility] ClinicsEstimat Glomerular Filtration Rate 2018-06-26 11:47:00* Test Item Value Reference Range Interpretation Comments Estimat Glomerular Filtration Rate (test code = 175210543) 59 >60 L Ranges were taken from the National Kidney Disease Education Program and the [facility] literature.Reference ranges:60 or greater: Rdyjps19-76 ( for 3 consecutive months): Chronic kidney disease 15 or less: Kidney failureEast [facility] Hospital and ClinicsGlucose Yxqqw8307-99-17 11:47:00* Test Item Value Reference Range Interpretation Comments Glucose Level (test code = UPS3062) 139 74-118 H [facility] ClinicsCalcium Egalr9792-13-60 11:47:00* Test Item Value Reference Range Interpretation Comments Calcium Level (test code = 38368-9) 10.3 8.4-10.2 H [facility] ClinicsTotal Dmzmoapbo2760-92-54 11:47:00* Test Item Value Reference Range Interpretation Comments Total Bilirubin (test code = 1975-2) 0.5 0.2-1.2 [facility] ClinicsAspartate Amino Transf (AST/SGOT) 2018-06-26 11:47:00* Test Item Value Reference Range Interpretation Comments Aspartate Amino Transf (AST/SGOT) (test code = Aspartate Amino Transf (AST/SGOT)) 37 5-34 H [facility] ClinicsAlanine Aminotransferase (ALT/SGPT) 2018-06-26 11:47:00* Test Item Value Reference Range Interpretation Comments Alanine Aminotransferase (ALT/SGPT) (test code = 1742-6) 38 0-55 [facility] ClinicsTotal Vinzugc3685-56-64 11:47:00* Test Item Value Reference Range Interpretation Comments Total Protein (test code = 2885-2) 7.5 6.5-8.1 [facility] ClinicsAlbumin2018-08-31 11:47:00* Test Item Value Reference Range Interpretation Comments Albumin (test code = 1751-7) 4.0 3.5-5.0 [facility] ClinicsGlobulin2018-08-31 11:47:00* Test Item Value Reference Range Interpretation Comments Globulin (test code = 93122-6) 3.5 2.3-3.5 [facility] ClinicsAlbumin/Globulin Qknig7037-30-02 11:47:00 * Test Item Value Reference Range Interpretation Comments Albumin/Globulin Ratio (test code = 1759-0) 1.1 0.8-2.0 [facility] ClinicsAlkaline Pejivuzwtqm5938-36-89 11:47:00* Test Item Value Reference Range Interpretation Comments Alkaline Phosphatase (test code = 6768-6) 124 40-150 [facility] Ixoqv2754-34-05 11:47:00* Test Item Value Reference Range Interpretation Comments Sodium Level (test code = 2951-2) 139 136-145 [facility]icsPotassium Pxckp6599-86-30 11:47:00* Test Item Value Reference Range Interpretation Comments Potassium Level (test code = 2823-3) 3.5 3.5-5.1 [facility] ClinicsChloride Swzwk9551-80-70 11:47:00* Test Item Value Reference Range Interpretation Comments Chloride Level (test code = 2075-0) 101 98-107 [facility] ClinicsCarbon Dioxide Stgoz7131-89-06 11:47:00* Test Item Value Reference Range Interpretation Comments Carbon Dioxide Level (test code = 2028-9) 24 22-29 [facility] ClinicsAnion Ffo2672-09-24 11:47:00* Test Item Value Reference Range Interpretation Comments Anion Gap (test code = 25870-4) 17.5 8-16 H [facility] ClinicsBlood Urea Eczbipxu7029-80-55 11:47:00* Test Item Value Reference Range Interpretation Comments Blood Urea Nitrogen (test code = 3094-0) 7 7-26 [facility] ClinicsCreatinine2018-08-31 11:47:00* Test Item Value Reference Range Interpretation Comments Creatinine (test code = 2160-0) 0.93 0.57-1.11 [facility]icsBUN/Creatinine Gjeuh4013-05-11 11:47:00* Test Item Value Reference Range Interpretation Comments BUN/Creatinine Ratio (test code = 3097-3) 8 6-25 [facility] ClinicsEstimat Glomerular Filtration Rate 2018-06-26 11:47:00* Test Item Value Reference Range Interpretation Comments Estimat Glomerular Filtration Rate (test code = 991638425) 59 >60 L Ranges were taken from the National Kidney Disease Education Program and the [facility] literature.Reference ranges:60 or greater: Awdhvw40-74 ( for 3 consecutive months): Chronic kidney disease 15 or less: Kidney failureEast [facility] and ClinicsGlucose Waxiz2701-36-23 11:47:00* Test Item Value Reference Range Interpretation Comments Glucose Level (test code = YWX8856) 139 74-118 [facility] ClinicsCalcium Oruzr4845-07-85 11:47:00* Test Item Value Reference Range Interpretation Comments Calcium Level (test code = 51529-2) 10.3 8.4-10.2 [facility] ClinicsTotal Rlqtrtark6705-86-73 11:47:00* Test Item Value Reference Range Interpretation Comments Total Bilirubin (test code = 1975-2) 0.5 0.2-1.2 [facility] ClinicsAspartate Amino Transf (AST/SGOT) 2018-06-26 11:47:00* Test Item Value Reference Range Interpretation Comments Aspartate Amino Transf (AST/SGOT) (test code = Aspartate Amino Transf (AST/SGOT)) 37 5-34 [facility] ClinicsAlanine Aminotransferase (ALT/SGPT) 2018-06-26 11:47:00* Test Item Value Reference Range Interpretation Comments Alanine Aminotransferase (ALT/SGPT) (test code = 1742-6) 38 0-55 [facility] ClinicsTotal Jiqswod7981-01-75 11:47:00* Test Item Value Reference Range Interpretation Comments Total Protein (test code = 2885-2) 7.5 6.5-8.1 [facility] ClinicsAlbumin2018-08-31 11:47:00* Test Item Value Reference Range Interpretation Comments Albumin (test code = 1751-7) 4.0 3.5-5.0 [facility] ClinicsGlobulin2018-08-31 11:47:00* Test Item Value Reference Range Interpretation Comments Globulin (test code = 74120-8) 3.5 2.3-3.5 [facility] ClinicsAlbumin/Globulin Zyrji8901-34-01 11:47:00 * Test Item Value Reference Range Interpretation Comments Albumin/Globulin Ratio (test code = 1759-0) 1.1 0.8-2.0 [facility] ClinicsAlkaline Mzqazolmddc6021-64-22 11:47:00* Test Item Value Reference Range Interpretation Comments Alkaline Phosphatase (test code = 6768-6) 124 40-150 [facility] Rfzxi8824-63-57 11:47:00* Test Item Value Reference Range Interpretation Comments Sodium Level (test code = 2951-2) 139 136-145 [facility]icsPotassium Uqrfn3656-89-74 11:47:00* Test Item Value Reference Range Interpretation Comments Potassium Level (test code = 2823-3) 3.5 3.5-5.1 [facility]icsChloride Jpsiz1424-10-44 11:47:00* Test Item Value Reference Range Interpretation Comments Chloride Level (test code = 2075-0) 101 98-107 [facility] ClinicsCarbon Dioxide Anqey7372-27-96 11:47:00* Test Item Value Reference Range Interpretation Comments Carbon Dioxide Level (test code = 2028-9) 24 22-29 [facility] ClinicsAnion Vhv1663-98-54 11:47:00* Test Item Value Reference Range Interpretation Comments Anion Gap (test code = 10453-2) 17.5 8-16 [facility] ClinicsBlood Urea Ipycduld9136-40-43 11:47:00* Test Item Value Reference Range Interpretation Comments Blood Urea Nitrogen (test code = 3094-0) 7 7-26 [facility] ClinicsCreatinine2018-08-31 11:47:00* Test Item Value Reference Range Interpretation Comments Creatinine (test code = 2160-0) 0.93 0.57-1.11 [facility]icsBUN/Creatinine Lkimh2867-40-01 11:47:00* Test Item Value Reference Range Interpretation Comments BUN/Creatinine Ratio (test code = 3097-3) 8 6-25 [facility] ClinicsEstimat Glomerular Filtration Rate 2018-06-26 11:47:00* Test Item Value Reference Range Interpretation Comments Estimat Glomerular Filtration Rate (test code = 901898610) 59 >60 L Ranges were taken from the National Kidney Disease Education Program and the [facility] literature.Reference ranges:60 or greater: Kmffof86-77 ( for 3 consecutive months): Chronic kidney disease 15 or less: Kidney failureEast [facility] and ClinicsGlucose Qanjt5897-96-66 11:47:00* Test Item Value Reference Range Interpretation Comments Glucose Level (test code = MLN2369) 139 74-118 [facility] ClinicsCalcium Azpkv0194-58-10 11:47:00* Test Item Value Reference Range Interpretation Comments Calcium Level (test code = 13753-9) 10.3 8.4-10.2 [facility] ClinicsTotal Xyssgxdon3043-84-50 11:47:00* Test Item Value Reference Range Interpretation Comments Total Bilirubin (test code = 1975-2) 0.5 0.2-1.2 [facility] ClinicsAspartate Amino Transf (AST/SGOT) 2018-06-26 11:47:00* Test Item Value Reference Range Interpretation Comments Aspartate Amino Transf (AST/SGOT) (test code = Aspartate Amino Transf (AST/SGOT)) 37 5-34 [facility] ClinicsAlanine Aminotransferase (ALT/SGPT) 2018-06-26 11:47:00* Test Item Value Reference Range Interpretation Comments Alanine Aminotransferase (ALT/SGPT) (test code = 1742-6) 38 0-55 [facility] ClinicsTotal Cefpqsh0679-00-38 11:47:00* Test Item Value Reference Range Interpretation Comments Total Protein (test code = 2885-2) 7.5 6.5-8.1 [facility] ClinicsAlbumin2018-08-31 11:47:00* Test Item Value Reference Range Interpretation Comments Albumin (test code = 1751-7) 4.0 3.5-5.0 [facility] ClinicsGlobulin2018-08-31 11:47:00* Test Item Value Reference Range Interpretation Comments Globulin (test code = 47937-6) 3.5 2.3-3.5 [facility] ClinicsAlbumin/Globulin Fgsds0357-56-83 11:47:00 * Test Item Value Reference Range Interpretation Comments Albumin/Globulin Ratio (test code = 1759-0) 1.1 0.8-2.0 [facility] ClinicsAlkaline Jeqeiokbyjf6309-43-88 11:47:00* Test Item Value Reference Range Interpretation Comments Alkaline Phosphatase (test code = 6768-6) 124 40-150 [facility] Xvtod5376-10-00 11:47:00* Test Item Value Reference Range Interpretation Comments Sodium Level (test code = 2951-2) 139 136-145 [facility] ClinicsPotassium Ykqpt2886-49-56 11:47:00* Test Item Value Reference Range Interpretation Comments Potassium Level (test code = 2823-3) 3.5 3.5-5.1 [facility] ClinicsChloride Zmdio7876-10-56 11:47:00* Test Item Value Reference Range Interpretation Comments Chloride Level (test code = 2075-0) 101 98-107 [facility] ClinicsCarbon Dioxide Ygofe6160-39-38 11:47:00* Test Item Value Reference Range Interpretation Comments Carbon Dioxide Level (test code = 2028-9) 24 22-29 [facility] ClinicsAnion Adu4306-68-51 11:47:00* Test Item Value Reference Range Interpretation Comments Anion Gap (test code = 16996-6) 17.5 8-16 [facility] ClinicsBlood Urea Cmqrmhjh8851-28-18 11:47:00* Test Item Value Reference Range Interpretation Comments Blood Urea Nitrogen (test code = 3094-0) 7 7-26 [facility] ClinicsCreatinine2018-08-31 11:47:00* Test Item Value Reference Range Interpretation Comments Creatinine (test code = 2160-0) 0.93 0.57-1.11 [facility]icsBUN/Creatinine Okhpu9083-87-48 11:47:00* Test Item Value Reference Range Interpretation Comments BUN/Creatinine Ratio (test code = 3097-3) 8 6-25 [facility] ClinicsEstimat Glomerular Filtration Rate 2018-06-26 11:47:00* Test Item Value Reference Range Interpretation Comments Estimat Glomerular Filtration Rate (test code = 147458947) 59 >60 L Ranges were taken from the National Kidney Disease Education Program and the [facility] literature.Reference ranges:60 or greater: Ucckxc93-12 ( for 3 consecutive months): Chronic kidney disease 15 or less: Kidney failureCH[facility] CenterGlucose Ktass4312-01-32 11:47:00* Test Item Value Reference Range Interpretation Comments Glucose Level (test code = GEM4101) 139 74-118 [facility] ClinicsCalcium Sjqev6618-05-79 11:47:00* Test Item Value Reference Range Interpretation Comments Calcium Level (test code = 92582-4) 10.3 8.4-10.2 [facility] ClinicsTotal Imhlcdqiw0889-48-79 11:47:00* Test Item Value Reference Range Interpretation Comments Total Bilirubin (test code = 1975-2) 0.5 0.2-1.2 [facility] ClinicsAspartate Amino Transf (AST/SGOT) 2018-06-26 11:47:00* Test Item Value Reference Range Interpretation Comments Aspartate Amino Transf (AST/SGOT) (test code = Aspartate Amino Transf (AST/SGOT)) 37 5-34 [facility] ClinicsAlanine Aminotransferase (ALT/SGPT) 2018-06-26 11:47:00* Test Item Value Reference Range Interpretation Comments Alanine Aminotransferase (ALT/SGPT) (test code = 1742-6) 38 0-55 [facility] ClinicsTotal Gexmggv8517-73-38 11:47:00* Test Item Value Reference Range Interpretation Comments Total Protein (test code = 2885-2) 7.5 6.5-8.1 [facility] ClinicsAlbumin2018-08-31 11:47:00* Test Item Value Reference Range Interpretation Comments Albumin (test code = 1751-7) 4.0 3.5-5.0 [facility] ClinicsGlobulin2018-08-31 11:47:00* Test Item Value Reference Range Interpretation Comments Globulin (test code = 82904-9) 3.5 2.3-3.5 [facility] ClinicsAlbumin/Globulin Qmnbd7675-62-95 11:47:00 * Test Item Value Reference Range Interpretation Comments Albumin/Globulin Ratio (test code = 1759-0) 1.1 0.8-2.0 [facility] ClinicsAlkaline Xqyobqhjhhz9772-91-23 11:47:00* Test Item Value Reference Range Interpretation Comments Alkaline Phosphatase (test code = 6768-6) 124 40-150 [facility]odium Zkgkx5578-87-80 11:47:00* Test Item Value Reference Range Interpretation Comments Sodium Level (test code = 2951-2) 139 136-145 [facility]icsPotassium Tqntr7217-76-66 11:47:00* Test Item Value Reference Range Interpretation Comments Potassium Level (test code = 2823-3) 3.5 3.5-5.1 [facility] ClinicsChloride Uhqgi8776-95-99 11:47:00* Test Item Value Reference Range Interpretation Comments Chloride Level (test code = 2075-0) 101 98-107 [facility] ClinicsCarbon Dioxide Bmpzc0042-47-09 11:47:00* Test Item Value Reference Range Interpretation Comments Carbon Dioxide Level (test code = 2028-9) 24 22-29 [facility] ClinicsAnion Tfe5484-29-27 11:47:00* Test Item Value Reference Range Interpretation Comments Anion Gap (test code = 16819-9) 17.5 8-16 [facility] ClinicsBlood Urea Bmfaekbh9805-70-82 11:47:00* Test Item Value Reference Range Interpretation Comments Blood Urea Nitrogen (test code = 3094-0) 7 7-26 [facility] ClinicsCreatinine2018-08-31 11:47:00* Test Item Value Reference Range Interpretation Comments Creatinine (test code = 2160-0) 0.93 0.57-1.11 [facility]icsBUN/Creatinine Msjbe9970-86-08 11:47:00* Test Item Value Reference Range Interpretation Comments BUN/Creatinine Ratio (test code = 3097-3) 8 6-25 [facility] ClinicsEstimat Glomerular Filtration Rate 2018-06-26 11:47:00* Test Item Value Reference Range Interpretation Comments Estimat Glomerular Filtration Rate (test code = 572062125) 59 >60 L Ranges were taken from the National Kidney Disease Education Program and the [facility] literature.Reference ranges:60 or greater: Rbfwgw77-36 ( for 3 consecutive months): Chronic kidney disease 15 or less: Kidney failureCH[facility] CenterGlucose Wlqin7336-74-63 11:47:00* Test Item Value Reference Range Interpretation Comments Glucose Level (test code = AEX1818) 139 74-118 [facility] ClinicsCalcium Yzzjg0391-46-46 11:47:00* Test Item Value Reference Range Interpretation Comments Calcium Level (test code = 22656-6) 10.3 8.4-10.2 [facility] ClinicsTotal Kdozssguh9887-06-54 11:47:00* Test Item Value Reference Range Interpretation Comments Total Bilirubin (test code = 1975-2) 0.5 0.2-1.2 [facility] ClinicsAspartate Amino Transf (AST/SGOT) 2018-06-26 11:47:00* Test Item Value Reference Range Interpretation Comments Aspartate Amino Transf (AST/SGOT) (test code = Aspartate Amino Transf (AST/SGOT)) 37 5-34 [facility] ClinicsAlanine Aminotransferase (ALT/SGPT) 2018-06-26 11:47:00* Test Item Value Reference Range Interpretation Comments Alanine Aminotransferase (ALT/SGPT) (test code = 1742-6) 38 0-55 [facility] ClinicsTotal Sjvqmsi8937-94-49 11:47:00* Test Item Value Reference Range Interpretation Comments Total Protein (test code = 2885-2) 7.5 6.5-8.1 [facility] ClinicsAlbumin2018-08-31 11:47:00* Test Item Value Reference Range Interpretation Comments Albumin (test code = 1751-7) 4.0 3.5-5.0 [facility] ClinicsGlobulin2018-08-31 11:47:00* Test Item Value Reference Range Interpretation Comments Globulin (test code = 45544-7) 3.5 2.3-3.5 [facility] ClinicsAlbumin/Globulin Bxsvr8615-63-32 11:47:00 * Test Item Value Reference Range Interpretation Comments Albumin/Globulin Ratio (test code = 1759-0) 1.1 0.8-2.0 [facility] ClinicsAlkaline Imzfyaqgvzu2193-39-61 11:47:00* Test Item Value Reference Range Interpretation Comments Alkaline Phosphatase (test code = 6768-6) 124 40-150 [facility] Txjrq0907-54-95 11:47:00* Test Item Value Reference Range Interpretation Comments Sodium Level (test code = 2951-2) 139 136-145 [facility]icsPotassium Siuko9230-94-90 11:47:00* Test Item Value Reference Range Interpretation Comments Potassium Level (test code = 2823-3) 3.5 3.5-5.1 [facility] ClinicsChloride Gkemw7773-70-70 11:47:00* Test Item Value Reference Range Interpretation Comments Chloride Level (test code = 2075-0) 101 98-107 [facility] ClinicsCarbon Dioxide Ukwmv7624-05-02 11:47:00* Test Item Value Reference Range Interpretation Comments Carbon Dioxide Level (test code = 2028-9) 24 22-29 [facility] ClinicsAnion Aut2296-05-07 11:47:00* Test Item Value Reference Range Interpretation Comments Anion Gap (test code = 12422-1) 17.5 8-16 [facility] ClinicsBlood Urea Bjgumpwu2932-61-91 11:47:00* Test Item Value Reference Range Interpretation Comments Blood Urea Nitrogen (test code = 3094-0) 7 7-26 [facility] ClinicsCreatinine2018-08-31 11:47:00* Test Item Value Reference Range Interpretation Comments Creatinine (test code = 2160-0) 0.93 0.57-1.11 [facility]icsBUN/Creatinine Rljry0166-08-26 11:47:00* Test Item Value Reference Range Interpretation Comments BUN/Creatinine Ratio (test code = 3097-3) 8 6-25 [facility] ClinicsEstimat Glomerular Filtration Rate 2018-06-26 11:47:00* Test Item Value Reference Range Interpretation Comments Estimat Glomerular Filtration Rate (test code = 222406144) 59 >60 L Ranges were taken from the National Kidney Disease Education Program and the [facility] Foundation literature.Reference ranges:60 or greater: Opbcrw63-45 ( for 3 consecutive months): Chronic kidney disease 15 or less: Kidney failureCH[facility] CenterGlucose Nwqpz9506-48-85 11:47:00* Test Item Value Reference Range Interpretation Comments Glucose Level (test code = PAX5293) 139 74-118 [facility] ClinicsCalcium Yldht2345-59-02 11:47:00* Test Item Value Reference Range Interpretation Comments Calcium Level (test code = 98105-7) 10.3 8.4-10.2 [facility] ClinicsTotal Sluklwenp3428-96-33 11:47:00* Test Item Value Reference Range Interpretation Comments Total Bilirubin (test code = 1975-2) 0.5 0.2-1.2 [facility] ClinicsAspartate Amino Transf (AST/SGOT) 2018-06-26 11:47:00* Test Item Value Reference Range Interpretation Comments Aspartate Amino Transf (AST/SGOT) (test code = Aspartate Amino Transf (AST/SGOT)) 37 5-34 [facility] ClinicsAlanine Aminotransferase (ALT/SGPT) 2018-06-26 11:47:00* Test Item Value Reference Range Interpretation Comments Alanine Aminotransferase (ALT/SGPT) (test code = 1742-6) 38 0-55 [facility] ClinicsTotal Ishvppu6700-02-00 11:47:00* Test Item Value Reference Range Interpretation Comments Total Protein (test code = 2885-2) 7.5 6.5-8.1 [facility] ClinicsAlbumin2018-08-31 11:47:00* Test Item Value Reference Range Interpretation Comments Albumin (test code = 1751-7) 4.0 3.5-5.0 [facility] ClinicsGlobulin2018-08-31 11:47:00* Test Item Value Reference Range Interpretation Comments Globulin (test code = 63739-4) 3.5 2.3-3.5 [facility] ClinicsAlbumin/Globulin Wcgsl9977-64-12 11:47:00 * Test Item Value Reference Range Interpretation Comments Albumin/Globulin Ratio (test code = 1759-0) 1.1 0.8-2.0 [facility] ClinicsAlkaline Yiykywjhayk5678-31-03 11:47:00* Test Item Value Reference Range Interpretation Comments Alkaline Phosphatase (test code = 6768-6) 124 40-150 [facility] Xfiye4834-43-37 11:47:00* Test Item Value Reference Range Interpretation Comments Sodium Level (test code = 2951-2) 139 136-145 [facility] ClinicsPotassium Mtkll2696-94-12 11:47:00* Test Item Value Reference Range Interpretation Comments Potassium Level (test code = 2823-3) 3.5 3.5-5.1 [facility] ClinicsChloride Btrgj9514-68-25 11:47:00* Test Item Value Reference Range Interpretation Comments Chloride Level (test code = 2075-0) 101 98-107 [facility] ClinicsCarbon Dioxide Xcruw1883-87-11 11:47:00* Test Item Value Reference Range Interpretation Comments Carbon Dioxide Level (test code = 2028-9) 24 22-29 [facility] ClinicsAnion Jem0932-47-53 11:47:00* Test Item Value Reference Range Interpretation Comments Anion Gap (test code = 56345-7) 17.5 8-16 [facility] ClinicsBlood Urea Gmtjhbom4437-95-01 11:47:00* Test Item Value Reference Range Interpretation Comments Blood Urea Nitrogen (test code = 3094-0) 7 7-26 [facility] ClinicsCreatinine2018-08-31 11:47:00* Test Item Value Reference Range Interpretation Comments Creatinine (test code = 2160-0) 0.93 0.57-1.11 [facility]icsBUN/Creatinine Tbokv3383-47-26 11:47:00* Test Item Value Reference Range Interpretation Comments BUN/Creatinine Ratio (test code = 3097-3) 8 6-25 [facility] ClinicsEstimat Glomerular Filtration Rate 2018-06-26 11:47:00* Test Item Value Reference Range Interpretation Comments Estimat Glomerular Filtration Rate (test code = 264087109) 59 >60 L Ranges were taken from the National Kidney Disease Education Program and the [facility] Kidney Foundation literature.Reference ranges:60 or greater: Abnyyi88-71 ( for 3 consecutive months): Chronic kidney disease 15 or less: Kidney failureEast [facility] and ClinicsGlucose Ykyfl3680-53-53 11:47:00* Test Item Value Reference Range Interpretation Comments Glucose Level (test code = YKY4092) 139 74-118 [facility] ClinicsCalcium Tbfjk8380-71-98 11:47:00* Test Item Value Reference Range Interpretation Comments Calcium Level (test code = 98743-5) 10.3 8.4-10.2 [facility] ClinicsTotal Hhtlfeaaq0416-70-86 11:47:00* Test Item Value Reference Range Interpretation Comments Total Bilirubin (test code = 1975-2) 0.5 0.2-1.2 [facility] ClinicsAspartate Amino Transf (AST/SGOT) 2018-06-26 11:47:00* Test Item Value Reference Range Interpretation Comments Aspartate Amino Transf (AST/SGOT) (test code = Aspartate Amino Transf (AST/SGOT)) 37 5-34 [facility] ClinicsAlanine Aminotransferase (ALT/SGPT) 2018-06-26 11:47:00* Test Item Value Reference Range Interpretation Comments Alanine Aminotransferase (ALT/SGPT) (test code = 1742-6) 38 0-55 [facility] ClinicsTotal Otzotfe9679-16-91 11:47:00* Test Item Value Reference Range Interpretation Comments Total Protein (test code = 2885-2) 7.5 6.5-8.1 [facility] ClinicsAlbumin2018-08-31 11:47:00* Test Item Value Reference Range Interpretation Comments Albumin (test code = 1751-7) 4.0 3.5-5.0 [facility] ClinicsGlobulin2018-08-31 11:47:00* Test Item Value Reference Range Interpretation Comments Globulin (test code = 56720-8) 3.5 2.3-3.5 [facility] ClinicsAlbumin/Globulin Zqmnc1827-92-92 11:47:00 * Test Item Value Reference Range Interpretation Comments Albumin/Globulin Ratio (test code = 1759-0) 1.1 0.8-2.0 [facility] ClinicsAlkaline Qurdqkvpzsw7466-99-62 11:47:00* Test Item Value Reference Range Interpretation Comments Alkaline Phosphatase (test code = 6768-6) 124 40-150 [facility] ClinicsWhite Blood Jyhzf7209-50-17 11:31:00* Test Item Value Reference Range Interpretation Comments White Blood Count (test code = 6690-2) 7.50 4.8-10.8 [facility] ClinicsRed Blood Oapvm6071-30-59 11:31:00* Test Item Value Reference Range Interpretation Comments Red Blood Count (test code = 789-8) 4.78 3.6-5.1 [facility] ClinicsHemoglobin2018-08-31 11:31:00* Test Item Value Reference Range Interpretation Comments Hemoglobin (test code = 14729-6) 13.4 12.0-16.0 [facility] ClinicsHematocrit2018-08-31 11:31:00* Test Item Value Reference Range Interpretation Comments Hematocrit (test code = 4544-3) 41.2 34.2-44.1 [facility] ClinicsMean Corpuscular Uhuxey4138-45-33 11:31:00* Test Item Value Reference Range Interpretation Comments Mean Corpuscular Volume (test code = 787-2) 86.2 81-99 [facility] ClinicsMean Corpuscular Trqsghzuht4741-76-68 11:31:00* Test Item Value Reference Range Interpretation Comments Mean Corpuscular Hemoglobin (test code = 785-6) 28.0 28-32 [facility] ClinicsMean Corpuscular Hemoglobin Concent 2018-06-26 11:31:00* Test Item Value Reference Range Interpretation Comments Mean Corpuscular Hemoglobin Concent (test code = 786-4) 32.5 31-35 [facility] ClinicsRed Cell Distribution Uehth0310-97-18 11:31:00* Test Item Value Reference Range Interpretation Comments Red Cell Distribution Width (test code = 22580-1) 13.4 11.7 -14.4 [facility] ClinicsPlatelet Iaxdj2875-29-87 11:31:00* Test Item Value Reference Range Interpretation Comments Platelet Count (test code = 777-3) 366 140-360 [facility] ClinicsNeutrophils (%) (Auto)2018-06-26 11:31:00 * Test Item Value Reference Range Interpretation Comments Neutrophils (%) (Auto) (test code = 25320-9) 61.6 38.7-80.0 [facility] ClinicsLymphocytes (%) (Auto)2018-06-26 11:31:00 * Test Item Value Reference Range Interpretation Comments Lymphocytes (%) (Auto) (test code = 736-9) 20.8 18.0-39.1 [facility]icsMonocytes (%) (Auto)2018-06-26 11:31:00* Test Item Value Reference Range Interpretation Comments Monocytes (%) (Auto) (test code = 5905-5) 9.9 4.4-11.3 [facility]icsEosinophils (%) (Auto)2018-06-26 11:31:00 * Test Item Value Reference Range Interpretation Comments Eosinophils (%) (Auto) (test code = 713-8) 6.0 0.0-6.0 [facility]icsBasophils (%) (Auto)2018-06-26 11:31:00* Test Item Value Reference Range Interpretation Comments Basophils (%) (Auto) (test code = 706-2) 1.3 0.0-1.0 [facility]icsIM GRANULOCYTES %2018-06-26 11:31:00* Test Item Value Reference Range Interpretation Comments IM GRANULOCYTES % (test code = IM GRANULOCYTES %) 0.4 0.0- 1.0 [facility]icsNeutrophils # (Auto)2018-06-26 11:31:00* Test Item Value Reference Range Interpretation Comments Neutrophils # (Auto) (test code = 751-8) 4.6 2.1-6.9 [facility]icsLymphocytes # (Auto)2018-06-26 11:31:00* Test Item Value Reference Range Interpretation Comments Lymphocytes # (Auto) (test code = 56492-0) 1.6 1.0-3.2 [facility]icsMonocytes # (Auto)2018-06-26 11:31:00* Test Item Value Reference Range Interpretation Comments Monocytes # (Auto) (test code = 742-7) 0.7 0.2-0.8 [facility]icsEosinophils # (Auto)2018-06-26 11:31:00* Test Item Value Reference Range Interpretation Comments Eosinophils # (Auto) (test code = 711-2) 0.5 0.0-0.4 [facility]icsBasophils # (Auto)2018-06-26 11:31:00* Test Item Value Reference Range Interpretation Comments Basophils # (Auto) (test code = 704-7) 0.1 0.0-0.1 [facility] ClinicsAbsolute Immature Granulocyte (auto 2018-06-26 11:31:00* Test Item Value Reference Range Interpretation Comments Absolute Immature Granulocyte (auto (krishna t code = Absolute Immature Granulocyte (auto) 0.03 0-0.1 [facility] ClinicsWhite Blood Jebsb0296-40-65 11:31:00* Test Item Value Reference Range Interpretation Comments White Blood Count (test code = 6690-2) 7.50 4.8-10.8 [facility] ClinicsRed Blood Sreov4123-11-63 11:31:00* Test Item Value Reference Range Interpretation Comments Red Blood Count (test code = 789-8) 4.78 3.6-5.1 [facility]icsHemoglobin2018-08-31 11:31:00* Test Item Value Reference Range Interpretation Comments Hemoglobin (test code = 25019-3) 13.4 12.0-16.0 [facility]icsHematocrit2018-08-31 11:31:00* Test Item Value Reference Range Interpretation Comments Hematocrit (test code = 4544-3) 41.2 34.2-44.1 [facility] ClinicsMean Corpuscular Prwwpj1024-33-09 11:31:00* Test Item Value Reference Range Interpretation Comments Mean Corpuscular Volume (test code = 787-2) 86.2 81-99 [facility] ClinicsMean Corpuscular Rewufnexqx3204-49-17 11:31:00* Test Item Value Reference Range Interpretation Comments Mean Corpuscular Hemoglobin (test code = 785-6) 28.0 28-32 [facility] ClinicsMean Corpuscular Hemoglobin Concent 2018-06-26 11:31:00* Test Item Value Reference Range Interpretation Comments Mean Corpuscular Hemoglobin Concent (test code = 786-4) 32.5 31-35 [facility] ClinicsRed Cell Distribution [id number] 11:31:00* Test Item Value Reference Range Interpretation Comments Red Cell Distribution Width (test code = 67018-3) 13.4 11.7 -14.4 [facility] ClinicsPlatelet Tlozq9536-15-46 11:31:00* Test Item Value Reference Range Interpretation Comments Platelet Count (test code = 777-3) 366 140-360 [facility] ClinicsNeutrophils (%) (Auto)2018-06-26 11:31:00 * Test Item Value Reference Range Interpretation Comments Neutrophils (%) (Auto) (test code = 58090-1) 61.6 38.7-80.0 [facility] ClinicsLymphocytes (%) (Auto)2018-06-26 11:31:00 * Test Item Value Reference Range Interpretation Comments Lymphocytes (%) (Auto) (test code = 736-9) 20.8 18.0-39.1 [facility]icsMonocytes (%) (Auto)2018-06-26 11:31:00* Test Item Value Reference Range Interpretation Comments Monocytes (%) (Auto) (test code = 5905-5) 9.9 4.4-11.3 [facility]icsEosinophils (%) (Auto)2018-06-26 11:31:00 * Test Item Value Reference Range Interpretation Comments Eosinophils (%) (Auto) (test code = 713-8) 6.0 0.0-6.0 [facility]icsBasophils (%) (Auto)2018-06-26 11:31:00* Test Item Value Reference Range Interpretation Comments Basophils (%) (Auto) (test code = 706-2) 1.3 0.0-1.0 [facility]icsIM GRANULOCYTES %2018-06-26 11:31:00* Test Item Value Reference Range Interpretation Comments IM GRANULOCYTES % (test code = IM GRANULOCYTES %) 0.4 0.0- 1.0 [facility]icsNeutrophils # (Auto)2018-06-26 11:31:00* Test Item Value Reference Range Interpretation Comments Neutrophils # (Auto) (test code = 751-8) 4.6 2.1-6.9 [facility]icsLymphocytes # (Auto)2018-06-26 11:31:00* Test Item Value Reference Range Interpretation Comments Lymphocytes # (Auto) (test code = 21175-9) 1.6 1.0-3.2 [facility]icsMonocytes # (Auto)2018-06-26 11:31:00* Test Item Value Reference Range Interpretation Comments Monocytes # (Auto) (test code = 742-7) 0.7 0.2-0.8 [facility]icsEosinophils # (Auto)2018-06-26 11:31:00* Test Item Value Reference Range Interpretation Comments Eosinophils # (Auto) (test code = 711-2) 0.5 0.0-0.4 [facility]icsBasophils # (Auto)2018-06-26 11:31:00* Test Item Value Reference Range Interpretation Comments Basophils # (Auto) (test code = 704-7) 0.1 0.0-0.1 [facility] ClinicsAbsolute Immature Granulocyte (auto 2018-06-26 11:31:00* Test Item Value Reference Range Interpretation Comments Absolute Immature Granulocyte (auto (krishna t code = Absolute Immature Granulocyte (auto) 0.03 0-0.1 [facility]icsWhite Blood Exfhx5998-06-45 11:31:00* Test Item Value Reference Range Interpretation Comments White Blood Count (test code = 6690-2) 7.50 4.8-10.8 [facility] ClinicsRed Blood Vehup1110-48-96 11:31:00* Test Item Value Reference Range Interpretation Comments Red Blood Count (test code = 789-8) 4.78 3.6-5.1 [facility] ClinicsHemoglobin2018-08-31 11:31:00* Test Item Value Reference Range Interpretation Comments Hemoglobin (test code = 67197-5) 13.4 12.0-16.0 [facility] ClinicsHematocrit2018-08-31 11:31:00* Test Item Value Reference Range Interpretation Comments Hematocrit (test code = 4544-3) 41.2 34.2-44.1 [facility] ClinicsMean Corpuscular Qfagbj6867-52-41 11:31:00* Test Item Value Reference Range Interpretation Comments Mean Corpuscular Volume (test code = 787-2) 86.2 81-99 [facility] ClinicsMean Corpuscular Ajiohganhn2312-91-47 11:31:00* Test Item Value Reference Range Interpretation Comments Mean Corpuscular Hemoglobin (test code = 785-6) 28.0 28-32 [facility] ClinicsMean Corpuscular Hemoglobin Concent 2018-06-26 11:31:00* Test Item Value Reference Range Interpretation Comments Mean Corpuscular Hemoglobin Concent (test code = 786-4) 32.5 31-35 [facility] ClinicsRed Cell Distribution Jkgjv0790-13-37 11:31:00* Test Item Value Reference Range Interpretation Comments Red Cell Distribution Width (test code = 04288-2) 13.4 11.7 -14.4 [facility] ClinicsPlatelet Aukgz1627-81-67 11:31:00* Test Item Value Reference Range Interpretation Comments Platelet Count (test code = 777-3) 366 140-360 [facility] ClinicsNeutrophils (%) (Auto)2018-06-26 11:31:00 * Test Item Value Reference Range Interpretation Comments Neutrophils (%) (Auto) (test code = 79304-6) 61.6 38.7-80.0 [facility] ClinicsLymphocytes (%) (Auto)2018-06-26 11:31:00 * Test Item Value Reference Range Interpretation Comments Lymphocytes (%) (Auto) (test code = 736-9) 20.8 18.0-39.1 [facility]icsMonocytes (%) (Auto)2018-06-26 11:31:00* Test Item Value Reference Range Interpretation Comments Monocytes (%) (Auto) (test code = 5905-5) 9.9 4.4-11.3 [facility]icsEosinophils (%) (Auto)2018-06-26 11:31:00 * Test Item Value Reference Range Interpretation Comments Eosinophils (%) (Auto) (test code = 713-8) 6.0 0.0-6.0 [facility]icsBasophils (%) (Auto)2018-06-26 11:31:00* Test Item Value Reference Range Interpretation Comments Basophils (%) (Auto) (test code = 706-2) 1.3 0.0-1.0 [facility]icsIM GRANULOCYTES %2018-06-26 11:31:00* Test Item Value Reference Range Interpretation Comments IM GRANULOCYTES % (test code = IM GRANULOCYTES %) 0.4 0.0- 1.0 [facility]icsNeutrophils # (Auto)2018-06-26 11:31:00* Test Item Value Reference Range Interpretation Comments Neutrophils # (Auto) (test code = 751-8) 4.6 2.1-6.9 [facility]icsLymphocytes # (Auto)2018-06-26 11:31:00* Test Item Value Reference Range Interpretation Comments Lymphocytes # (Auto) (test code = 42392-9) 1.6 1.0-3.2 [facility]icsMonocytes # (Auto)2018-06-26 11:31:00* Test Item Value Reference Range Interpretation Comments Monocytes # (Auto) (test code = 742-7) 0.7 0.2-0.8 [facility]icsEosinophils # (Auto)2018-06-26 11:31:00* Test Item Value Reference Range Interpretation Comments Eosinophils # (Auto) (test code = 711-2) 0.5 0.0-0.4 [facility]icsBasophils # (Auto)2018-06-26 11:31:00* Test Item Value Reference Range Interpretation Comments Basophils # (Auto) (test code = 704-7) 0.1 0.0-0.1 [facility]icsAbsolute Immature Granulocyte (auto 2018-06-26 11:31:00* Test Item Value Reference Range Interpretation Comments Absolute Immature Granulocyte (auto (krishna t code = Absolute Immature Granulocyte (auto) 0.03 0-0.1 [facility]icsWhite Blood Hympa1337-41-54 11:31:00* Test Item Value Reference Range Interpretation Comments White Blood Count (test code = 6690-2) 7.50 4.8-10.8 [facility] ClinicsRed Blood Lthfb6798-35-36 11:31:00* Test Item Value Reference Range Interpretation Comments Red Blood Count (test code = 789-8) 4.78 3.6-5.1 [facility] ClinicsHemoglobin2018-08-31 11:31:00* Test Item Value Reference Range Interpretation Comments Hemoglobin (test code = 07789-1) 13.4 12.0-16.0 [facility] ClinicsHematocrit2018-08-31 11:31:00* Test Item Value Reference Range Interpretation Comments Hematocrit (test code = 4544-3) 41.2 34.2-44.1 [facility] ClinicsMean Corpuscular Wipevh3422-12-09 11:31:00* Test Item Value Reference Range Interpretation Comments Mean Corpuscular Volume (test code = 787-2) 86.2 81-99 [facility] ClinicsMean Corpuscular Fluvsczqhb7891-53-24 11:31:00* Test Item Value Reference Range Interpretation Comments Mean Corpuscular Hemoglobin (test code = 785-6) 28.0 28-32 [facility] ClinicsMean Corpuscular Hemoglobin Concent 2018-06-26 11:31:00* Test Item Value Reference Range Interpretation Comments Mean Corpuscular Hemoglobin Concent (test code = 786-4) 32.5 31-35 [facility] ClinicsRed Cell Distribution Xonrh3105-15-09 11:31:00* Test Item Value Reference Range Interpretation Comments Red Cell Distribution Width (test code = 36891-0) 13.4 11.7 -14.4 [facility] ClinicsPlatelet Miwcr5594-46-04 11:31:00* Test Item Value Reference Range Interpretation Comments Platelet Count (test code = 777-3) 366 140-360 [facility] ClinicsNeutrophils (%) (Auto)2018-06-26 11:31:00 * Test Item Value Reference Range Interpretation Comments Neutrophils (%) (Auto) (test code = 15421-6) 61.6 38.7-80.0 [facility]icsLymphocytes (%) (Auto)2018-06-26 11:31:00 * Test Item Value Reference Range Interpretation Comments Lymphocytes (%) (Auto) (test code = 736-9) 20.8 18.0-39.1 [facility]icsMonocytes (%) (Auto)2018-06-26 11:31:00* Test Item Value Reference Range Interpretation Comments Monocytes (%) (Auto) (test code = 5905-5) 9.9 4.4-11.3 [facility]icsEosinophils (%) (Auto)2018-06-26 11:31:00 * Test Item Value Reference Range Interpretation Comments Eosinophils (%) (Auto) (test code = 713-8) 6.0 0.0-6.0 [facility]icsBasophils (%) (Auto)2018-06-26 11:31:00* Test Item Value Reference Range Interpretation Comments Basophils (%) (Auto) (test code = 706-2) 1.3 0.0-1.0 [facility]icsIM GRANULOCYTES %2018-06-26 11:31:00* Test Item Value Reference Range Interpretation Comments IM GRANULOCYTES % (test code = IM GRANULOCYTES %) 0.4 0.0- 1.0 [facility]icsNeutrophils # (Auto)2018-06-26 11:31:00* Test Item Value Reference Range Interpretation Comments Neutrophils # (Auto) (test code = 751-8) 4.6 2.1-6.9 [facility]icsLymphocytes # (Auto)2018-06-26 11:31:00* Test Item Value Reference Range Interpretation Comments Lymphocytes # (Auto) (test code = 18538-0) 1.6 1.0-3.2 [facility]icsMonocytes # (Auto)2018-06-26 11:31:00* Test Item Value Reference Range Interpretation Comments Monocytes # (Auto) (test code = 742-7) 0.7 0.2-0.8 [facility]icsEosinophils # (Auto)2018-06-26 11:31:00* Test Item Value Reference Range Interpretation Comments Eosinophils # (Auto) (test code = 711-2) 0.5 0.0-0.4 [facility]icsBasophils # (Auto)2018-06-26 11:31:00* Test Item Value Reference Range Interpretation Comments Basophils # (Auto) (test code = 704-7) 0.1 0.0-0.1 [facility]icsAbsolute Immature Granulocyte (auto 2018-06-26 11:31:00* Test Item Value Reference Range Interpretation Comments Absolute Immature Granulocyte (auto (krishna t code = Absolute Immature Granulocyte (auto) 0.03 0-0.1 [facility]icsWhite Blood Ncpov6248-61-05 11:31:00* Test Item Value Reference Range Interpretation Comments White Blood Count (test code = 6690-2) 7.50 4.8-10.8 [facility] ClinicsRed Blood [id number] 11:31:00* Test Item Value Reference Range Interpretation Comments Red Blood Count (test code = 789-8) 4.78 3.6-5.1 [facility] ClinicsHemoglobin2018-08-31 11:31:00* Test Item Value Reference Range Interpretation Comments Hemoglobin (test code = 64367-6) 13.4 12.0-16.0 [facility]icsHematocrit2018-08-31 11:31:00* Test Item Value Reference Range Interpretation Comments Hematocrit (test code = 4544-3) 41.2 34.2-44.1 [facility] ClinicsMean Corpuscular [id number] 11:31:00* Test Item Value Reference Range Interpretation Comments Mean Corpuscular Volume (test code = 787-2) 86.2 81-99 [facility] ClinicsMean Corpuscular Qxfmdenueh2995-15-71 11:31:00* Test Item Value Reference Range Interpretation Comments Mean Corpuscular Hemoglobin (test code = 785-6) 28.0 28-32 [facility] ClinicsMean Corpuscular Hemoglobin Concent 2018-06-26 11:31:00* Test Item Value Reference Range Interpretation Comments Mean Corpuscular Hemoglobin Concent (test code = 786-4) 32.5 31-35 [facility] ClinicsRed Cell Distribution Hhfbe6047-14-97 11:31:00* Test Item Value Reference Range Interpretation Comments Red Cell Distribution Width (test code = 46172-1) 13.4 11.7 -14.4 [facility] ClinicsPlatelet Incxp5494-33-02 11:31:00* Test Item Value Reference Range Interpretation Comments Platelet Count (test code = 777-3) 366 140-360 [facility] ClinicsNeutrophils (%) (Auto)2018-06-26 11:31:00 * Test Item Value Reference Range Interpretation Comments Neutrophils (%) (Auto) (test code = 57337-9) 61.6 38.7-80.0 [facility]icsLymphocytes (%) (Auto)2018-06-26 11:31:00 * Test Item Value Reference Range Interpretation Comments Lymphocytes (%) (Auto) (test code = 736-9) 20.8 18.0-39.1 [facility]icsMonocytes (%) (Auto)2018-06-26 11:31:00* Test Item Value Reference Range Interpretation Comments Monocytes (%) (Auto) (test code = 5905-5) 9.9 4.4-11.3 [facility]icsEosinophils (%) (Auto)2018-06-26 11:31:00 * Test Item Value Reference Range Interpretation Comments Eosinophils (%) (Auto) (test code = 713-8) 6.0 0.0-6.0 [facility]icsBasophils (%) (Auto)2018-06-26 11:31:00* Test Item Value Reference Range Interpretation Comments Basophils (%) (Auto) (test code = 706-2) 1.3 0.0-1.0 [facility] ClinicsIM GRANULOCYTES %2018-06-26 11:31:00* Test Item Value Reference Range Interpretation Comments IM GRANULOCYTES % (test code = IM GRANULOCYTES %) 0.4 0.0- 1.0 [facility]icsNeutrophils # (Auto)2018-06-26 11:31:00* Test Item Value Reference Range Interpretation Comments Neutrophils # (Auto) (test code = 751-8) 4.6 2.1-6.9 [facility]icsLymphocytes # (Auto)2018-06-26 11:31:00* Test Item Value Reference Range Interpretation Comments Lymphocytes # (Auto) (test code = 50997-5) 1.6 1.0-3.2 [facility]icsMonocytes # (Auto)2018-06-26 11:31:00* Test Item Value Reference Range Interpretation Comments Monocytes # (Auto) (test code = 742-7) 0.7 0.2-0.8 [facility]icsEosinophils # (Auto)2018-06-26 11:31:00* Test Item Value Reference Range Interpretation Comments Eosinophils # (Auto) (test code = 711-2) 0.5 0.0-0.4 [facility]icsBasophils # (Auto)2018-06-26 11:31:00* Test Item Value Reference Range Interpretation Comments Basophils # (Auto) (test code = 704-7) 0.1 0.0-0.1 [facility] ClinicsAbsolute Immature Granulocyte (auto 2018-06-26 11:31:00* Test Item Value Reference Range Interpretation Comments Absolute Immature Granulocyte (auto (krishna t code = Absolute Immature Granulocyte (auto) 0.03 0-0.1 [facility]icsWhite Blood Ebbfo5721-95-30 11:31:00* Test Item Value Reference Range Interpretation Comments White Blood Count (test code = 6690-2) 7.50 4.8-10.8 [facility] ClinicsRed Blood [id number] 11:31:00* Test Item Value Reference Range Interpretation Comments Red Blood Count (test code = 789-8) 4.78 3.6-5.1 [facility] ClinicsHemoglobin2018-08-31 11:31:00* Test Item Value Reference Range Interpretation Comments Hemoglobin (test code = 62475-2) 13.4 12.0-16.0 [facility] ClinicsHematocrit2018-08-31 11:31:00* Test Item Value Reference Range Interpretation Comments Hematocrit (test code = 4544-3) 41.2 34.2-44.1 [facility] ClinicsMean Corpuscular Hjbfhc3818-27-92 11:31:00* Test Item Value Reference Range Interpretation Comments Mean Corpuscular Volume (test code = 787-2) 86.2 81-99 [facility] ClinicsMean Corpuscular Ygnnayfran1817-05-41 11:31:00* Test Item Value Reference Range Interpretation Comments Mean Corpuscular Hemoglobin (test code = 785-6) 28.0 28-32 [facility] ClinicsMean Corpuscular Hemoglobin Concent 2018-06-26 11:31:00* Test Item Value Reference Range Interpretation Comments Mean Corpuscular Hemoglobin Concent (test code = 786-4) 32.5 31-35 [facility] ClinicsRed Cell Distribution Qncfb7034-83-90 11:31:00* Test Item Value Reference Range Interpretation Comments Red Cell Distribution Width (test code = 84843-7) 13.4 11.7 -14.4 [facility] ClinicsPlatelet Tlebe1707-66-22 11:31:00* Test Item Value Reference Range Interpretation Comments Platelet Count (test code = 777-3) 366 140-360 H [facility] ClinicsNeutrophils (%) (Auto)2018-06-26 11:31:00 * Test Item Value Reference Range Interpretation Comments Neutrophils (%) (Auto) (test code = 73304-8) 61.6 38.7-80.0 [facility]icsLymphocytes (%) (Auto)2018-06-26 11:31:00 * Test Item Value Reference Range Interpretation Comments Lymphocytes (%) (Auto) (test code = 736-9) 20.8 18.0-39.1 [facility]icsMonocytes (%) (Auto)2018-06-26 11:31:00* Test Item Value Reference Range Interpretation Comments Monocytes (%) (Auto) (test code = 5905-5) 9.9 4.4-11.3 [facility]icsEosinophils (%) (Auto)2018-06-26 11:31:00 * Test Item Value Reference Range Interpretation Comments Eosinophils (%) (Auto) (test code = 713-8) 6.0 0.0-6.0 [facility]icsBasophils (%) (Auto)2018-06-26 11:31:00* Test Item Value Reference Range Interpretation Comments Basophils (%) (Auto) (test code = 706-2) 1.3 0.0-1.0 [facility] ClinicsIM GRANULOCYTES %2018-06-26 11:31:00* Test Item Value Reference Range Interpretation Comments IM GRANULOCYTES % (test code = IM GRANULOCYTES %) 0.4 0.0- 1.0 [facility]icsNeutrophils # (Auto)2018-06-26 11:31:00* Test Item Value Reference Range Interpretation Comments Neutrophils # (Auto) (test code = 751-8) 4.6 2.1-6.9 [facility]icsLymphocytes # (Auto)2018-06-26 11:31:00* Test Item Value Reference Range Interpretation Comments Lymphocytes # (Auto) (test code = 90191-1) 1.6 1.0-3.2 [facility]icsMonocytes # (Auto)2018-06-26 11:31:00* Test Item Value Reference Range Interpretation Comments Monocytes # (Auto) (test code = 742-7) 0.7 0.2-0.8 [facility]icsEosinophils # (Auto)2018-06-26 11:31:00* Test Item Value Reference Range Interpretation Comments Eosinophils # (Auto) (test code = 711-2) 0.5 0.0-0.4 [facility]icsBasophils # (Auto)2018-06-26 11:31:00* Test Item Value Reference Range Interpretation Comments Basophils # (Auto) (test code = 704-7) 0.1 0.0-0.1 [facility] ClinicsAbsolute Immature Granulocyte (auto 2018-06-26 11:31:00* Test Item Value Reference Range Interpretation Comments Absolute Immature Granulocyte (auto (krishna t code = Absolute Immature Granulocyte (auto) 0.03 0-0.1 [facility] ClinicsWhite Blood Lbgvn4820-66-56 11:31:00* Test Item Value Reference Range Interpretation Comments White Blood Count (test code = 6690-2) 7.50 4.8-10.8 [facility] ClinicsRed Blood Wlpsb6609-07-90 11:31:00* Test Item Value Reference Range Interpretation Comments Red Blood Count (test code = 789-8) 4.78 3.6-5.1 [facility] ClinicsHemoglobin2018-08-31 11:31:00* Test Item Value Reference Range Interpretation Comments Hemoglobin (test code = 55294-8) 13.4 12.0-16.0 [facility] ClinicsHematocrit2018-08-31 11:31:00* Test Item Value Reference Range Interpretation Comments Hematocrit (test code = 4544-3) 41.2 34.2-44.1 [facility] ClinicsMean Corpuscular Ypbdua6649-08-77 11:31:00* Test Item Value Reference Range Interpretation Comments Mean Corpuscular Volume (test code = 787-2) 86.2 81-99 [facility] ClinicsMean Corpuscular Ceiyeeyspi8462-84-85 11:31:00* Test Item Value Reference Range Interpretation Comments Mean Corpuscular Hemoglobin (test code = 785-6) 28.0 28-32 [facility] ClinicsMean Corpuscular Hemoglobin Concent 2018-06-26 11:31:00* Test Item Value Reference Range Interpretation Comments Mean Corpuscular Hemoglobin Concent (test code = 786-4) 32.5 31-35 [facility] ClinicsRed Cell Distribution Kuhve0764-79-69 11:31:00* Test Item Value Reference Range Interpretation Comments Red Cell Distribution Width (test code = 44445-5) 13.4 11.7 -14.4 [facility] ClinicsPlatelet Xadoh3967-59-62 11:31:00* Test Item Value Reference Range Interpretation Comments Platelet Count (test code = 777-3) 366 140-360 H [facility] ClinicsNeutrophils (%) (Auto)2018-06-26 11:31:00 * Test Item Value Reference Range Interpretation Comments Neutrophils (%) (Auto) (test code = 37181-6) 61.6 38.7-80.0 [facility] ClinicsLymphocytes (%) (Auto)2018-06-26 11:31:00 * Test Item Value Reference Range Interpretation Comments Lymphocytes (%) (Auto) (test code = 736-9) 20.8 18.0-39.1 [facility]icsMonocytes (%) (Auto)2018-06-26 11:31:00* Test Item Value Reference Range Interpretation Comments Monocytes (%) (Auto) (test code = 5905-5) 9.9 4.4-11.3 [facility]icsEosinophils (%) (Auto)2018-06-26 11:31:00 * Test Item Value Reference Range Interpretation Comments Eosinophils (%) (Auto) (test code = 713-8) 6.0 0.0-6.0 [facility]icsBasophils (%) (Auto)2018-06-26 11:31:00* Test Item Value Reference Range Interpretation Comments Basophils (%) (Auto) (test code = 706-2) 1.3 0.0-1.0 [facility] ClinicsIM GRANULOCYTES %2018-06-26 11:31:00* Test Item Value Reference Range Interpretation Comments IM GRANULOCYTES % (test code = IM GRANULOCYTES %) 0.4 0.0- 1.0 [facility]icsNeutrophils # (Auto)2018-06-26 11:31:00* Test Item Value Reference Range Interpretation Comments Neutrophils # (Auto) (test code = 751-8) 4.6 2.1-6.9 [facility]icsLymphocytes # (Auto)2018-06-26 11:31:00* Test Item Value Reference Range Interpretation Comments Lymphocytes # (Auto) (test code = 98598-6) 1.6 1.0-3.2 [facility]icsMonocytes # (Auto)2018-06-26 11:31:00* Test Item Value Reference Range Interpretation Comments Monocytes # (Auto) (test code = 742-7) 0.7 0.2-0.8 [facility]icsEosinophils # (Auto)2018-06-26 11:31:00* Test Item Value Reference Range Interpretation Comments Eosinophils # (Auto) (test code = 711-2) 0.5 0.0-0.4 [facility]icsBasophils # (Auto)2018-06-26 11:31:00* Test Item Value Reference Range Interpretation Comments Basophils # (Auto) (test code = 704-7) 0.1 0.0-0.1 [facility] ClinicsAbsolute Immature Granulocyte (auto 2018-06-26 11:31:00* Test Item Value Reference Range Interpretation Comments Absolute Immature Granulocyte (auto (krishna t code = Absolute Immature Granulocyte (auto) 0.03 0-0.1 [facility] ClinicsWhite Blood [id number] 11:31:00* Test Item Value Reference Range Interpretation Comments White Blood Count (test code = 6690-2) 7.50 4.8-10.8 [facility] ClinicsRed Blood Nbocs0630-89-22 11:31:00* Test Item Value Reference Range Interpretation Comments Red Blood Count (test code = 789-8) 4.78 3.6-5.1 [facility]icsHemoglobin2018-08-31 11:31:00* Test Item Value Reference Range Interpretation Comments Hemoglobin (test code = 96110-4) 13.4 12.0-16.0 [facility]icsHematocrit2018-08-31 11:31:00* Test Item Value Reference Range Interpretation Comments Hematocrit (test code = 4544-3) 41.2 34.2-44.1 [facility] ClinicsMean Corpuscular Fhlocu5655-05-51 11:31:00* Test Item Value Reference Range Interpretation Comments Mean Corpuscular Volume (test code = 787-2) 86.2 81-99 [facility] ClinicsMean Corpuscular Ylsvuxjnup8637-91-28 11:31:00* Test Item Value Reference Range Interpretation Comments Mean Corpuscular Hemoglobin (test code = 785-6) 28.0 28-32 [facility] ClinicsMean Corpuscular Hemoglobin Concent 2018-06-26 11:31:00* Test Item Value Reference Range Interpretation Comments Mean Corpuscular Hemoglobin Concent (test code = 786-4) 32.5 31-35 [facility] ClinicsRed Cell Distribution Csvdi4638-24-16 11:31:00* Test Item Value Reference Range Interpretation Comments Red Cell Distribution Width (test code = 67881-6) 13.4 11.7 -14.4 [facility] ClinicsPlatelet Vmnai4952-59-50 11:31:00* Test Item Value Reference Range Interpretation Comments Platelet Count (test code = 777-3) 366 140-360 [facility] ClinicsNeutrophils (%) (Auto)2018-06-26 11:31:00 * Test Item Value Reference Range Interpretation Comments Neutrophils (%) (Auto) (test code = 89174-5) 61.6 38.7-80.0 [facility] ClinicsLymphocytes (%) (Auto)2018-06-26 11:31:00 * Test Item Value Reference Range Interpretation Comments Lymphocytes (%) (Auto) (test code = 736-9) 20.8 18.0-39.1 [facility]icsMonocytes (%) (Auto)2018-06-26 11:31:00* Test Item Value Reference Range Interpretation Comments Monocytes (%) (Auto) (test code = 5905-5) 9.9 4.4-11.3 [facility]icsEosinophils (%) (Auto)2018-06-26 11:31:00 * Test Item Value Reference Range Interpretation Comments Eosinophils (%) (Auto) (test code = 713-8) 6.0 0.0-6.0 [facility]icsBasophils (%) (Auto)2018-06-26 11:31:00* Test Item Value Reference Range Interpretation Comments Basophils (%) (Auto) (test code = 706-2) 1.3 0.0-1.0 [facility]icsIM GRANULOCYTES %2018-06-26 11:31:00* Test Item Value Reference Range Interpretation Comments IM GRANULOCYTES % (test code = IM GRANULOCYTES %) 0.4 0.0- 1.0 [facility]icsNeutrophils # (Auto)2018-06-26 11:31:00* Test Item Value Reference Range Interpretation Comments Neutrophils # (Auto) (test code = 751-8) 4.6 2.1-6.9 [facility] ClinicsLymphocytes # (Auto)2018-06-26 11:31:00* Test Item Value Reference Range Interpretation Comments Lymphocytes # (Auto) (test code = 32476-4) 1.6 1.0-3.2 [facility]icsMonocytes # (Auto)2018-06-26 11:31:00* Test Item Value Reference Range Interpretation Comments Monocytes # (Auto) (test code = 742-7) 0.7 0.2-0.8 [facility]icsEosinophils # (Auto)2018-06-26 11:31:00* Test Item Value Reference Range Interpretation Comments Eosinophils # (Auto) (test code = 711-2) 0.5 0.0-0.4 [facility]icsBasophils # (Auto)2018-06-26 11:31:00* Test Item Value Reference Range Interpretation Comments Basophils # (Auto) (test code = 704-7) 0.1 0.0-0.1 [facility] ClinicsAbsolute Immature Granulocyte (auto 2018-06-26 11:31:00* Test Item Value Reference Range Interpretation Comments Absolute Immature Granulocyte (auto (krishna t code = Absolute Immature Granulocyte (auto) 0.03 0-0.1 [facility]icsWhite Blood Ekrwv2604-84-21 11:31:00* Test Item Value Reference Range Interpretation Comments White Blood Count (test code = 6690-2) 7.50 4.8-10.8 [facility] ClinicsRed Blood Kekni8320-47-50 11:31:00* Test Item Value Reference Range Interpretation Comments Red Blood Count (test code = 789-8) 4.78 3.6-5.1 [facility] ClinicsHemoglobin2018-08-31 11:31:00* Test Item Value Reference Range Interpretation Comments Hemoglobin (test code = 61404-0) 13.4 12.0-16.0 [facility] ClinicsHematocrit2018-08-31 11:31:00* Test Item Value Reference Range Interpretation Comments Hematocrit (test code = 4544-3) 41.2 34.2-44.1 [facility] ClinicsMean Corpuscular Cwrryn3633-33-62 11:31:00* Test Item Value Reference Range Interpretation Comments Mean Corpuscular Volume (test code = 787-2) 86.2 81-99 [facility] ClinicsMean Corpuscular Bpjliltfty9910-45-56 11:31:00* Test Item Value Reference Range Interpretation Comments Mean Corpuscular Hemoglobin (test code = 785-6) 28.0 28-32 [facility] ClinicsMean Corpuscular Hemoglobin Concent 2018-06-26 11:31:00* Test Item Value Reference Range Interpretation Comments Mean Corpuscular Hemoglobin Concent (test code = 786-4) 32.5 31-35 [facility] ClinicsRed Cell Distribution Bxgeb0336-37-94 11:31:00* Test Item Value Reference Range Interpretation Comments Red Cell Distribution Width (test code = 71600-9) 13.4 11.7 -14.4 [facility] ClinicsPlatelet Bpnul6000-45-32 11:31:00* Test Item Value Reference Range Interpretation Comments Platelet Count (test code = 777-3) 366 140-360 [facility] ClinicsNeutrophils (%) (Auto)2018-06-26 11:31:00 * Test Item Value Reference Range Interpretation Comments Neutrophils (%) (Auto) (test code = 29696-2) 61.6 38.7-80.0 [facility] ClinicsLymphocytes (%) (Auto)2018-06-26 11:31:00 * Test Item Value Reference Range Interpretation Comments Lymphocytes (%) (Auto) (test code = 736-9) 20.8 18.0-39.1 [facility]icsMonocytes (%) (Auto)2018-06-26 11:31:00* Test Item Value Reference Range Interpretation Comments Monocytes (%) (Auto) (test code = 5905-5) 9.9 4.4-11.3 [facility]icsEosinophils (%) (Auto)2018-06-26 11:31:00 * Test Item Value Reference Range Interpretation Comments Eosinophils (%) (Auto) (test code = 713-8) 6.0 0.0-6.0 [facility]icsBasophils (%) (Auto)2018-06-26 11:31:00* Test Item Value Reference Range Interpretation Comments Basophils (%) (Auto) (test code = 706-2) 1.3 0.0-1.0 [facility]icsIM GRANULOCYTES %2018-06-26 11:31:00* Test Item Value Reference Range Interpretation Comments IM GRANULOCYTES % (test code = IM GRANULOCYTES %) 0.4 0.0- 1.0 [facility]icsNeutrophils # (Auto)2018-06-26 11:31:00* Test Item Value Reference Range Interpretation Comments Neutrophils # (Auto) (test code = 751-8) 4.6 2.1-6.9 [facility]icsLymphocytes # (Auto)2018-06-26 11:31:00* Test Item Value Reference Range Interpretation Comments Lymphocytes # (Auto) (test code = 76603-8) 1.6 1.0-3.2 [facility]icsMonocytes # (Auto)2018-06-26 11:31:00* Test Item Value Reference Range Interpretation Comments Monocytes # (Auto) (test code = 742-7) 0.7 0.2-0.8 [facility]icsEosinophils # (Auto)2018-06-26 11:31:00* Test Item Value Reference Range Interpretation Comments Eosinophils # (Auto) (test code = 711-2) 0.5 0.0-0.4 [facility]icsBasophils # (Auto)2018-06-26 11:31:00* Test Item Value Reference Range Interpretation Comments Basophils # (Auto) (test code = 704-7) 0.1 0.0-0.1 [facility] ClinicsAbsolute Immature Granulocyte (auto 2018-06-26 11:31:00* Test Item Value Reference Range Interpretation Comments Absolute Immature Granulocyte (auto (krishna t code = Absolute Immature Granulocyte (auto) 0.03 0-0.1 [facility]icsWhite Blood Owudj5297-25-18 11:31:00* Test Item Value Reference Range Interpretation Comments White Blood Count (test code = 6690-2) 7.50 4.8-10.8 [facility] ClinicsRed Blood Lpkcb3218-39-77 11:31:00* Test Item Value Reference Range Interpretation Comments Red Blood Count (test code = 789-8) 4.78 3.6-5.1 [facility] ClinicsHemoglobin2018-08-31 11:31:00* Test Item Value Reference Range Interpretation Comments Hemoglobin (test code = 83763-0) 13.4 12.0-16.0 [facility] ClinicsHematocrit2018-08-31 11:31:00* Test Item Value Reference Range Interpretation Comments Hematocrit (test code = 4544-3) 41.2 34.2-44.1 [facility] ClinicsMean Corpuscular Ewoxbf4439-13-21 11:31:00* Test Item Value Reference Range Interpretation Comments Mean Corpuscular Volume (test code = 787-2) 86.2 81-99 [facility] ClinicsMean Corpuscular Ylopjvjbsk0725-56-74 11:31:00* Test Item Value Reference Range Interpretation Comments Mean Corpuscular Hemoglobin (test code = 785-6) 28.0 28-32 [facility] ClinicsMean Corpuscular Hemoglobin Concent 2018-06-26 11:31:00* Test Item Value Reference Range Interpretation Comments Mean Corpuscular Hemoglobin Concent (test code = 786-4) 32.5 31-35 [facility] ClinicsRed Cell Distribution Laovc2828-61-66 11:31:00* Test Item Value Reference Range Interpretation Comments Red Cell Distribution Width (test code = 24209-7) 13.4 11.7 -14.4 [facility] ClinicsPlatelet Fdvwy8792-82-96 11:31:00* Test Item Value Reference Range Interpretation Comments Platelet Count (test code = 777-3) 366 140-360 [facility] ClinicsNeutrophils (%) (Auto)2018-06-26 11:31:00 * Test Item Value Reference Range Interpretation Comments Neutrophils (%) (Auto) (test code = 06415-2) 61.6 38.7-80.0 [facility] ClinicsLymphocytes (%) (Auto)2018-06-26 11:31:00 * Test Item Value Reference Range Interpretation Comments Lymphocytes (%) (Auto) (test code = 736-9) 20.8 18.0-39.1 [facility]icsMonocytes (%) (Auto)2018-06-26 11:31:00* Test Item Value Reference Range Interpretation Comments Monocytes (%) (Auto) (test code = 5905-5) 9.9 4.4-11.3 [facility]icsEosinophils (%) (Auto)2018-06-26 11:31:00 * Test Item Value Reference Range Interpretation Comments Eosinophils (%) (Auto) (test code = 713-8) 6.0 0.0-6.0 [facility]icsBasophils (%) (Auto)2018-06-26 11:31:00* Test Item Value Reference Range Interpretation Comments Basophils (%) (Auto) (test code = 706-2) 1.3 0.0-1.0 [facility] ClinicsIM GRANULOCYTES %2018-06-26 11:31:00* Test Item Value Reference Range Interpretation Comments IM GRANULOCYTES % (test code = IM GRANULOCYTES %) 0.4 0.0- 1.0 [facility]icsNeutrophils # (Auto)2018-06-26 11:31:00* Test Item Value Reference Range Interpretation Comments Neutrophils # (Auto) (test code = 751-8) 4.6 2.1-6.9 [facility]icsLymphocytes # (Auto)2018-06-26 11:31:00* Test Item Value Reference Range Interpretation Comments Lymphocytes # (Auto) (test code = 60491-9) 1.6 1.0-3.2 [facility]icsMonocytes # (Auto)2018-06-26 11:31:00* Test Item Value Reference Range Interpretation Comments Monocytes # (Auto) (test code = 742-7) 0.7 0.2-0.8 [facility]icsEosinophils # (Auto)2018-06-26 11:31:00* Test Item Value Reference Range Interpretation Comments Eosinophils # (Auto) (test code = 711-2) 0.5 0.0-0.4 [facility]icsBasophils # (Auto)2018-06-26 11:31:00* Test Item Value Reference Range Interpretation Comments Basophils # (Auto) (test code = 704-7) 0.1 0.0-0.1 [facility] ClinicsAbsolute Immature Granulocyte (auto 2018-06-26 11:31:00* Test Item Value Reference Range Interpretation Comments Absolute Immature Granulocyte (auto (krishna t code = Absolute Immature Granulocyte (auto) 0.03 0-0.1 [facility] Fymyl5851-25-23 05:03:00* Test Item Value Reference Range Interpretation Comments Sodium Level (test code = 2951-2) 139 136-145 [facility]icsPotassium Aaqcd6901-39-73 05:03:00* Test Item Value Reference Range Interpretation Comments Potassium Level (test code = 2823-3) 4.1 3.5-5.1 [facility] ClinicsChloride Qncrg6297-57-32 05:03:00* Test Item Value Reference Range Interpretation Comments Chloride Level (test code = 2075-0) 105 98-107 [facility] ClinicsCarbon Dioxide Gtnlw5095-53-10 05:03:00* Test Item Value Reference Range Interpretation Comments Carbon Dioxide Level (test code = 2028-9) 24 22-29 [facility] ClinicsAnion Pdk9493-10-77 05:03:00* Test Item Value Reference Range Interpretation Comments Anion Gap (test code = 09601-5) 14.1 8-16 [facility] ClinicsBlood Urea Psxqjnsu2778-25-30 05:03:00* Test Item Value Reference Range Interpretation Comments Blood Urea Nitrogen (test code = 3094-0) 10 7-26 [facility] ClinicsCreatinine2018-07-28 05:03:00* Test Item Value Reference Range Interpretation Comments Creatinine (test code = 2160-0) 0.93 0.57-1.11 [facility] ClinicsBUN/Creatinine Lwqxe1634-94-80 05:03:00* Test Item Value Reference Range Interpretation Comments BUN/Creatinine Ratio (test code = 3097-3) 11 6-25 [facility] ClinicsEstimat Glomerular Filtration Rate 2018-05-23 05:03:00* Test Item Value Reference Range Interpretation Comments Estimat Glomerular Filtration Rate (test code = 57965-2) 59 >60 L Ranges were taken from the National Kidney Disease Education Program and the [facility] Foundation literature.Reference ranges:60 or greater: Xnozrf03-83 ( for 3 consecutive months): Chronic kidney disease 15 or less: Kidney failureEast [facility] and ClinicsGlucose Budwl6075-93-73 05:03:00* Test Item Value Reference Range Interpretation Comments Glucose Level (test code = BOI1891) 118 74-118 [facility] ClinicsCalcium Vtztv5774-10-97 05:03:00* Test Item Value Reference Range Interpretation Comments Calcium Level (test code = 47269-1) 9.1 8.4-10.2 [facility] ClinicsTotal Bsvxgsckh5792-30-40 05:03:00* Test Item Value Reference Range Interpretation Comments Total Bilirubin (test code = 1975-2) 0.3 0.2-1.2 [facility] ClinicsAspartate Amino Transf (AST/SGOT) 2018-05-23 05:03:00* Test Item Value Reference Range Interpretation Comments Aspartate Amino Transf (AST/SGOT) (test code = Aspartate Amino Transf (AST/SGOT)) 15 5-34 [facility] ClinicsAlanine Aminotransferase (ALT/SGPT) 2018-05-23 05:03:00* Test Item Value Reference Range Interpretation Comments Alanine Aminotransferase (ALT/SGPT) (test code = 1742-6) 12 0-55 [facility] ClinicsTotal Nojfvqv6271-05-71 05:03:00* Test Item Value Reference Range Interpretation Comments Total Protein (test code = 2885-2) 6.2 6.5-8.1 L [facility] ClinicsAlbumin2018-07-28 05:03:00* Test Item Value Reference Range Interpretation Comments Albumin (test code = 1751-7) 3.3 3.5-5.0 L [facility] ClinicsGlobulin2018-07-28 05:03:00* Test Item Value Reference Range Interpretation Comments Globulin (test code = 71962-2) 2.9 2.3-3.5 [facility] ClinicsAlbumin/Globulin Qspuz6665-16-38 05:03:00 * Test Item Value Reference Range Interpretation Comments Albumin/Globulin Ratio (test code = 1759-0) 1.1 0.8-2.0 [facility] ClinicsAlkaline Tbagoeqcorp9265-36-00 05:03:00* Test Item Value Reference Range Interpretation Comments Alkaline Phosphatase (test code = 6768-6) 99 40-150 [facility] ClinicsProthrombin Codq8504-60-37 04:55:00* Test Item Value Reference Range Interpretation Comments Prothrombin Time (test code = 5902-2) 11.6 11.9-14.5 L [facility] ClinicsProthromb Time International Ratio 2018-05-23 04:55:00* Test Item Value Reference Range Interpretation Comments Prothromb Time International Ratio (test code = 6301-6) 0.92 Oral Anticoagulant Therapy INR Values:1. Low Intensity Therapy 1.5 - 2.02 . Moderate Intensity Therapy 2.0 - 3.03. High Intensity Therapy(1) 2.5 - 3. 54. High Intensity Therapy(2) 3.0 - 4.05. Panic Value INR > 5.0 [facility] ClinicsActivated Partial Thromboplast Time 2018-05-23 04:55:00* Test Item Value Reference Range Interpretation Comments Activated Partial Thromboplast Time (test code = 19966-6) 25.7 23.8-35.5 [facility] ClinicsProthrombin Mdzb5581-82-02 04:55:00* Test Item Value Reference Range Interpretation Comments Prothrombin Time (test code = 5902-2) 11.6 11.9-14.5 L [facility] ClinicsProthromb Time International Ratio 2018-05-23 04:55:00* Test Item Value Reference Range Interpretation Comments Prothromb Time International Ratio (test code = 6301-6) 0.92 Oral Anticoagulant Therapy INR Values:1. Low Intensity Therapy 1.5 - 2.02 . Moderate Intensity Therapy 2.0 - 3.03. High Intensity Therapy(1) 2.5 - 3. 54. High Intensity Therapy(2) 3.0 - 4.05. Panic Value INR > 5.0 [facility] ClinicsActivated Partial Thromboplast Time 2018-05-23 04:55:00* Test Item Value Reference Range Interpretation Comments Activated Partial Thromboplast Time (test code = 21590-3) 25.7 23.8-35.5 [facility] ClinicsProthrombin Siyh2391-34-82 04:55:00* Test Item Value Reference Range Interpretation Comments Prothrombin Time (test code = 5902-2) 11.6 11.9-14.5 L [facility] ClinicsProthromb Time International Ratio 2018-05-23 04:55:00* Test Item Value Reference Range Interpretation Comments Prothromb Time International Ratio (test code = 6301-6) 0.92 Oral Anticoagulant Therapy INR Values:1. Low Intensity Therapy 1.5 - 2.02 . Moderate Intensity Therapy 2.0 - 3.03. High Intensity Therapy(1) 2.5 - 3. 54. High Intensity Therapy(2) 3.0 - 4.05. Panic Value INR > 5.0 [facility] ClinicsActivated Partial Thromboplast Time 2018-05-23 04:55:00* Test Item Value Reference Range Interpretation Comments Activated Partial Thromboplast Time (test code = 69649-6) 25.7 23.8-35.5 [facility] ClinicsProthrombin Husz4603-63-70 04:55:00* Test Item Value Reference Range Interpretation Comments Prothrombin Time (test code = 5902-2) 11.6 11.9-14.5 L [facility] ClinicsProthromb Time International Ratio 2018-05-23 04:55:00* Test Item Value Reference Range Interpretation Comments Prothromb Time International Ratio (test code = 6301-6) 0.92 Oral Anticoagulant Therapy INR Values:1. Low Intensity Therapy 1.5 - 2.02 . Moderate Intensity Therapy 2.0 - 3.03. High Intensity Therapy(1) 2.5 - 3. 54. High Intensity Therapy(2) 3.0 - 4.05. Panic Value INR > 5.0 [facility] ClinicsActivated Partial Thromboplast Time 2018-05-23 04:55:00* Test Item Value Reference Range Interpretation Comments Activated Partial Thromboplast Time (test code = 05008-8) 25.7 23.8-35.5 [facility] ClinicsProthrombin Uezb2070-14-30 04:55:00* Test Item Value Reference Range Interpretation Comments Prothrombin Time (test code = 5902-2) 11.6 11.9-14.5 L [facility] ClinicsProthromb Time International Ratio 2018-05-23 04:55:00* Test Item Value Reference Range Interpretation Comments Prothromb Time International Ratio (test code = 6301-6) 0.92 Oral Anticoagulant Therapy INR Values:1. Low Intensity Therapy 1.5 - 2.02 . Moderate Intensity Therapy 2.0 - 3.03. High Intensity Therapy(1) 2.5 - 3. 54. High Intensity Therapy(2) 3.0 - 4.05. Panic Value INR > 5.0 [facility] ClinicsActivated Partial Thromboplast Time 2018-05-23 04:55:00* Test Item Value Reference Range Interpretation Comments Activated Partial Thromboplast Time (test code = 19118-8) 25.7 23.8-35.5 [facility] ClinicsProthrombin Yxer2304-33-01 04:55:00* Test Item Value Reference Range Interpretation Comments Prothrombin Time (test code = 5902-2) 11.6 11.9-14.5 L [facility] ClinicsProthromb Time International Ratio 2018-05-23 04:55:00* Test Item Value Reference Range Interpretation Comments Prothromb Time International Ratio (test code = 6301-6) 0.92 Oral Anticoagulant Therapy INR Values:1. Low Intensity Therapy 1.5 - 2.02 . Moderate Intensity Therapy 2.0 - 3.03. High Intensity Therapy(1) 2.5 - 3. 54. High Intensity Therapy(2) 3.0 - 4.05. Panic Value INR > 5.0 [facility] ClinicsActivated Partial Thromboplast Time 2018-05-23 04:55:00* Test Item Value Reference Range Interpretation Comments Activated Partial Thromboplast Time (test code = 16902-1) 25.7 23.8-35.5 [facility] ClinicsProthrombin [id number] 04:55:00* Test Item Value Reference Range Interpretation Comments Prothrombin Time (test code = 5902-2) 11.6 11.9-14.5 L [facility] ClinicsProthromb Time International Ratio 2018-05-23 04:55:00* Test Item Value Reference Range Interpretation Comments Prothromb Time International Ratio (test code = 6301-6) 0.92 Oral Anticoagulant Therapy INR Values:1. Low Intensity Therapy 1.5 - 2.02 . Moderate Intensity Therapy 2.0 - 3.03. High Intensity Therapy(1) 2.5 - 3. 54. High Intensity Therapy(2) 3.0 - 4.05. Panic Value INR > 5.0 [facility] ClinicsActivated Partial Thromboplast Time 2018-05-23 04:55:00* Test Item Value Reference Range Interpretation Comments Activated Partial Thromboplast Time (test code = 35226-8) 25.7 23.8-35.5 [facility] ClinicsProthrombin [id number] 04:55:00* Test Item Value Reference Range Interpretation Comments Prothrombin Time (test code = 5902-2) 11.6 11.9-14.5 L [facility] ClinicsProthromb Time International Ratio 2018-05-23 04:55:00* Test Item Value Reference Range Interpretation Comments Prothromb Time International Ratio (test code = 6301-6) 0.92 Oral Anticoagulant Therapy INR Values:1. Low Intensity Therapy 1.5 - 2.02 . Moderate Intensity Therapy 2.0 - 3.03. High Intensity Therapy(1) 2.5 - 3. 54. High Intensity Therapy(2) 3.0 - 4.05. Panic Value INR > 5.0 [facility] ClinicsActivated Partial Thromboplast Time 2018-05-23 04:55:00* Test Item Value Reference Range Interpretation Comments Activated Partial Thromboplast Time (test code = 55868-0) 25.7 23.8-35.5 [facility] ClinicsProthrombin [id number] 04:55:00* Test Item Value Reference Range Interpretation Comments Prothrombin Time (test code = 5902-2) 11.6 11.9-14.5 L [facility] ClinicsProthromb Time International Ratio 2018-05-23 04:55:00* Test Item Value Reference Range Interpretation Comments Prothromb Time International Ratio (test code = 6301-6) 0.92 Oral Anticoagulant Therapy INR Values:1. Low Intensity Therapy 1.5 - 2.02 . Moderate Intensity Therapy 2.0 - 3.03. High Intensity Therapy(1) 2.5 - 3. 54. High Intensity Therapy(2) 3.0 - 4.05. Panic Value INR > 5.0 [facility]icsActivated Partial Thromboplast Time 2018-05-23 04:55:00* Test Item Value Reference Range Interpretation Comments Activated Partial Thromboplast Time (test code = 62115-3) 25.7 23.8-35.5 [facility] ClinicsProthrombin [id number] 04:55:00* Test Item Value Reference Range Interpretation Comments Prothrombin Time (test code = 5902-2) 11.6 11.9-14.5 L [facility] ClinicsProthromb Time International Ratio 2018-05-23 04:55:00* Test Item Value Reference Range Interpretation Comments Prothromb Time International Ratio (test code = 6301-6) 0.92 Oral Anticoagulant Therapy INR Values:1. Low Intensity Therapy 1.5 - 2.02 . Moderate Intensity Therapy 2.0 - 3.03. High Intensity Therapy(1) 2.5 - 3. 54. High Intensity Therapy(2) 3.0 - 4.05. Panic Value INR > 5.0 [facility] ClinicsActivated Partial Thromboplast Time 2018-05-23 04:55:00* Test Item Value Reference Range Interpretation Comments Activated Partial Thromboplast Time (test code = 79689-1) 25.7 23.8-35.5 [facility] ClinicsProthrombin [id number] 04:55:00* Test Item Value Reference Range Interpretation Comments Prothrombin Time (test code = 5902-2) 11.6 11.9-14.5 L [facility] ClinicsProthromb Time International Ratio 2018-05-23 04:55:00* Test Item Value Reference Range Interpretation Comments Prothromb Time International Ratio (test code = 6301-6) 0.92 Oral Anticoagulant Therapy INR Values:1. Low Intensity Therapy 1.5 - 2.02 . Moderate Intensity Therapy 2.0 - 3.03. High Intensity Therapy(1) 2.5 - 3. 54. High Intensity Therapy(2) 3.0 - 4.05. Panic Value INR > 5.0 [facility] ClinicsActivated Partial Thromboplast Time 2018-05-23 04:55:00* Test Item Value Reference Range Interpretation Comments Activated Partial Thromboplast Time (test code = 83306-2) 25.7 23.8-35.5 [facility] ClinicsWhite Blood [id number] 04:37:00* Test Item Value Reference Range Interpretation Comments White Blood Count (test code = 6690-2) 11.61 4.8-10.8 H [facility] ClinicsRed Blood [id number] 04:37:00* Test Item Value Reference Range Interpretation Comments Red Blood Count (test code = 789-8) 4.43 3.6-5.1 [facility] ClinicsHemoglobin2018-07-28 04:37:00* Test Item Value Reference Range Interpretation Comments Hemoglobin (test code = 37819-2) 12.2 12.0-16.0 [facility] ClinicsHematocrit2018-07-28 04:37:00* Test Item Value Reference Range Interpretation Comments Hematocrit (test code = 4544-3) 37.9 34.2-44.1 [facility] ClinicsMean Corpuscular [id number] 04:37:00* Test Item Value Reference Range Interpretation Comments Mean Corpuscular Volume (test code = 787-2) 85.6 81-99 [facility] ClinicsMean Corpuscular [id number] 04:37:00* Test Item Value Reference Range Interpretation Comments Mean Corpuscular Hemoglobin (test code = 785-6) 27.5 28-32 L [facility] ClinicsMean Corpuscular Hemoglobin Concent 2018-05-23 04:37:00* Test Item Value Reference Range Interpretation Comments Mean Corpuscular Hemoglobin Concent (test code = 786-4) 32.2 31-35 [facility] ClinicsRed Cell Distribution [id number] 04:37:00* Test Item Value Reference Range Interpretation Comments Red Cell Distribution Width (test code = 01026-0) 14.1 11.7 -14.4 [facility] ClinicsPlatelet [id number] 04:37:00* Test Item Value Reference Range Interpretation Comments Platelet Count (test code = 777-3) 364 140-360 H [facility] ClinicsNeutrophils (%) (Auto)2018-05-23 04:37:00 * Test Item Value Reference Range Interpretation Comments Neutrophils (%) (Auto) (test code = 63329-7) 58.0 38.7-80.0 [facility] ClinicsLymphocytes (%) (Auto)2018-05-23 04:37:00 * Test Item Value Reference Range Interpretation Comments Lymphocytes (%) (Auto) (test code = 736-9) 25.6 18.0-39.1 [facility] ClinicsMonocytes (%) (Auto)2018-05-23 04:37:00* Test Item Value Reference Range Interpretation Comments Monocytes (%) (Auto) (test code = 5905-5) 9.6 4.4-11.3 [facility] ClinicsEosinophils (%) (Auto)2018-05-23 04:37:00 * Test Item Value Reference Range Interpretation Comments Eosinophils (%) (Auto) (test code = 713-8) 5.5 0.0-6.0 [facility] ClinicsBasophils (%) (Auto)2018-05-23 04:37:00* Test Item Value Reference Range Interpretation Comments Basophils (%) (Auto) (test code = 706-2) 0.3 0.0-1.0 [facility] ClinicsIM GRANULOCYTES %2018-05-23 04:37:00* Test Item Value Reference Range Interpretation Comments IM GRANULOCYTES % (test code = IM GRANULOCYTES %) 1.0 0.0- 1.0 [facility] ClinicsNeutrophils # (Auto)2018-05-23 04:37:00* Test Item Value Reference Range Interpretation Comments Neutrophils # (Auto) (test code = 751-8) 6.7 2.1-6.9 [facility] ClinicsLymphocytes # (Auto)2018-05-23 04:37:00* Test Item Value Reference Range Interpretation Comments Lymphocytes # (Auto) (test code = 87592-9) 3.0 1.0-3.2 [facility] ClinicsMonocytes # (Auto)2018-05-23 04:37:00* Test Item Value Reference Range Interpretation Comments Monocytes # (Auto) (test code = 742-7) 1.1 0.2-0.8 H [facility] ClinicsEosinophils # (Auto)2018-05-23 04:37:00* Test Item Value Reference Range Interpretation Comments Eosinophils # (Auto) (test code = 711-2) 0.6 0.0-0.4 H [facility] ClinicsBasophils # (Auto)2018-05-23 04:37:00* Test Item Value Reference Range Interpretation Comments Basophils # (Auto) (test code = 704-7) 0.0 0.0-0.1 [facility] ClinicsAbsolute Immature Granulocyte (auto 2018-05-23 04:37:00* Test Item Value Reference Range Interpretation Comments Absolute Immature Granulocyte (auto (krishna t code = Absolute Immature Granulocyte (auto) 0.12 0-0.1 H [facility] ClinicsCHEST 2 [id number] 17:01:00 [place] [address] Patient Name: ELFEGO DEGROOT MR #: [id number] : 1945 Age/Sex: 72/F Req #: [id number] Adm Physician: Ordered by: TAN FULTON MD Report #: [id number] Location: [facility] Room/Bed: Procedure: [id number] DX/CHEST 2 VIEWS Exam Date: 0 04/02/18 Exam Time: 1609 REPORT STATUS: Signed PROCEDURE: Frontal and lateral views of the chest. COMPARISON: Patient s [facility], DX, CHEST 2 VIEWS, 06/13/2015, 11:46. INDICATIONS: [...] By: PEPE TRONCOSO MD 170 Transcribed By: DEJA on 04/02/18 170 COPY TO: TAN FULTON MD CT ABDOMEN/PELVIS [place] [address] Patient Name: ELFEGO DEGROOT MR #: [id number] : 1945 Age/Sex: 71/F Req #: [id number] Adm Physician: Ordered by: FAUSTINO WADE MD Report #: [id number] Location: CT Room/Bed: Procedure: [id number] CT/CT ABDOMEN/PELVIS WO Exam D ate: 09/08/17 [...] at 15:03 Dictated By: PEPE TRONCOSO MD 1502 Transcribed By: DEJA on 09/08/17 1503 COPY TO : FAUSTINO WADE MD US RENAL RETROPERITONEAL COMP [place] [address] Patient Name: ELFEGO DEGROOT MR #: [id number] : 1945 Age/Sex: 71/F Req #: [id number] Adm Physician: Ordered by: FAUSTINO WADE MD Report #: [id number] Location: US Room/Bed: Procedure: [id number] US/US RENAL RETROPERITONEAL COM P Exam Date: [...] 3:03 PM Dictated By: DAREK RAMIREZ MD 1507 COPY TO: FAUSTINO WEI MD ABDOMEN-1VIEW (KUB) [place] [address] Patient Name: ELFEGO DEGROOT MR #: [id number] : 1945 Age/Sex: 71/F Req #: [id number] Adm Physician: Ordered by: FAUSTINO WADE MD Report #: [id number] Location: Room/Bed: Procedure: [id number] DX/ABDOMEN-1VIEW (KUB) Exam Da te: Exam Time: [...]
[2020-07-11] MEDS ORDERED: PREDNISONE20 MG PO (15:56)
--- NOTE | 2020-07-11 15:57 | Emergency Department Note ---
History of Present Illnes History of Present Illness Chief Complaint: angioedema left upper eyelid History of Present Illness This is a 74 year old female. was doing well prior to this. 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 Onset (how long ago): day(s) (3) Location: left upper eyelid Quality: mild Radiation: Reports non-radiation Severity: mild Onset quality: gradual Duration (how long): day(s) (3) Timing of current episode: constant Progression: worsening Chronicity: recurrent Context: Denies recent illness, Denies recent surgery, Denies recent immobilization, Denies recent travel, Denies trauma/injury, Denies new medications, Denies hx of DVT/PE, Denies non-compliance w/ medications Relieving factors: none Exacerbating factors: none Associated symptoms: Reports denies other symptoms Treatments prior to arrival: none Past Medical/Family History Physician Review I have reviewed the patient's past medical and family history. Any updates have been documented here. Past Medical History Recent Fever: No Clinical Suspicion of Infectio: No New/Unexplained Change in Ment: No Past Medical History: Hypothyroidism Other Medical History: Fibromyalgia Chronic angioadema/hives Past Surgical History: Hysterectomy, Lumpectomy, Cataract Removal Other Surgery: Lt BREAST LUMPECTOMY HEART CATH cataracts Social History Smoking Cessation: Never Smoker Counseling Performed: No Any Illegal Drug Use: No TB Exposure/Symptoms: No Physically hurt or threatened: No Family History Family history of heart diseas: No Other Last Tetanus: UTD Any Pre-Existing Lines (PICC,: No Is patient up to date on immun: No Review of Systems Review of Systems Constitutional: Reports no symptoms EENTM: Reports as per HPI, Reports other (left upper eyelid swelling) Cardiovascular: Reports no symptoms Respiratory: Reports no symptoms Gastrointestinal: Reports no symptoms Genitourinary: Reports no symptoms Musculoskeletal: Reports no symptoms Integumentary: Reports no symptoms Neurological: Reports no symptoms Psychological: Reports no symptoms Endocrine: Reports no symptoms Hematological/Lymphatic: Reports no symptoms Review of other systems: All other systems negative Physical Exam Related Data Allergies: Coded Allergies: ciprofloxacin (Verified Allergy, Severe, 07/25/18) epinephrine (Verified Allergy, Unknown, HIVES WITH EPI PEN, 04/23/20) ampicillin (Verified Adverse Reaction, Mild, DIARRHEA, 07/25/18) Uncoded Allergies: EPI PEN (Allergy, Unknown, HIVES, 06/22/19) only allergic to the epi pen but can have regular epi Vital signs reviewed: Yes Physical Exam CONSTITUTIONAL Constitutional: Present well-developed, Present well-nourished HENT HENT: Present normocephalic, Present atraumatic, Present oropharynx clear/moist, Present nose normal, Present other (left upper eyelid swelling/ nontender) HENT L/R: Present left ext ear normal, Present right ext ear normal EYES Eyes: Reports PERRL, Reports conjunctivae normal NECK Neck: Present ROM normal, Present supple PULMONARY Pulmonary: Present effort normal, Present breath sounds normal CARDIOVASCULAR Cardiovascular: Present regular rhythm, Present heart sounds normal, Present capillary refill normal, Present normal rate GASTROINTESTINAL Abdominal: Present soft, Present nontender, Present bowel sounds normal GENITOURINARY Genitourinary: Present exam deferred SKIN Skin: Present warm, Present dry MUSCULOSKELETAL Musculoskeletal: Present ROM normal NEUROLOGICAL Neurological: Present alert, Present oriented x 3, Present no gross motor or sensory deficits PSYCHOLOGICAL Psychological: Present mood/affect normal, Present judgement normal Assessment & Plan Medical Decision Making MDM see below Assessment & Plan Final Impression: (1) Angioedema Depart Disposition: HOME, SELF-FCI Meds Active Scripts Prednisone (PREDNISONE) 20 Mg Tab, 60 MG PO DAILY, #15 TAB TAKE ALL 3 20 MG PILLS AT ONCE// START TOMORROW Prov:JOSSUE ROCHA 07/11/20 Famotidine (FAMOTIDINE) 20 Mg Tab, 20 MG PO BID, #30 TAB Prov:ROBERT DENIS MD 06/04/20 Dexamethasone (DEXAMETHASONE) 6 Mg Tablet, 1 TAB PO DAILY, #7 Prov:ROBERT DENIS MD 06/04/20 Mometasone Furoate (NASONEX) 17 Gm [place], 2 SPRAYS NA DAILY, #1 BOTTLE 1 Refill Prov:PATTI TREVINO MD 07/18/18 Reported Medications Lactobac Cmb #3/Fos/Pantethine (PROBIOTIC & ACIDOPHILUS CAP) 1 Each Capsule, 1 TAB PO DAILY 03/23/20 Biotin (BIOTIN) 1 Mg Tablet, 1 TAB PO DAILY 03/23/20 Omeprazole Magnesium (PRILOSEC OTC) 20 Mg Tablet.dr, 20 MG PO DAILY 03/15/20 Ascorbic Acid (VITAMIN C) 500 Mg Tab.chew, DAILY 06/22/19 Methylprednisolone (METHYLPREDNISOLONE) 4 Mg Tab.ds.pk, PRN 06/22/19 Lactose-Free Food (ENSURE PLUS) 237 Ml Liquid, BID 06/22/19 Fexofenadine Hcl (TIFFANY ALLERGY) 180 Mg Tablet, DAILY 06/22/19 Cetirizine Hcl (CETIRIZINE HCL) 5 Mg Tablet, 20 DAILY 06/22/19 Amlodipine Besylate (AMLODIPINE BESYLATE) 5 Mg Tablet, 5 MG PO DAILY, #30 TAB 06/22/19 Montelukast Sodium (SINGULAIR) 10 Mg Tablet, DAILY 02/01/19 Diphenhydramine Hcl (BENADRYL) 25 Mg Capsule, 25 MG PO PRN 12/03/18 Levothyroxine Sodium (SYNTHROID) 125 Mcg Tab, 125 MCG PO DAILY, #90 05/23/18 Lorazepam (LORAZEPAM) 2 Mg Tablet, 2 MG PO TID PRN for ANXIETY, #210 05/23/18 JOSSUE ROCHA Jul 11, 2020 15:57
[2020-07-11] MEDS ORDERED: PREDNISONE 20 MG TAB PO ONE (16:00)
[2020-07-11] MEDS ORDERED: PREDNISONE 20 MG TAB ONE (16:17)
== END 2020-07-11 16:50 | disposition home or self-care (01) ==
LOC: FSED 15:06
DX: T78.3XXA Angioneurotic edema, initial encounter (principal); E03.9 Hypothyroidism, unspecified; M79.7 Fibromyalgia
CPT/HCPCS: 99282; J7512

== ENCOUNTER 2020-07-20 09:30 | Emergency (ER) | payer MEDICARE, OTHER ==
[~2020-07-20] VITALS: Ht 162.6 cm; Wt 79.4 kg
[2020-07-20] MEDS ORDERED: FAMOTIDINE 20 MG/2 ML VIAL IV ONE (10:04)
[2020-07-20] MEDS ORDERED: METHYLPREDNISOLONE SOD SUCC 125 MG/2ML VIAL ONE (10:04)
[2020-07-20] MEDS ORDERED: DIPHENHYDRAMINE HCL INJ 50 MG/ML VIAL ONE (10:04)
[2020-07-20] MEDS ORDERED: SODIUM CHLORIDE 0.9% 250ML 250 ML ONE (10:04)
[2020-07-20] MEDS ORDERED: FAMOTIDINE 20 MG/2 ML VIAL IV STA (10:07)
[2020-07-20] MEDS ORDERED: SODIUM CHLORIDE 0.9% 250ML 250 ML IV ONE (10:15)
[2020-07-20] MEDS ORDERED: DIPHENHYDRAMINE HCL INJ 50 MG/ML VIAL IV ONE (10:15)
[2020-07-20] MEDS ORDERED: METHYLPREDNISOLONE SOD SUCC 125 MG/2ML VIAL IV ONE (10:15)
[2020-07-20] MEDS ORDERED: EPINEPHRINE HCL 1:1000 1ML 1 MG/ML AMP ONE (10:24)
[2020-07-20] MEDS ORDERED: EPINEPHRINE HCL 1:1000 1ML 1 MG/ML AMP SC ONE (10:30)
--- NOTE | 2020-07-20 10:45 | Emergency Department Note ---
History of Present Illnes History of Present Illness Chief Complaint: Skin Rash or Abscess History of Present Illness This is a 74 year old female Chief Complaint Comment RASH. NO AIRWAY IMPAIRMENT. AAOX4. AMBULATORY. NO ACUTE DISTRESS. . Historian: Patient Arrival Mode: Car Onset (how long ago): day(s) (2) Location: generalized Quality: itching Radiation: Denies non-radiation, Denies back, Denies neck, Denies extremity, Denies abdomen, Denies periumbilical, Denies flank, Denies proximal, Denies distal, Denies other Severity: moderate Onset quality: gradual Duration (how long): day(s) (2) Timing of current episode: constant Progression: worsening Chronicity: recurrent Context: Denies recent illness, Denies recent surgery, Denies recent immobilization, Denies recent travel, Denies trauma/injury, Denies new medications, Denies hx of DVT/PE, Denies non-compliance w/ medications, Denies other Relieving factors: none Exacerbating factors: none Associated symptoms: Denies denies other symptoms, Denies confusion, Denies chest pain, Denies cough, Denies diaphoresis, Denies fever/chills, Denies h eadaches, Denies loss of appetite, Denies malaise, Denies nausea/vomiting, Denies rash, Denies seizure, Denies shortness of breath, Denies syncope, Denies weakness, Denies other Treatments prior to arrival: none Past Medical/Family History Physician Review I have reviewed the patient's past medical and family history. Any updates have been documented here. Past Medical History Recent Fever: No Clinical Suspicion of Infectio: No New/Unexplained Change in Ment: No Past Medical History: Hypothyroidism Other Medical History: Fibromyalgia Chronic angioadema/hives Past Surgical History: Hysterectomy, Lumpectomy, Cataract Removal Other Surgery: Lt BREAST LUMPECTOMY HEART CATH cataracts Social History Counseling Performed: No Alcohol Use: None Any Illegal Drug Use: No Other Last Tetanus: UTD Any Pre-Existing Lines (PICC,: No Review of Systems Review of Systems Constitutional: Reports no symptoms EENTM: Reports no symptoms Cardiovascular: Reports no symptoms Respiratory: Reports no symptoms Gastrointestinal: Reports no symptoms Genitourinary: Reports no symptoms Musculoskeletal: Reports no symptoms Integumentary: Reports no symptoms, Reports as per HPI Neurological: Reports no symptoms Psychological: Reports no symptoms Endocrine: Reports no symptoms Hematological/Lymphatic: Reports no symptoms Physical Exam Related Data Allergies: Coded Allergies: ciprofloxacin (Verified Allergy, Severe, 07/25/18) epinephrine (Verified Allergy, Unknown, HIVES WITH EPI PEN, 04/23/20) ampicillin (Verified Adverse Reaction, Mild, DIARRHEA, 07/25/18) Uncoded Allergies: EPI PEN (Allergy, Unknown, HIVES, 06/22/19) only allergic to the epi pen but can have regular epi Triage Vital Signs Vital Signs Date Time Temp Pulse Resp B/P (MAP) Pulse Ox O2 Delivery O2 Flow Rate FiO2 07/20/20 09:33 97.3 96 16 144/90 100 Room Air Vital signs reviewed: Yes Physical Exam CONSTITUTIONAL Constitutional: Present well-developed, Present well-nourished HENT HENT: Present normocephalic, Present atraumatic, Present oropharynx clear/moist, Present nose normal HENT L/R: Present left ext ear normal, Present right ext ear normal EYES Eyes: Reports PERRL, Reports conjunctivae normal NECK Neck: Present ROM normal PULMONARY Pulmonary: Present effort normal, Present breath sounds normal CARDIOVASCULAR Cardiovascular: Present regular rhythm, Present heart sounds normal, Present capillary refill normal, Present normal rate GASTROINTESTINAL Abdominal: Present soft, Present nontender, Present bowel sounds normal GENITOURINARY Genitourinary: Present exam deferred SKIN Skin: Present warm, Present dry, Present rash (maculopapular) MUSCULOSKELETAL Musculoskeletal: Present ROM normal NEUROLOGICAL Neurological: Present alert, Present oriented x 3, Present no gross motor or sensory deficits PSYCHOLOGICAL Psychological: Present mood/affect normal, Present judgement normal Assessment & Plan Medical Decision Making MDM allergic reaction contact dermatitis Reassessment Reassessment time: 10:44 Reassessment better Assessment & Plan Final Impression: (1) Acute allergic reaction (2) Urticaria Depart Disposition: HOME, SELF-CARE Last Vital Signs Date Time Temp Pulse Resp B/P (MAP) Pulse Ox O2 Delivery O2 Flow Rate FiO2 07/20/20 10:22 133/77 07/20/20 10:10 85 20 100 Room Air 07/20/20 09:33 97.3 Home Meds Active Scripts Prednisone (PREDNISONE) 20 Mg Tab, 60 MG PO DAILY, #15 TAB TAKE ALL 3 20 MG PILLS AT ONCE// START TOMORROW Prov:JOSSUE ROCHA 07/11/20 Famotidine (FAMOTIDINE) 20 Mg Tab, 20 MG PO BID, #30 TAB Prov:ROBERT DENIS MD 06/04/20 Dexamethasone (DEXAMETHASONE) 6 Mg Tablet, 1 TAB PO DAILY, #7 Prov:ROBERT DENIS MD 06/04/20 Mometasone Furoate (NASONEX) 17 Gm [place], 2 SPRAYS NA DAILY, #1 BOTTLE 1 Refill Prov:PATTI TREVINO MD 07/18/18 Reported Medications Lactobac Cmb #3/Fos/Pantethine (PROBIOTIC & ACIDOPHILUS CAP) 1 Each Capsule, 1 TAB PO DAILY 03/23/20 Biotin (BIOTIN) 1 Mg Tablet, 1 TAB PO DAILY 03/23/20 Omeprazole Magnesium (PRILOSEC OTC) 20 Mg Tablet.dr, 20 MG PO DAILY 03/15/20 Ascorbic Acid (VITAMIN C) 500 Mg Tab.chew, DAILY 06/22/19 Methylprednisolone (METHYLPREDNISOLONE) 4 Mg Tab.ds.pk, PRN 06/22/19 Lactose-Free Food (ENSURE PLUS) 237 Ml Liquid, BID 06/22/19 Fexofenadine Hcl (TIFFANY ALLERGY) 180 Mg Tablet, DAILY 06/22/19 Cetirizine Hcl (CETIRIZINE HCL) 5 Mg Tablet, 20 DAILY 06/22/19 Amlodipine Besylate (AMLODIPINE BESYLATE) 5 Mg Tablet, 5 MG PO DAILY, #30 TAB 06/22/19 Montelukast Sodium (SINGULAIR) 10 Mg Tablet, DAILY 02/01/19 Diphenhydramine Hcl (BENADRYL) 25 Mg Capsule, 25 MG PO PRN 12/03/18 Levothyroxine Sodium (SYNTHROID) 125 Mcg Tab, 125 MCG PO DAILY, #90 05/23/18 Lorazepam (LORAZEPAM) 2 Mg Tablet, 2 MG PO TID PRN for ANXIETY, #210 05/23/18 Medications in the ED Diphenhydramine HCl 50 mg STK-MED ONCE .ROUTE ; Start 07/20/20 at 10:04; Stop 07/20/20 at 09:58; Status DC Methylprednisolone Sodium Succinate 125 mg STK-MED ONCE .ROUTE ; Start 07/20/20 at 10:04; Stop 07/20/20 at 09:58; Status DC Sodium Chloride 250 ml @ ud STK-MED ONCE .ROUTE ; Start 07/20/20 at 10:04; Stop 07/20/20 at 09:58; Status DC Famotidine 20 mg STK-MED ONCE IV ; Start 07/20/20 at 10:04; Stop 07/20/20 at 09:58; Status DC Sodium Chloride 250 ml @ 0 mls/hr ONCE ONCE IV Last administered on 07/20/20at 10:00; Admin Dose 250 MLS/HR; Start 07/20/20 at 10:15; Stop 07/20/20 at 10:17; Status DC Methylprednisolone Sodium Succinate 125 mg ONCE ONCE IV Last administered on 07/20/20at 10:00; Admin Dose 125 MG; Start 07/20/20 at 10:15; Stop 07/20/20 at 10:31; Status DC Diphenhydramine HCl 25 mg NOW ONCE IV Last administered on 07/20/20at 10:00; Admin Dose 25 MG; Start 07/20/20 at 10:15; Stop 07/20/20 at 10:31; Status DC Famotidine 20 mg NOW STAT IV Last administered on 07/20/20at 10:00; Admin Dose 20 MG; Start 07/20/20 at 10:07; Stop 07/20/20 at 10:31; Status DC Epinephrine HCl 1 mg STK-MED ONCE .ROUTE ; Start 07/20/20 at 10:24; Stop 07/20/20 at 10:19; Status DC Epinephrine HCl 0.3 mg ONCE ONCE SC Last administered on 07/20/20at 10:22; Admin Dose 0.3 MG; Start 07/20/20 at 10:30; Stop 07/20/20 at 10:31; Status DC IGOR FUNEZ MD Jul 20, 2020 10:45
== END 2020-07-20 10:54 | disposition home or self-care (01) ==
LOC: FSED 10:45
DX: L50.9 Urticaria, unspecified (principal); T78.40XA Allergy, unspecified, initial encounter; E03.9 Hypothyroidism, unspecified; M79.7 Fibromyalgia
CPT/HCPCS: 94760; 99284; J0171; J1200; J2930; J7050

== ENCOUNTER 2020-07-28 17:49 | Emergency (ER) | payer MEDICARE, OTHER ==
[~2020-07-28] VITALS: Ht 162.6 cm; Wt 79.4 kg
--- NOTE | 2020-07-28 17:56 | Emergency Department Note ---
History of Present Illnes History of Present Illness Chief Complaint: Extremity Trauma/Pain History of Present Illness This is a 74 year old female Chief Complaint Comment rash Historian: Patient, Family Member Arrival Mode: Car Onset (how long ago): day(s) (1) Location: all over Quality: rash Radiation: Reports non-radiation Onset quality: gradual Duration (how long): day(s) (1) Timing of current episode: constant Progression: unchanged Chronicity: new Context: Denies recent illness, Denies recent surgery, Denies recent immobilization, Denies recent travel, Denies trauma/injury, Denies new medications, Denies hx of DVT/PE, Denies non-compliance w/ medications, Denies other Relieving factors: none Exacerbating factors: none Associated symptoms: Denies denies other symptoms, Denies confusion, Denies chest pain, Denies cough, Denies diaphoresis, Denies fever/chills, Denies headaches, Denies loss of appetite, Denies malaise, Denies nausea/vomiting, Denies rash, Denies seizure, Denies shortness of breath, Denies syncope, Denies weakness, Denies other Past Medical/Family History Physician Review I have reviewed the patient's past medical and family history. Any updates have been documented here. Past Medical History Recent Fever: No Clinical Suspicion of Infectio: No New/Unexplained Change in Ment: No Past Medical History: Hypothyroidism Other Medical History: Fibromyalgia Chronic angioadema/hives Past Surgical History: Hysterectomy, Lumpectomy, Cataract Removal Other Surgery: Lt BREAST LUMPECTOMY HEART CATH cataracts Social History Unable to obtain PSH: pediatric patient Other Last Tetanus: UTD Review of Systems Review of Systems Constitutional: Reports no symptoms EENTM: Reports no symptoms Cardiovascular: Reports no symptoms Respiratory: Reports no symptoms Gastrointestinal: Reports no symptoms Genitourinary: Reports no symptoms Musculoskeletal: Reports no symptoms Integumentary: Reports as per HPI Neurological: Reports no symptoms Psychological: Reports no symptoms Endocrine: Reports no symptoms Hematological/Lymphatic: Reports no symptoms Physical Exam Related Data Allergies: Coded Allergies: ciprofloxacin (Verified Allergy, Severe, 07/25/18) epinephrine (Verified Allergy, Unknown, HIVES WITH EPI PEN, 04/23/20) ampicillin (Verified Adverse Reaction, Mild, DIARRHEA, 07/25/18) Uncoded Allergies: EPI PEN (Allergy, Unknown, HIVES, 06/22/19) only allergic to the epi pen but can have regular epi Triage Vital Signs Vital Signs Date Time Temp Pulse Resp B/P (MAP) Pulse Ox O2 Delivery O2 Flow Rate FiO2 07/28/20 17:52 Room Air Vital signs reviewed: Yes Physical Exam CONSTITUTIONAL Constitutional: Present well-developed, Present well-nourished HENT HENT: Present normocephalic, Present atraumatic, Present oropharynx clear/moist, Present nose normal HENT L/R: Present left ext ear normal, Present right ext ear normal EYES Eyes: Reports PERRL, Reports conjunctivae normal NECK Neck: Present ROM normal PULMONARY Pulmonary: Present effort normal, Present breath sounds normal CARDIOVASCULAR Cardiovascular: Present regular rhythm, Present heart sounds normal, Present capillary refill normal, Present normal rate GASTROINTESTINAL Abdominal: Present soft, Present nontender, Present bowel sounds normal GENITOURINARY Genitourinary: Present exam deferred SKIN Skin: Present warm, Present dry, Present rash MUSCULOSKELETAL Musculoskeletal: Present ROM normal NEUROLOGICAL Neurological: Present alert, Present oriented x 3, Present no gross motor or sensory deficits PSYCHOLOGICAL Psychological: Present mood/affect normal, Present judgement normal Assessment & Plan Medical Decision Making MDM urticaria Reassessment Reassessment time: 17:56 Reassessment better Assessment & Plan Final Impression: (1) Acute allergic reaction (2) Urticaria Last Vital Signs Date Time Temp Pulse Resp B/P (MAP) Pulse Ox O2 Delivery O2 Flow Rate FiO2 07/28/20 17:52 Room Air Home Meds Active Scripts Prednisone (PREDNISONE) 20 Mg Tab, 60 MG PO DAILY, #15 TAB TAKE ALL 3 20 MG PILLS AT ONCE// START TOMORROW Prov:JOSSUE ROCHA 07/11/20 Famotidine (FAMOTIDINE) 20 Mg Tab, 20 MG PO BID, #30 TAB Prov:ROBERT DENIS MD 06/04/20 Dexamethasone (DEXAMETHASONE) 6 Mg Tablet, 1 TAB PO DAILY, #7 Prov:ROBERT DENIS MD 06/04/20 Mometasone Furoate (NASONEX) 17 Gm Morrison, 2 SPRAYS NA DAILY, #1 BOTTLE 1 Refill Prov:PATTI TREVINO MD 07/18/18 Reported Medications Lactobac Cmb #3/Fos/Pantethine (PROBIOTIC & ACIDOPHILUS CAP) 1 Each Capsule, 1 TAB PO DAILY 03/23/20 Biotin (BIOTIN) 1 Mg Tablet, 1 TAB PO DAILY 03/23/20 Omeprazole Magnesium (PRILOSEC OTC) 20 Mg Tablet.dr, 20 MG PO DAILY 03/15/20 Ascorbic Acid (VITAMIN C) 500 Mg Tab.chew, DAILY 06/22/19 Methylprednisolone (METHYLPREDNISOLONE) 4 Mg Tab.ds.pk, PRN 06/22/19 Lactose-Free Food (ENSURE PLUS) 237 Ml Liquid, BID 06/22/19 Fexofenadine Hcl (TIFFANY ALLERGY) 180 Mg Tablet, DAILY 06/22/19 Cetirizine Hcl (CETIRIZINE HCL) 5 Mg Tablet, 20 DAILY 06/22/19 Amlodipine Besylate (AMLODIPINE BESYLATE) 5 Mg Tablet, 5 MG PO DAILY, #30 TAB 06/22/19 Montelukast Sodium (SINGULAIR) 10 Mg Tablet, DAILY 02/01/19 Diphenhydramine Hcl (BENADRYL) 25 Mg Capsule, 25 MG PO PRN 12/03/18 Levothyroxine Sodium (SYNTHROID) 125 Mcg Tab, 125 MCG PO DAILY, #90 05/23/18 Lorazepam (LORAZEPAM) 2 Mg Tablet, 2 MG PO TID PRN for ANXIETY, #210 05/23/18 Medications in the ED Prednisolone 15 mg ONCE ONCE PO ; Start 07/28/20 at 18:00; Stop 07/28/20 at 18:01; Status IGOR RAMIREZ MD Jul 28, 2020 17:56
[2020-07-28] MEDS ORDERED: PREDNISOLONE 15 MG/5 ML ORAL SOLUTION PO ONE (18:00)
[2020-07-28 18:13] LABS: BASOPHILS # (AUTO) 0.1 (0.0-0.1); BASOPHILS % 0.5 % (0.0-1.0); EOSINOPHILS # (AUTO) 0.3 (0.0-0.4); EOSINOPHILS % 2.9 % (0.0-6.0); HEMATOCRIT 35.8 % (34.2-44.1); HEMOGLOBIN 11.1 g/dL (12.0-16.0); LYMPHOCYTES # (AUTO) 1.9 (1.0-3.2); LYMPHOCYTES % 16.9 % (18.0-39.1); MEAN CORPUSCULAR HEMOGLOBIN 26.6 pg (28-32); MEAN CORPUSCULAR VOLUME 85.9 fL (81-99); MONOCYTES # (AUTO) 1.2 (0.2-0.8); MONOCYTES % 11.3 % (4.4-11.3); NEUTROPHILS # (AUTO) 7.4 (2.1-6.9); NEUTROPHILS % 67.7 % (38.7-80.0); PLATELET COUNT 306 x10e3/uL (140-360); RED BLOOD COUNT 4.17 x10e6/uL (3.6-5.1); RED CELL DISTRIBUTION WIDTH 15.5 % (11.7-14.4)
--- NOTE | 2020-07-28 18:14 | Emergency Department Note ---
History of Present Illnes History of Present Illness Chief Complaint: Extremity Trauma/Pain History of Present Illness This is a 74 year old female presents to the ED for 3 day h/o of RLQ pain. Patient without n/v/d. Historian: Patient, Family Member Arrival Mode: Car Onset (how long ago): day(s) (1) Location: all over Quality: rash Radiation: Reports non-radiation Onset quality: gradual Duration (how long): day(s) (1) Timing of current episode: constant Progression: unchanged Chronicity: new Context: Denies recent illness, Denies recent surgery, Denies recent immobilization, Denies recent travel, Denies trauma/injury, Denies new medications, Denies hx of DVT/PE, Denies non-compliance w/ medications, Denies other Relieving factors: none Exacerbating factors: none Associated symptoms: Denies denies other symptoms, Denies confusion, Denies chest pain, Denies cough, Denies diaphoresis, Denies fever/chills, Denies headaches, Denies loss of appetite, Denies malaise, Denies nausea/vomiting, Denies rash, Denies seizure, Denies shortness of breath, Denies syncope, Denies weakness, Denies other Past Medical/Family History Physician Review I have reviewed the patient's past medical and family history. Any updates have been documented here. Past Medical History Recent Fever: No Clinical Suspicion of Infectio: No New/Unexplained Change in Ment: No Past Medical History: Hypothyroidism Other Medical History: Fibromyalgia Chronic angioadema/hives states cranes are causing all of her problems. Past Surgical History: Hysterectomy, Lumpectomy, Cataract Removal Other Surgery: Lt BREAST LUMPECTOMY HEART CATH cataracts Social History Unable to obtain PSH: pediatric patient Smoking Cessation: Never Smoker Alcohol Use: None Any Illegal Drug Use: No Other Last Tetanus: UTD Review of Systems Review of Systems Constitutional: Reports no symptoms EENTM: Reports no symptoms Cardiovascular: Reports no symptoms Respiratory: Reports no symptoms Gastrointestinal: Reports no symptoms Genitourinary: Reports no symptoms Musculoskeletal: Reports no symptoms Integumentary: Reports as per HPI Neurological: Reports no symptoms Psychological: Reports no symptoms Endocrine: Reports no symptoms Hematological/Lymphatic: Reports no symptoms Physical Exam Related Data Allergies: Coded Allergies: ciprofloxacin (Verified Allergy, Severe, 07/25/18) epinephrine (Verified Allergy, Unknown, HIVES WITH EPI PEN, 04/23/20) ampicillin (Verified Adverse Reaction, Mild, DIARRHEA, 07/25/18) Uncoded Allergies: EPI PEN (Allergy, Unknown, HIVES, 06/22/19) only allergic to the epi pen but can have regular epi Triage Vital Signs Vital Signs Date Time Temp Pulse Resp B/P (MAP) Pulse Ox O2 Delivery O2 Flow Rate FiO2 07/28/20 17:52 98.5 92 20 129/69 99 Room Air Vital signs reviewed: Yes Physical Exam CONSTITUTIONAL Constitutional: Present well-developed, Present well-nourished HENT HENT: Present normocephalic, Present atraumatic, Present oropharynx clear/moist, Present nose normal HENT L/R: Present left ext ear normal, Present right ext ear normal EYES Eyes: Reports PERRL, Reports conjunctivae normal NECK Neck: Present ROM normal PULMONARY Pulmonary: Present effort normal, Present breath sounds normal CARDIOVASCULAR Cardiovascular: Present regular rhythm, Present heart sounds normal, Present capillary refill normal, Present normal rate GASTROINTESTINAL Abdominal: Present soft, Present bowel sounds normal, Present tender (RLQ) GENITOURINARY Genitourinary: Present exam deferred SKIN Skin: Present warm, Present dry, Present rash MUSCULOSKELETAL Musculoskeletal: Present ROM normal NEUROLOGICAL Neurological: Present alert, Present oriented x 3, Present no gross motor or sensory deficits PSYCHOLOGICAL Psychological: Present mood/affect normal, Present judgement normal Results Laboratory Lab results reviewed: Yes Laboratory comments Laboratory Tests Test 07/28/20 18:04 White Blood Count 10.93 x10e3/uL (4.8-10.8) Red Blood Count 4.17 x10e6/uL (3.6-5.1) Hemoglobin 11.1 g/dL (12.0-16.0) Hematocrit 35.8 % (34.2-44.1) Mean Corpuscular Volume 85.9 fL (81-99) Mean Corpuscular Hemoglobin 26.6 pg (28-32) Mean Corpuscular Hemoglobin Concent 31.0 g/dL (31-35) Red Cell Distribution Width 15.5 % (11.7-14.4) Platelet Count 306 x10e3/uL (140-360) Neutrophils (%) (Auto) 67.7 % (38.7-80.0) Lymphocytes (%) (Auto) 16.9 % (18.0-39.1) Monocytes (%) (Auto) 11.3 % (4.4-11.3) Eosinophils (%) (Auto) 2.9 % (0.0-6.0) Basophils (%) (Auto) 0.5 % (0.0-1.0) Neutrophils # (Auto) 7.4 (2.1-6.9) Lymphocytes # (Auto) 1.9 (1.0-3.2) Monocytes # (Auto) 1.2 (0.2-0.8) Eosinophils # (Auto) 0.3 (0.0-0.4) Basophils # (Auto) 0.1 (0.0-0.1) Absolute Immature Granulocyte (auto 0.08 x10e3/uL (0-0.1) Sodium Level 138 mmol/L (136-145) Potassium Level 3.7 mmol/L (3.5-5.1) Chloride Level 104 mmol/L (98-107) Carbon Dioxide Level 25 mmol/L (22-29) Anion Gap 12.7 mmol/L (8-16) Blood Urea Nitrogen 6 mg/dL (7-26) Creatinine 0.89 mg/dL (0.57-1.11) Estimat Glomerular Filtration Rate > 60 ML/MIN (60-) BUN/Creatinine Ratio 7 (6-25) Glucose Level 186 mg/dL (74-118) Calcium Level 9.1 mg/dL (8.4-10.2) Total Bilirubin 0.3 mg/dL (0.2-1.2) Aspartate Amino Transf (AST/SGOT) 24 IU/L (5-34) Alanine Aminotransferase (ALT/SGPT) 25 IU/L (0-55) Alkaline Phosphatase 104 IU/L (40-150) Total Protein 6.8 g/dL (6.5-8.1) Albumin 3.4 g/dL (3.5-5.0) Globulin 3.4 g/dL (2.3-3.5) Albumin/Globulin Ratio 1.0 (0.8-2.0) Imaging Imaging results reviewed: Yes Impressions [place] [id number] Patient Name: ELFEGO GARCIA MR #: [id number] : 1945 Age/Sex: 74/F Req #: [id number] Adm Physician: Ordered by: JUDY MORRIS DO Report #: [id number] Location: ER Room/Bed: Procedure: [id number] CT/CT ABDOMEN/PELVIS WO Exam Date: 07/28/20 Exam Time: 1821 REPORT STATUS: Signed EXAM: CT Abdomen and Pelvis WITHOUT contrast INDICATION: Right flank pain. COMPARISON: 03/17/2020. TECHNIQUE: Abdomen and pelvis were scanned utilizing a multidetector helical scanner from the lung base to the pubic symphysis without administration of IV contrast. Absence of intravenous contrast decreases sensitivity for detection of focal lesions and vascular pathology. Coronal and sagittal reformations were obtained. Routine protocol was performed. IV CONTRAST: None. ORAL CONTRAST: Water. RADIATION DOSE: Total DLP: 726.10 mGy*cm Estimated effective dose: (DLP x 0.015 x size factor) mSv COMPLICATIONS: None FINDINGS: LINES and TUBES: None. LOWER THORAX: There is bibasilar dependent atelectasis. HEPATOBILIARY: The liver is diffuse hypodense compared to the spleen, consistent with diffuse hepatic diffuse hepatic steatosis. No focal hepatic lesions. No biliary ductal dilation. GALLBLADDER: No radio-opaque stones or sludge. No wall thickening. SPLEEN: No splenomegaly. PANCREAS: No focal masses or ductal dilatation. Fatty infiltration. ADRENALS: No adrenal nodules KIDNEYS/URETERS: No hydronephrosis. No cystic or solid mass lesions. No stones. GI TRACT: No abnormal distention, wall thickening, or evidence of bowel obstruction. There are diverticula within the colon without evidence of diverticulitis. There is high attenuation material within the cecum and ascending colon Appendix is normal. PELVIC ORGANS/BLADDER: The uterus is absent. Multiple phleboliths scattered throughout the pelvis. LYMPH NODES: No lymphadenopathy. VESSELS: There is mild atherosclerotic disease in the aorta and major arterial branches. PERITONEUM / RETROPERITONEUM: No free air or fluid. BONES: Grade 1 anterolisthesis of L4 in relation to L5 without spondylolysis. Bilateral facet arthropathy at L4-L5 and L5-S1. SOFT TISSUES: Unremarkable. IMPRESSION: 1. Colonic diverticulosis without acute diverticulitis. 2. No acute abdominal pelvic abnormality. Signed by: Dr. Karthikeyan Carl M.D. on 07/28/2020 6:38 PM Dictated By: CORINA CARL MD, MD 37 Transcribed By: ALISON on 07/28/201837 COPY TO: JUDY MORRIS DO~ Assessment & Plan Medical Decision Making MDM Diff Dx : hip fx, kidney stone, appendicitis, choleycystitis, UTI, kidney stone Assessment & Plan Final Impression: (1) Sciatica Depart Disposition: HOME, SELF-CARE Last Vital Signs Date Time Temp Pulse Resp B/P (MAP) Pulse Ox O2 Delivery O2 Flow Rate FiO2 07/28/20 18:08 80 18 107/93 100 Room Air 07/28/20 17:52 98.5 Home Meds Active Scripts Prednisone (PREDNISONE) 20 Mg Tab, 60 MG PO DAILY, #15 TAB TAKE ALL 3 20 MG PILLS AT ONCE// START TOMORROW Prov:JOSSUE ROCHA 07/11/20 Famotidine (FAMOTIDINE) 20 Mg Tab, 20 MG PO BID, #30 TAB Prov:ROBERT DENIS MD 06/04/20 Dexamethasone (DEXAMETHASONE) 6 Mg Tablet, 1 TAB PO DAILY, #7 Prov:ROBERT DENIS MD 06/04/20 Mometasone Furoate (NASONEX) 17 Gm Miranda, 2 SPRAYS NA DAILY, #1 BOTTLE 1 Refill Prov:PATTI TREVINO MD 07/18/18 Reported Medications Lactobac Cmb #3/Fos/Pantethine (PROBIOTIC & ACIDOPHILUS CAP) 1 Each Capsule, 1 TAB PO DAILY 03/23/20 Biotin (BIOTIN) 1 Mg Tablet, 1 TAB PO DAILY 03/23/20 Omeprazole Magnesium (PRILOSEC OTC) 20 Mg Tablet.dr, 20 MG PO DAILY 03/15/20 Ascorbic Acid (VITAMIN C) 500 Mg Tab.chew, DAILY 06/22/19 Methylprednisolone (METHYLPREDNISOLONE) 4 Mg Tab.ds.pk, PRN 06/22/19 Lactose-Free Food (ENSURE PLUS) 237 Ml Liquid, BID 06/22/19 Fexofenadine Hcl (TIFFANY ALLERGY) 180 Mg Tablet, DAILY 06/22/19 Cetirizine Hcl (CETIRIZINE HCL) 5 Mg Tablet, 20 DAILY 06/22/19 Amlodipine Besylate (AMLODIPINE BESYLATE) 5 Mg Tablet, 5 MG PO DAILY, #30 TAB 06/22/19 Montelukast Sodium (SINGULAIR) 10 Mg Tablet, DAILY 02/01/19 Diphenhydramine Hcl (BENADRYL) 25 Mg Capsule, 25 MG PO PRN 12/03/18 Levothyroxine Sodium (SYNTHROID) 125 Mcg Tab, 125 MCG PO DAILY, #90 05/23/18 Lorazepam (LORAZEPAM) 2 Mg Tablet, 2 MG PO TID PRN for ANXIETY, #210 05/23/18 Medications in the ED Prednisolone 15 mg ONCE ONCE PO ; Start 07/28/20 at 18:00; Stop 07/28/20 at 18:02; Status JUDY VALDIVIA DO Jul 28, 2020 18:14
[2020-07-28 18:28] LABS: ALANINE AMINOTRANSFERASE 25 IU/L (0-55); ALBUMIN 3.4 g/dL (3.5-5.0); ALKALINE PHOSPHATASE 104 IU/L (40-150); ANION GAP 12.7 mmol/L (8-16); BLOOD UREA NITROGEN 6 mg/dL (7-26); BUN/CREATININE RATIO 7 (6-25); CALCIUM 9.1 mg/dL (8.4-10.2); CARBON DIOXIDE 25 mmol/L (22-29); CHLORIDE 104 mmol/L (98-107); CREATININE, SERUM 0.89 mg/dL (0.57-1.11); EST GLOMERULAR FILTRATION RATE > 60 ML/MIN (60-); GLUCOSE 186 mg/dL (74-118); POTASSIUM 3.7 mmol/L (3.5-5.1); SODIUM 138 mmol/L (136-145)
--- NOTE | 2020-07-28 18:41 | Diagnostic Imaging Report ---
EXAM: CT Abdomen and Pelvis WITHOUT contrast INDICATION: Right flank pain. COMPARISON: 03/17/2020. TECHNIQUE: Abdomen and pelvis were scanned utilizing a multidetector helical scanner from the lung base to the pubic symphysis without administration of IV contrast. Absence of intravenous contrast decreases sensitivity for detection of focal lesions and vascular pathology. Coronal and sagittal reformations were obtained. Routine protocol was performed. IV CONTRAST: None. ORAL CONTRAST: Water. RADIATION DOSE: Total DLP: 726.10 mGy*cm Estimated effective dose: (DLP x 0.015 x size factor) mSv COMPLICATIONS: None FINDINGS: LINES and TUBES: None. LOWER THORAX: There is bibasilar dependent atelectasis. HEPATOBILIARY: The liver is diffuse hypodense compared to the spleen, consistent with diffuse hepatic diffuse hepatic steatosis. No focal hepatic lesions. No biliary ductal dilation. GALLBLADDER: No radio-opaque stones or sludge. No wall thickening. SPLEEN: No splenomegaly. PANCREAS: No focal masses or ductal dilatation. Fatty infiltration. ADRENALS: No adrenal nodules KIDNEYS/URETERS: No hydronephrosis. No cystic or solid mass lesions. No stones. GI TRACT: No abnormal distention, wall thickening, or evidence of bowel obstruction. There are diverticula within the colon without evidence of diverticulitis. There is high attenuation material within the cecum and ascending colon Appendix is normal. PELVIC ORGANS/BLADDER: The uterus is absent. Multiple phleboliths scattered throughout the pelvis. LYMPH NODES: No lymphadenopathy. VESSELS: There is mild atherosclerotic disease in the aorta and major arterial branches. PERITONEUM / RETROPERITONEUM: No free air or fluid. BONES: Grade 1 anterolisthesis of L4 in relation to L5 without spondylolysis. Bilateral facet arthropathy at L4-L5 and L5-S1. SOFT TISSUES: Unremarkable. IMPRESSION: 1. Colonic diverticulosis without acute diverticulitis. 2. No acute abdominal pelvic abnormality. Signed by: Dr. Karthikeyan Watts M.D. on 07/28/2020 6:38 PM
--- OUTSIDE RECORDS SUMMARY | 2020-07-28 18:56 | XMS REPORT | Continuity of Care Document ---
Author Author [facility] t Organization [facility] Address [address] [place] [address] Phone Unavailable Care Team Providers Care Ore Washer Name Role Phone NEO CARRIZALES, MD BLANCHARD PCP JUDY MORRIS Attphys Unavailable Titus Loyd MD Attphys [phone] OPAL LARSON Attphys Unavailable SANTO LARSON Attphys Unavailable Soo POLK Attphys Unavailable FULTONTAN TAM Attphys Unavailable HAMPEL, FAUSTINO Attphys Unavailable Payers Payer Name Policy Type Policy Number Effective Date Expiration Date Camden ordonez Miscellaneous Indemnity [id number] 2019 00:00:00 [facility] Medicare A & B [id number] 2010 00:00:00 [facility] Cdc Review [id number] [facility] Miscellaneous Ppo [id number] 2010 00:00:00 [facility] Problems Condition Name Condition Details Condition Category Status Onset Date Resolution Date Last Treatment Date Treating Clinician Comments Source Acute allergic reaction Problem Active [facility] Urticaria Problem Active [facility] Angioedema Problem Active [facility] Allergies, Adverse Reactions, Alerts Allergy Name Allergy Type Status Severity Reaction(s) Onset Date Inacti ve Date Treating Clinician Comments Source Epinephrine Allergy to substance Active HIVES WITH EPI PEN 2020-04-23 00:00:00 [facility] EPI PEN Allergy to substance Active HIVES 2019-06-22 00:00:00 [facility] Ampicillin Propensity to adverse reactions Active Mild DIAR MAYITO 2018-07-25 00:00:00 [facility] Ciprofloxacin Allergy to substance Active Severe 2018-07-25 00:00: 00 [facility] Social History Social Habit Start Date Stop Date Quantity Comments Source Sex Ass[birth year] At 1945 00:00:00 1945 00:00:00 Female [facility] Medications Ordered Medication Name Filled Medication Name Start Date Stop Da te Current Medication? Ordering Clinician Indication Dosage Frequency Signature (SIG) Comments Components Source Prednisone Prednisone 2020-07-11 15:56:00 Yes 60 Concha ly [facility] Dexamethasone Dexamethasone 2020-06-04 09:58:00 Yes 1 Daily [facility] Famotidine Famotidine 2020-06-04 09:58:00 Yes 20 Twi ce A Day [facility] Prednisone Prednisone 2019-12-21 10:34:00 2020-03-15 00:00:00 No 60 Daily for Allergic Response [facility] Cefdinir (Omnicef) 300 Mg CAPSULE Cefdinir (Omnicef) 300 Mg CAPSULE 2019-06-22 12:27:00 2020-03-15 00:00:00 No 1 Twice A Day [facility] Prednisone Prednisone 2019-06-22 12:27:00 2020-03-15 00:00:00 No 20 Three Times A Day [facility] Mometasone Furoate (Nasonex) 17 Gm SPRAY Mometasone Fu roate (Nasonex) 17 Gm SPRAY 2018-07-18 16:10:00 Yes 2 Daily [facility] Levocetirizine Dihydrochloride (Xyzal) 5 Mg TABLET Lev ocetirizine Dihydrochloride (Xyzal) 5 Mg TABLET 2018-07-18 16:10:00 2020-03-15 00:00:00 No 5 Twice A Day [facility] Epinephrine Hcl (Epinephrine 1 Mg/Ml Ampul) 1 Mg/Ml IN J Epinephrine Hcl (Epinephrine 1 Mg/Ml Ampul) 1 Mg/Ml INJ 2018-07-18 16:10:00 2018-12-03 00:00:00 No .3 As Needed as needed for Allergy [facility] Amlodipine Besylate Amlodipine Besylate Yes 5 Daily [facility] Ascorbic Acid (Vitamin C) 500 Mg TAB.CHEW Ascorbic Aci d (Vitamin C) 500 Mg TAB.CHEW Yes Daily [facility] Biotin Biotin Yes 1 Daily [facility] Cetirizine Hcl Cetirizine Hcl Yes 20 Daily [facility] Diphenhydramine Hcl (Benadryl) 25 Mg CAPSULE Diphenhyd ramine Hcl (Benadryl) 25 Mg CAPSULE Yes 25 As Needed [facility] Fexofenadine Hcl (Nunu Allergy) 180 Mg TABLET Fexof enadine Hcl (Nunu Allergy) 180 Mg TABLET Yes Daily [facility] Lactobac Cmb #3/Fos/Pantethine (Probiotic & Acidophilu s Cap) 1 Each CAPSULE Lactobac Cmb #3/Fos/Pantethine (Probiotic & Acidophilus Cap) 1 Each CAPSULE Yes 1 Daily [facility] Lactose-Free Food (Ensure Plus) 237 Ml LIQUID Lactose- Free Food (Ensure Plus) 237 Ml LIQUID Yes Twice A Day [facility] Levothyroxine Sodium (Synthroid) 125 Mcg TAB Levothyro xine Sodium (Synthroid) 125 Mcg TAB Yes 125 Daily [facility] Lorazepam Lorazepam Yes 2 Three Times A Day as needed for Anxiety [facility] Methylprednisolone Methylprednisolone Yes As Needed [facility] Montelukast Sodium (Singulair) 10 Mg TABLET Montelukas t Sodium (Singulair) 10 Mg TABLET Yes Daily [facility] Omeprazole Magnesium (Prilosec Ot) 20 Mg TABLET.DR Vivas eprazole Magnesium (Prilosec Ot) 20 Mg TABLET. Yes 20 Daily [facility] Albuterol Sulfate Albuterol Sulfate 2020-03-15 00:00:00 No 1 As Needed [facility] Mu-Vits-Min Th/Lycopene/Lutein (Centrum Silver Tablet) 1 Each TABLET Mu-Vits-Min Th/Lycopene/Lutein (Centrum Silver Tablet) 1 Each TABLET 202 00:00:00 No Daily [facility] Omeprazole Omeprazole 2020-03-15 00:00:00 No 20 Concha ly [facility] Prednisone Prednisone 2020-03-15 00:00:00 No 20 [facility] Ranitidine Hcl Ranitidine Hcl 2020-03-15 00:00:00 No [facility] Amlodipine Besylate Amlodipine Besylate 2019-06-22 00:00:00 No 10 Daily [facility] Cetirizine Hcl Cetirizine Hcl 2019-06-22 00:00:00 No 10 Daily [facility] Fexofenadine/Pseudoephedrine (Nunu-D 12 Hour Tablet ) 1 Each TAB.ER.12H Fexofenadine/Pseudoephedrine (Nunu-D 12 Hour Tablet) 1 Each TAB.ER.12H 2019-06-22 00:00:00 No 180 Daily [facility] Ketotifen Fumarate Ketotifen Fumarate 2019-06-22 00:00:00 No [facility] Amlodipine/Valsartan (Exforge 10-320 Mg Tablet) 1 Each TABLET Amlodipine/Valsartan (Exforge 10-320 Mg Tablet) 1 Each TABLET 2018-07-25 00:00:00 No 1 Daily [facility] Vital Signs Vital Name Observation Time Observation Value Comments Source Weight 2020-07-20 09:33:00 175 [lb_av] [facility] BMI (Body Mass Index) 2020-07-20 09:33:00 30.0 kg/m2 [facility] Weight 2020-07-11 15:00:00 175 [lb_av] [facility] BMI (Body Mass Index) 2020-07-11 15:00:00 30.0 kg/m2 [facility] Weight 2020-06-04 09:43:00 176.44 [lb_av] [facility] BMI (Body Mass Index) 2020-06-04 09:43:00 30.3 kg/m2 [facility] Body Temperature 2020-04-23 12:56:00 98.3 [degF] [facility] Weight 2020-04-23 10:10:00 175.13 [lb_av] [facility] BMI (Body Mass Index) 2020-04-23 10:10:00 30.1 kg/m2 [facility] Procedures Procedure Date / Time Performed Performing Clinician [facility] e COLONOSCOPY AND BIOPSY 2020-03-23 00:00:00 [facility] COLONOSCOPY W/LESION REMOVAL 2020-03-23 00:00:00 [facility] COLONOSCOPY W/LESION REMOVAL 2020-03-23 00:00:00 [facility] Computed tomography of abdomen and pelvis with contrast 00:00:00 [facility] Plan of Care Planned Activity Planned Date Details Comments Source Instructions Rash - Nonspecific [facility] Encounters Start Date/Time End Date/Time Encounter Type Admission Type Attendi [facility] Care Department Encounter ID Source 2020-07-20 10:45:00 2020-07-20 10:54:00 Departed Emergency Room [facility] [id number] [facility] 2020-07-11 15:06:00 2020-07-11 16:50:00 Departed Emergency Room [facility] [id number] [facility] 2020-06-05 14:07:07 2020-06-08 11:20:56 Office Visit Marylou Carrillo [facility] [id number] 2020-06-04 09:39:00 2020-06-04 11:09:00 Departed Emergency Room [facility] [id number] [facility] 2020-04-23 10:03:00 2020-04-23 13:05:00 Departed Emergency Room [facility] [id number] [facility] 2020-03-23 10:15:00 2020-03-23 10:15:00 Registered Surgical Day Care [facility] [id number] [facility] [place] 2020-03-17 11:36:00 2020-03-17 11:36:00 Registered Clinic 3 OPAL LARSON [facility] [id number] [facility] [place] 2019-12-21 09:46:00 2019-12-21 10:44:00 Departed Emergency Room [facility] [id number] [facility] 2019-09-16 10:14:00 2019-09-16 10:14:00 Registered Clinic 3 SANTO LARSON [facility] [id number] [facility] [place] 2019-08-15 11:32:00 2019-08-15 14:25:00 Departed Emergency Room [facility] [id number] [facility] 2019-06-29 20:34:00 2019-06-29 21:15:00 Departed Emergency Room [facility] [id number] [facility] 2019-06-22 09:16:00 2019-06-22 12:54:00 Departed Emergency Room [facility] [id number] [facility] 2019-02-01 11:12:00 2019-02-01 13:05:00 Departed Emergency Room [facility] [id number] [facility] 2018-12-25 07:52:00 2018-12-25 08:55:00 Departed Emergency Room [facility] [id number] [facility] 2018-12-03 07:01:00 2018-12-03 09:51:00 Departed Emergency Room [facility] [id number] [facility] 2018-11-20 07:15:00 2018-11-20 10:23:00 Departed Emergency Room [facility] [id number] [facility] 2018-10-29 07:39:00 2018-10-29 09:40:00 Departed Emergency Room [facility] [id number] [facility] 2018-07-25 15:09:00 2018-07-25 16:47:00 Departed Emergency Room [facility] [id number] [facility] 2018-07-25 12:44:00 2018-07-25 13:56:00 Departed Emergency Room [facility] [id number] [facility] 2018-07-18 13:55:00 2018-07-18 16:55:00 Departed Emergency Room [facility] [id number] [facility] 2018-07-13 19:50:00 2018-07-13 22:12:00 Departed Emergency Room [facility] [id number] [facility] 2018-06-26 10:42:00 2018-06-26 15:44:00 Departed Emergency Room 1 MALGORZATA POLK [facility] [id number] [facility] 2018-05-23 04:22:00 2018-05-23 11:46:00 Departed Emergency Room [facility] [id number] [facility] 2018-04-02 15:48:00 2018-04-02 15:48:00 Registered Clinic 3 TAN MILLAN [facility] [id number] [facility] 2017-09-08 13:41:00 2017-09-08 13:41:00 Registered Clinic TERRI RANGEL [facility] [id number] BRANDIE [facility] 2017-08-26 13:53:00 2017-08-26 13:53:00 Registered Clinic TERRI RANGEL [facility] [id number] [facility] Results Test Description Test Time Test Comments Results Result Comments Source CT ABDOMEN/PELVIS WO 2020-07-28 18:29:00 [facility] [address] [address] Patient Name: ELFEGO DEGROOT MR #: [id number] : 1945 Age/Sex: 74/F Req #: [id number] Adm Physician: Ordered by: JUDY MORRIS DO Report #: [id number] Location: ER Room/Bed: Procedure: [id number] CT/CT ABDOMEN/PELVIS WO Exam Date: 07/28/20 Exam Time: 1822 REPORT STATUS: Signed EXAM: CT Abdomen and Pelvis WITHOUT contrast INDICATION: Right flank pain. COMPARISON: 03/17/2020. TECHNIQUE: Abdomen and pelvis were scanned utilizing a multidetector helical scanner from the lung base to the pubic symphysis without administration of IV c ontrast. Absence of intravenous contrast decreases sensitivity for detection of focal lesions and vascular pathology. Coronal and sagittal reformations were obtained. Routine protocol was performed. IV CONTRAST: None. ORAL CONTRAST: Water. RADIATION DOSE: Total DLP: 726.10 mGy*cm Estimated effective dose: (DLP x 0.015 x size factor) mSv COMPLICATIONS: None FINDINGS: LINES and TUBES: None. LOWER THORAX: There is bibasilar dependent atelectasis. HEPATOBILIARY: The liver is diffuse hypodense compared to the spleen, consistent with diffuse hepatic diffuse hepatic steatosis. No focal hepatic lesions. No biliary ductal dilation. GALLBLADDER: No radio-opaque stones or sludge. No wall thickening. SPLEEN: No splenomegaly. PANCREAS: No focal masses or ductal dilatation. Fatty infiltration. ADRENALS: No adrenal nodules KIDNEYS/URETERS: No hydronephrosis. No cystic or solid mass lesions. No stones. GI TRACT: No abnormal distention, wall thickening, or evidence of bowel obstruction. There are diverticula within the colon without evidence of diverticulitis. There is high attenuation material within the cecum and ascending colon Appendix is normal. PELVIC ORGANS/BLADDER: The uterus is absent. Multiple phleboliths scattered throughout the pelvis. LYMPH NODES: No lymphadenopathy. VESSELS: There is mild atherosclerotic disease in the aorta and major arterial branches. PERITONEUM / RETROPERITONEUM: No free air or fluid. BONES: Grade 1 anterolisthesis of L4 in relation to L5 without spondylolysis. Bilateral facet arthropathy at L4-L5 and L5-S1. SOFT TISSUES: Unremarkable. IMPRESSION: 1. Colonic diverticulosis without acute diverticulitis. 2. No acute abdominal pelvic abnormality. Signed by: Dr. Karthikeyan Carl M.D. on 07/28/2020 6:38 PM Dictated By: CORINA CARL MD, MD 37 Transcribed By: ALISON on 07/28/201837 COPY TO: JUDY MORRIS DO Stool lactoferrin detection 2020-03-23 14:40:00 Test Item Stool Lactoferrin (LAB) (test code = 78185-6) POSITIVE NEGATIVE Testing on stool aspirate specimens is outside truck assembler claims since specime n type not validated on this assay.[facility] calprotectin measurement (mass/mass)2020-03-23 14:40:00* Test Item Value Reference Range Interpretation Comments Stool Calprotectin (test code = 01302-3) 29 0-120 Concentration Interpretation Follow-Up<16 - 50 ug/g Normal None>50 -120 ug/g Borderline Re-evaluate in 4-6 weeks >120 ug/g Abnormal Repeat as clinically indicatedPerformed at: [address] [id number] Director: Jaycee Pitts MD, Phone: [phone] [facility] difficile A and B toxin [id number] 14:40:00* Test Item Value Reference Range Interpretation Comments Clostridium Difficile Toxin A & B (test code = 220586186) NEGATIVE NEGATIVE Testing on stool aspirate specimens is outside truck assembler claims since specime n type not validated on this assay.[facility] lact[facility]in [id number] 14:40:00* Test Item Value Reference Range Interpretation Comments Stool Lactoferrin (LAB) (test code = 27501-0) POSITIVE NEGATIVE Testing on stool aspirate specimens is outside truck assembler claims since specime n type not validated on this assay.[facility] calprotectin measurement (mass/mass)2020-03-23 14:40:00* Test Item Value Reference Range Interpretation Comments Stool Calprotectin (test code = 08876-9) 29 0-120 Concentration Interpretation Follow-Up<16 - 50 ug/g Normal None>50 -120 ug/g Borderline Re-evaluate in 4-6 weeks >120 ug/g Abnormal Repeat as clinically indicatedPerformed at: [address] [id number] Director: Jaycee Pitts MD, Phone: [phone] [facility]Clost[facility]ium difficile A and B toxin [id number] 14:40:00* Test Item Value Reference Range Interpretation Comments Clostridium Difficile Toxin A & B (test code = 961398733) NEGATIVE NEGATIVE Testing on stool aspirate specimens is outside truck assembler claims since specime n type not validated on this assay.[facility] lactoferrin [id number] 14:40:00* Test Item Value Reference Range Interpretation Comments Stool Lactoferrin (LAB) (test code = 69905-9) POSITIVE NEGATIVE Testing on stool aspirate specimens is outside truck assembler claims since specime n type not validated on this assay.[facility] calprotectin measurement (mass/mass)2020-03-23 14:40:00* Test Item Value Reference Range Interpretation Comments Stool Calprotectin (test code = 78092-3) 29 0-120 Concentration Interpretation Follow-Up<16 - 50 ug/g Normal None>50 -120 ug/g Borderline Re-evaluate in 4-6 weeks >120 ug/g Abnormal Repeat as clinically indicatedPerformed at: [address] [id number] Director: Jaycee Pitts MD, Phone: [phone] Orthopedic HospitalClostridium difficile A and B toxin [id number] 14:40:00* Test Item Value Reference Range Interpretation Comments Clostridium Difficile Toxin A & B (test code = 500279268) NEGATIVE NEGATIVE Testing on stool aspirate specimens is outside truck assembler claims since specime n type not validated on this assay.[facility] lactoferrin [id number] 14:40:00* Test Item Value Reference Range Interpretation Comments Stool Lactoferrin (LAB) (test code = 47533-1) POSITIVE NEGATIVE Testing on stool aspirate specimens is outside truck assembler claims since specime n type not validated on this assay.[facility] calprotectin measurement (mass/mass)2020-03-23 14:40:00* Test Item Value Reference Range Interpretation Comments Stool Calprotectin (test code = 22092-8) 29 0-120 Concentration Interpretation Follow-Up<16 - 50 ug/g Normal None>50 -120 ug/g Borderline Re-evaluate in 4-6 weeks >120 ug/g Abnormal Repeat as clinically indicatedPerformed at: [facility] [address] [id number] Director: Jaycee Pitts MD, Phone: [phone] Orthopedic HospitalClostridium difficile A and B toxin [id number] 14:40:00* Test Item Value Reference Range Interpretation Comments Clostridium Difficile Toxin A & B (test code = 425256784) NEGATIVE NEGATIVE Testing on stool aspirate specimens is outside truck assembler claims since specime n type not validated on this assay.[facility] Fluoroscopic procedure less than one hour [id number] 12:00:00* Test Item Value Reference Range Interpretation [...] complexity tests.Testing performed by [facility] [address] [phone] Director: Jay Montoya M.D.CLIA # [id number] [facility] Fluoroscopic procedure less than one hour [id number] 12:00:00* Test Item Value Reference Range Interpretation [...] complexity tests.Testing performed by [facility] [address] [phone] Director: Jay Montoya M.D.CLIA # [id number] [facility] Fluoroscopic procedure less than one hour yrtjbbso2193-28-17 12:00:00* Test Item Value Reference Range Interpretation [...] complexity tests.Testing performed by [facility] [address] [phone] Director: Jay Montoya M.D.CLIA # [id number] [place] [address] Fluoroscopic procedure less than one hour ptcrbfom3952-88-99 12:00:00* Test Item Value Reference Range Interpretation [...] complexity tests.Testing performed by [facility] [address] [phone] Director: Jay Montoya M.D.CLIA # [id number] Orthopedic HospitalBle[facility] leukocytes automated count (number/volume)2020-03-18 11:40:00* Test Item Value Reference Range Interpretation Comments White Blood Count (test code = 6690-2) 7.88 4.8-10.8 [facility] erythrocytes automated count (number/volume)2020-03-18 11:40:00* Test Item Value Reference Range Interpretation Comments Red Blood Count (test code = 789-8) 4.21 3.6-5.1 [facility] hemoglobin measurement (moles/volume)2020-03-18 11:40:00* Test Item Value Reference Range Interpretation Comments Hemoglobin (test code = 13863-0) 11.1 12.0-16.0 [facility] HospitalAutomated blood hematocrit (volume fraction)2020-03-18 11:40:00* Test Item Value Reference Range Interpretation Comments Hematocrit (test code = 4544-3) 36.6 34.2-44.1 [facility] HospitalAutom[facility] erythrocyte mean corpuscular dxnqns7909-38-18 11:40:00* Test Item Value Reference Range Interpretation Comments Mean Corpuscular Volume (test code = 787-2) 86.9 81-99 [facility] Hospital[facility] erythrocyte mean corpuscular hemoglobin (mass per erythrocyte)2020-03-18 11:40:00* Test Item Value Reference Range Interpretation Comments Mean Corpuscular Hemoglobin (test code = 785-6) 26.4 28-32 [facility] Hospital[facility] erythrocyte mean corpuscular hemoglobin concentration measurement (mass/volume)2020-03-18 11:40:00* Test Item Value Reference Range Interpretation Comments Mean Corpuscular Hemoglobin Concent (test code = 786-4) 30.3 31-35 [facility] HospitalRDW ZqlPy-Rxi7584-65-23 11:40:00* Test Item Value Reference Range Interpretation Comments Red Cell Distribution Width (test code = 78766-9) 15.9 11.7 -14.4 [facility] Hospital[facility] blood platelet count (count/volume)2020-03-18 11:40:00* Test Item Value Reference Range Interpretation Comments Platelet Count (test code = 777-3) 400 140-360 [facility] HospitalAutom[facility] blood segmented neutrophil count as percentage of total qejtpbbbpt1783-36-98 11:40:00* Test Item Value Reference Range Interpretation Comments Neutrophils (%) (Auto) (test code = 20078-9) 68.3 38.7-80.0 [facility] HospitalAutom[facility] blood lymphocyte count as percentage ot total foysvznpdr4504-25-49 11:40:00* Test Item Value Reference Range Interpretation Comments Lymphocytes (%) (Auto) (test code = 736-9) 16.1 18.0-39.1 [facility] HospitalAutom[facility] blood monocyte count as percentage of total baasdxhbdk6317-02-43 11:40:00* Test Item Value Reference Range Interpretation Comments Monocytes (%) (Auto) (test code = 5905-5) 9.5 4.4-11.3 [facility] Hospital[facility] blood eosinophil count as percentage of total lhoxswtugd4793-93-75 11:40:00* Test Item Value Reference Range Interpretation Comments Eosinophils (%) (Auto) (test code = 713-8) 4.4 0.0-6.0 [facility] HospitalAutom[facility] blood basophil count as percentage of total xcutcysbzh8788-36-87 11:40:00* Test Item Value Reference Range Interpretation Comments Basophils (%) (Auto) (test code = 706-2) 0.9 0.0-1.0 [facility] HospitalFluoroscopic procedure less than one hour puwzztrl5293-08-23 11:40:00* Test Item Value Reference Range Interpretation Comments IM GRANULOCYTES % (test code = IM GRANULOCYTES %) 0.8 0.0- 1.0 [facility] HospitalAutom[facility] blood neutrophil count 2020-03-18 11:40:00* Test Item Value Reference Range Interpretation Comments Neutrophils # (Auto) (test code = 751-8) 5.4 2.1-6.9 [facility] lymphocytes count (number/volume) 2020-03-18 11:40:00* Test Item Value Reference Range Interpretation Comments Lymphocytes # (Auto) (test code = 94282-3) 1.3 1.0-3.2 [facility] monocytes automated count (number/volume)2020-03-18 11:40:00* Test Item Value Reference Range Interpretation Comments Monocytes # (Auto) (test code = 742-7) 0.8 0.2-0.8 [facility] eosinophil count 2020-03-18 11:40:00* Test Item Value Reference Range Interpretation Comments Eosinophils # (Auto) (test code = 711-2) 0.4 0.0-0.4 [facility]Autom[facility] blood basophil count (count/volume)2020-03-18 11:40:00* Test Item Value Reference Range Interpretation Comments Basophils # (Auto) (test code = 704-7) 0.1 0.0-0.1 [facility] HospitalFluoroscopic procedure less than one hour mmmdoenh7845-10-46 11:40:00* Test Item Value Reference Range Interpretation Comments Absolute Immature Granulocyte (auto (krishna t code = Absolute Immature Granulocyte (auto) 0.06 0-0.1 [facility] leukocytes automated count (number/volume)2020-03-18 11:40:00* Test Item Value Reference Range Interpretation Comments White Blood Count (test code = 6690-2) 7.88 4.8-10.8 [facility] erythrocytes automated count (number/volume)2020-03-18 11:40:00* Test Item Value Reference Range Interpretation Comments Red Blood Count (test code = 789-8) 4.21 3.6-5.1 [facility] hemoglobin measurement (moles/volume)2020-03-18 11:40:00* Test Item Value Reference Range Interpretation Comments Hemoglobin (test code = 04009-0) 11.1 12.0-16.0 [facility]Autom[facility] blood hematocrit (volume fraction)2020-03-18 11:40:00* Test Item Value Reference Range Interpretation Comments Hematocrit (test code = 4544-3) 36.6 34.2-44.1 [facility]Autom[facility] erythrocyte mean corpuscular duqgkm0875-52-01 11:40:00* Test Item Value Reference Range Interpretation Comments Mean Corpuscular Volume (test code = 787-2) 86.9 81-99 [facility] HospitalAutomated erythrocyte mean corpuscular hemoglobin (mass per erythrocyte)2020-03-18 11:40:00* Test Item Value Reference Range Interpretation Comments Mean Corpuscular Hemoglobin (test code = 785-6) 26.4 28-32 [facility]Autom[facility] erythrocyte mean corpuscular hemoglobin concentration measurement (mass/volume)2020-03-18 11:40:00* Test Item Value Reference Range Interpretation Comments Mean Corpuscular Hemoglobin Concent (test code = 786-4) 30.3 31-35 [facility] HospitalRD FanUd-Cka1805-50-23 11:40:00* Test Item Value Reference Range Interpretation Comments Red Cell Distribution Width (test code = 02970-6) 15.9 11.7 -14.4 [facility] platelet [facility] (count/volume)2020-03-18 11:40:00* Test Item Value Reference Range Interpretation Comments Platelet Count (test code = 777-3) 400 140-360 [facility] segmented neutrophil count as percentage of total qopgrkvctg5303-81-86 11:40:00* Test Item Value Reference Range Interpretation Comments Neutrophils (%) (Auto) (test code = 20096-1) 68.3 38.7-80.0 [facility]Autom[facility] blood lymphocyte count as percentage ot total ukhyawcvjq9874-43-67 11:40:00* Test Item Value Reference Range Interpretation Comments Lymphocytes (%) (Auto) (test code = 736-9) 16.1 18.0-39.1 [facility]Autom[facility] blood monocyte count as percentage of total jjxxuidyay0862-11-65 11:40:00* Test Item Value Reference Range Interpretation Comments Monocytes (%) (Auto) (test code = 5905-5) 9.5 4.4-11.3 [facility]Autom[facility] blood eosinophil count as percentage of total lgwhxmwqal4024-45-36 11:40:00* Test Item Value Reference Range Interpretation Comments Eosinophils (%) (Auto) (test code = 713-8) 4.4 0.0-6.0 [facility]Autom[facility] blood basophil count as percentage of total ofnafqgobi0789-15-48 11:40:00* Test Item Value Reference Range Interpretation Comments Basophils (%) (Auto) (test code = 706-2) 0.9 0.0-1.0 [facility] HospitalFluoroscopic procedure less than one hour topmkuoq8890-30-02 11:40:00* Test Item Value Reference Range Interpretation Comments IM GRANULOCYTES % (test code = IM GRANULOCYTES %) 0.8 0.0- 1.0 [facility]Autom[facility] blood neutrophil count 2020-03-18 11:40:00* Test Item Value Reference Range Interpretation Comments Neutrophils # (Auto) (test code = 751-8) 5.4 2.1-6.9 [facility] HospitalBlood lymphocytes count (number/volume) 2020-03-18 11:40:00* Test Item Value Reference Range Interpretation Comments Lymphocytes # (Auto) (test code = 60677-6) 1.3 1.0-3.2 [facility] monocytes automated count (number/volume)2020-03-18 11:40:00* Test Item Value Reference Range Interpretation Comments Monocytes # (Auto) (test code = 742-7) 0.8 0.2-0.8 [facility]Autom[facility] blood eosinophil count 2020-03-18 11:40:00* Test Item Value Reference Range Interpretation Comments Eosinophils # (Auto) (test code = 711-2) 0.4 0.0-0.4 [facility]Autom[facility] blood basophil count (count/volume)2020-03-18 11:40:00* Test Item Value Reference Range Interpretation Comments Basophils # (Auto) (test code = 704-7) 0.1 0.0-0.1 [facility] HospitalFluoroscopic procedure less than one hour ngzzjpsy7971-45-86 11:40:00* Test Item Value Reference Range Interpretation Comments Absolute Immature Granulocyte (auto (krishna t code = Absolute Immature Granulocyte (auto) 0.06 0-0.1 [facility] leukocytes automated count (number/volume)2020-03-18 11:40:00* Test Item Value Reference Range Interpretation Comments White Blood Count (test code = 6690-2) 7.88 4.8-10.8 [facility] erythrocytes automated count (number/volume)2020-03-18 11:40:00* Test Item Value Reference Range Interpretation Comments Red Blood Count (test code = 789-8) 4.21 3.6-5.1 [facility] hemoglobin measurement (moles/volume)2020-03-18 11:40:00* Test Item Value Reference Range Interpretation Comments Hemoglobin (test code = 65651-4) 11.1 12.0-16.0 [facility]Autom[facility] blood hematocrit (volume fraction)2020-03-18 11:40:00* Test Item Value Reference Range Interpretation Comments Hematocrit (test code = 4544-3) 36.6 34.2-44.1 [facility]Autom[facility] erythrocyte mean corpuscular mdmugw6682-63-72 11:40:00* Test Item Value Reference Range Interpretation Comments Mean Corpuscular Volume (test code = 787-2) 86.9 81-99 [facility]Automated erythrocyte mean corpuscular hemoglobin (mass per erythrocyte)2020-03-18 11:40:00* Test Item Value Reference Range Interpretation Comments Mean Corpuscular Hemoglobin (test code = 785-6) 26.4 28-32 [facility]Autom[facility] erythrocyte mean corpuscular hemoglobin concentration measurement (mass/volume)2020-03-18 11:40:00* Test Item Value Reference Range Interpretation Comments Mean Corpuscular Hemoglobin Concent (test code = 786-4) 30.3 31-35 [facility] HospitalRDW RcnHu-Xcw7425-49-23 11:40:00* Test Item Value Reference Range Interpretation Comments Red Cell Distribution Width (test code = 02986-4) 15.9 11.7 -14.4 [facility]Autom[facility] blood platelet count (count/volume)2020-03-18 11:40:00* Test Item Value Reference Range Interpretation Comments Platelet Count (test code = 777-3) 400 140-360 [facility]Autom[facility] blood segmented neutrophil count as percentage of total squmxebmla9187-64-66 11:40:00* Test Item Value Reference Range Interpretation Comments Neutrophils (%) (Auto) (test code = 55232-8) 68.3 38.7-80.0 [facility] HospitalAutomated blood lymphocyte count as percentage ot total hwonurpzgq4653-68-70 11:40:00* Test Item Value Reference Range Interpretation Comments Lymphocytes (%) (Auto) (test code = 736-9) 16.1 18.0-39.1 [facility]Autom[facility] blood monocyte count as percentage of total pazmgyjczl4530-39-24 11:40:00* Test Item Value Reference Range Interpretation Comments Monocytes (%) (Auto) (test code = 5905-5) 9.5 4.4-11.3 [facility]Autom[facility] blood eosinophil count as percentage of total blyuhgvgxj9905-02-76 11:40:00* Test Item Value Reference Range Interpretation Comments Eosinophils (%) (Auto) (test code = 713-8) 4.4 0.0-6.0 [facility]Autom[facility] blood basophil count as percentage of total ocpdtrdibf4970-68-69 11:40:00* Test Item Value Reference Range Interpretation Comments Basophils (%) (Auto) (test code = 706-2) 0.9 0.0-1.0 [facility] HospitalFluoroscopic procedure less than one hour unhucrnp3394-36-21 11:40:00* Test Item Value Reference Range Interpretation Comments IM GRANULOCYTES % (test code = IM GRANULOCYTES %) 0.8 0.0- 1.0 [facility]Autom[facility] blood neutrophil count 2020-03-18 11:40:00* Test Item Value Reference Range Interpretation Comments Neutrophils # (Auto) (test code = 751-8) 5.4 2.1-6.9 [facility] lymphocytes count (number/volume) 2020-03-18 11:40:00* Test Item Value Reference Range Interpretation Comments Lymphocytes # (Auto) (test code = 75507-1) 1.3 1.0-3.2 [facility] monocytes automated count (number/volume)2020-03-18 11:40:00* Test Item Value Reference Range Interpretation Comments Monocytes # (Auto) (test code = 742-7) 0.8 0.2-0.8 [facility]Autom[facility] blood eosinophil count 2020-03-18 11:40:00* Test Item Value Reference Range Interpretation Comments Eosinophils # (Auto) (test code = 711-2) 0.4 0.0-0.4 [facility]Autom[facility] blood basophil count (count/volume)2020-03-18 11:40:00* Test Item Value Reference Range Interpretation Comments Basophils # (Auto) (test code = 704-7) 0.1 0.0-0.1 [facility] HospitalFluoroscopic procedure less than one hour zkulcjyg8073-23-81 11:40:00* Test Item Value Reference Range Interpretation Comments Absolute Immature Granulocyte (auto (krishna t code = Absolute Immature Granulocyte (auto) 0.06 0-0.1 [facility] leukocytes automated count (number/volume)2020-03-18 11:40:00* Test Item Value Reference Range Interpretation Comments White Blood Count (test code = 6690-2) 7.88 4.8-10.8 [facility] erythrocytes automated count (number/volume)2020-03-18 11:40:00* Test Item Value Reference Range Interpretation Comments Red Blood Count (test code = 789-8) 4.21 3.6-5.1 [facility] ([facility])2020-03-18 11:40:00* Test Item Value Reference Range Interpretation Comments Hemoglobin (test code = 54245-7) 11.1 12.0-16.0 [facility]Autom[facility] blood hematocrit (volume fraction)2020-03-18 11:40:00* Test Item Value Reference Range Interpretation Comments Hematocrit (test code = 4544-3) 36.6 34.2-44.1 [facility]Autom[facility] erythrocyte mean corpuscular rfmzgf6542-04-45 11:40:00* Test Item Value Reference Range Interpretation Comments Mean Corpuscular Volume (test code = 787-2) 86.9 81-99 [facility]Autom[facility] erythrocyte mean corpuscular hemoglobin (mass per erythrocyte)2020-03-18 11:40:00* Test Item Value Reference Range Interpretation Comments Mean Corpuscular Hemoglobin (test code = 785-6) 26.4 28-32 [facility]Automated erythrocyte mean corpuscular hemoglobin concentration measurement (mass/volume)2020-03-18 11:40:00* Test Item Value Reference Range Interpretation Comments Mean Corpuscular Hemoglobin Concent (test code = 786-4) 30.3 31-35 [facility] HospitalRDW CriNq-Ows6402-92-23 11:40:00* Test Item Value Reference Range Interpretation Comments Red Cell Distribution Width (test code = 23704-9) 15.9 11.7 -14.4 [facility]Autom[facility] blood platelet count (count/volume)2020-03-18 11:40:00* Test Item Value Reference Range Interpretation Comments Platelet Count (test code = 777-3) 400 140-360 [facility]Autom[facility] blood segmented neutrophil count as percentage of total ifmwkijytv9808-45-01 11:40:00* Test Item Value Reference Range Interpretation Comments Neutrophils (%) (Auto) (test code = 72596-8) 68.3 38.7-80.0 [facility]Autom[facility] blood lymphocyte count as percentage ot total zxjjuqkgfn4678-16-38 11:40:00* Test Item Value Reference Range Interpretation Comments Lymphocytes (%) (Auto) (test code = 736-9) 16.1 18.0-39.1 [facility]Autom[facility] blood monocyte count as percentage of total uastypsfcx7722-17-55 11:40:00* Test Item Value Reference Range Interpretation Comments Monocytes (%) (Auto) (test code = 5905-5) 9.5 4.4-11.3 [facility]Autom[facility] blood eosinophil count as percentage of total bygfxtgugm3744-88-65 11:40:00* Test Item Value Reference Range Interpretation Comments Eosinophils (%) (Auto) (test code = 713-8) 4.4 0.0-6.0 [facility]Autom[facility] blood basophil count as percentage of total tsdeqarwrz1954-65-72 11:40:00* Test Item Value Reference Range Interpretation Comments Basophils (%) (Auto) (test code = 706-2) 0.9 0.0-1.0 [facility] HospitalFluoroscopic procedure less than one hour bshoesyc2654-00-81 11:40:00* Test Item Value Reference Range Interpretation Comments IM GRANULOCYTES % (test code = IM GRANULOCYTES %) 0.8 0.0- 1.0 [facility]Autom[facility] blood neutrophil count 2020-03-18 11:40:00* Test Item Value Reference Range Interpretation Comments Neutrophils # (Auto) (test code = 751-8) 5.4 2.1-6.9 [facility] HospitalBlood lymphocytes count (number/volume) 2020-03-18 11:40:00* Test Item Value Reference Range Interpretation Comments Lymphocytes # (Auto) (test code = 14334-3) 1.3 1.0-3.2 [facility] HospitalBlood monocytes automated count (number/volume)2020-03-18 11:40:00* Test Item Value Reference Range Interpretation Comments Monocytes # (Auto) (test code = 742-7) 0.8 0.2-0.8 [facility]Autom[facility] blood eosinophil count 2020-03-18 11:40:00* Test Item Value Reference Range Interpretation Comments Eosinophils # (Auto) (test code = 711-2) 0.4 0.0-0.4 [facility]Autom[facility] blood basophil count (count/volume)2020-03-18 11:40:00* Test Item Value Reference Range Interpretation Comments Basophils # (Auto) (test code = 704-7) 0.1 0.0-0.1 [facility] HospitalFluoroscopic procedure less than one hour zqjkwvqk0694-76-59 11:40:00* Test Item Value Reference Range Interpretation Comments Absolute Immature Granulocyte (auto (krishna t code = Absolute Immature Granulocyte (auto) 0.06 0-0.1 [facility] HospitalCT [facility]/PELVIS L0008-60-00 13:44:00 [facility] [address] [place] [address] Patient Name: ELFEGO DEGROOT MR #: [id number] : 1945 Age/Sex: 74/F Req #: [id number] Adm Physician: Ordered by: OPAL LARSON MD Report #: [id number] Location: [facility]/Bed: Procedure: CT/CT ABDOM EN/PELVIS W Exam Date: 03/17/20 [...] 1:47 PM Dictated By: HUONG MUSA MD 1347 Transcribed By: ALISON on 1347 COPY TO: OPAL LARSON MD Serum or plasma urea nitrogen measurement (mass/volume)2020-03-17 11:50:00* Test Item Value Reference Range Interpretation Comments Blood Urea Nitrogen (test code = 3094-0) 6 05-21 [facility] creatinine measurement (mass/volume)2020-03-17 11:50:00* Test Item Value Reference Range Interpretation Comments Creatinine (test code = 2160-0) 0.80 0.57-1.11 [facility] plasma urea nitrogen/creatinine mass vjans3416-05-51 11:50:00* Test Item Value Reference Range Interpretation Comments BUN/Creatinine Ratio (test code = 3097-3) 8 04-20 [facility] HospitalEstimated glomerular filtration rate (GFR) vfvwsgpwzxtqz0631-93-66 11:50:00* Test Item Value Reference Range Interpretation Comments Estimat Glomerular Filtration Rate (test code = 364766321) > 60 >60 Ranges were taken from the National Kidney Disease Education Program and the [employer] [employer] literature.Reference ranges:60 or greater: Soomao44-60 ( for 3 consecutive months): Chronic kidney disease 15 or less: Kidney failureHendrick [facility] Center Brownwooderum or plasma urea nitrogen measurement (mass/volume)2020-03-17 11:50:00* Test Item Value Reference Range Interpretation Comments Blood Urea Nitrogen (test code = 3094-0) 05-21 [facility] plasma creatinine measurement (mass/volume)2020-03-17 11:50:00* Test Item Value Reference Range Interpretation Comments Creatinine (test code = 2160-0) 0.80 0.57-1.11 [facility] plasma urea nitrogen/creatinine mass bhbws9305-35-47 11:50:00* Test Item Value Reference Range Interpretation Comments BUN/Creatinine Ratio (test code = 3097-3) 8 04-20 [facility] HospitalEstimated glomerular filtration rate (GFR) bogbopthjsnvi4059-03-40 11:50:00* Test Item Value Reference Range Interpretation Comments Estimat Glomerular Filtration Rate (test code = 736483875) > 60 >60 Ranges were taken from the National Kidney Disease Education Program and the [employer] literature.Reference ranges:60 or greater: Qfnsyz54-32 ( for 3 consecutive months): Chronic kidney disease 15 or less: Kidney failureHendrick [facility] Center Brownwooderum or plasma urea nitrogen measurement (mass/volume)2020-03-17 11:50:00* Test Item Value Reference Range Interpretation Comments Blood Urea Nitrogen (test code = 3094-0) 05-21 [facility] or plasma creatinine measurement (mass/volume)2020-03-17 11:50:00* Test Item Value Reference Range Interpretation Comments Creatinine (test code = 2160-0) 0.80 0.57-1.11 [facility]um or plasma urea nitrogen/creatinine mass nosan4515-99-19 11:50:00* Test Item Value Reference Range Interpretation Comments BUN/Creatinine Ratio (test code = 3097-3) 8 04-20 [facility] HospitalEstimated glomerular filtration rate (GFR) qewfxwmvguynx6537-10-52 11:50:00* Test Item Value Reference Range Interpretation Comments Estimat Glomerular Filtration Rate (test code = 435022958) > 60 >60 Ranges were taken from the National Kidney Disease Education Program and the [employer] literature.Reference ranges:60 or greater: Hoygis61-19 ( for 3 consecutive months): Chronic kidney disease 15 or less: Kidney failureHendrick Medical Center Brownwooderum or plasma urea nitrogen measurement (mass/volume)2020-03-17 11:50:00* Test Item Value Reference Range Interpretation Comments Blood Urea Nitrogen (test code = 3094-0) 6 05-21 [facility] or plasma creatinine measurement (mass/volume)2020-03-17 11:50:00* Test Item Value Reference Range Interpretation Comments Creatinine (test code = 2160-0) 0.80 0.57-1.11 [facility] or plasma urea nitrogen/creatinine mass gujid5948-96-66 11:50:00* Test Item Value Reference Range Interpretation Comments BUN/Creatinine Ratio (test code = 3097-3) 8 04-20 [facility] HospitalEstimated glomerular filtration rate (GFR) visiexnwzivle4543-36-34 11:50:00* Test Item Value Reference Range Interpretation Comments Estimat Glomerular Filtration Rate (test code = 195156521) > 60 >60 Ranges were taken from the National Kidney Disease Education Program and the [place] [employer] literature.Reference ranges:60 or greater: Mosfgu51-71 ( for 3 consecutive months): Chronic kidney disease 15 or less: Kidney failureLegent Orthopedic HospitalCHEST 2 WSYOW8909-62-92 12:19:00 [facility] [address] [place], [place] [address] Patient Name: ELFEGO DEGROOT MR #: [id number] : 1945 Age/Sex: 73/F Req #: [id number] Adm Physician: Ordered by: SANTO LARSON MD Report #: [id number] Location: [facility] Room/Bed: Procedure: [id number] DX/CHEST 2 VIEWS Exam Date: 09/16/19 Exam [...] COPY TO: SANTO LARSON MD CT ABDOMEN/PELVIS R2231-29-15 13:05:00 [facility] [address] [place], [place] [address] Patient Name: ELFEGO DEGROOT MR #: [id number] : 1945 Age/Sex: 72/F Req #: [id number] Adm Physician: Ordered by: MALGORZATA POLK MD Report #: [id number] Location: Room/Bed: Procedure: [id number] CT/CT ABDOMEN/PELVIS W Ex am Date: 06/26/18 [...] is below the limits set by the [facility] Protocol [facility] (RPC). FINDINGS: LINES and TUBES: [...] Signed By: MANDA SPRING MD on 06/26/18 131 Transcribed By: ALISON on 06/26/18 1312 COPY TO: MALGORZATA POLK MD Urine [id number] 12:13:00* Test Item Value Reference Range Interpretation Comments Urine WBC (test code = 5821-4) 6-10 0-5 H [facility] HospitalU[facility] DMD1660-96-59 12:13:00* Test Item Value Reference Range Interpretation Comments Urine RBC (test code = 84244-1) 0-5 0-5 [facility] HospitalU[facility] Mdchzmeo3666-52-59 12:13:00* Test Item Value Reference Range Interpretation Comments Urine Bacteria (test code = 77322-8) FEW NONE [facility] HospitalUrine Epithelial Hfpkm3758-40-69 12:13:00 * Test Item Value Reference Range Interpretation Comments Urine Epithelial Cells (test code = 55600-9) FEW NONE [facility] HospitalU[facility] [id number] 12:13:00* Test Item Value Reference Range Interpretation Comments Urine WBC (test code = 5821-4) 6-10 0-5 H [facility] HospitalU[facility] [id number] 12:13:00* Test Item Value Reference Range Interpretation Comments Urine RBC (test code = 18598-1) 0-5 0-5 [facility] Hospital[facility] Gsrwdefs7762-01-00 12:13:00* Test Item Value Reference Range Interpretation Comments Urine Bacteria (test code = 23484-5) FEW NONE [facility] HospitalUrine Epithelial Rqtof4704-92-24 12:13:00 * Test Item Value Reference Range Interpretation Comments Urine Epithelial Cells (test code = 18404-4) FEW NONE [facility] HospitalU[facility] GSR5692-36-33 12:13:00* Test Item Value Reference Range Interpretation Comments Urine WBC (test code = 5821-4) 6-10 0-5 H [facility] HospitalU[facility] [id number] 12:13:00* Test Item Value Reference Range Interpretation Comments Urine RBC (test code = 32736-8) 0-5 0-5 [facility] Hospital[facility] Kdlwjlhe2063-32-70 12:13:00* Test Item Value Reference Range Interpretation Comments Urine Bacteria (test code = 08035-3) FEW NONE [facility] HospitalUrine Epithelial Ioqkc5625-44-58 12:13:00 * Test Item Value Reference Range Interpretation Comments Urine Epithelial Cells (test code = 90744-5) FEW NONE [facility] HospitalU[facility] KUY4087-48-55 12:13:00* Test Item Value Reference Range Interpretation Comments Urine WBC (test code = 5821-4) 6-10 0-5 H [facility] Hospital[facility] [id number] 12:13:00* Test Item Value Reference Range Interpretation Comments Urine RBC (test code = 11768-1) 0-5 0-5 [facility] Ehfgnait9079-00-36 12:13:00* Test Item Value Reference Range Interpretation Comments Urine Bacteria (test code = 28517-3) FEW NONE [facility] HospitalUrine Epithelial Vfggi3365-95-81 12:13:00 * Test Item Value Reference Range Interpretation Comments Urine Epithelial Cells (test code = 06331-2) FEW NONE [facility] HospitalU[facility] KLW5316-30-50 12:13:00* Test Item Value Reference Range Interpretation Comments Urine WBC (test code = 5821-4) 6-10 0-5 H [facility] Hospital[facility] [id number] 12:13:00* Test Item Value Reference Range Interpretation Comments Urine RBC (test code = 69460-0) 0-5 0-5 [facility] Hospital[facility] Bwdldhuc0770-40-93 12:13:00* Test Item Value Reference Range Interpretation Comments Urine Bacteria (test code = 33965-1) FEW NONE [facility] HospitalU[facility] Epithelial Ccthe7840-79-05 12:13:00 * Test Item Value Reference Range Interpretation Comments Urine Epithelial Cells (test code = 91863-5) FEW NONE [facility] [id number] 12:13:00* Test Item Value Reference Range Interpretation Comments Urine WBC (test code = 5821-4) 6-10 0-5 H [facility] [id number] 12:13:00* Test Item Value Reference Range Interpretation Comments Urine RBC (test code = 25902-1) 0-5 0-5 [facility] [facility] Zkbrjfgy0264-84-50 12:13:00* Test Item Value Reference Range Interpretation Comments Urine Bacteria (test code = 34059-5) [facility] Qjgrk7554-91-29 12:13:00 * Test Item Value Reference Range Interpretation Comments Urine Epithelial Cells (test code = 72762-5) FEW NONE [facility] [id number] 12:13:00* Test Item Value Reference Range Interpretation Comments Urine WBC (test code = 5821-4) 6-10 0-5 H [facility] [id number] 12:13:00* Test Item Value Reference Range Interpretation Comments Urine RBC (test code = 59073-7) 0-5 0-5 [facility] Tsqvxgig3261-71-49 12:13:00* Test Item Value Reference Range Interpretation Comments Urine Bacteria (test code = 62475-4) [facility]W NONE [facility] Tnjzn6359-89-03 12:13:00 * Test Item Value Reference Range Interpretation Comments Urine Epithelial Cells (test code = 57325-0) FEW NONE [facility] QEE4569-61-03 12:13:00* Test Item Value Reference Range Interpretation Comments Urine WBC (test code = 5821-4) 6-10 0-5 H [facility] HJL8575-68-71 12:13:00* Test Item Value Reference Range Interpretation Comments Urine RBC (test code = 18756-5) 0-5 0-5 [facility] Stityaia8272-11-34 12:13:00* Test Item Value Reference Range Interpretation Comments Urine Bacteria (test code = 93371-8) [facility]W NONE [facility] Nzrzz2164-42-94 12:13:00 * Test Item Value Reference Range Interpretation Comments Urine Epithelial Cells (test code = 48576-0) [facility]W NONE [facility] LRP8916-83-84 12:13:00* Test Item Value Reference Range Interpretation Comments Urine WBC (test code = 5821-4) 6-10 0-5 H [facility] [id number] 12:13:00* Test Item Value Reference Range Interpretation Comments Urine RBC (test code = 87244-5) 0-5 0-5 [facility] Pfiewbve3756-01-29 12:13:00* Test Item Value Reference Range Interpretation Comments Urine Bacteria (test code = 13793-8) FEW NONE [facility] Ienho1931-80-49 12:13:00 * Test Item Value Reference Range Interpretation Comments Urine Epithelial Cells (test code = 72415-2) FEW NONE [facility] IHT1974-06-78 12:13:00* Test Item Value Reference Range Interpretation Comments Urine WBC (test code = 5821-4) 6-10 0-5 H [facility] [id number] 12:13:00* Test Item Value Reference Range Interpretation Comments Urine RBC (test code = 40335-0) 0-5 0-5 [facility] Ohyxhxfj6591-01-89 12:13:00* Test Item Value Reference Range Interpretation Comments Urine Bacteria (test code = 86889-9) FEW NONE [facility] Ikmav2810-59-90 12:13:00 * Test Item Value Reference Range Interpretation Comments Urine Epithelial Cells (test code = 48530-4) FEW NONE [facility] Zrxbh5394-19-80 12:05:00* Test Item Value Reference Range Interpretation Comments Lactic Acid Level (test code = Lactic Acid Level) 13.5 4.5- 19.8 [facility] Bophp8965-94-13 12:05:00* Test Item Value Reference Range Interpretation Comments Lactic Acid Level (test code = Lactic Acid Level) 13.5 4.5- 19.8 [facility] Xpccl2542-08-55 12:05:00* Test Item Value Reference Range Interpretation Comments Lactic Acid Level (test code = Lactic Acid Level) 13.5 4.5- 19.8 [facility] Nnpmd8316-59-69 12:05:00* Test Item Value Reference Range Interpretation Comments Lactic Acid Level (test code = Lactic Acid Level) 13.5 4.5- 19.8 [facility] Aqljp3308-79-58 12:05:00* Test Item Value Reference Range Interpretation Comments Lactic Acid Level (test code = Lactic Acid Level) 13.5 4.5- 19.8 [facility] Qvuod8499-64-79 12:05:00* Test Item Value Reference Range Interpretation Comments Lactic Acid Level (test code = Lactic Acid Level) 13.5 4.5- 19.8 [facility] Eocdv0413-99-60 12:05:00* Test Item Value Reference Range Interpretation Comments Lactic Acid Level (test code = Lactic Acid Level) 13.5 4.5- 19.8 [facility] Kdbtd5176-38-23 12:05:00* Test Item Value Reference Range Interpretation Comments Lactic Acid Level (test code = Lactic Acid Level) 13.5 4.5- 19.8 [facility] Rtilg7427-39-93 12:05:00* Test Item Value Reference Range Interpretation Comments Lactic Acid Level (test code = Lactic Acid Level) 13.5 4.5- 19.8 [facility] Jbrci6691-35-11 12:05:00* Test Item Value Reference Range Interpretation Comments Lactic Acid Level (test code = Lactic Acid Level) 13.5 4.5- 19.8 [facility] Razna8478-57-32 11:56:00* Test Item Value Reference Range Interpretation Comments Urine Color (test code = 5778-6) YELLOW YELLOW [facility] Kxpfpfn5267-84-60 11:56:00* Test Item Value Reference Range Interpretation Comments Urine Clarity (test code = 96922-4) SL CLOUDY CLEAR [facility] Specific Annyprq1224-14-91 11:56:00 * Test Item Value Reference Range Interpretation Comments Urine Specific [place] (test code = 5811-5) 1.010 1.010-1.02 5 [facility] hA4099-12-07 11:56:00* Test Item Value Reference Range Interpretation Comments Urine pH (test code = 17893-2) 7 5-7 [facility]ukocyte Oazgroro1454-36-51 11:56:00* Test Item Value Reference Range Interpretation Comments Urine Leukocyte Esterase (test code = 5799-2) 1+ NEGATIVE H [facility] Xinpolh1716-92-01 11:56:00* Test Item Value Reference Range Interpretation Comments Urine Nitrite (test code = 52579-3) NEGATIVE NEGATIVE [facility] Nzhgiag4616-37-41 11:56:00* Test Item Value Reference Range Interpretation Comments Urine Protein (test code = 5804-0) TRACE NEGATIVE H [facility] Glucose (UA)2018-06-26 11:56:00* Test Item Value Reference Range Interpretation Comments Urine Glucose (UA) (test code = 2349-9) NEGATIVE NEGATIVE [facility] Hvjmwlw8818-62-86 11:56:00* Test Item Value Reference Range Interpretation Comments Urine Ketones (test code = 20564-2) NEGATIVE NEGATIVE [facility] Rgwedbupjtyn2210-79-64 11:56:00* Test Item Value Reference Range Interpretation Comments Urine Urobilinogen (test code = 12909-8) 0.2 0.2-1 [facility] Olzyxctea2504-06-05 11:56:00* Test Item Value Reference Range Interpretation Comments Urine Bilirubin (test code = 1978-6) NEGATIVE NEGATIVE [facility] Ksatd8740-03-19 11:56:00* Test Item Value Reference Range Interpretation Comments Urine Blood (test code = 26431-7) NEGATIVE NEGATIVE [facility] Mypdy4815-70-70 11:56:00* Test Item Value Reference Range Interpretation Comments Urine Color (test code = 5778-6) YELLOW YELLOW [facility] Bdnpggh8806-80-94 11:56:00* Test Item Value Reference Range Interpretation Comments Urine Clarity (test code = 23618-7) SL CLOUDY CLEAR [facility] Specific Lanjpnr6633-66-69 11:56:00 * Test Item Value Reference Range Interpretation Comments Urine Specific [place] (test code = 5811-5) 1.010 1.010-1.02 5 [facility] hT7059-33-59 11:56:00* Test Item Value Reference Range Interpretation Comments Urine pH (test code = 93333-1) 7 5-7 [facility] Leukocyte Vlovgudl9751-07-15 11:56:00* Test Item Value Reference Range Interpretation Comments Urine Leukocyte Esterase (test code = 5799-2) 1+ NEGATIVE H [facility] Ugngppl3366-06-13 11:56:00* Test Item Value Reference Range Interpretation Comments Urine Nitrite (test code = 35500-5) NEGATIVE NEGATIVE [facility] Clukeqz4277-97-40 11:56:00* Test Item Value Reference Range Interpretation Comments Urine Protein (test code = 5804-0) TRACE NEGATIVE H [facility] Glucose (UA)2018-06-26 11:56:00* Test Item Value Reference Range Interpretation Comments Urine Glucose (UA) (test code = 2349-9) NEGATIVE NEGATIVE [facility] Njruglf3668-00-13 11:56:00* Test Item Value Reference Range Interpretation Comments Urine Ketones (test code = 69027-7) NEGATIVE NEGATIVE [facility] Ggxhphvbaxxt8554-39-90 11:56:00* Test Item Value Reference Range Interpretation Comments Urine Urobilinogen (test code = 34183-3) 0.2 0.2-1 [facility] Fadjyxfxd8498-42-18 11:56:00* Test Item Value Reference Range Interpretation Comments Urine Bilirubin (test code = 1978-6) NEGATIVE NEGATIVE [facility] Dwzvl6379-52-05 11:56:00* Test Item Value Reference Range Interpretation Comments Urine Blood (test code = 62762-5) NEGATIVE NEGATIVE [facility] Mgsoc7108-36-52 11:56:00* Test Item Value Reference Range Interpretation Comments Urine Color (test code = 5778-6) YELLOW YELLOW [facility] Licadgv4489-96-11 11:56:00* Test Item Value Reference Range Interpretation Comments Urine Clarity (test code = 10725-1) SL CLOUDY CLEAR [facility] Specific Eeblqge9679-18-73 11:56:00 * Test Item Value Reference Range Interpretation Comments Urine Specific [place] (test code = 5811-5) 1.010 1.010-1.02 5 [facility] eS5900-22-00 11:56:00* Test Item Value Reference Range Interpretation Comments Urine pH (test code = 97580-3) 7 5-7 [facility] Le[facility]ocyte Arrhhjni4081-06-56 11:56:00* Test Item Value Reference Range Interpretation Comments Urine Leukocyte Esterase (test code = 5799-2) 1+ NEGATIVE H [facility] Rrdwimp0818-24-37 11:56:00* Test Item Value Reference Range Interpretation Comments Urine Nitrite (test code = 15730-7) NEGATIVE [facility]GATIVE [facility] Oossiik1920-39-04 11:56:00* Test Item Value Reference Range Interpretation Comments Urine Protein (test code = 5804-0) TRACE NEGATIVE H [facility] Glucose (UA)2018-06-26 11:56:00* Test Item Value Reference Range Interpretation Comments Urine Glucose (UA) (test code = 2349-9) NEGATIVE NEGATIVE [facility] Tpwjwtj3183-67-38 11:56:00* Test Item Value Reference Range Interpretation Comments Urine Ketones (test code = 98802-5) NEGATIVE NEGATIVE [facility] Bopnsrxewvcn0628-36-36 11:56:00* Test Item Value Reference Range Interpretation Comments Urine Urobilinogen (test code = 35698-1) 0.2 0.2-1 [facility] Crzkxyclt4572-37-35 11:56:00* Test Item Value Reference Range Interpretation Comments Urine Bilirubin (test code = 1978-6) NEGATIVE NEGATIVE [facility] Yrhsk0333-41-62 11:56:00* Test Item Value Reference Range Interpretation Comments Urine Blood (test code = 46199-0) NEGATIVE NEGATIVE [facility] Mevtb5889-89-43 11:56:00* Test Item Value Reference Range Interpretation Comments Urine Color (test code = 5778-6) YELLOW YELLOW [facility] Gmjdtbt8259-08-23 11:56:00* Test Item Value Reference Range Interpretation Comments Urine Clarity (test code = 76165-9) SL CLOUDY CLEAR [facility] Specific Fudhsyr9095-51-44 11:56:00 * Test Item Value Reference Range Interpretation Comments Urine Specific [place] (test code = 5811-5) 1.010 1.010-1.02 5 [facility] oG1369-74-45 11:56:00* Test Item Value Reference Range Interpretation Comments Urine pH (test code = 52352-6) 7 5-7 [facility] Le[facility]ocyte Onayjwtn4333-31-40 11:56:00* Test Item Value Reference Range Interpretation Comments Urine Leukocyte Esterase (test code = 5799-2) 1+ NEGATIVE H [facility] Wfyegje0424-55-15 11:56:00* Test Item Value Reference Range Interpretation Comments Urine Nitrite (test code = 02341-9) NEGATIVE NEGATIVE [facility] Dyxzqss0289-12-08 11:56:00* Test Item Value Reference Range Interpretation Comments Urine Protein (test code = 5804-0) TRACE NEGATIVE H [facility] Glucose (UA)2018-06-26 11:56:00* Test Item Value Reference Range Interpretation Comments Urine Glucose (UA) (test code = 2349-9) NEGATIVE NEGATIVE [facility] Icbjnbh0240-02-90 11:56:00* Test Item Value Reference Range Interpretation Comments Urine Ketones (test code = 82728-6) NEGATIVE NEGATIVE [facility] Smcotczrwrjw0021-31-92 11:56:00* Test Item Value Reference Range Interpretation Comments Urine Urobilinogen (test code = 63884-2) 0.2 0.2-1 [facility] Ocxxzjppb8499-33-96 11:56:00* Test Item Value Reference Range Interpretation Comments Urine Bilirubin (test code = 1978-6) NEGATIVE NEGATIVE [facility] Dkiup1490-35-23 11:56:00* Test Item Value Reference Range Interpretation Comments Urine Blood (test code = 78102-9) NEGATIVE NEGATIVE [facility] Qckbh1719-29-60 11:56:00* Test Item Value Reference Range Interpretation Comments Urine Color (test code = 5778-6) YELLOW YELLOW [facility] Urarbvk7680-60-41 11:56:00* Test Item Value Reference Range Interpretation Comments Urine Clarity (test code = 39637-6) SL CLOUDY CLEAR [facility] Exiawgk8808-97-36 11:56:00 * Test Item Value Reference Range Interpretation Comments Urine Specific [place] (test code = 5811-5) 1.010 1.010-1.02 5 [facility] tQ9467-18-46 11:56:00* Test Item Value Reference Range Interpretation Comments Urine pH (test code = 15980-1) 7 5-7 [facility] Le[facility]ocyte Peiwmtsk2385-88-69 11:56:00* Test Item Value Reference Range Interpretation Comments Urine Leukocyte Esterase (test code = 5799-2) 1+ NEGATIVE H [facility] Zpwkjlj1485-24-43 11:56:00* Test Item Value Reference Range Interpretation Comments Urine Nitrite (test code = 17444-8) NEGATIVE NEGATIVE [facility] Qlzonvf3872-19-53 11:56:00* Test Item Value Reference Range Interpretation Comments Urine Protein (test code = 5804-0) TRACE NEGATIVE H [facility] Glucose (UA)2018-06-26 11:56:00* Test Item Value Reference Range Interpretation Comments Urine Glucose (UA) (test code = 2349-9) NEGATIVE NEGATIVE [facility] Wpunyog4428-65-72 11:56:00* Test Item Value Reference Range Interpretation Comments Urine Ketones (test code = 16554-0) NEGATIVE NEGATIVE [facility] Bafuhkujzpbt7569-65-61 11:56:00* Test Item Value Reference Range Interpretation Comments Urine Urobilinogen (test code = 10230-2) 0.2 0.2-1 [facility] Sajfdgtwp5514-35-91 11:56:00* Test Item Value Reference Range Interpretation Comments Urine Bilirubin (test code = 1978-6) NEGATIVE NEGATIVE [facility] Zlnsw2285-57-51 11:56:00* Test Item Value Reference Range Interpretation Comments Urine Blood (test code = 47391-4) NEGATIVE NEGATIVE [facility] Uiwst2770-58-93 11:56:00* Test Item Value Reference Range Interpretation Comments Urine Color (test code = 5778-6) YELLOW YELLOW [facility] Wffpprm1076-39-70 11:56:00* Test Item Value Reference Range Interpretation Comments Urine Clarity (test code = 90512-4) SL CLOUDY CLEAR [facility] Bdakmse5377-07-05 11:56:00 * Test Item Value Reference Range Interpretation Comments Urine Specific [place] (test code = 5811-5) 1.010 1.010-1.02 5 [facility] nS1261-23-10 11:56:00* Test Item Value Reference Range Interpretation Comments Urine pH (test code = 17775-6) 7 5-7 [facility] Leukocyte Ogqpkilh3243-38-07 11:56:00* Test Item Value Reference Range Interpretation Comments Urine Leukocyte Esterase (test code = 5799-2) 1+ NEGATIVE H [facility] Vvxcudu1804-76-50 11:56:00* Test Item Value Reference Range Interpretation Comments Urine Nitrite (test code = 78875-5) NEGATIVE NEGATIVE [facility] Svmtgin4791-18-25 11:56:00* Test Item Value Reference Range Interpretation Comments Urine Protein (test code = 5804-0) TRACE NEGATIVE H [facility] Glucose (UA)2018-06-26 11:56:00* Test Item Value Reference Range Interpretation Comments Urine Glucose (UA) (test code = 2349-9) NEGATIVE NEGATIVE [facility] Ffujyou2689-33-84 11:56:00* Test Item Value Reference Range Interpretation Comments Urine Ketones (test code = 42112-7) NEGATIVE NEGATIVE [facility] Nojgjnsyiref1965-72-10 11:56:00* Test Item Value Reference Range Interpretation Comments Urine Urobilinogen (test code = 52671-6) 0.2 0.2-1 [facility] Ddacuxkwe7818-34-26 11:56:00* Test Item Value Reference Range Interpretation Comments Urine Bilirubin (test code = 1978-6) NEGATIVE NEGATIVE [facility] Enalk0806-70-21 11:56:00* Test Item Value Reference Range Interpretation Comments Urine Blood (test code = 64550-3) NEGATIVE NEGATIVE [facility] Wbpwz8105-89-14 11:56:00* Test Item Value Reference Range Interpretation Comments Urine Color (test code = 5778-6) YELLOW YELLOW [facility] Lnpokle7755-26-44 11:56:00* Test Item Value Reference Range Interpretation Comments Urine Clarity (test code = 45888-0) SL CLOUDY CLEAR [facility] Nlbugxz5100-88-46 11:56:00 * Test Item Value Reference Range Interpretation Comments Urine Specific [place] (test code = 5811-5) 1.010 1.010-1.02 5 [facility] zJ0857-34-87 11:56:00* Test Item Value Reference Range Interpretation Comments Urine pH (test code = 37302-5) 7 5-7 [facility]ocyte Usypytfl4910-21-47 11:56:00* Test Item Value Reference Range Interpretation Comments Urine Leukocyte Esterase (test code = 5799-2) 1+ NEGATIVE H [facility] Tgvlpqg7232-23-80 11:56:00* Test Item Value Reference Range Interpretation Comments Urine Nitrite (test code = 99787-3) NEGATIVE NEGATIVE [facility] Eceebwy6941-56-75 11:56:00* Test Item Value Reference Range Interpretation Comments Urine Protein (test code = 5804-0) TRACE NEGATIVE H [facility] Glucose (UA)2018-06-26 11:56:00* Test Item Value Reference Range Interpretation Comments Urine Glucose (UA) (test code = 2349-9) NEGATIVE NEGATIVE [facility] Afkjqsf6125-39-40 11:56:00* Test Item Value Reference Range Interpretation Comments Urine Ketones (test code = 80973-1) NEGATIVE NEGATIVE [facility] Bjjpqkbbsmeh3903-65-57 11:56:00* Test Item Value Reference Range Interpretation Comments Urine Urobilinogen (test code = 36197-0) 0.2 0.2-1 [facility] Weiqqwzan5972-98-55 11:56:00* Test Item Value Reference Range Interpretation Comments Urine Bilirubin (test code = 1978-6) NEGATIVE NEGATIVE [facility] Wwhwg3642-60-63 11:56:00* Test Item Value Reference Range Interpretation Comments Urine Blood (test code = 56803-1) NEGATIVE [facility]GATIVE [facility] Feegn7608-09-75 11:56:00* Test Item Value Reference Range Interpretation Comments Urine Color (test code = 5778-6) YELLOW YELLOW [facility] Uxerklv7371-81-54 11:56:00* Test Item Value Reference Range Interpretation Comments Urine Clarity (test code = 12765-5) SL CLOUDY CLEAR [facility] Vehloxa1721-53-21 11:56:00 * Test Item Value Reference Range Interpretation Comments Urine Specific [place] (test code = 5811-5) 1.010 1.010-1.02 5 [facility] kK5254-11-32 11:56:00* Test Item Value Reference Range Interpretation Comments Urine pH (test code = 93152-5) 7 5-7 [facility] Leukocyte Hraslgze4299-84-05 11:56:00* Test Item Value Reference Range Interpretation Comments Urine Leukocyte Esterase (test code = 5799-2) 1+ NEGATIVE H [facility] Bucsbbr7072-22-04 11:56:00* Test Item Value Reference Range Interpretation Comments Urine Nitrite (test code = 90799-7) NEGATIVE NEGATIVE [facility] Vtnksng2007-18-42 11:56:00* Test Item Value Reference Range Interpretation Comments Urine Protein (test code = 5804-0) TRACE NEGATIVE H [facility] Glucose (UA)2018-06-26 11:56:00* Test Item Value Reference Range Interpretation Comments Urine Glucose (UA) (test code = 2349-9) NEGATIVE NEGATIVE [facility] Avjuatk5573-69-93 11:56:00* Test Item Value Reference Range Interpretation Comments Urine Ketones (test code = 85884-5) NEGATIVE NEGATIVE [facility] Kgkvejsrmkhl0769-31-08 11:56:00* Test Item Value Reference Range Interpretation Comments Urine Urobilinogen (test code = 37777-7) 0.2 0.2-1 [facility] Nwfqrvxth1854-82-02 11:56:00* Test Item Value Reference Range Interpretation Comments Urine Bilirubin (test code = 1978-6) NEGATIVE NEGATIVE [facility] Iezur8689-24-44 11:56:00* Test Item Value Reference Range Interpretation Comments Urine Blood (test code = 31298-4) NEGATIVE NEGATIVE [facility] Bjtth3868-73-23 11:56:00* Test Item Value Reference Range Interpretation Comments Urine Color (test code = 5778-6) YELLOW YELLOW [facility] Olhtohd4032-88-39 11:56:00* Test Item Value Reference Range Interpretation Comments Urine Clarity (test code = 04855-1) SL CLOUDY CLEAR [facility] Vqfrueh4360-84-64 11:56:00 * Test Item Value Reference Range Interpretation Comments Urine Specific [place] (test code = 5811-5) 1.010 1.010-1.02 5 [facility] pW1319-86-32 11:56:00* Test Item Value Reference Range Interpretation Comments Urine pH (test code = 27340-1) 7 5-7 [facility] Xqocleos6778-18-18 11:56:00* Test Item Value Reference Range Interpretation Comments Urine Leukocyte Esterase (test code = 5799-2) 1+ NEGATIVE H [facility] Sgqbuok1605-53-90 11:56:00* Test Item Value Reference Range Interpretation Comments Urine Nitrite (test code = 02817-5) NEGATIVE NEGATIVE [facility] Mzgtvqi9203-27-57 11:56:00* Test Item Value Reference Range Interpretation Comments Urine Protein (test code = 5804-0) TRACE NEGATIVE H [facility] Glucose (UA)2018-06-26 11:56:00* Test Item Value Reference Range Interpretation Comments Urine Glucose (UA) (test code = 2349-9) NEGATIVE NEGATIVE [facility] Duljiqw4065-02-50 11:56:00* Test Item Value Reference Range Interpretation Comments Urine Ketones (test code = 04406-0) NEGATIVE NEGATIVE [facility] Chzdgqlkvkza6578-86-49 11:56:00* Test Item Value Reference Range Interpretation Comments Urine Urobilinogen (test code = 40001-3) 0.2 0.2-1 [facility] Aitloifqf0578-31-28 11:56:00* Test Item Value Reference Range Interpretation Comments Urine Bilirubin (test code = 1978-6) NEGATIVE NEGATIVE [facility] Tckih5497-65-18 11:56:00* Test Item Value Reference Range Interpretation Comments Urine Blood (test code = 72037-2) NEGATIVE [facility]GATIVE [facility] Zrypk9095-20-40 11:56:00* Test Item Value Reference Range Interpretation Comments Urine Color (test code = 5778-6) YELLOW YELLOW [facility] Mpznukb0911-09-05 11:56:00* Test Item Value Reference Range Interpretation Comments Urine Clarity (test code = 79285-7) SL CLOUDY CLEAR [facility] Specific Tzsubnx8679-00-23 11:56:00 * Test Item Value Reference Range Interpretation Comments Urine Specific [place] (test code = 5811-5) 1.010 1.010-1.02 5 [facility] lK5710-77-59 11:56:00* Test Item Value Reference Range Interpretation Comments Urine pH (test code = 83575-5) 7 5-7 [facility] Leukocyte Eendaomf1134-85-67 11:56:00* Test Item Value Reference Range Interpretation Comments Urine Leukocyte Esterase (test code = 5799-2) 1+ NEGATIVE H [facility] Rwqjbop4261-52-92 11:56:00* Test Item Value Reference Range Interpretation Comments Urine Nitrite (test code = 68298-1) NEGATIVE NEGATIVE [facility] Eohkvdx9311-08-92 11:56:00* Test Item Value Reference Range Interpretation Comments Urine Protein (test code = 5804-0) TRACE NEGATIVE H [facility] Glucose (UA)2018-06-26 11:56:00* Test Item Value Reference Range Interpretation Comments Urine Glucose (UA) (test code = 2349-9) NEGATIVE NEGATIVE [facility] Onuuicq6257-51-57 11:56:00* Test Item Value Reference Range Interpretation Comments Urine Ketones (test code = 58625-7) NEGATIVE NEGATIVE [facility] Nhcjgukteciq3999-53-54 11:56:00* Test Item Value Reference Range Interpretation Comments Urine Urobilinogen (test code = 46664-8) 0.2 0.2-1 [facility] Gomntmeki6773-96-30 11:56:00* Test Item Value Reference Range Interpretation Comments Urine Bilirubin (test code = 1978-6) NEGATIVE NEGATIVE [facility] Oefmx8097-15-88 11:56:00* Test Item Value Reference Range Interpretation Comments Urine Blood (test code = 56774-6) NEGATIVE [facility]GATIVE [facility] Nnelb6265-25-65 11:47:00* Test Item Value Reference Range Interpretation Comments Sodium Level (test code = 2951-2) 139 136-145 [facility]Pot[facility] Jgxyq7305-24-18 11:47:00* Test Item Value Reference Range Interpretation Comments Potassium Level (test code = 2823-3) 3.5 3.5-5.1 [facility] HospitalChloride Zhgac3469-72-17 11:47:00* Test Item Value Reference Range Interpretation Comments Chloride Level (test code = 2075-0) 101 98-107 [facility] HospitalCarbon Dioxide Qukul0576-39-68 11:47:00* Test Item Value Reference Range Interpretation Comments Carbon Dioxide Level (test code = 2028-9) 24 22-29 [facility] HospitalAnion Xjn1153-63-26 11:47:00* Test Item Value Reference Range Interpretation Comments Anion Gap (test code = 90230-6) 17.5 8-16 H [facility] HospitalBlood Urea Pfilhojb2956-81-01 11:47:00* Test Item Value Reference Range Interpretation Comments Blood Urea Nitrogen (test code = 3094-0) 7 7-26 [facility] HospitalCreatinine2018-08-31 11:47:00* Test Item Value Reference Range Interpretation Comments Creatinine (test code = 2160-0) 0.93 0.57-1.11 [facility] HospitalBUN/Creatinine Fcpoi5003-43-38 11:47:00* Test Item Value Reference Range Interpretation Comments BUN/Creatinine Ratio (test code = 3097-3) 8 6-25 [facility] HospitalEstimat Glomerular Filtration Rate 2018-06-26 11:47:00* Test Item Value Reference Range Interpretation Comments Estimat Glomerular Filtration Rate (test code = 43095-1) 59 >60 L Ranges were taken from the National Kidney Disease Education Program and the [facility] literature.Reference ranges:60 or greater: Lrrnsu74-44 ( for 3 consecutive months): Chronic kidney disease 15 or less: Kidney failureLegent Orthopedic HospitalGlucose Cbewp4589-13-35 11:47:00* Test Item Value Reference Range Interpretation Comments Glucose Level (test code = BAZ4824) 139 74-118 H [facility] HospitalCalcium Ullpl7938-59-86 11:47:00* Test Item Value Reference Range Interpretation Comments Calcium Level (test code = 98290-0) 10.3 8.4-10.2 H [facility] HospitalTotal Piopbwyhn6964-06-83 11:47:00* Test Item Value Reference Range Interpretation Comments Total Bilirubin (test code = 1975-2) 0.5 0.2-1.2 [facility] HospitalAspartate Amino Transf (AST/SGOT) 2018-06-26 11:47:00* Test Item Value Reference Range Interpretation Comments Aspartate Amino Transf (AST/SGOT) (test code = Aspartate Amino Transf (AST/SGOT)) 37 5-34 H [facility] HospitalAlanine Aminotransferase (ALT/SGPT) 2018-06-26 11:47:00* Test Item Value Reference Range Interpretation Comments Alanine Aminotransferase (ALT/SGPT) (test code = 1742-6) 38 0-55 [facility] HospitalTotal Rliqcbt2823-27-31 11:47:00* Test Item Value Reference Range Interpretation Comments Total Protein (test code = 2885-2) 7.5 6.5-8.1 [facility] HospitalAlbumin2018-08-31 11:47:00* Test Item Value Reference Range Interpretation Comments Albumin (test code = 1751-7) 4.0 3.5-5.0 [facility] HospitalGlobulin2018-08-31 11:47:00* Test Item Value Reference Range Interpretation Comments Globulin (test code = 57853-8) 3.5 2.3-3.5 [facility] HospitalAlbumin/Globulin Prxgi0683-19-40 11:47:00 * Test Item Value Reference Range Interpretation Comments Albumin/Globulin Ratio (test code = 1759-0) 1.1 0.8-2.0 [facility] HospitalAlkaline Rhrtmgjquii8023-63-99 11:47:00* Test Item Value Reference Range Interpretation Comments Alkaline Phosphatase (test code = 6768-6) 124 40-150 [facility] Qtczl0952-20-20 11:47:00* Test Item Value Reference Range Interpretation Comments Sodium Level (test code = 2951-2) 139 136-145 [facility] HospitalPotassium Vngfl3538-92-81 11:47:00* Test Item Value Reference Range Interpretation Comments Potassium Level (test code = 2823-3) 3.5 3.5-5.1 [facility] HospitalChloride Rrrlt5368-99-80 11:47:00* Test Item Value Reference Range Interpretation Comments Chloride Level (test code = 2075-0) 101 98-107 [facility] HospitalCarbon Dioxide Bdtwf5025-78-79 11:47:00* Test Item Value Reference Range Interpretation Comments Carbon Dioxide Level (test code = 2028-9) 24 22-29 [facility] HospitalAnion Xry3081-40-46 11:47:00* Test Item Value Reference Range Interpretation Comments Anion Gap (test code = 26356-2) 17.5 8-16 H [facility] HospitalBlood Urea Wgrwbbcp6789-24-61 11:47:00* Test Item Value Reference Range Interpretation Comments Blood Urea Nitrogen (test code = 3094-0) 7 7-26 [facility] HospitalCreatinine2018-08-31 11:47:00* Test Item Value Reference Range Interpretation Comments Creatinine (test code = 2160-0) 0.93 0.57-1.11 [facility] HospitalBUN/Creatinine Dgodc6807-79-29 11:47:00* Test Item Value Reference Range Interpretation Comments BUN/Creatinine Ratio (test code = 3097-3) 8 6-25 [facility] HospitalEstimat Glomerular Filtration Rate 2018-06-26 11:47:00* Test Item Value Reference Range Interpretation Comments Estimat Glomerular Filtration Rate (test code = 484589800) 59 >60 L Ranges were taken from the National Kidney Disease Education Program and the [facility] literature.Reference ranges:60 or greater: Rivrco02-24 ( for 3 consecutive months): Chronic kidney disease 15 or less: Kidney failureLegent Orthopedic HospitalGlucose Seize2617-12-37 11:47:00* Test Item Value Reference Range Interpretation Comments Glucose Level (test code = BBE8924) 139 74-118 H [facility] HospitalCalcium Odvpz5461-66-67 11:47:00* Test Item Value Reference Range Interpretation Comments Calcium Level (test code = 70243-0) 10.3 8.4-10.2 H [facility] HospitalTotal Qkkcokkve7167-75-91 11:47:00* Test Item Value Reference Range Interpretation Comments Total Bilirubin (test code = 1975-2) 0.5 0.2-1.2 [facility] HospitalAspartate Amino Transf (AST/SGOT) 2018-06-26 11:47:00* Test Item Value Reference Range Interpretation Comments Aspartate Amino Transf (AST/SGOT) (test code = Aspartate Amino Transf (AST/SGOT)) 37 5-34 H [facility] HospitalAlanine Aminotransferase (ALT/SGPT) 2018-06-26 11:47:00* Test Item Value Reference Range Interpretation Comments Alanine Aminotransferase (ALT/SGPT) (test code = 1742-6) 38 0-55 [facility] HospitalTotal Bvovduv7054-96-00 11:47:00* Test Item Value Reference Range Interpretation Comments Total Protein (test code = 2885-2) 7.5 6.5-8.1 [facility] HospitalAlbumin2018-08-31 11:47:00* Test Item Value Reference Range Interpretation Comments Albumin (test code = 1751-7) 4.0 3.5-5.0 [facility] HospitalGlobulin2018-08-31 11:47:00* Test Item Value Reference Range Interpretation Comments Globulin (test code = 89740-1) 3.5 2.3-3.5 [facility] HospitalAlbumin/Globulin Vgyve8195-16-71 11:47:00 * Test Item Value Reference Range Interpretation Comments Albumin/Globulin Ratio (test code = 1759-0) 1.1 0.8-2.0 [facility] HospitalAlkaline Duubyknkoxt9496-26-27 11:47:00* Test Item Value Reference Range Interpretation Comments Alkaline Phosphatase (test code = 6768-6) 124 40-150 [facility] Lymob1905-74-16 11:47:00* Test Item Value Reference Range Interpretation Comments Sodium Level (test code = 2951-2) 139 136-145 [facility] HospitalPotassium Cigfw0080-66-06 11:47:00* Test Item Value Reference Range Interpretation Comments Potassium Level (test code = 2823-3) 3.5 3.5-5.1 [facility] HospitalChloride Wqxbq7104-68-28 11:47:00* Test Item Value Reference Range Interpretation Comments Chloride Level (test code = 2075-0) 101 98-107 [facility] HospitalCarbon Dioxide Wyjgn7414-86-32 11:47:00* Test Item Value Reference Range Interpretation Comments Carbon Dioxide Level (test code = 2028-9) 24 22-29 [facility] HospitalAnion Yis1865-96-68 11:47:00* Test Item Value Reference Range Interpretation Comments Anion Gap (test code = 45658-7) 17.5 8-16 H [facility] HospitalBlood Urea Nvhxproc9643-49-97 11:47:00* Test Item Value Reference Range Interpretation Comments Blood Urea Nitrogen (test code = 3094-0) 7 7-26 [facility] HospitalCreatinine2018-08-31 11:47:00* Test Item Value Reference Range Interpretation Comments Creatinine (test code = 2160-0) 0.93 0.57-1.11 [facility] HospitalBUN/Creatinine Viihi7722-16-09 11:47:00* Test Item Value Reference Range Interpretation Comments BUN/Creatinine Ratio (test code = 3097-3) 8 6-25 [facility] HospitalEstimat Glomerular Filtration Rate 2018-06-26 11:47:00* Test Item Value Reference Range Interpretation Comments Estimat Glomerular Filtration Rate (test code = 830223854) 59 >60 L Ranges were taken from the National Kidney Disease Education Program and the [facility] literature.Reference ranges:60 or greater: Vkcjih02-85 ( for 3 consecutive months): Chronic kidney disease 15 or less: Kidney failureLegent Orthopedic HospitalGlucose Lvcws7535-01-87 11:47:00* Test Item Value Reference Range Interpretation Comments Glucose Level (test code = ROV0993) 139 74-118 H [facility] HospitalCalcium Iumbo5919-15-72 11:47:00* Test Item Value Reference Range Interpretation Comments Calcium Level (test code = 34923-2) 10.3 8.4-10.2 H [facility] HospitalTotal Jtvbmzrbv2901-69-26 11:47:00* Test Item Value Reference Range Interpretation Comments Total Bilirubin (test code = 1975-2) 0.5 0.2-1.2 [facility] HospitalAspartate Amino Transf (AST/SGOT) 2018-06-26 11:47:00* Test Item Value Reference Range Interpretation Comments Aspartate Amino Transf (AST/SGOT) (test code = Aspartate Amino Transf (AST/SGOT)) 37 5-34 H [facility] HospitalAlanine Aminotransferase (ALT/SGPT) 2018-06-26 11:47:00* Test Item Value Reference Range Interpretation Comments Alanine Aminotransferase (ALT/SGPT) (test code = 1742-6) 38 0-55 [facility] HospitalTotal Oqixako7233-12-98 11:47:00* Test Item Value Reference Range Interpretation Comments Total Protein (test code = 2885-2) 7.5 6.5-8.1 [facility] HospitalAlbumin2018-08-31 11:47:00* Test Item Value Reference Range Interpretation Comments Albumin (test code = 1751-7) 4.0 3.5-5.0 [facility] HospitalGlobulin2018-08-31 11:47:00* Test Item Value Reference Range Interpretation Comments Globulin (test code = 75815-4) 3.5 2.3-3.5 [facility] HospitalAlbumin/Globulin Rxbdf9761-50-29 11:47:00 * Test Item Value Reference Range Interpretation Comments Albumin/Globulin Ratio (test code = 1759-0) 1.1 0.8-2.0 [facility] HospitalAlkaline Ngdjylhqqtu6832-78-13 11:47:00* Test Item Value Reference Range Interpretation Comments Alkaline Phosphatase (test code = 6768-6) 124 40-150 [facility] Vomzw8254-05-69 11:47:00* Test Item Value Reference Range Interpretation Comments Sodium Level (test code = 2951-2) 139 136-145 [facility] HospitalPotassium Hejbb3090-63-67 11:47:00* Test Item Value Reference Range Interpretation Comments Potassium Level (test code = 2823-3) 3.5 3.5-5.1 [facility] HospitalChloride Ubifb1676-25-44 11:47:00* Test Item Value Reference Range Interpretation Comments Chloride Level (test code = 2075-0) 101 98-107 [facility] HospitalCarbon Dioxide Kxzve4816-01-18 11:47:00* Test Item Value Reference Range Interpretation Comments Carbon Dioxide Level (test code = 2028-9) 24 22-29 [facility] HospitalAnion Cia0993-53-21 11:47:00* Test Item Value Reference Range Interpretation Comments Anion Gap (test code = 80026-3) 17.5 8-16 H [facility] HospitalBlood Urea Znveefai6577-99-41 11:47:00* Test Item Value Reference Range Interpretation Comments Blood Urea Nitrogen (test code = 3094-0) 7 7-26 [facility] HospitalCreatinine2018-08-31 11:47:00* Test Item Value Reference Range Interpretation Comments Creatinine (test code = 2160-0) 0.93 0.57-1.11 [facility] HospitalBUN/Creatinine Rzriz8258-29-38 11:47:00* Test Item Value Reference Range Interpretation Comments BUN/Creatinine Ratio (test code = 3097-3) 8 6-25 [facility] HospitalEstimat Glomerular Filtration Rate 2018-06-26 11:47:00* Test Item Value Reference Range Interpretation Comments Estimat Glomerular Filtration Rate (test code = 773753498) 59 >60 L Ranges were taken from the National Kidney Disease Education Program and the [facility] Kidney Foundation literature.Reference ranges:60 or greater: Sjtgmb72-87 ( for 3 consecutive months): Chronic kidney disease 15 or less: Kidney failureLegent Orthopedic HospitalGlucose Lltsv1174-75-43 11:47:00* Test Item Value Reference Range Interpretation Comments Glucose Level (test code = ZFN1727) 139 74-118 H [facility] HospitalCalcium Hawxp3315-82-10 11:47:00* Test Item Value Reference Range Interpretation Comments Calcium Level (test code = 00537-9) 10.3 8.4-10.2 H [facility] HospitalTotal Mstkpscuo2293-63-68 11:47:00* Test Item Value Reference Range Interpretation Comments Total Bilirubin (test code = 1975-2) 0.5 0.2-1.2 [facility] HospitalAspartate Amino Transf (AST/SGOT) 2018-06-26 11:47:00* Test Item Value Reference Range Interpretation Comments Aspartate Amino Transf (AST/SGOT) (test code = Aspartate Amino Transf (AST/SGOT)) 37 5-34 H [facility] HospitalAlanine Aminotransferase (ALT/SGPT) 2018-06-26 11:47:00* Test Item Value Reference Range Interpretation Comments Alanine Aminotransferase (ALT/SGPT) (test code = 1742-6) 38 0-55 [facility] Uucnbup9203-34-71 11:47:00* Test Item Value Reference Range Interpretation Comments Total Protein (test code = 2885-2) 7.5 6.5-8.1 [facility] HospitalAlbumin2018-08-31 11:47:00* Test Item Value Reference Range Interpretation Comments Albumin (test code = 1751-7) 4.0 3.5-5.0 [facility] HospitalGlobulin2018-08-31 11:47:00* Test Item Value Reference Range Interpretation Comments Globulin (test code = 11485-1) 3.5 2.3-3.5 [facility] HospitalAlbumin/Globulin Rorog5927-93-42 11:47:00 * Test Item Value Reference Range Interpretation Comments Albumin/Globulin Ratio (test code = 1759-0) 1.1 0.8-2.0 [facility] HospitalAlkaline Fcoohsjrxpt1634-76-76 11:47:00* Test Item Value Reference Range Interpretation Comments Alkaline Phosphatase (test code = 6768-6) 124 40-150 [facility] Ttjwg1980-94-05 11:47:00* Test Item Value Reference Range Interpretation Comments Sodium Level (test code = 2951-2) 139 136-145 [facility] HospitalPotassium Chxzf0160-89-56 11:47:00* Test Item Value Reference Range Interpretation Comments Potassium Level (test code = 2823-3) 3.5 3.5-5.1 [facility] HospitalChloride Wogjz4806-19-29 11:47:00* Test Item Value Reference Range Interpretation Comments Chloride Level (test code = 2075-0) 101 98-107 [facility] HospitalCarbon Dioxide Rhuxk5738-82-09 11:47:00* Test Item Value Reference Range Interpretation Comments Carbon Dioxide Level (test code = 2028-9) 24 22-29 [facility] HospitalAnion Ydz9864-80-02 11:47:00* Test Item Value Reference Range Interpretation Comments Anion Gap (test code = 87806-4) 17.5 8-16 H [facility] HospitalBlood Urea Lpnxsioo0060-33-26 11:47:00* Test Item Value Reference Range Interpretation Comments Blood Urea Nitrogen (test code = 3094-0) 7 7-26 [facility] HospitalCreatinine2018-08-31 11:47:00* Test Item Value Reference Range Interpretation Comments Creatinine (test code = 2160-0) 0.93 0.57-1.11 [facility] HospitalBUN/Creatinine Yjree7945-84-14 11:47:00* Test Item Value Reference Range Interpretation Comments BUN/Creatinine Ratio (test code = 3097-3) 8 6-25 [facility] HospitalEstimat Glomerular Filtration Rate 2018-06-26 11:47:00* Test Item Value Reference Range Interpretation Comments Estimat Glomerular Filtration Rate (test code = 433041979) 59 >60 L Ranges were taken from the National Kidney Disease Education Program and the [facility] literature.Reference ranges:60 or greater: Ujnizg65-54 ( for 3 consecutive months): Chronic kidney disease 15 or less: Kidney failureLegent Orthopedic HospitalGlucose Lxnni0633-92-77 11:47:00* Test Item Value Reference Range Interpretation Comments Glucose Level (test code = FSG5959) 139 74-118 H [facility] HospitalCalcium Evnqx3341-22-24 11:47:00* Test Item Value Reference Range Interpretation Comments Calcium Level (test code = 51208-5) 10.3 8.4-10.2 H [facility] HospitalTotal Amcimficj8876-70-98 11:47:00* Test Item Value Reference Range Interpretation Comments Total Bilirubin (test code = 1975-2) 0.5 0.2-1.2 [facility] HospitalAspartate Amino Transf (AST/SGOT) 2018-06-26 11:47:00* Test Item Value Reference Range Interpretation Comments Aspartate Amino Transf (AST/SGOT) (test code = Aspartate Amino Transf (AST/SGOT)) 37 5-34 H [facility] HospitalAlanine Aminotransferase (ALT/SGPT) 2018-06-26 11:47:00* Test Item Value Reference Range Interpretation Comments Alanine Aminotransferase (ALT/SGPT) (test code = 1742-6) 38 0-55 [facility] HospitalTotal Zokbozt9480-65-96 11:47:00* Test Item Value Reference Range Interpretation Comments Total Protein (test code = 2885-2) 7.5 6.5-8.1 [facility] HospitalAlbumin2018-08-31 11:47:00* Test Item Value Reference Range Interpretation Comments Albumin (test code = 1751-7) 4.0 3.5-5.0 [facility] HospitalGlobulin2018-08-31 11:47:00* Test Item Value Reference Range Interpretation Comments Globulin (test code = 64195-7) 3.5 2.3-3.5 [facility] HospitalAlbumin/Globulin Hpubw9488-29-60 11:47:00 * Test Item Value Reference Range Interpretation Comments Albumin/Globulin Ratio (test code = 1759-0) 1.1 0.8-2.0 [facility] HospitalAlkaline Fyejdrgxzyc3076-94-02 11:47:00* Test Item Value Reference Range Interpretation Comments Alkaline Phosphatase (test code = 6768-6) 124 40-150 [facility] Nnrbp5424-63-42 11:47:00* Test Item Value Reference Range Interpretation Comments Sodium Level (test code = 2951-2) 139 136-145 [facility] HospitalPotassium Uhzfv1629-19-76 11:47:00* Test Item Value Reference Range Interpretation Comments Potassium Level (test code = 2823-3) 3.5 3.5-5.1 [facility] HospitalChloride Poinw2618-54-93 11:47:00* Test Item Value Reference Range Interpretation Comments Chloride Level (test code = 2075-0) 101 98-107 [facility] HospitalCarbon Dioxide Gvkpo9170-67-63 11:47:00* Test Item Value Reference Range Interpretation Comments Carbon Dioxide Level (test code = 2028-9) 24 22-29 [facility] HospitalAnion Aok8762-57-79 11:47:00* Test Item Value Reference Range Interpretation Comments Anion Gap (test code = 68198-9) 17.5 8-16 H [facility] HospitalBlood Urea Xgliiwyl4574-50-93 11:47:00* Test Item Value Reference Range Interpretation Comments Blood Urea Nitrogen (test code = 3094-0) 7 7-26 [facility] HospitalCreatinine2018-08-31 11:47:00* Test Item Value Reference Range Interpretation Comments Creatinine (test code = 2160-0) 0.93 0.57-1.11 [facility] HospitalBUN/Creatinine Swjzr2885-97-56 11:47:00* Test Item Value Reference Range Interpretation Comments BUN/Creatinine Ratio (test code = 3097-3) 8 6-25 [facility] HospitalEstimat Glomerular Filtration Rate 2018-06-26 11:47:00* Test Item Value Reference Range Interpretation Comments Estimat Glomerular Filtration Rate (test code = 611822672) 59 >60 L Ranges were taken from the National Kidney Disease Education Program and the [facility] Kidney Foundation literature.Reference ranges:60 or greater: Cnlzlh53-50 ( for 3 consecutive months): Chronic kidney disease 15 or less: Kidney failureLegent Orthopedic HospitalGlucose Kwate4684-26-54 11:47:00* Test Item Value Reference Range Interpretation Comments Glucose Level (test code = EHE9336) 139 74-118 H [facility] HospitalCalcium Hjtro0690-29-89 11:47:00* Test Item Value Reference Range Interpretation Comments Calcium Level (test code = 44546-5) 10.3 8.4-10.2 H [facility] HospitalTotal Lnbepzlvd4559-94-12 11:47:00* Test Item Value Reference Range Interpretation Comments Total Bilirubin (test code = 1975-2) 0.5 0.2-1.2 [facility] HospitalAspartate Amino Transf (AST/SGOT) 2018-06-26 11:47:00* Test Item Value Reference Range Interpretation Comments Aspartate Amino Transf (AST/SGOT) (test code = Aspartate Amino Transf (AST/SGOT)) 37 5-34 H [facility] HospitalAlanine Aminotransferase (ALT/SGPT) 2018-06-26 11:47:00* Test Item Value Reference Range Interpretation Comments Alanine Aminotransferase (ALT/SGPT) (test code = 1742-6) 38 0-55 [facility] HospitalTotal Moiizub5044-09-56 11:47:00* Test Item Value Reference Range Interpretation Comments Total Protein (test code = 2885-2) 7.5 6.5-8.1 [facility] HospitalAlbumin2018-08-31 11:47:00* Test Item Value Reference Range Interpretation Comments Albumin (test code = 1751-7) 4.0 3.5-5.0 [facility] HospitalGlobulin2018-08-31 11:47:00* Test Item Value Reference Range Interpretation Comments Globulin (test code = 48033-3) 3.5 2.3-3.5 [facility] HospitalAlbumin/Globulin Mhpkq5561-09-93 11:47:00 * Test Item Value Reference Range Interpretation Comments Albumin/Globulin Ratio (test code = 1759-0) 1.1 0.8-2.0 [facility] HospitalAlkaline Xwnrfjporsk1997-37-57 11:47:00* Test Item Value Reference Range Interpretation Comments Alkaline Phosphatase (test code = 6768-6) 124 40-150 [facility] Ggxmc3802-39-59 11:47:00* Test Item Value Reference Range Interpretation Comments Sodium Level (test code = 2951-2) 139 136-145 [facility] HospitalPotassium Jaiki3452-92-26 11:47:00* Test Item Value Reference Range Interpretation Comments Potassium Level (test code = 2823-3) 3.5 3.5-5.1 [facility] HospitalChloride Ftist7578-62-34 11:47:00* Test Item Value Reference Range Interpretation Comments Chloride Level (test code = 2075-0) 101 98-107 [facility] HospitalCarbon Dioxide Vptot1416-24-21 11:47:00* Test Item Value Reference Range Interpretation Comments Carbon Dioxide Level (test code = 2028-9) 24 22-29 [facility] HospitalAnion Ste6136-61-02 11:47:00* Test Item Value Reference Range Interpretation Comments Anion Gap (test code = 20741-8) 17.5 8-16 H [facility] HospitalBlood Urea Eynlkwwr7858-55-80 11:47:00* Test Item Value Reference Range Interpretation Comments Blood Urea Nitrogen (test code = 3094-0) 7 7-26 [facility] HospitalCreatinine2018-08-[facility] 11:47:00* Test Item Value Reference Range Interpretation Comments Creatinine (test code = 2160-0) 0.93 0.57-1.11 [facility] HospitalBUN/Creatinine Hopfa3536-78-22 11:47:00* Test Item Value Reference Range Interpretation Comments BUN/Creatinine Ratio (test code = 3097-3) 8 6-25 [facility] HospitalEstimat Glomerular Filtration Rate 2018-06-26 11:47:00* Test Item Value Reference Range Interpretation Comments Estimat Glomerular Filtration Rate (test code = 685735215) 59 >60 L Ranges were taken from the National Kidney Disease Education Program and the [facility] literature.Reference ranges:60 or greater: Oxqrrh77-70 ( for 3 consecutive months): Chronic kidney disease 15 or less: Kidney failureLegent Orthopedic HospitalGlucose Kubfv2337-48-17 11:47:00* Test Item Value Reference Range Interpretation Comments Glucose Level (test code = PLR6880) 139 74-118 H [facility] HospitalCalcium Dzjtw4501-77-96 11:47:00* Test Item Value Reference Range Interpretation Comments Calcium Level (test code = 82870-8) 10.3 8.4-10.2 H [facility] HospitalTotal Dhqphfxsv5419-38-64 11:47:00* Test Item Value Reference Range Interpretation Comments Total Bilirubin (test code = 1975-2) 0.5 0.2-1.2 [facility] HospitalAspartate Amino Transf (AST/SGOT) 2018-06-26 11:47:00* Test Item Value Reference Range Interpretation Comments Aspartate Amino Transf (AST/SGOT) (test code = Aspartate Amino Transf (AST/SGOT)) 37 5-34 H [facility] HospitalAlanine Aminotransferase (ALT/SGPT) 2018-06-26 11:47:00* Test Item Value Reference Range Interpretation Comments Alanine Aminotransferase (ALT/SGPT) (test code = 1742-6) 38 0-55 [facility] HospitalTotal Zplucoj8924-19-03 11:47:00* Test Item Value Reference Range Interpretation Comments Total Protein (test code = 2885-2) 7.5 6.5-8.1 [facility] HospitalAlbumin2018-08-31 11:47:00* Test Item Value Reference Range Interpretation Comments Albumin (test code = 1751-7) 4.0 3.5-5.0 [facility] HospitalGlobulin2018-08-31 11:47:00* Test Item Value Reference Range Interpretation Comments Globulin (test code = 32702-3) 3.5 2.3-3.5 [facility] HospitalAlbumin/Globulin Zzbwc2598-97-07 11:47:00 * Test Item Value Reference Range Interpretation Comments Albumin/Globulin Ratio (test code = 1759-0) 1.1 0.8-2.0 [facility] HospitalAlkaline Gbyretkgxwu0734-98-27 11:47:00* Test Item Value Reference Range Interpretation Comments Alkaline Phosphatase (test code = 6768-6) 124 40-150 [facility] Bdvyl7348-47-72 11:47:00* Test Item Value Reference Range Interpretation Comments Sodium Level (test code = 2951-2) 139 136-145 [facility] HospitalPotassium Obgaq8740-96-89 11:47:00* Test Item Value Reference Range Interpretation Comments Potassium Level (test code = 2823-3) 3.5 3.5-5.1 [facility] HospitalChloride Xdjgt8701-00-66 11:47:00* Test Item Value Reference Range Interpretation Comments Chloride Level (test code = 2075-0) 101 98-107 [facility] HospitalCarbon Dioxide Tryvb1846-88-00 11:47:00* Test Item Value Reference Range Interpretation Comments Carbon Dioxide Level (test code = 2028-9) 24 22-29 [facility] HospitalAnion Leh6138-93-61 11:47:00* Test Item Value Reference Range Interpretation Comments Anion Gap (test code = 82286-9) 17.5 8-16 H [facility] HospitalBlood Urea Rhkxktld7946-73-97 11:47:00* Test Item Value Reference Range Interpretation Comments Blood Urea Nitrogen (test code = 3094-0) 7 7-26 [facility] HospitalCreatinine2018-08-31 11:47:00* Test Item Value Reference Range Interpretation Comments Creatinine (test code = 2160-0) 0.93 0.57-1.11 [facility] HospitalBUN/Creatinine Pmtfu3473-73-31 11:47:00* Test Item Value Reference Range Interpretation Comments BUN/Creatinine Ratio (test code = 3097-3) 8 6-25 [facility] HospitalEstimat Glomerular Filtration Rate 2018-06-26 11:47:00* Test Item Value Reference Range Interpretation Comments Estimat Glomerular Filtration Rate (test code = 329533904) 59 >60 L Ranges were taken from the National Kidney Disease Education Program and the [facility] literature.Reference ranges:60 or greater: Wyoabg90-95 ( for 3 consecutive months): Chronic kidney disease 15 or less: Kidney failureLegent Orthopedic HospitalGlucose Hziri9217-49-02 11:47:00* Test Item Value Reference Range Interpretation Comments Glucose Level (test code = WRU6130) 139 74-118 H [facility] HospitalCalcium Wpdca4161-05-63 11:47:00* Test Item Value Reference Range Interpretation Comments Calcium Level (test code = 74380-5) 10.3 8.4-10.2 H [facility] HospitalTotal Ocppbgoze1438-48-34 11:47:00* Test Item Value Reference Range Interpretation Comments Total Bilirubin (test code = 1975-2) 0.5 0.2-1.2 [facility] HospitalAspartate Amino Transf (AST/SGOT) 2018-06-26 11:47:00* Test Item Value Reference Range Interpretation Comments Aspartate Amino Transf (AST/SGOT) (test code = Aspartate Amino Transf (AST/SGOT)) 37 5-34 H [facility] HospitalAlanine Aminotransferase (ALT/SGPT) 2018-06-26 11:47:00* Test Item Value Reference Range Interpretation Comments Alanine Aminotransferase (ALT/SGPT) (test code = 1742-6) 38 0-55 [facility] HospitalTotal Cywtmtb9951-96-60 11:47:00* Test Item Value Reference Range Interpretation Comments Total Protein (test code = 2885-2) 7.5 6.5-8.1 [facility] HospitalAlbumin2018-08-31 11:47:00* Test Item Value Reference Range Interpretation Comments Albumin (test code = 1751-7) 4.0 3.5-5.0 [facility] HospitalGlobulin2018-08-31 11:47:00* Test Item Value Reference Range Interpretation Comments Globulin (test code = 76838-5) 3.5 2.3-3.5 [facility] HospitalAlbumin/Globulin Suagn0780-53-06 11:47:00 * Test Item Value Reference Range Interpretation Comments Albumin/Globulin Ratio (test code = 1759-0) 1.1 0.8-2.0 [facility] HospitalAlkaline Icvrmouhbhf8601-92-47 11:47:00* Test Item Value Reference Range Interpretation Comments Alkaline Phosphatase (test code = 6768-6) 124 40-150 [facility] Qnwxn8510-97-48 11:47:00* Test Item Value Reference Range Interpretation Comments Sodium Level (test code = 2951-2) 139 136-145 [facility] HospitalPotassium Yvbrq0883-56-68 11:47:00* Test Item Value Reference Range Interpretation Comments Potassium Level (test code = 2823-3) 3.5 3.5-5.1 [facility] HospitalChloride Vhjhn0383-11-85 11:47:00* Test Item Value Reference Range Interpretation Comments Chloride Level (test code = 2075-0) 101 98-107 [facility] HospitalCarbon Dioxide Fgroj5693-18-14 11:47:00* Test Item Value Reference Range Interpretation Comments Carbon Dioxide Level (test code = 2028-9) 24 22-29 [facility] HospitalAnion Jkx9728-59-32 11:47:00* Test Item Value Reference Range Interpretation Comments Anion Gap (test code = 70067-6) 17.5 8-16 H [facility] HospitalBlood Urea Sxtpbgqp8952-64-69 11:47:00* Test Item Value Reference Range Interpretation Comments Blood Urea Nitrogen (test code = 3094-0) 7 7-26 [facility] HospitalCreatinine2018-08-31 11:47:00* Test Item Value Reference Range Interpretation Comments Creatinine (test code = 2160-0) 0.93 0.57-1.11 [facility] HospitalBUN/Creatinine Cdhxk6523-35-58 11:47:00* Test Item Value Reference Range Interpretation Comments BUN/Creatinine Ratio (test code = 3097-3) 8 6-25 [facility] HospitalEstimat Glomerular Filtration Rate 2018-06-26 11:47:00* Test Item Value Reference Range Interpretation Comments Estimat Glomerular Filtration Rate (test code = 218025096) 59 >60 L Ranges were taken from the National Kidney Disease Education Program and the [facility] literature.Reference ranges:60 or greater: Uadbhx30-96 ( for 3 consecutive months): Chronic kidney disease 15 or less: Kidney failureLegent Orthopedic HospitalGlucose Hxalp8946-93-82 11:47:00* Test Item Value Reference Range Interpretation Comments Glucose Level (test code = QTZ7468) 139 74-118 H [facility] HospitalCalcium Zuiys3485-72-78 11:47:00* Test Item Value Reference Range Interpretation Comments Calcium Level (test code = 33294-4) 10.3 8.4-10.2 H [facility] HospitalTotal Acsjfohga5152-69-58 11:47:00* Test Item Value Reference Range Interpretation Comments Total Bilirubin (test code = 1975-2) 0.5 0.2-1.2 [facility] HospitalAspartate Amino Transf (AST/SGOT) 2018-06-26 11:47:00* Test Item Value Reference Range Interpretation Comments Aspartate Amino Transf (AST/SGOT) (test code = Aspartate Amino Transf (AST/SGOT)) 37 5-34 H [facility] HospitalAlanine Aminotransferase (ALT/SGPT) 2018-06-26 11:47:00* Test Item Value Reference Range Interpretation Comments Alanine Aminotransferase (ALT/SGPT) (test code = 1742-6) 38 0-55 [facility] HospitalTotal Kzkogzu7341-28-13 11:47:00* Test Item Value Reference Range Interpretation Comments Total Protein (test code = 2885-2) 7.5 6.5-8.1 [facility] HospitalAlbumin2018-08-31 11:47:00* Test Item Value Reference Range Interpretation Comments Albumin (test code = 1751-7) 4.0 3.5-5.0 [facility] HospitalGlobulin2018-08-31 11:47:00* Test Item Value Reference Range Interpretation Comments Globulin (test code = 82505-2) 3.5 2.3-3.5 [facility] HospitalAlbumin/Globulin Oykud4254-13-69 11:47:00 * Test Item Value Reference Range Interpretation Comments Albumin/Globulin Ratio (test code = 1759-0) 1.1 0.8-2.0 [facility] HospitalAlkaline Hmozsnytupg6870-75-24 11:47:00* Test Item Value Reference Range Interpretation Comments Alkaline Phosphatase (test code = 6768-6) 124 40-150 [facility] Xqsfy1046-23-39 11:47:00* Test Item Value Reference Range Interpretation Comments Sodium Level (test code = 2951-2) 139 136-145 [facility] HospitalPotassium Kawsw0819-72-49 11:47:00* Test Item Value Reference Range Interpretation Comments Potassium Level (test code = 2823-3) 3.5 3.5-5.1 [facility] HospitalChloride Lhjdr9180-17-05 11:47:00* Test Item Value Reference Range Interpretation Comments Chloride Level (test code = 2075-0) 101 98-107 [facility] HospitalCarbon Dioxide Sfzua5682-93-77 11:47:00* Test Item Value Reference Range Interpretation Comments Carbon Dioxide Level (test code = 2028-9) 24 22-29 [facility] HospitalAnion Jvm7538-79-59 11:47:00* Test Item Value Reference Range Interpretation Comments Anion Gap (test code = 70802-1) 17.5 8-16 H [facility] HospitalBlood Urea Huyhrzrl2806-94-71 11:47:00* Test Item Value Reference Range Interpretation Comments Blood Urea Nitrogen (test code = 3094-0) 7 7-26 [facility] HospitalCreatinine2018-08-31 11:47:00* Test Item Value Reference Range Interpretation Comments Creatinine (test code = 2160-0) 0.93 0.57-1.11 [facility] HospitalBUN/Creatinine Skcoj0806-65-13 11:47:00* Test Item Value Reference Range Interpretation Comments BUN/Creatinine Ratio (test code = 3097-3) 8 6-25 [facility] HospitalEstimat Glomerular Filtration Rate 2018-06-26 11:47:00* Test Item Value Reference Range Interpretation Comments Estimat Glomerular Filtration Rate (test code = 200138552) 59 >60 L Ranges were taken from the National Kidney Disease Education Program and the [facility] literature.Reference ranges:60 or greater: Zydycs10-86 ( for 3 consecutive months): Chronic kidney disease 15 or less: Kidney failureLegent Orthopedic HospitalGlucose Xwtju8398-63-06 11:47:00* Test Item Value Reference Range Interpretation Comments Glucose Level (test code = TXT7216) 139 74-118 H [facility] HospitalCalcium Lmkfu4486-41-31 11:47:00* Test Item Value Reference Range Interpretation Comments Calcium Level (test code = 41420-5) 10.3 8.4-10.2 H [facility] HospitalTotal Hbxckgsxy7404-98-87 11:47:00* Test Item Value Reference Range Interpretation Comments Total Bilirubin (test code = 1975-2) 0.5 0.2-1.2 [facility] HospitalAspartate Amino Transf (AST/SGOT) 2018-06-26 11:47:00* Test Item Value Reference Range Interpretation Comments Aspartate Amino Transf (AST/SGOT) (test code = Aspartate Amino Transf (AST/SGOT)) 37 5-34 H [facility] HospitalAlanine Aminotransferase (ALT/SGPT) 2018-06-26 11:47:00* Test Item Value Reference Range Interpretation Comments Alanine Aminotransferase (ALT/SGPT) (test code = 1742-6) 38 0-55 [facility] HospitalTotal Peyaqss2015-64-33 11:47:00* Test Item Value Reference Range Interpretation Comments Total Protein (test code = 2885-2) 7.5 6.5-8.1 [facility] HospitalAlbumin2018-08-31 11:47:00* Test Item Value Reference Range Interpretation Comments Albumin (test code = 1751-7) 4.0 3.5-5.0 [facility] HospitalGlobulin2018-08-31 11:47:00* Test Item Value Reference Range Interpretation Comments Globulin (test code = 52765-5) 3.5 2.3-3.5 [facility] HospitalAlbumin/Globulin Aazdi2981-61-99 11:47:00 * Test Item Value Reference Range Interpretation Comments Albumin/Globulin Ratio (test code = 1759-0) 1.1 0.8-2.0 [facility] HospitalAlkaline Fyndmckfdst2945-52-16 11:47:00* Test Item Value Reference Range Interpretation Comments Alkaline Phosphatase (test code = 6768-6) 124 40-150 [facility] HospitalWhite Blood Ocshk3016-55-79 11:31:00* Test Item Value Reference Range Interpretation Comments White Blood Count (test code = 6690-2) 7.50 4.8-10.8 [facility] HospitalRed Blood Tzpxn0574-90-46 11:31:00* Test Item Value Reference Range Interpretation Comments Red Blood Count (test code = 789-8) 4.78 3.6-5.1 [facility] HospitalHemoglobin2018-08-31 11:31:00* Test Item Value Reference Range Interpretation Comments Hemoglobin (test code = 25118-7) 13.4 12.0-16.0 [facility] HospitalHematocrit2018-08-31 11:31:00* Test Item Value Reference Range Interpretation Comments Hematocrit (test code = 4544-3) 41.2 34.2-44.1 [facility] HospitalMean Corpuscular Nfbhpm2582-16-92 11:31:00* Test Item Value Reference Range Interpretation Comments Mean Corpuscular Volume (test code = 787-2) 86.2 81-99 [facility] HospitalMean Corpuscular Pqszyhhxpa0993-69-21 11:31:00* Test Item Value Reference Range Interpretation Comments Mean Corpuscular Hemoglobin (test code = 785-6) 28.0 28-32 [facility] Hem[facility] Concent 2018-06-26 11:31:00* Test Item Value Reference Range Interpretation Comments Mean Corpuscular Hemoglobin Concent (test code = 786-4) 32.5 31-35 [facility] HospitalRed Cell Distribution Sllzq2573-47-96 11:31:00* Test Item Value Reference Range Interpretation Comments Red Cell Distribution Width (test code = 28406-7) 13.4 11.7 -14.4 [facility] HospitalPlatelet Sjxwu8437-81-46 11:31:00* Test Item Value Reference Range Interpretation Comments Platelet Count (test code = 777-3) 366 140-360 H [facility] HospitalNeutrophils (%) (Auto)2018-06-26 11:31:00 * Test Item Value Reference Range Interpretation Comments Neutrophils (%) (Auto) (test code = 79047-6) 61.6 38.7-80.0 [facility] HospitalLymphocytes (%) (Auto)2018-06-26 11:31:00 * Test Item Value Reference Range Interpretation Comments Lymphocytes (%) (Auto) (test code = 736-9) 20.8 18.0-39.1 [facility] HospitalMonocytes (%) (Auto)2018-06-26 11:31:00* Test Item Value Reference Range Interpretation Comments Monocytes (%) (Auto) (test code = 5905-5) 9.9 4.4-11.3 [facility] HospitalEosinophils (%) (Auto)2018-06-26 11:31:00 * Test Item Value Reference Range Interpretation Comments Eosinophils (%) (Auto) (test code = 713-8) 6.0 0.0-6.0 [facility] HospitalBasophils (%) (Auto)2018-06-26 11:31:00* Test Item Value Reference Range Interpretation Comments Basophils (%) (Auto) (test code = 706-2) 1.3 0.0-1.0 H [facility] HospitalIM GRANULOCYTES %2018-06-26 11:31:00* Test Item Value Reference Range Interpretation Comments IM GRANULOCYTES % (test code = IM GRANULOCYTES %) 0.4 0.0- 1.0 [facility] HospitalNeutrophils # (Auto)2018-06-26 11:31:00* Test Item Value Reference Range Interpretation Comments Neutrophils # (Auto) (test code = 751-8) 4.6 2.1-6.9 [facility] HospitalLymphocytes # (Auto)2018-06-26 11:31:00* Test Item Value Reference Range Interpretation Comments Lymphocytes # (Auto) (test code = 65351-5) 1.6 1.0-3.2 [facility] HospitalMonocytes # (Auto)2018-06-26 11:31:00* Test Item Value Reference Range Interpretation Comments Monocytes # (Auto) (test code = 742-7) 0.7 0.2-0.8 [facility] HospitalEosinophils # (Auto)2018-06-26 11:31:00* Test Item Value Reference Range Interpretation Comments Eosinophils # (Auto) (test code = 711-2) 0.5 0.0-0.4 H [facility] HospitalBasophils # (Auto)2018-06-26 11:31:00* Test Item Value Reference Range Interpretation Comments Basophils # (Auto) (test code = 704-7) 0.1 0.0-0.1 [facility] HospitalAbsolute Immature Granulocyte (auto 2018-06-26 11:31:00* Test Item Value Reference Range Interpretation Comments Absolute Immature Granulocyte (auto (krishna t code = Absolute Immature Granulocyte (auto) 0.03 0-0.1 [facility] HospitalWhite Blood Nlijg2845-65-47 11:31:00* Test Item Value Reference Range Interpretation Comments White Blood Count (test code = 6690-2) 7.50 4.8-10.8 [facility] HospitalRed Blood Qmkkf1576-89-38 11:31:00* Test Item Value Reference Range Interpretation Comments Red Blood Count (test code = 789-8) 4.78 3.6-5.1 [facility] HospitalHemoglobin2018-08-31 11:31:00* Test Item Value Reference Range Interpretation Comments Hemoglobin (test code = 24819-4) 13.4 12.0-16.0 [facility] HospitalHematocrit2018-08-31 11:31:00* Test Item Value Reference Range Interpretation Comments Hematocrit (test code = 4544-3) 41.2 34.2-44.1 [facility] HospitalMean Corpuscular Fzptoh4147-71-66 11:31:00* Test Item Value Reference Range Interpretation Comments Mean Corpuscular Volume (test code = 787-2) 86.2 81-99 [facility] HospitalMean Corpuscular Syfxrjameq5423-31-11 11:31:00* Test Item Value Reference Range Interpretation Comments Mean Corpuscular Hemoglobin (test code = 785-6) 28.0 28-32 [facility] HospitalMean Corpuscular Hemoglobin Concent 2018-06-26 11:31:00* Test Item Value Reference Range Interpretation Comments Mean Corpuscular Hemoglobin Concent (test code = 786-4) 32.5 31-35 [facility] HospitalRed Cell Distribution Krumv6749-19-27 11:31:00* Test Item Value Reference Range Interpretation Comments Red Cell Distribution Width (test code = 31658-8) 13.4 11.7 -14.4 [facility] HospitalPlatelet Yjsql1138-65-98 11:31:00* Test Item Value Reference Range Interpretation Comments Platelet Count (test code = 777-3) 366 140-360 H [facility] HospitalNeutrophils (%) (Auto)2018-06-26 11:31:00 * Test Item Value Reference Range Interpretation Comments Neutrophils (%) (Auto) (test code = 29377-4) 61.6 38.7-80.0 [facility] HospitalLymphocytes (%) (Auto)2018-06-26 11:31:00 * Test Item Value Reference Range Interpretation Comments Lymphocytes (%) (Auto) (test code = 736-9) 20.8 18.0-39.1 [facility] HospitalMonocytes (%) (Auto)2018-06-26 11:31:00* Test Item Value Reference Range Interpretation Comments Monocytes (%) (Auto) (test code = 5905-5) 9.9 4.4-11.3 [facility] HospitalEosinophils (%) (Auto)2018-06-26 11:31:00 * Test Item Value Reference Range Interpretation Comments Eosinophils (%) (Auto) (test code = 713-8) 6.0 0.0-6.0 [facility] HospitalBasophils (%) (Auto)2018-06-26 11:31:00* Test Item Value Reference Range Interpretation Comments Basophils (%) (Auto) (test code = 706-2) 1.3 0.0-1.0 H [facility] HospitalIM GRANULOCYTES %2018-06-26 11:31:00* Test Item Value Reference Range Interpretation Comments IM GRANULOCYTES % (test code = IM GRANULOCYTES %) 0.4 0.0- 1.0 [facility] HospitalNeutrophils # (Auto)2018-06-26 11:31:00* Test Item Value Reference Range Interpretation Comments Neutrophils # (Auto) (test code = 751-8) 4.6 2.1-6.9 [facility] HospitalLymphocytes # (Auto)2018-06-26 11:31:00* Test Item Value Reference Range Interpretation Comments Lymphocytes # (Auto) (test code = 31534-4) 1.6 1.0-3.2 [facility] HospitalMonocytes # (Auto)2018-06-26 11:31:00* Test Item Value Reference Range Interpretation Comments Monocytes # (Auto) (test code = 742-7) 0.7 0.2-0.8 [facility] HospitalEosinophils # (Auto)2018-06-26 11:31:00* Test Item Value Reference Range Interpretation Comments Eosinophils # (Auto) (test code = 711-2) 0.5 0.0-0.4 H [facility] HospitalBasophils # (Auto)2018-06-26 11:31:00* Test Item Value Reference Range Interpretation Comments Basophils # (Auto) (test code = 704-7) 0.1 0.0-0.1 [facility] HospitalAbsolute Immature Granulocyte (auto 2018-06-26 11:31:00* Test Item Value Reference Range Interpretation Comments Absolute Immature Granulocyte (auto (krishna t code = Absolute Immature Granulocyte (auto) 0.03 0-0.1 [facility] HospitalWhite Blood Aypta1922-72-87 11:31:00* Test Item Value Reference Range Interpretation Comments White Blood Count (test code = 6690-2) 7.50 4.8-10.8 [facility] HospitalRed Blood Lyusz7074-96-92 11:31:00* Test Item Value Reference Range Interpretation Comments Red Blood Count (test code = 789-8) 4.78 3.6-5.1 [facility] HospitalHemoglobin2018-08-31 11:31:00* Test Item Value Reference Range Interpretation Comments Hemoglobin (test code = 09122-0) 13.4 12.0-16.0 [facility] HospitalHematocrit2018-08-31 11:31:00* Test Item Value Reference Range Interpretation Comments Hematocrit (test code = 4544-3) 41.2 34.2-44.1 [facility] HospitalMean Corpuscular Vyaxbg4289-95-11 11:31:00* Test Item Value Reference Range Interpretation Comments Mean Corpuscular Volume (test code = 787-2) 86.2 81-99 [facility] HospitalMean Corpuscular Cjmptyrprw1218-10-71 11:31:00* Test Item Value Reference Range Interpretation Comments Mean Corpuscular Hemoglobin (test code = 785-6) 28.0 28-32 [facility] HospitalMean Corpuscular Hemoglobin Concent 2018-06-26 11:31:00* Test Item Value Reference Range Interpretation Comments Mean Corpuscular Hemoglobin Concent (test code = 786-4) 32.5 31-35 [facility] HospitalRed Cell Distribution Dwtbg4184-55-35 11:31:00* Test Item Value Reference Range Interpretation Comments Red Cell Distribution Width (test code = 42291-5) 13.4 11.7 -14.4 [facility] HospitalPlatelet Ljayd3485-85-98 11:31:00* Test Item Value Reference Range Interpretation Comments Platelet Count (test code = 777-3) 366 140-360 H [facility] HospitalNeutrophils (%) (Auto)2018-06-26 11:31:00 * Test Item Value Reference Range Interpretation Comments Neutrophils (%) (Auto) (test code = 83097-9) 61.6 38.7-80.0 [facility] HospitalLymphocytes (%) (Auto)2018-06-26 11:31:00 * Test Item Value Reference Range Interpretation Comments Lymphocytes (%) (Auto) (test code = 736-9) 20.8 18.0-39.1 [facility] HospitalMonocytes (%) (Auto)2018-06-26 11:31:00* Test Item Value Reference Range Interpretation Comments Monocytes (%) (Auto) (test code = 5905-5) 9.9 4.4-11.3 [facility] HospitalEosinophils (%) (Auto)2018-06-26 11:31:00 * Test Item Value Reference Range Interpretation Comments Eosinophils (%) (Auto) (test code = 713-8) 6.0 0.0-6.0 [facility] HospitalBasophils (%) (Auto)2018-06-26 11:31:00* Test Item Value Reference Range Interpretation Comments Basophils (%) (Auto) (test code = 706-2) 1.3 0.0-1.0 H [facility] HospitalIM GRANULOCYTES %2018-06-26 11:31:00* Test Item Value Reference Range Interpretation Comments IM GRANULOCYTES % (test code = IM GRANULOCYTES %) 0.4 0.0- 1.0 [facility] HospitalNeutrophils # (Auto)2018-06-26 11:31:00* Test Item Value Reference Range Interpretation Comments Neutrophils # (Auto) (test code = 751-8) 4.6 2.1-6.9 [facility] HospitalLymphocytes # (Auto)2018-06-26 11:31:00* Test Item Value Reference Range Interpretation Comments Lymphocytes # (Auto) (test code = 23861-7) 1.6 1.0-3.2 [facility] HospitalMonocytes # (Auto)2018-06-26 11:31:00* Test Item Value Reference Range Interpretation Comments Monocytes # (Auto) (test code = 742-7) 0.7 0.2-0.8 [facility] HospitalEosinophils # (Auto)2018-06-26 11:31:00* Test Item Value Reference Range Interpretation Comments Eosinophils # (Auto) (test code = 711-2) 0.5 0.0-0.4 H [facility] HospitalBasophils # (Auto)2018-06-26 11:31:00* Test Item Value Reference Range Interpretation Comments Basophils # (Auto) (test code = 704-7) 0.1 0.0-0.1 [facility] HospitalAbsolute Immature Granulocyte (auto 2018-06-26 11:31:00* Test Item Value Reference Range Interpretation Comments Absolute Immature Granulocyte (auto (krishna t code = Absolute Immature Granulocyte (auto) 0.03 0-0.1 [facility] HospitalWhite Blood Rcfyo3889-14-82 11:31:00* Test Item Value Reference Range Interpretation Comments White Blood Count (test code = 6690-2) 7.50 4.8-10.8 [facility] HospitalRed Blood Uzuub9079-69-84 11:31:00* Test Item Value Reference Range Interpretation Comments Red Blood Count (test code = 789-8) 4.78 3.6-5.1 [facility] HospitalHemoglobin2018-08-31 11:31:00* Test Item Value Reference Range Interpretation Comments Hemoglobin (test code = 85106-5) 13.4 12.0-16.0 [facility] HospitalHematocrit2018-08-31 11:31:00* Test Item Value Reference Range Interpretation Comments Hematocrit (test code = 4544-3) 41.2 34.2-44.1 [facility] HospitalMean Corpuscular Xcklua0762-24-08 11:31:00* Test Item Value Reference Range Interpretation Comments Mean Corpuscular Volume (test code = 787-2) 86.2 81-99 [facility] HospitalMean Corpuscular Wimrcjvxnl7893-10-12 11:31:00* Test Item Value Reference Range Interpretation Comments Mean Corpuscular Hemoglobin (test code = 785-6) 28.0 28-32 [facility] HospitalMean Corpuscular Hemoglobin Concent 2018-06-26 11:31:00* Test Item Value Reference Range Interpretation Comments Mean Corpuscular Hemoglobin Concent (test code = 786-4) 32.5 31-35 [facility] HospitalRed Cell Distribution Atfsz9510-04-02 11:31:00* Test Item Value Reference Range Interpretation Comments Red Cell Distribution Width (test code = 46698-8) 13.4 11.7 -14.4 [facility] HospitalPlatelet Sybzw0480-26-12 11:31:00* Test Item Value Reference Range Interpretation Comments Platelet Count (test code = 777-3) 366 140-360 H [facility] HospitalNeutrophils (%) (Auto)2018-06-26 11:31:00 * Test Item Value Reference Range Interpretation Comments Neutrophils (%) (Auto) (test code = 75404-8) 61.6 38.7-80.0 [facility] HospitalLymphocytes (%) (Auto)2018-06-26 11:31:00 * Test Item Value Reference Range Interpretation Comments Lymphocytes (%) (Auto) (test code = 736-9) 20.8 18.0-39.1 [facility] HospitalMonocytes (%) (Auto)2018-06-26 11:31:00* Test Item Value Reference Range Interpretation Comments Monocytes (%) (Auto) (test code = 5905-5) 9.9 4.4-11.3 [facility] HospitalEosinophils (%) (Auto)2018-06-26 11:31:00 * Test Item Value Reference Range Interpretation Comments Eosinophils (%) (Auto) (test code = 713-8) 6.0 0.0-6.0 [facility] HospitalBasophils (%) (Auto)2018-06-26 11:31:00* Test Item Value Reference Range Interpretation Comments Basophils (%) (Auto) (test code = 706-2) 1.3 0.0-1.0 H [facility] HospitalIM GRANULOCYTES %2018-06-26 11:31:00* Test Item Value Reference Range Interpretation Comments IM GRANULOCYTES % (test code = IM GRANULOCYTES %) 0.4 0.0- 1.0 [facility] HospitalNeutrophils # (Auto)2018-06-26 11:31:00* Test Item Value Reference Range Interpretation Comments Neutrophils # (Auto) (test code = 751-8) 4.6 2.1-6.9 [facility] HospitalLymphocytes # (Auto)2018-06-26 11:31:00* Test Item Value Reference Range Interpretation Comments Lymphocytes # (Auto) (test code = 56751-7) 1.6 1.0-3.2 [facility] HospitalMonocytes # (Auto)2018-06-26 11:31:00* Test Item Value Reference Range Interpretation Comments Monocytes # (Auto) (test code = 742-7) 0.7 0.2-0.8 [facility] HospitalEosinophils # (Auto)2018-06-26 11:31:00* Test Item Value Reference Range Interpretation Comments Eosinophils # (Auto) (test code = 711-2) 0.5 0.0-0.4 H [facility] HospitalBasophils # (Auto)2018-06-26 11:31:00* Test Item Value Reference Range Interpretation Comments Basophils # (Auto) (test code = 704-7) 0.1 0.0-0.1 [facility] HospitalAbsolute Immature Granulocyte (auto 2018-06-26 11:31:00* Test Item Value Reference Range Interpretation Comments Absolute Immature Granulocyte (auto (krishna t code = Absolute Immature Granulocyte (auto) 0.03 0-0.1 [facility] HospitalWhite Blood Kybae0578-94-03 11:31:00* Test Item Value Reference Range Interpretation Comments White Blood Count (test code = 6690-2) 7.50 4.8-10.8 [facility] HospitalRed Blood Ypxzc5320-87-92 11:31:00* Test Item Value Reference Range Interpretation Comments Red Blood Count (test code = 789-8) 4.78 3.6-5.1 [facility] HospitalHemoglobin2018-08-31 11:31:00* Test Item Value Reference Range Interpretation Comments Hemoglobin (test code = 99113-8) 13.4 12.0-16.0 [facility] HospitalHematocrit2018-08-31 11:31:00* Test Item Value Reference Range Interpretation Comments Hematocrit (test code = 4544-3) 41.2 34.2-44.1 [facility] HospitalMean Corpuscular Xrcsrp5009-27-73 11:31:00* Test Item Value Reference Range Interpretation Comments Mean Corpuscular Volume (test code = 787-2) 86.2 81-99 [facility] HospitalMean Corpuscular Fmkqbvscni6635-65-86 11:31:00* Test Item Value Reference Range Interpretation Comments Mean Corpuscular Hemoglobin (test code = 785-6) 28.0 28-32 [facility] HospitalMean Corpuscular Hemoglobin Concent 2018-06-26 11:31:00* Test Item Value Reference Range Interpretation Comments Mean Corpuscular Hemoglobin Concent (test code = 786-4) 32.5 31-35 [facility] HospitalRed Cell Distribution Xhfyi9443-76-04 11:31:00* Test Item Value Reference Range Interpretation Comments Red Cell Distribution Width (test code = 74560-7) 13.4 11.7 -14.4 [facility] HospitalPlatelet Yoljo1294-44-88 11:31:00* Test Item Value Reference Range Interpretation Comments Platelet Count (test code = 777-3) 366 140-360 H [facility] HospitalNeutrophils (%) (Auto)2018-06-26 11:31:00 * Test Item Value Reference Range Interpretation Comments Neutrophils (%) (Auto) (test code = 79654-6) 61.6 38.7-80.0 [facility] HospitalLymphocytes (%) (Auto)2018-06-26 11:31:00 * Test Item Value Reference Range Interpretation Comments Lymphocytes (%) (Auto) (test code = 736-9) 20.8 18.0-39.1 [facility] HospitalMonocytes (%) (Auto)2018-06-26 11:31:00* Test Item Value Reference Range Interpretation Comments Monocytes (%) (Auto) (test code = 5905-5) 9.9 4.4-11.3 [facility] HospitalEosinophils (%) (Auto)2018-06-26 11:31:00 * Test Item Value Reference Range Interpretation Comments Eosinophils (%) (Auto) (test code = 713-8) 6.0 0.0-6.0 [facility] HospitalBasophils (%) (Auto)2018-06-26 11:31:00* Test Item Value Reference Range Interpretation Comments Basophils (%) (Auto) (test code = 706-2) 1.3 0.0-1.0 H [facility] HospitalIM GRANULOCYTES %2018-06-26 11:31:00* Test Item Value Reference Range Interpretation Comments IM GRANULOCYTES % (test code = IM GRANULOCYTES %) 0.4 0.0- 1.0 [facility] HospitalNeutrophils # (Auto)2018-06-26 11:31:00* Test Item Value Reference Range Interpretation Comments Neutrophils # (Auto) (test code = 751-8) 4.6 2.1-6.9 [facility] HospitalLymphocytes # (Auto)2018-06-26 11:31:00* Test Item Value Reference Range Interpretation Comments Lymphocytes # (Auto) (test code = 71461-6) 1.6 1.0-3.2 [facility] HospitalMonocytes # (Auto)2018-06-26 11:31:00* Test Item Value Reference Range Interpretation Comments Monocytes # (Auto) (test code = 742-7) 0.7 0.2-0.8 [facility] HospitalEosinophils # (Auto)2018-06-26 11:31:00* Test Item Value Reference Range Interpretation Comments Eosinophils # (Auto) (test code = 711-2) 0.5 0.0-0.4 H [facility] HospitalBasophils # (Auto)2018-06-26 11:31:00* Test Item Value Reference Range Interpretation Comments Basophils # (Auto) (test code = 704-7) 0.1 0.0-0.1 [facility] HospitalAbsolute Immature Granulocyte (auto 2018-06-26 11:31:00* Test Item Value Reference Range Interpretation Comments Absolute Immature Granulocyte (auto (krishna t code = Absolute Immature Granulocyte (auto) 0.03 0-0.1 [facility] HospitalWhite Blood Avtpa1179-52-39 11:31:00* Test Item Value Reference Range Interpretation Comments White Blood Count (test code = 6690-2) 7.50 4.8-10.8 [facility] HospitalRed Blood Kcybh0273-77-93 11:31:00* Test Item Value Reference Range Interpretation Comments Red Blood Count (test code = 789-8) 4.78 3.6-5.1 [facility] HospitalHemoglobin2018-08-31 11:31:00* Test Item Value Reference Range Interpretation Comments Hemoglobin (test code = 93138-2) 13.4 12.0-16.0 [facility] HospitalHematocrit2018-08-31 11:31:00* Test Item Value Reference Range Interpretation Comments Hematocrit (test code = 4544-3) 41.2 34.2-44.1 [facility] HospitalMean Corpuscular Lheqwn6854-65-85 11:31:00* Test Item Value Reference Range Interpretation Comments Mean Corpuscular Volume (test code = 787-2) 86.2 81-99 [facility] HospitalMean Corpuscular Dqlggktbbk6542-23-35 11:31:00* Test Item Value Reference Range Interpretation Comments Mean Corpuscular Hemoglobin (test code = 785-6) 28.0 28-32 [facility] Hem[facility] Concent 2018-06-26 11:31:00* Test Item Value Reference Range Interpretation Comments Mean Corpuscular Hemoglobin Concent (test code = 786-4) 32.5 31-35 [facility] HospitalRed Cell Distribution Mehpi6555-84-91 11:31:00* Test Item Value Reference Range Interpretation Comments Red Cell Distribution Width (test code = 05017-5) 13.4 11.7 -14.4 [facility] HospitalPlatelet Vfxan5588-90-32 11:31:00* Test Item Value Reference Range Interpretation Comments Platelet Count (test code = 777-3) 366 140-360 H [facility] HospitalNeutrophils (%) (Auto)2018-06-26 11:31:00 * Test Item Value Reference Range Interpretation Comments Neutrophils (%) (Auto) (test code = 87899-7) 61.6 38.7-80.0 [facility] HospitalLymphocytes (%) (Auto)2018-06-26 11:31:00 * Test Item Value Reference Range Interpretation Comments Lymphocytes (%) (Auto) (test code = 736-9) 20.8 18.0-39.1 [facility] HospitalMonocytes (%) (Auto)2018-06-26 11:31:00* Test Item Value Reference Range Interpretation Comments Monocytes (%) (Auto) (test code = 5905-5) 9.9 4.4-11.3 [facility] HospitalEosinophils (%) (Auto)2018-06-26 11:31:00 * Test Item Value Reference Range Interpretation Comments Eosinophils (%) (Auto) (test code = 713-8) 6.0 0.0-6.0 [facility] HospitalBasophils (%) (Auto)2018-06-26 11:31:00* Test Item Value Reference Range Interpretation Comments Basophils (%) (Auto) (test code = 706-2) 1.3 0.0-1.0 H [facility] HospitalIM GRANULOCYTES %2018-06-26 11:31:00* Test Item Value Reference Range Interpretation Comments IM GRANULOCYTES % (test code = IM GRANULOCYTES %) 0.4 0.0- 1.0 [facility] HospitalNeutrophils # (Auto)2018-06-26 11:31:00* Test Item Value Reference Range Interpretation Comments Neutrophils # (Auto) (test code = 751-8) 4.6 2.1-6.9 [facility] HospitalLymphocytes # (Auto)2018-06-26 11:31:00* Test Item Value Reference Range Interpretation Comments Lymphocytes # (Auto) (test code = 48195-4) 1.6 1.0-3.2 [facility] HospitalMonocytes # (Auto)2018-06-26 11:31:00* Test Item Value Reference Range Interpretation Comments Monocytes # (Auto) (test code = 742-7) 0.7 0.2-0.8 [facility] HospitalEosinophils # (Auto)2018-06-26 11:31:00* Test Item Value Reference Range Interpretation Comments Eosinophils # (Auto) (test code = 711-2) 0.5 0.0-0.4 H [facility] HospitalBasophils # (Auto)2018-06-26 11:31:00* Test Item Value Reference Range Interpretation Comments Basophils # (Auto) (test code = 704-7) 0.1 0.0-0.1 [facility] HospitalAbsolute Immature Granulocyte (auto 2018-06-26 11:31:00* Test Item Value Reference Range Interpretation Comments Absolute Immature Granulocyte (auto (krishna t code = Absolute Immature Granulocyte (auto) 0.03 0-0.1 [facility] HospitalWhite Blood Lcadu4265-55-44 11:31:00* Test Item Value Reference Range Interpretation Comments White Blood Count (test code = 6690-2) 7.50 4.8-10.8 [facility] HospitalRed Blood Vlbua9020-75-38 11:31:00* Test Item Value Reference Range Interpretation Comments Red Blood Count (test code = 789-8) 4.78 3.6-5.1 [facility] HospitalHemoglobin2018-08-31 11:31:00* Test Item Value Reference Range Interpretation Comments Hemoglobin (test code = 04917-2) 13.4 12.0-16.0 [facility] HospitalHematocrit2018-08-31 11:31:00* Test Item Value Reference Range Interpretation Comments Hematocrit (test code = 4544-3) 41.2 34.2-44.1 [facility] HospitalMean Corpuscular Flasra5123-13-60 11:31:00* Test Item Value Reference Range Interpretation Comments Mean Corpuscular Volume (test code = 787-2) 86.2 81-99 [facility]Mean Corpuscular Sjnvbvvkpn6152-60-14 11:31:00* Test Item Value Reference Range Interpretation Comments Mean Corpuscular Hemoglobin (test code = 785-6) 28.0 28-32 [facility] HospitalMean Corpuscular Hemoglobin Concent 2018-06-26 11:31:00* Test Item Value Reference Range Interpretation Comments Mean Corpuscular Hemoglobin Concent (test code = 786-4) 32.5 31-35 [facility] HospitalRed Cell Distribution Dcltx0086-43-14 11:31:00* Test Item Value Reference Range Interpretation Comments Red Cell Distribution Width (test code = 12660-0) 13.4 11.7 -14.4 [facility] HospitalPlatelet Bbnig8298-64-17 11:31:00* Test Item Value Reference Range Interpretation Comments Platelet Count (test code = 777-3) 366 140-360 H [facility] HospitalNeutrophils (%) (Auto)2018-06-26 11:31:00 * Test Item Value Reference Range Interpretation Comments Neutrophils (%) (Auto) (test code = 87736-9) 61.6 38.7-80.0 [facility] HospitalLymphocytes (%) (Auto)2018-06-26 11:31:00 * Test Item Value Reference Range Interpretation Comments Lymphocytes (%) (Auto) (test code = 736-9) 20.8 18.0-39.1 [facility] HospitalMonocytes (%) (Auto)2018-06-26 11:31:00* Test Item Value Reference Range Interpretation Comments Monocytes (%) (Auto) (test code = 5905-5) 9.9 4.4-11.3 [facility] HospitalEosinophils (%) (Auto)2018-06-26 11:31:00 * Test Item Value Reference Range Interpretation Comments Eosinophils (%) (Auto) (test code = 713-8) 6.0 0.0-6.0 [facility] HospitalBasophils (%) (Auto)2018-06-26 11:31:00* Test Item Value Reference Range Interpretation Comments Basophils (%) (Auto) (test code = 706-2) 1.3 0.0-1.0 H [facility] HospitalIM GRANULOCYTES %2018-06-26 11:31:00* Test Item Value Reference Range Interpretation Comments IM GRANULOCYTES % (test code = IM GRANULOCYTES %) 0.4 0.0- 1.0 [facility] HospitalNeutrophils # (Auto)2018-06-26 11:31:00* Test Item Value Reference Range Interpretation Comments Neutrophils # (Auto) (test code = 751-8) 4.6 2.1-6.9 [facility] HospitalLymphocytes # (Auto)2018-06-26 11:31:00* Test Item Value Reference Range Interpretation Comments Lymphocytes # (Auto) (test code = 00692-3) 1.6 1.0-3.2 [facility] HospitalMonocytes # (Auto)2018-06-26 11:31:00* Test Item Value Reference Range Interpretation Comments Monocytes # (Auto) (test code = 742-7) 0.7 0.2-0.8 [facility] HospitalEosinophils # (Auto)2018-06-26 11:31:00* Test Item Value Reference Range Interpretation Comments Eosinophils # (Auto) (test code = 711-2) 0.5 0.0-0.4 H [facility] HospitalBasophils # (Auto)2018-06-26 11:31:00* Test Item Value Reference Range Interpretation Comments Basophils # (Auto) (test code = 704-7) 0.1 0.0-0.1 [facility] HospitalAbsolute Immature Granulocyte (auto 2018-06-26 11:31:00* Test Item Value Reference Range Interpretation Comments Absolute Immature Granulocyte (auto (krishna t code = Absolute Immature Granulocyte (auto) 0.03 0-0.1 [facility] HospitalWhite Blood Cfpch7475-96-05 11:31:00* Test Item Value Reference Range Interpretation Comments White Blood Count (test code = 6690-2) 7.50 4.8-10.8 [facility] HospitalRed Blood Vejsu3374-54-38 11:31:00* Test Item Value Reference Range Interpretation Comments Red Blood Count (test code = 789-8) 4.78 3.6-5.1 [facility] HospitalHemoglobin2018-08-31 11:31:00* Test Item Value Reference Range Interpretation Comments Hemoglobin (test code = 15921-2) 13.4 12.0-16.0 [facility] HospitalHematocrit2018-08-31 11:31:00* Test Item Value Reference Range Interpretation Comments Hematocrit (test code = 4544-3) 41.2 34.2-44.1 [facility] HospitalMean Corpuscular Wifvfa3020-33-53 11:31:00* Test Item Value Reference Range Interpretation Comments Mean Corpuscular Volume (test code = 787-2) 86.2 81-99 [facility] HospitalMean Corpuscular Zbeedapnpp6370-89-79 11:31:00* Test Item Value Reference Range Interpretation Comments Mean Corpuscular Hemoglobin (test code = 785-6) 28.0 28-32 [facility] HospitalMean Corpuscular Hemoglobin Concent 2018-06-26 11:31:00* Test Item Value Reference Range Interpretation Comments Mean Corpuscular Hemoglobin Concent (test code = 786-4) 32.5 31-35 [facility] HospitalRed Cell Distribution Impta1214-96-27 11:31:00* Test Item Value Reference Range Interpretation Comments Red Cell Distribution Width (test code = 61177-9) 13.4 11.7 -14.4 [facility] HospitalPlatelet Egjlj6575-06-49 11:31:00* Test Item Value Reference Range Interpretation Comments Platelet Count (test code = 777-3) 366 140-360 H [facility] HospitalNeutrophils (%) (Auto)2018-06-26 11:31:00 * Test Item Value Reference Range Interpretation Comments Neutrophils (%) (Auto) (test code = 37914-2) 61.6 38.7-80.0 [facility] HospitalLymphocytes (%) (Auto)2018-06-26 11:31:00 * Test Item Value Reference Range Interpretation Comments Lymphocytes (%) (Auto) (test code = 736-9) 20.8 18.0-39.1 [facility] HospitalMonocytes (%) (Auto)2018-06-26 11:31:00* Test Item Value Reference Range Interpretation Comments Monocytes (%) (Auto) (test code = 5905-5) 9.9 4.4-11.3 [facility] HospitalEosinophils (%) (Auto)2018-06-26 11:31:00 * Test Item Value Reference Range Interpretation Comments Eosinophils (%) (Auto) (test code = 713-8) 6.0 0.0-6.0 [facility] HospitalBasophils (%) (Auto)2018-06-26 11:31:00* Test Item Value Reference Range Interpretation Comments Basophils (%) (Auto) (test code = 706-2) 1.3 0.0-1.0 H [facility] HospitalIM GRANULOCYTES %2018-06-26 11:31:00* Test Item Value Reference Range Interpretation Comments IM GRANULOCYTES % (test code = IM GRANULOCYTES %) 0.4 0.0- 1.0 [facility] HospitalNeutrophils # (Auto)2018-06-26 11:31:00* Test Item Value Reference Range Interpretation Comments Neutrophils # (Auto) (test code = 751-8) 4.6 2.1-6.9 [facility] HospitalLymphocytes # (Auto)2018-06-26 11:31:00* Test Item Value Reference Range Interpretation Comments Lymphocytes # (Auto) (test code = 47171-9) 1.6 1.0-3.2 [facility] HospitalMonocytes # (Auto)2018-06-26 11:31:00* Test Item Value Reference Range Interpretation Comments Monocytes # (Auto) (test code = 742-7) 0.7 0.2-0.8 [facility] HospitalEosinophils # (Auto)2018-06-26 11:31:00* Test Item Value Reference Range Interpretation Comments Eosinophils # (Auto) (test code = 711-2) 0.5 0.0-0.4 H [facility] HospitalBasophils # (Auto)2018-06-26 11:31:00* Test Item Value Reference Range Interpretation Comments Basophils # (Auto) (test code = 704-7) 0.1 0.0-0.1 [facility] HospitalAbsolute Immature Granulocyte (auto 2018-06-26 11:31:00* Test Item Value Reference Range Interpretation Comments Absolute Immature Granulocyte (auto (krishna t code = Absolute Immature Granulocyte (auto) 0.03 0-0.1 [facility] HospitalWhite Blood Gxddt5904-84-66 11:31:00* Test Item Value Reference Range Interpretation Comments White Blood Count (test code = 6690-2) 7.50 4.8-10.8 [facility] HospitalRed Blood Lbtom6740-15-56 11:31:00* Test Item Value Reference Range Interpretation Comments Red Blood Count (test code = 789-8) 4.78 3.6-5.1 [facility] HospitalHemoglobin2018-08-31 11:31:00* Test Item Value Reference Range Interpretation Comments Hemoglobin (test code = 45770-0) 13.4 12.0-16.0 [facility] HospitalHematocrit2018-08-31 11:31:00* Test Item Value Reference Range Interpretation Comments Hematocrit (test code = 4544-3) 41.2 34.2-44.1 [facility] HospitalMean Corpuscular Xqedap8840-71-37 11:31:00* Test Item Value Reference Range Interpretation Comments Mean Corpuscular Volume (test code = 787-2) 86.2 81-99 [facility]Mean Corpuscular Myedkutxnf3138-57-32 11:31:00* Test Item Value Reference Range Interpretation Comments Mean Corpuscular Hemoglobin (test code = 785-6) 28.0 28-32 [facility] HospitalMean Corpuscular Hemoglobin Concent 2018-06-26 11:31:00* Test Item Value Reference Range Interpretation Comments Mean Corpuscular Hemoglobin Concent (test code = 786-4) 32.5 31-35 [facility] HospitalRed Cell Distribution Qffbv9029-54-53 11:31:00* Test Item Value Reference Range Interpretation Comments Red Cell Distribution Width (test code = 36940-0) 13.4 11.7 -14.4 [facility] HospitalPlatelet Tieyx8555-29-87 11:31:00* Test Item Value Reference Range Interpretation Comments Platelet Count (test code = 777-3) 366 140-360 H [facility] HospitalNeutrophils (%) (Auto)2018-06-26 11:31:00 * Test Item Value Reference Range Interpretation Comments Neutrophils (%) (Auto) (test code = 61414-8) 61.6 38.7-80.0 [facility] HospitalLymphocytes (%) (Auto)2018-06-26 11:31:00 * Test Item Value Reference Range Interpretation Comments Lymphocytes (%) (Auto) (test code = 736-9) 20.8 18.0-39.1 [facility] HospitalMonocytes (%) (Auto)2018-06-26 11:31:00* Test Item Value Reference Range Interpretation Comments Monocytes (%) (Auto) (test code = 5905-5) 9.9 4.4-11.3 [facility] HospitalEosinophils (%) (Auto)2018-06-26 11:31:00 * Test Item Value Reference Range Interpretation Comments Eosinophils (%) (Auto) (test code = 713-8) 6.0 0.0-6.0 [facility] HospitalBasophils (%) (Auto)2018-06-26 11:31:00* Test Item Value Reference Range Interpretation Comments Basophils (%) (Auto) (test code = 706-2) 1.3 0.0-1.0 H [facility] HospitalIM GRANULOCYTES %2018-06-26 11:31:00* Test Item Value Reference Range Interpretation Comments IM GRANULOCYTES % (test code = IM GRANULOCYTES %) 0.4 0.0- 1.0 [facility] HospitalNeutrophils # (Auto)2018-06-26 11:31:00* Test Item Value Reference Range Interpretation Comments Neutrophils # (Auto) (test code = 751-8) 4.6 2.1-6.9 [facility] HospitalLymphocytes # (Auto)2018-06-26 11:31:00* Test Item Value Reference Range Interpretation Comments Lymphocytes # (Auto) (test code = 49422-3) 1.6 1.0-3.2 [facility] HospitalMonocytes # (Auto)2018-06-26 11:31:00* Test Item Value Reference Range Interpretation Comments Monocytes # (Auto) (test code = 742-7) 0.7 0.2-0.8 [facility] HospitalEosinophils # (Auto)2018-06-26 11:31:00* Test Item Value Reference Range Interpretation Comments Eosinophils # (Auto) (test code = 711-2) 0.5 0.0-0.4 H [facility] HospitalBasophils # (Auto)2018-06-26 11:31:00* Test Item Value Reference Range Interpretation Comments Basophils # (Auto) (test code = 704-7) 0.1 0.0-0.1 [facility] HospitalAbsolute Immature Granulocyte (auto 2018-06-26 11:31:00* Test Item Value Reference Range Interpretation Comments Absolute Immature Granulocyte (auto (krishna t code = Absolute Immature Granulocyte (auto) 0.03 0-0.1 [facility] HospitalWhite Blood Fncrv6052-81-98 11:31:00* Test Item Value Reference Range Interpretation Comments White Blood Count (test code = 6690-2) 7.50 4.8-10.8 [facility] HospitalRed Blood Ubogp7175-77-82 11:31:00* Test Item Value Reference Range Interpretation Comments Red Blood Count (test code = 789-8) 4.78 3.6-5.1 [facility] HospitalHemoglobin2018-08-31 11:31:00* Test Item Value Reference Range Interpretation Comments Hemoglobin (test code = 06619-0) 13.4 12.0-16.0 [facility] HospitalHematocrit2018-08-31 11:31:00* Test Item Value Reference Range Interpretation Comments Hematocrit (test code = 4544-3) 41.2 34.2-44.1 [facility] HospitalMean Corpuscular Pzaxjn0781-23-07 11:31:00* Test Item Value Reference Range Interpretation Comments Mean Corpuscular Volume (test code = 787-2) 86.2 81-99 [facility] HospitalMean Corpuscular Tzoopjlfxa3101-99-98 11:31:00* Test Item Value Reference Range Interpretation Comments Mean Corpuscular Hemoglobin (test code = 785-6) 28.0 28-32 [facility] HospitalMean Corpuscular Hemoglobin Concent 2018-06-26 11:31:00* Test Item Value Reference Range Interpretation Comments Mean Corpuscular Hemoglobin Concent (test code = 786-4) 32.5 31-35 [facility] HospitalRed Cell Distribution Mpksn0790-34-70 11:31:00* Test Item Value Reference Range Interpretation Comments Red Cell Distribution Width (test code = 90682-0) 13.4 11.7 -14.4 [facility] HospitalPlatelet Cbabr3006-36-51 11:31:00* Test Item Value Reference Range Interpretation Comments Platelet Count (test code = 777-3) 366 140-360 H [facility] HospitalNeutrophils (%) (Auto)2018-06-26 11:31:00 * Test Item Value Reference Range Interpretation Comments Neutrophils (%) (Auto) (test code = 34718-2) 61.6 38.7-80.0 [facility] HospitalLymphocytes (%) (Auto)2018-06-26 11:31:00 * Test Item Value Reference Range Interpretation Comments Lymphocytes (%) (Auto) (test code = 736-9) 20.8 18.0-39.1 [facility] HospitalMonocytes (%) (Auto)2018-06-26 11:31:00* Test Item Value Reference Range Interpretation Comments Monocytes (%) (Auto) (test code = 5905-5) 9.9 4.4-11.3 [facility] HospitalEosinophils (%) (Auto)2018-06-26 11:31:00 * Test Item Value Reference Range Interpretation Comments Eosinophils (%) (Auto) (test code = 713-8) 6.0 0.0-6.0 [facility] HospitalBasophils (%) (Auto)2018-06-26 11:31:00* Test Item Value Reference Range Interpretation Comments Basophils (%) (Auto) (test code = 706-2) 1.3 0.0-1.0 H [facility] HospitalIM GRANULOCYTES %2018-06-26 11:31:00* Test Item Value Reference Range Interpretation Comments IM GRANULOCYTES % (test code = IM GRANULOCYTES %) 0.4 0.0- 1.0 [facility] HospitalNeutrophils # (Auto)2018-06-26 11:31:00* Test Item Value Reference Range Interpretation Comments Neutrophils # (Auto) (test code = 751-8) 4.6 2.1-6.9 [facility] HospitalLymphocytes # (Auto)2018-06-26 11:31:00* Test Item Value Reference Range Interpretation Comments Lymphocytes # (Auto) (test code = 53742-5) 1.6 1.0-3.2 [facility] HospitalMonocytes # (Auto)2018-06-26 11:31:00* Test Item Value Reference Range Interpretation Comments Monocytes # (Auto) (test code = 742-7) 0.7 0.2-0.8 [facility] HospitalEosinophils # (Auto)2018-06-26 11:31:00* Test Item Value Reference Range Interpretation Comments Eosinophils # (Auto) (test code = 711-2) 0.5 0.0-0.4 H [facility] HospitalBasophils # (Auto)2018-06-26 11:31:00* Test Item Value Reference Range Interpretation Comments Basophils # (Auto) (test code = 704-7) 0.1 0.0-0.1 [facility] HospitalAbsolute Immature Granulocyte (auto 2018-06-26 11:31:00* Test Item Value Reference Range Interpretation Comments Absolute Immature Granulocyte (auto (krishna t code = Absolute Immature Granulocyte (auto) 0.03 0-0.1 [facility]woododium Vziba1206-25-39 05:03:00* Test Item Value Reference Range Interpretation Comments Sodium Level (test code = 2951-2) 139 136-145 [facility] HospitalPotassium Deqzs1623-29-08 05:03:00* Test Item Value Reference Range Interpretation Comments Potassium Level (test code = 2823-3) 4.1 3.5-5.1 [facility] HospitalChloride Ylleb2453-95-31 05:03:00* Test Item Value Reference Range Interpretation Comments Chloride Level (test code = 2075-0) 105 98-107 [facility] HospitalCarbon Dioxide Wlypq4506-01-22 05:03:00* Test Item Value Reference Range Interpretation Comments Carbon Dioxide Level (test code = 2028-9) 24 22-29 [facility] HospitalAnion Etd3064-22-31 05:03:00* Test Item Value Reference Range Interpretation Comments Anion Gap (test code = 23700-3) 14.1 8-16 [facility] HospitalBlood Urea Nvaevkeg7030-78-85 05:03:00* Test Item Value Reference Range Interpretation Comments Blood Urea Nitrogen (test code = 3094-0) 10 7-26 [facility] HospitalCreatinine2018-07-28 05:03:00* Test Item Value Reference Range Interpretation Comments Creatinine (test code = 2160-0) 0.93 0.57-1.11 [facility] HospitalBUN/Creatinine Mgmrz4093-36-25 05:03:00* Test Item Value Reference Range Interpretation Comments BUN/Creatinine Ratio (test code = 3097-3) 11 6- [facility] HospitalEstimat Glomerular Filtration Rate 2018-05-23 05:03:00* Test Item Value Reference Range Interpretation Comments Estimat Glomerular Filtration Rate (test code = 44082-7) 59 >60 L Ranges were taken from the National Kidney Disease Education Program and the [facility] literature.Reference ranges:60 or greater: Hbgyyl68-65 ( for 3 consecutive months): Chronic kidney disease 15 or less: Kidney failureLegent Orthopedic HospitalGlucose Nfcck9427-62-35 05:03:00* Test Item Value Reference Range Interpretation Comments Glucose Level (test code = YQU4660) 118 74-118 [facility] HospitalCalcium Navqv7956-32-30 05:03:00* Test Item Value Reference Range Interpretation Comments Calcium Level (test code = 83454-3) 9.1 8.4-10.2 [facility] HospitalTo[facility] Qquktggmw6902-19-77 05:03:00* Test Item Value Reference Range Interpretation Comments Total Bilirubin (test code = 1975-2) 0.3 0.2-1.2 [facility] HospitalAspartate Amino Transf (AST/SGOT) 2018-05-23 05:03:00* Test Item Value Reference Range Interpretation Comments Aspartate Amino Transf (AST/SGOT) (test code = Aspartate Amino Transf (AST/SGOT)) 15 5-34 [facility] HospitalAlanine Aminotransferase (ALT/SGPT) 2018-05-23 05:03:00* Test Item Value Reference Range Interpretation Comments Alanine Aminotransferase (ALT/SGPT) (test code = 1742-6) 12 0-55 [facility] HospitalTotal Uunisaq1050-81-61 05:03:00* Test Item Value Reference Range Interpretation Comments Total Protein (test code = 2885-2) 6.2 6.5-8.1 L [facility] HospitalAlbumin2018-07-28 05:03:00* Test Item Value Reference Range Interpretation Comments Albumin (test code = 1751-7) 3.3 3.5-5.0 L [facility] HospitalGlobulin2018-07-28 05:03:00* Test Item Value Reference Range Interpretation Comments Globulin (test code = 12245-4) 2.9 2.3-3.5 [facility] HospitalAlbumin/Globulin Jocga3229-22-20 05:03:00 * Test Item Value Reference Range Interpretation Comments Albumin/Globulin Ratio (test code = 1759-0) 1.1 0.8-2.0 [facility] HospitalAlkaline Rzyjkgabifz2883-58-64 05:03:00* Test Item Value Reference Range Interpretation Comments Alkaline Phosphatase (test code = 6768-6) 99 40-150 [facility] HospitalProthrombin Nfml6056-91-47 04:55:00* Test Item Value Reference Range Interpretation Comments Prothrombin Time (test code = 5902-2) 11.6 11.9-14.5 L [facility] HospitalProthromb Time International Ratio 2018-05-23 04:55:00* Test Item Value Reference Range Interpretation Comments Prothromb Time International Ratio (test code = 6301-6) 0.92 Oral Anticoagulant Therapy INR Values:1. Low Intensity Therapy 1.5 - 2.02 . Moderate Intensity Therapy 2.0 - 3.03. High Intensity Therapy(1) 2.5 - 3. 54. High Intensity Therapy(2) 3.0 - 4.05. Panic Value INR > 5.0 [facility] HospitalActivated Partial Thromboplast Time 2018-05-23 04:55:00* Test Item Value Reference Range Interpretation Comments Activated Partial Thromboplast Time (test code = 82146-8) 25.7 23.8-35.5 [facility] HospitalProthrombin Gtkj7371-35-96 04:55:00* Test Item Value Reference Range Interpretation Comments Prothrombin Time (test code = 5902-2) 11.6 11.9-14.5 L [facility] HospitalProthromb Time International Ratio 2018-05-23 04:55:00* Test Item Value Reference Range Interpretation Comments Prothromb Time International Ratio (test code = 6301-6) 0.92 Oral Anticoagulant Therapy INR Values:1. Low Intensity Therapy 1.5 - 2.02 . Moderate Intensity Therapy 2.0 - 3.03. High Intensity Therapy(1) 2.5 - 3. 54. High Intensity Therapy(2) 3.0 - 4.05. Panic Value INR > 5.0 [facility] HospitalActivated Partial Thromboplast Time 2018-05-23 04:55:00* Test Item Value Reference Range Interpretation Comments Activated Partial Thromboplast Time (test code = 75289-8) 25.7 23.8-35.5 [facility] HospitalProthrombin Mruj8656-23-33 04:55:00* Test Item Value Reference Range Interpretation Comments Prothrombin Time (test code = 5902-2) 11.6 11.9-14.5 L [facility] HospitalProthromb Time International Ratio 2018-05-23 04:55:00* Test Item Value Reference Range Interpretation Comments Prothromb Time International Ratio (test code = 6301-6) 0.92 Oral Anticoagulant Therapy INR Values:1. Low Intensity Therapy 1.5 - 2.02 . Moderate Intensity Therapy 2.0 - 3.03. High Intensity Therapy(1) 2.5 - 3. 54. High Intensity Therapy(2) 3.0 - 4.05. Panic Value INR > 5.0 [facility] HospitalActivated Partial Thromboplast Time 2018-05-23 04:55:00* Test Item Value Reference Range Interpretation Comments Activated Partial Thromboplast Time (test code = 33543-9) 25.7 23.8-35.5 [facility] HospitalProthrombin Mihg5449-02-53 04:55:00* Test Item Value Reference Range Interpretation Comments Prothrombin Time (test code = 5902-2) 11.6 11.9-14.5 L [facility] HospitalProthromb Time International Ratio 2018-05-23 04:55:00* Test Item Value Reference Range Interpretation Comments Prothromb Time International Ratio (test code = 6301-6) 0.92 Oral Anticoagulant Therapy INR Values:1. Low Intensity Therapy 1.5 - 2.02 . Moderate Intensity Therapy 2.0 - 3.03. High Intensity Therapy(1) 2.5 - 3. 54. High Intensity Therapy(2) 3.0 - 4.05. Panic Value INR > 5.0 [facility] HospitalActivated Partial Thromboplast Time 2018-05-23 04:55:00* Test Item Value Reference Range Interpretation Comments Activated Partial Thromboplast Time (test code = 76068-9) 25.7 23.8-35.5 [facility] HospitalProthrombin Wgze0451-20-84 04:55:00* Test Item Value Reference Range Interpretation Comments Prothrombin Time (test code = 5902-2) 11.6 11.9-14.5 L [facility] HospitalProthromb Time International Ratio 2018-05-23 04:55:00* Test Item Value Reference Range Interpretation Comments Prothromb Time International Ratio (test code = 6301-6) 0.92 Oral Anticoagulant Therapy INR Values:1. Low Intensity Therapy 1.5 - 2.02 . Moderate Intensity Therapy 2.0 - 3.03. High Intensity Therapy(1) 2.5 - 3. 54. High Intensity Therapy(2) 3.0 - 4.05. Panic Value INR > 5.0 [facility] HospitalActivated Partial Thromboplast Time 2018-05-23 04:55:00* Test Item Value Reference Range Interpretation Comments Activated Partial Thromboplast Time (test code = 52077-5) 25.7 23.8-35.5 [facility] HospitalProthrombin Drfx1352-43-31 04:55:00* Test Item Value Reference Range Interpretation Comments Prothrombin Time (test code = 5902-2) 11.6 11.9-14.5 L [facility] HospitalProthromb Time International Ratio 2018-05-23 04:55:00* Test Item Value Reference Range Interpretation Comments Prothromb Time International Ratio (test code = 6301-6) 0.92 Oral Anticoagulant Therapy INR Values:1. Low Intensity Therapy 1.5 - 2.02 . Moderate Intensity Therapy 2.0 - 3.03. High Intensity Therapy(1) 2.5 - 3. 54. High Intensity Therapy(2) 3.0 - 4.05. Panic Value INR > 5.0 [facility] HospitalActivated Partial Thromboplast Time 2018-05-23 04:55:00* Test Item Value Reference Range Interpretation Comments Activated Partial Thromboplast Time (test code = 31234-0) 25.7 23.8-35.5 [facility] HospitalProthrombin Lbsh0769-91-69 04:55:00* Test Item Value Reference Range Interpretation Comments Prothrombin Time (test code = 5902-2) 11.6 11.9-14.5 L [facility] HospitalProthromb Time International Ratio 2018-05-23 04:55:00* Test Item Value Reference Range Interpretation Comments Prothromb Time International Ratio (test code = 6301-6) 0.92 Oral Anticoagulant Therapy INR Values:1. Low Intensity Therapy 1.5 - 2.02 . Moderate Intensity Therapy 2.0 - 3.03. High Intensity Therapy(1) 2.5 - 3. 54. High Intensity Therapy(2) 3.0 - 4.05. Panic Value INR > 5.0 [facility] HospitalActivated Partial Thromboplast Time 2018-05-23 04:55:00* Test Item Value Reference Range Interpretation Comments Activated Partial Thromboplast Time (test code = 60147-0) 25.7 23.8-35.5 [facility] HospitalProthrombin Wrda7950-71-70 04:55:00* Test Item Value Reference Range Interpretation Comments Prothrombin Time (test code = 5902-2) 11.6 11.9-14.5 L [facility] HospitalProthromb Time International Ratio 2018-05-23 04:55:00* Test Item Value Reference Range Interpretation Comments Prothromb Time International Ratio (test code = 6301-6) 0.92 Oral Anticoagulant Therapy INR Values:1. Low Intensity Therapy 1.5 - 2.02 . Moderate Intensity Therapy 2.0 - 3.03. High Intensity Therapy(1) 2.5 - 3. 54. High Intensity Therapy(2) 3.0 - 4.05. Panic Value INR > 5.0 [facility] HospitalActivated Partial Thromboplast Time 2018-05-23 04:55:00* Test Item Value Reference Range Interpretation Comments Activated Partial Thromboplast Time (test code = 75227-5) 25.7 23.8-35.5 [facility] HospitalProthrombin Cmri3632-10-55 04:55:00* Test Item Value Reference Range Interpretation Comments Prothrombin Time (test code = 5902-2) 11.6 11.9-14.5 L [facility] HospitalProthromb Time International Ratio 2018-05-23 04:55:00* Test Item Value Reference Range Interpretation Comments Prothromb Time International Ratio (test code = 6301-6) 0.92 Oral Anticoagulant Therapy INR Values:1. Low Intensity Therapy 1.5 - 2.02 . Moderate Intensity Therapy 2.0 - 3.03. High Intensity Therapy(1) 2.5 - 3. 54. High Intensity Therapy(2) 3.0 - 4.05. Panic Value INR > 5.0 [facility] HospitalActivated Partial Thromboplast Time 2018-05-23 04:55:00* Test Item Value Reference Range Interpretation Comments Activated Partial Thromboplast Time (test code = 01970-7) 25.7 23.8-35.5 [facility] HospitalProthrombin Nixx0790-09-36 04:55:00* Test Item Value Reference Range Interpretation Comments Prothrombin Time (test code = 5902-2) 11.6 11.9-14.5 L [facility] HospitalProthromb Time International Ratio 2018-05-23 04:55:00* Test Item Value Reference Range Interpretation Comments Prothromb Time International Ratio (test code = 6301-6) 0.92 Oral Anticoagulant Therapy INR Values:1. Low Intensity Therapy 1.5 - 2.02 . Moderate Intensity Therapy 2.0 - 3.03. High Intensity Therapy(1) 2.5 - 3. 54. High Intensity Therapy(2) 3.0 - 4.05. Panic Value INR > 5.0 [facility] HospitalActivated Partial Thromboplast Time 2018-05-23 04:55:00* Test Item Value Reference Range Interpretation Comments Activated Partial Thromboplast Time (test code = 44312-1) 25.7 23.8-35.5 [facility] HospitalProthrombin Qyle6184-62-86 04:55:00* Test Item Value Reference Range Interpretation Comments Prothrombin Time (test code = 5902-2) 11.6 11.9-14.5 L [facility] HospitalProthromb Time International Ratio 2018-05-23 04:55:00* Test Item Value Reference Range Interpretation Comments Prothromb Time International Ratio (test code = 6301-6) 0.92 Oral Anticoagulant Therapy INR Values:1. Low Intensity Therapy 1.5 - 2.02 . Moderate Intensity Therapy 2.0 - 3.03. High Intensity Therapy(1) 2.5 - 3. 54. High Intensity Therapy(2) 3.0 - 4.05. Panic Value INR > 5.0 [facility] HospitalActivated Partial Thromboplast Time 2018-05-23 04:55:00* Test Item Value Reference Range Interpretation Comments Activated Partial Thromboplast Time (test code = 11509-1) 25.7 23.8-35.5 [facility] HospitalWhite Blood Hfpyo3495-51-86 04:37:00* Test Item Value Reference Range Interpretation Comments White Blood Count (test code = 6690-2) 11.61 4.8-10.8 H [facility] HospitalRed Blood Aypvd3476-10-38 04:37:00* Test Item Value Reference Range Interpretation Comments Red Blood Count (test code = 789-8) 4.43 3.6-5.1 [facility] HospitalHemoglobin2018-07-28 04:37:00* Test Item Value Reference Range Interpretation Comments Hemoglobin (test code = 99853-5) 12.2 12.0-16.0 [facility] HospitalHematocrit2018-07-28 04:37:00* Test Item Value Reference Range Interpretation Comments Hematocrit (test code = 4544-3) 37.9 34.2-44.1 [facility] HospitalMean Corpuscular Lpvbpa2002-95-86 04:37:00* Test Item Value Reference Range Interpretation Comments Mean Corpuscular Volume (test code = 787-2) 85.6 81-99 [facility] HospitalMean Corpuscular Dkvibrkxos6716-15-41 04:37:00* Test Item Value Reference Range Interpretation Comments Mean Corpuscular Hemoglobin (test code = 785-6) 27.5 28-32 L [facility] HospitalMe Corpuscular Hemoglobin Concent 2018-05-23 04:37:00* Test Item Value Reference Range Interpretation Comments Mean Corpuscular Hemoglobin Concent (test code = 786-4) 32.2 31-35 [facility] HospitalRed Cell Distribution Ewhwf1829-09-71 04:37:00* Test Item Value Reference Range Interpretation Comments Red Cell Distribution Width (test code = 29046-2) 14.1 11.7 -14.4 [facility] HospitalPlatelet Fuhus6133-69-90 04:37:00* Test Item Value Reference Range Interpretation Comments Platelet Count (test code = 777-3) 364 140-360 H [facility] HospitalNeutrophils (%) (Auto)2018-05-23 04:37:00 * Test Item Value Reference Range Interpretation Comments Neutrophils (%) (Auto) (test code = 46223-8) 58.0 38.7-80.0 [facility] HospitalLymphocytes (%) (Auto)2018-05-23 04:37:00 * Test Item Value Reference Range Interpretation Comments Lymphocytes (%) (Auto) (test code = 736-9) 25.6 18.0-39.1 [facility] HospitalMonocytes (%) (Auto)2018-05-23 04:37:00* Test Item Value Reference Range Interpretation Comments Monocytes (%) (Auto) (test code = 5905-5) 9.6 4.4-11.3 [facility] HospitalEosinophils (%) (Auto)2018-05-23 04:37:00 * Test Item Value Reference Range Interpretation Comments Eosinophils (%) (Auto) (test code = 713-8) 5.5 0.0-6.0 [facility] HospitalBasophils (%) (Auto)2018-05-23 04:37:00* Test Item Value Reference Range Interpretation Comments Basophils (%) (Auto) (test code = 706-2) 0.3 0.0-1.0 [facility] HospitalIM GRANULOCYTES %2018-05-23 04:37:00* Test Item Value Reference Range Interpretation Comments IM GRANULOCYTES % (test code = IM GRANULOCYTES %) 1.0 0.0- 1.0 [facility] HospitalNeutrophils # (Auto)2018-05-23 04:37:00* Test Item Value Reference Range Interpretation Comments Neutrophils # (Auto) (test code = 751-8) 6.7 2.1-6.9 [facility] HospitalLymphocytes # (Auto)2018-05-23 04:37:00* Test Item Value Reference Range Interpretation Comments Lymphocytes # (Auto) (test code = 41228-3) 3.0 1.0-3.2 [facility] HospitalMonocytes # (Auto)2018-05-23 04:37:00* Test Item Value Reference Range Interpretation Comments Monocytes # (Auto) (test code = 742-7) 1.1 0.2-0.8 H [facility] HospitalEosinophils # (Auto)2018-05-23 04:37:00* Test Item Value Reference Range Interpretation Comments Eosinophils # (Auto) (test code = 711-2) 0.6 0.0-0.4 H [facility] HospitalBasophils # (Auto)2018-05-23 04:37:00* Test Item Value Reference Range Interpretation Comments Basophils # (Auto) (test code = 704-7) 0.0 0.0-0.1 [facility] HospitalAbsolute Immature Granulocyte (auto 2018-05-23 04:37:00* Test Item Value Reference Range Interpretation Comments Absolute Immature Granulocyte (auto (krishna t code = Absolute Immature Granulocyte (auto) 0.12 0-0.1 H [facility] HospitalCHEST 2 RQVAE7081-98-40 17:01:00 [place] [address] Patient Name: ELFEGO DEGROOT MR #: [id number] : 1945 Age/Sex: 72/F Req #: [id number] Adm Physician: Ordered by: TAN FULTON MD Report #: [id number] Location: [facility] Room/Bed: Procedure: [id number] DX/CHEST 2 VIEWS Exam Date: 0 04/02/18 Exam Time: 1609 REPORT STATUS: Signed PROCEDURE: Frontal and lateral views of the chest. COMPARISON: Patient s [facility], DX, CHEST 2 VIEWS, 06/13/2015, 11:46. [...] at 17:01 Dictated By: PEPE TRONCOSO MD 00 Transcribed By: DEJA on 04/02/181700 COPY TO: TAN FULTON MD CT ABDOMEN/PELVIS [place] [address] Patient Name: ELFEGO DEGROOT MR #: [id number] : 1945 Age/Sex: 71/F Req #: [id number] Adm Physician: Ordered by: FAUSTINO WADE MD Report #: [id number] Location: CT Room/Bed: Procedure: [id number] CT/CT ABDOMEN/PELVIS WO Exam D ate: 09/08/17 [...] at 15:03 Dictated By: PEPE TRONCOSO MD Transcribed By: DEJA on 09/08/173 COPY TO : FAUSTINO WADE MD US RENAL RETROPERITONEAL COMP [place] [address] Patient Name: ELFEGO DEGROOT MR #: [id number] : 1945 Age/Sex: 71/F Req #: [id number] Adm Physician: Ordered by: FAUSTINO WADE MD Report #: [id number] Location: US Room/Bed: Procedure: [id number] US/US RENAL RETROPERITONEAL COM P Exam Date: [...] 3:03 PM Dictated By: DAREK RAMIREZ MD 150 COPY TO: FAUSTINO WEI MD ABDOMEN-1VIEW (KUB) [place] [address] Patient Name: ELFEGO DEGROOT MR #: [id number] : 1945 Age/Sex: 71/F Req #: [id number] Adm Physician: Ordered by: FAUSTINO WADE MD Report #: [id number] Location: Room/Bed: Procedure: [id number] DX/ABDOMEN-1VIEW (KUB) Exam Da te: Exam Time: [...] ically Signed By: DAREK RAMIREZ MD on 08/26/17 1610 Transcribed By: DEJA on 161 COPY TO: FAUSTINO WADE MD
[2020-07-28] MEDS ORDERED: KETOROLAC TROMETHAMINE 30 MG/ML VIAL IM PRN (19:00)
== END 2020-07-28 19:24 | disposition home or self-care (01) ==
LOC: ER 18:12
DX: R10.31 Right lower quadrant pain (principal); M54.41 Lumbago with sciatica, right side; K57.90 Diverticulosis of intestine, part unspecified, without perforation or abscess without bleeding; E03.9 Hypothyroidism, unspecified; M79.7 Fibromyalgia
CPT/HCPCS: 36415; 74176; 80053; 85025; 99284; J1885

== ENCOUNTER 2021-04-13 18:19 | Emergency (ER) | payer MEDICARE, OTHER ==
[~2021-04-13] VITALS: Ht 162.6 cm; Wt 79.4 kg
== END 2021-04-13 19:20 | disposition home or self-care (01) ==
LOC: ER 18:34
DX: R04.0 Epistaxis (principal); E03.9 Hypothyroidism, unspecified; M79.7 Fibromyalgia
CPT/HCPCS: 99282

== ENCOUNTER 2021-10-01 10:00 | Emergency (ER) | payer MEDICARE, OTHER ==
[~2021-10-01] VITALS: Ht 165.1 cm; Wt 77.1 kg
[2021-10-01] MEDS ORDERED: PREDNISONE 20 MG TAB PO ONE (11:15)
[2021-10-01] MEDS ORDERED: FAMOTIDINE 20 MG TAB PO ONE (11:15)
[2021-10-01] MEDS ORDERED: PREDNISONE10 MG PO (11:24)
[2021-10-01] MEDS ORDERED: PREDNISONE 20 MG TAB ONE (11:24)
== END 2021-10-01 12:26 | disposition home or self-care (01) ==
LOC: FSED 10:31
DX: L50.9 Urticaria, unspecified (principal); T78.40XA Allergy, unspecified, initial encounter; E03.9 Hypothyroidism, unspecified; M79.7 Fibromyalgia
CPT/HCPCS: 99282; J7512

== ENCOUNTER 2022-04-07 12:55 | Emergency (ER) | payer MEDICARE, OTHER ==
[~2022-04-07] VITALS: Ht 165.1 cm; Wt 77.1 kg
[~2022-04-07 12:55] MED LIST changes: +PREDNISONE10 MG PO
[2022-04-07] MEDS ORDERED: SODIUM CHLORIDE 0.9% 1000ML 1,000 ML IV STA (13:37)
[2022-04-07] MEDS ORDERED: MECLIZINE HCL 12.5 MG TAB PO ONE (13:45)
[2022-04-07 14:48] LABS: BASOPHILS # (AUTO) 0.1 (0.0-0.1); BASOPHILS % 1.1 % (0.0-1.0); EOSINOPHILS # (AUTO) 0.2 (0.0-0.4); HEMOGLOBIN 12.8 g/dL (12.0-16.0); LYMPHOCYTES % 15.7 % (18.0-39.1); MEAN CORPUSCULAR HEMOGLOBIN 27.3 pg (28-32); MEAN CORPUSCULAR HGB CONC 31.2 g/dL (31-35); MEAN CORPUSCULAR VOLUME 87.4 fL (81-99); MONOCYTES # (AUTO) 0.6 (0.2-0.8); MONOCYTES % 9.7 % (4.4-11.3); NEUTROPHILS # (AUTO) 4.6 (2.1-6.9); NEUTROPHILS % 69.9 % (38.7-80.0); PLATELET COUNT 379 x10e3/uL (140-360); RED BLOOD COUNT 4.69 x10e6/uL (3.6-5.1)
[2022-04-07 14:54] LABS: INR 0.86; PROTHROMBIN TIME 12.5 seconds (11.9-14.5)
[2022-04-07 14:55] LABS: PARTIAL THROMBOPLASTIN TIME 25.4 seconds (23.8-35.5)
[2022-04-07 15:04] LABS: ALANINE AMINOTRANSFERASE 17 IU/L (0-55); ALBUMIN 3.8 g/dL (3.5-5.0); ALKALINE PHOSPHATASE 120 IU/L (40-150); ANION GAP 18.2 mmol/L (8-16); BLOOD UREA NITROGEN 12 mg/dL (7-26); BUN/CREATININE RATIO 14 (6-25); CALCIUM 10.1 mg/dL (8.4-10.2); CARBON DIOXIDE 24 mmol/L (22-29); CHLORIDE 100 mmol/L (98-107); CREATINE KINASE 34 IU/L (29-168); CREATININE, SERUM 0.86 mg/dL (0.57-1.11); GLUCOSE 136 mg/dL (74-118); MAGNESIUM 1.9 MG/DL (1.3-2.1); POTASSIUM 4.2 mmol/L (3.5-5.1); SODIUM 138 mmol/L (136-145)
[2022-04-07 16:29] VITALS: BP 134/81
== END 2022-04-07 16:30 | disposition home or self-care (01) ==
LOC: ER 13:00
DX: R42 Dizziness and giddiness (principal); E03.9 Hypothyroidism, unspecified; M79.7 Fibromyalgia
CPT/HCPCS: 36415; 70450; 71045; 80053; 82550; 82553; 83735; 84484; 85025; 85610; 85730; 93005; 99284; J7030; J8597

== ENCOUNTER → 2022-04-09 | Outpatient (CLI) | payer MEDICARE, OTHER | LOC: RAD 12:11 | DX: M54.2 Cervicalgia (principal) | CPT/HCPCS: 72050 ==

== ENCOUNTER 2022-10-31 11:51 | Emergency (ER) | payer MEDICARE, OTHER ==
[~2022-10-31] VITALS: Ht 165.1 cm; Wt 75.6 kg
== END 2022-10-31 12:25 | disposition home or self-care (01) ==
LOC: FSED 12:05
DX: Z48.02 Encounter for removal of sutures (principal)
CPT/HCPCS: 99282; S0630

== ENCOUNTER 2023-04-08 11:15 | Emergency (ER) | payer MEDICARE, OTHER ==
[~2023-04-08] VITALS: Ht 165.1 cm; Wt 73.0 kg
[2023-04-08] MEDS ORDERED: PREDNISONE20 MG PO (11:48)
[2023-04-08] MEDS ORDERED: DEXAMETHASONE SOD PHOS INJ 4 MG/ML SDV ONE (11:53)
[2023-04-08] MEDS ORDERED: DEXAMETHASONE SOD PHOS INJ 4 MG/ML SDV IM ONE (12:00)
[2023-04-08 12:13] VITALS: O2SAT 98
== END 2023-04-08 12:13 | disposition home or self-care (01) ==
LOC: FSED 11:24
DX: T78.3XXA Angioneurotic edema, initial encounter (principal); I10 Essential (primary) hypertension; E03.9 Hypothyroidism, unspecified; I25.10 Atherosclerotic heart disease of native coronary artery without angina pectoris; M79.7 Fibromyalgia
CPT/HCPCS: 96372; 99283; J1100